=== PATIENT | male | born 1940 | race Caucasian/White ===

== ENCOUNTER 2020-02-02 20:30 | Inpatient (IN) ==
--- NOTE | 2020-02-02 20:58 | Internal Med History&Physical ---
HPI History of Present Illness Patient information: Note initiated : 02/02/20 at 8:47 pm Service Date, if different from initiated Date: [] Patient: Austin Canseco 79 y/o M admitted on for Fall. Chief Complaint: [] History of present illness: Mr. Canseco is a 79 year old M Who suffered from a ground-level fall while ambulating in his RV falling onto his right hip sustaining fracture. Patient was in his normal state of health when he got up to adjust his air conditioning when his right knee gave out. He is a cane and does not get around too well anyway. he was evaluated [place] and found to have a distal femur fracture on the right. Case was discussed with Dr. Ghosh. Patient was also found to have painless jaundice and additionally because of the fall he did have a CT of chest abdomen pelvis which revealed no ductal dilation or cholecystitis, he had gallstones but otherwise unremarkable and no etiology evident for the jaundice. A little bit of nausea prior to arrival but no vomiting. He does have elevation of alk phos as well as AST and ALT. His lactate was little elevated 2.9 and it was felt that he was volume depleted upon evaluation. He is on Eliquis for chronic A. fib. He was also mildly hyponatremic at 130. Only recent medication change was warfarin to Eliquis by PCP 3-6 months ago Review of Systems: Pertinent positives as above. Denies headache/fever/chills/vomiting/chest or abdominal pain/cough/dyspnea/diarrhea. Remaining 10 point review of system reviewed negative PFSH PFSH Social History (Updated 02/02/20 @ 22:53 by Anthony Price DO) additional history: Past medical history: Diabetes Atrial fibrillation CAD with stent Hyperlipidemia/hypertension Chronic low back pain GERD Anxiety insomnia Hyponatremia on a past admission Past surgical history: 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 Bowel resection for diverticulosis Hernia repair Family history: Father with liver disease and liver cancer and alcoholism Mother with a blood disease/bleeding disorder/peptic ulcer disease Social history: Patient quit smoking 50 years ago Denies alcohol use Ambulates with a cane Lives in RV with his , states they move around quite a bit MEDS/ALLERGIES Home Medications and Allergies Allergies Allergy/AdvReac Type Severity Reaction Status Date / Time No Known Drug Allergies Allergy Unverified 02/02/20 21:33 EXAM Constitutional Exam: General: Alert, Awake, No acute Distress Eyes/N/T: EOMI, PERRL, dry MM, scleral icterus Head/Neck: neck supple, normocephalic atraumatic CV: irreg irreg, No murmurs, normal s1/s2 Pulm: Clear b/l, no wheezing/rhonchi/rales Abd: soft, nontender, nondistended +BS x4 Ext: no clubbing/cyanosis/edema, RLE shortened with dressings inplace Neuro: Alert, no focal deficits, moves all extremities, CN 2-12 grossly intact, sensations intact b/l upper/lower Skin: warm/dry A/P Narrative A/P Narrative: A: *Right femur fracture: 2/2 GLF *Volume depletion with mild lactic acidosis: *Painless jaundice with mild transaminitis and ALP: -CT a/p gallstones but no cholecystitis or ductal dilation or any other findings to explain jaundice *Hypovolemic hyponatremia. ?chronic component: *Atrial fibrillation: On Eliquis and amiodarone *CAD w/stent: On statin/?beta-alejandra/ACEI *HTN/HLD: *GERD: *Anxiety: *Chronic LBP: on baclofen P: -Dr. Roman for Ortho -IVF's -MRCP -Hepatitis panel, Direct and indirect bili and GGT -cont cardiac meds -clarify home meds and update -SSI -cont -PT/OT -ppx: Postop per Ortho/home ppi full code Time Spent With Patient Time: Total time spent is greater than 50% in coordination of care (as documented) at patient's floor/unit and/or counseling patient:
[2020-02-02] MEDS ORDERED: POTASSIUM CHLORIDE 20 MEQ TABLET PO PRN ×2 (21:01)
[2020-02-02] MEDS ORDERED: MAGNESIUM SULFATE 2 GM/50 ML BAG IV PRN (21:01)
[2020-02-02] MEDS ORDERED: POLYETHYLENE GLYCOL 3350 17 GM PACKET PO PRN (21:01)
[2020-02-02] MEDS ORDERED: SENNOSIDES 1 TABLET PO PRN (21:01)
[2020-02-02] MEDS ORDERED: ONDANSETRON 4 MG/2 ML VIAL IV PRN (21:01)
[2020-02-02] MEDS ORDERED: POTASSIUM CHLORIDE 40 MEQ in DEXTROSE 5% IN WATER 500 ML IV PRN (21:01)
[2020-02-02] MEDS ORDERED: ACETAMINOPHEN 325 MG TABLET PO PRN (21:01)
[2020-02-02] MEDS ORDERED: METOCLOPRAMIDE 10 MG/2 ML VIAL IV PRN (21:01)
[2020-02-02] MEDS ORDERED: IPRATROPIUM/ALBUTEROL 3 ML AMPUL.NEB NEB PRN (21:01)
[2020-02-02] MEDS ORDERED: METOPROLOL TARTRATE 5 MG/5 ML VIAL IV PRN (21:06)
[2020-02-02] MEDS: 0.9 % SODIUM CHLORIDE 10 ML SYRINGE IV SCH (22:50)
[2020-02-02] MEDS: 0.9 % SODIUM CHLORIDE 1,000 ML IV SCH (22:55)
[2020-02-03 01:56] LABS: Appearance,Urine HAZY; Bacteria,Urine 0 /hpf (0); Bilirubin,Urine NEG (NEG); Color,Urine AMBER; Culture Indicated,Urine NO; Glucose,Urine (UA) >=500 mg/dL (NEG); Ketones,Urine 80 mg/dL (NEG); Leukocyte Esterase,Urine NEG /uL (NEG); Mucus,Urine FEW /hpf (0); Nitrate,Urine NEG (NEG); Protein,Urine 100 mg/dL (NEG); Specific Gravity,Urine 1.047 (1.000-1.035); Urine Blood 0.03 mg/dL (<0.03); Urine RBC 2 /hpf (0-1); Urine Squamous Epithelial Cell 0 /hpf (0-4); Urine WBC 2 /hpf (0-4)
[2020-02-03 02:20] LABS: Amphetamine Screen,Urine NONE DETECTED (NONDETECTED); Barbiturate Screen,Urine NONE DETECTED (NONDETECTED); Benzodiazepines Screen,Urine NONE DETECTED (NONDETECTED); Cannabinoid Screen,Urine NONE DETECTED (NONDETECTED); Cocaine Screen,Urine NONE DETECTED (NONDETECTED); Opiate Screen,Urine NONE DETECTED (NONDETECTED); Oxycodone, Urine Screen NONE DETECTED (NONDETECTED); Phencyclidine Screen,Urine NONE DETECTED (NONDETECTED)
[2020-02-03] MEDS: 0.9 % SODIUM CHLORIDE 10 ML SYRINGE IV SCH ×3 (04:03→20:31)
--- NOTE | 2020-02-03 07:11 | Internal Med Progress Note ---
SUBJECTIVE Subjective Patient information: Note initiated : 02/03/20 at 7:07 am Service Date, if different from initiated Date: [] Patient: Austin Canseco 79 y/o M admitted on 02/02/20 for Fall. Chief Complaint: [] Interval history: History of present illness: Mr. Canseco is a 79 year old M Who suffered from a ground-level fall while ambulating in his RV falling onto his right hip sustaining fracture. Patient was in his normal state of health wh en he got up to adjust his air conditioning when his right knee gave out. He is a cane and does not get around too well anyway. he was evaluated [place] and found to have a distal femur fracture on the right. Case was discussed with Dr. Ghosh. Patient was also found to have painless jaundice and additionally because of the fall he did have a CT of chest abdomen pelvis which revealed no ductal dilation or cholecystitis, he had gallstones but otherwise unremarkable and no etiology evident for the jaundice. A little bit of nausea prior to arrival but no vomiting. He does have elevation of alk phos as well as AST and ALT. His lactate was little elevated 2.9 and it was felt that he was volume depleted upon evaluation. He is on Eliquis for chronic A. fib. He was also mildly hyponatremic at 130. Only recent medication change was warfarin to Eliquis by PCP 3-6 months ago 02/02 Poor sleep but otherwise no new complaints. N.p.o. for possible surgery. Review of Systems: denies headache/fever/chills/nausea/vomiting/chest or abdominal pain/cough/dyspnea/diarrhea. Otherwise see above. Constitutional Vitals: Vital Signs Temp Pulse Resp BP Pulse Ox 98.4 F 84 22 134/72 95 02/03/20 03:53 02/03/20 03:53 02/03/20 03:53 02/03/20 03:53 02/03/20 03:53 Period Temp Pulse Resp BP Sys/Ignacio Pulse Ox Last 24 Hr 97.9 F-98.4 F 84-96 22-26 134-150/72-93 95-98 Intake and Output 02/02/20 02/03/20 02/03/20 21:59 05:59 13:59 Intake Total 400 Output Total 550 Balance -150 Weight 131.406 kg Intake & Output: Intake & Output 02/02/20 02/03/20 02/03/20 21:59 05:59 13:59 Intake Total 400 Output Total 550 Balance -150 Weight 131.406 kg Intake: Oral 400 Output: Urine Catheter Amount 550 Other: Urine Appearance Clear Uretheral (Reese) Clear Urine Color Dark Yellow Uretheral (Reese) Light Veronica Urine Odor Strong Uretheral (Reese) Strong Exam: Exam: General: Alert, Awake, No acute Distress Eyes/N/T: EOMI, scleral icterus Head/Neck: neck supple, CV: Reg, No murmurs, Pulm: Clear b/l, no wheezing/rhonchi/rales Abd: soft, nontender, nondistended +BS x4 Ext: no clubbing/cyanosis/edema, RLE shortened with dressings inplace Neuro: Alert, no focal deficits, moves all extremities, Skin: warm/dry OBJ DATA Labs CBC & Chem 7: 02/03/20 05:20 02/03/20 05:25 Labs: Abnormal Lab Results 02/03/20 00:50 Ur Specific [place] 1.047 H Urine Protein 100 A Urine Glucose (UA) >=500 A Urine Ketones 80 A Urine Occult Blood 0.03 A Urine Urobilinogen 2.0 A Urine RBC 2 H Meds: Medications Acetaminophen (Tylenol) 650 mg PO Q6HP PRN PRN Reason: PAIN/FEVER > 101 Hydrocodone Bitart/Acetaminophen ([place] 5/325mg) 1 tab PO Q4HP PRN PRN Reason: PAIN LEVEL 3-6 Albuterol/Ipratropium (Duoneb) 3 ml NEB Q4HP PRN PRN Reason: Shortness Of Breath Docusate Sodium (Colace) 100 mg PO BID [facility] Potassium Chloride 40 meq/ (Dextrose) 520 mls @ 130 mls/hr IV UD PRN PRN Reason: Potassium < 3 Magnesium Sulfate (Magnesium Sulfate) 2 gm in 50 mls @ 50 mls/hr IV UD PRN PRN Reason: Magnesium </= 1.6 Sodium Chloride (Sodium Chloride 0.9%) 1,000 mls @ 75 mls/hr IV .[id number] [facility] Stop: 02/03/20 23:54 Last Admin: 02/02/20 22:55 Dose: 75 mls/hr Documented by: Insulin Human Lispro (Humalog) 0 unit SQ ACHS [facility]; Protocol Metoclopramide HCl (Reglan) 10 mg IV Q6HP PRN PRN Reason: Nausea And Vomiting Metoprolol Tartrate (Lopressor) 5 mg IV Q2HP PRN PRN Reason: Tachyarrhythmias HR>110 Morphine Sulfate (Morphine) 0 mg IV Q3HP PRN PRN Reason: Pain Last Admin: 02/02/20 22:59 Dose: 3 mg Documented by: Ondansetron HCl (Zofran) 4 mg IV Q4HP PRN PRN Reason: Nausea And Vomiting Pantoprazole Sodium (Protonix) 40 mg IV QAMAC [facility] Polyethylene Glycol (Miralax) 17 gm PO DAILYP PRN PRN Reason: Constipation Potassium Chloride (Kdur) 40 meq PO UD PRN PRN Reason: Potssium is 3-3.5 Potassium Chloride (Kdur) 40 meq PO UD PRN PRN Reason: Potassium < 3 Senna (Senokot) 2 tab PO DAILYP PRN PRN Reason: Constipation Sodium Chloride (Saline Flush) 10 ml IV Q8 [facility] Last Admin: 02/03/20 04:03 Dose: Not Given Documented by: A/P Narrative A/P Narrative: A: *Right femur fracture: 2/2 GLF *Volume depletion with mild lactic acidosis: *Painless jaundice with mild transaminitis and ALP: -CT a/p gallstones but no cholecystitis or ductal dilation or any other findings to explain jaundice -bili from 5.7>4.0 mostly direct; transaminitis mildly improved *Hypovolemic hyponatremia. ?chronic component: *Parox. Atrial fibrillation: On Eliquis and amiodarone *CAD w/stent: On statin/beta-alejandra/ACEI *HTN/HLD: on norvasc/lisinopril/lopressor *GERD: *Anxiety: *Chronic LBP: on baclofen *DM: A1c 8.7 P: -Dr. oRman for Ortho -IVF's -MRCP -cont cardiac meds -cont norvasc/BB -statin held for transaminitis -SSI -cont -PT/OT -ppx: Postop per Ortho(eliquis held for surgery)/home ppi full code Time Spent With Patient Time: Total time spent is greater than 50% in coordination of care (as documented) at patient's floor/unit and/or counseling patient: QUALITY Stroke Symptom Onset Unknown: No VTE Deep Vein Thrombosis/Pulmonary Embolism Present on Admission: No
[2020-02-03] MEDS ORDERED: INSULIN ASP PRT INSULIN ASPART SCH (07:15)
[2020-02-03 07:21] LABS: Basophils # (Auto) 0.03 K/mcL (0.00-0.30); Basophils % (Auto) 0.3 % (0.0-2.0); Eosinophils # (Auto) 0.01 K/mcL (0.00-0.70); Eosinophils % (Auto) 0.1 % (0.0-7.0); Hematocrit 33.7 % (40.1-51.0); Hemoglobin 11.2 g/dL (13.7-17.5); Lymphocytes # (Auto) 1.56 K/mcL (1.50-4.80); Lymphocytes % (Auto) 14.8 % (15.5-49.0); Mean Cell Volume 91.1 fL (80.0-100.0); Mean Corpuscular HGB Conc 33.2 g/dL (31.0-36.0); Mean Platelet Volume 10.7 fL (7.4-10.4); Monocytes # (Auto) 1.03 K/mcL (0.10-0.90); Monocytes % (Auto) 9.8 % (1.0-12.0); Platelet Count 220 K/mcL (140-440); Red Cell Distribution Width 14.6 % (11.5-14.5); WBC 10.5 K/mcL (4.50-11.00)
[2020-02-03] MEDS: PANTOPRAZOLE 40 MG VIAL IV SCH (07:24)
[2020-02-03 07:41] LABS: ALT/SGPT 167 U/l (0-40); AST/SGOT 61 U/l (0-37); Albumin 3.3 gm/dL (3.2-5.2); Albumin/Globulin Ratio 1.2 (1.0-2.3); Alkaline Phosphatase 385 U/L (39-117); Bilirubin,Direct 3.2 mg/dL (0.0-0.3); Blood Urea Nitrogen 4 mg/dl (8-23); Calcium 8.4 mg/dl (8.6-10.4); Carbon Dioxide 22 mmol/L (22-30); Chloride 96 mmol/L (96-108); Globulin 2.7 gm/dL (2.2-3.7); Glomerular Filtration Rate 96; Glucose 214 mg/dL (70-105); Lactate Dehydrogenase 162 U/L (94-250); Phosphorous 2.7 mg/dL (2.7-4.5); Triglycerides 70 mg/dl (<150); Uric Acid 2.5 mg/dL (2.5-8.0)
[2020-02-03 07:47] LABS: Hemoglobin A1C 8.7 % HGB (4.0-6.0)
[2020-02-03 07:55] LABS: INR 1.3 (0.9-1.1); Prothrombin Time 16.3 sec (11.9-14.5)
[2020-02-03] MEDS: INSULIN LISPRO 1 UNIT/0.01 ML UNIT SQ SCH ×4 (08:17→20:44)
[2020-02-03] MEDS: amLODIPine 10 MG TABLET PO SCH (09:04)
[2020-02-03] MEDS: ATENOLOL 25 MG TABLET PO SCH (09:04)
[2020-02-03] MEDS: BACLOFEN 10 MG TABLET PO SCH ×2 (09:04→20:35)
[2020-02-03] MEDS: DOCUSATE SODIUM 100 MG CAPSULE PO SCH ×2 (09:07→20:36)
--- NOTE | 2020-02-03 10:05 | XRay Report ---
CLINICAL INFORMATION: FRACTURE, PREOP ASSESSMENT COMPARISON: None. FINDINGS: A severely comminuted, oblique fracture through the distal one third of the femoral diaphysis with extension just proximal to the femoral component of the total knee prosthesis appreciated. The proximal fragment is displaced 3 cm anteriorly but no angulation deformity. Right total hip prostheses and right total knee prostheses remain anatomically aligned without loosening or infection. There is moderate heterotopic ossification in the superior right hip capsule. Diffuse soft tissue swelling noted. IMPRESSION: Moderately comminuted fracture of the distal femoral diaphysis and metadiaphysis with mild displacement. Interpreted and Authenticated by: Arnold Pedraza 02/03/20
[2020-02-03] MEDS: 0.9 % SODIUM CHLORIDE 1,000 ML IV SCH (12:24)
[2020-02-03 14:25] LABS: Hepatitis B Surface Antigen NEGATIVE (NEGATIVE); Hepatitis C Virus Antibody NON REACTIVE (NEGATIVE)
[2020-02-03] MEDS ORDERED: SUCCINYLCHOLINE 20 MG/ML ML IV ONE (16:13)
[2020-02-03] MEDS ORDERED: LIDOCAINE HCL/PF 100 MG/5 ML SYRINGE IV ONE (16:13)
[2020-02-03] MEDS ORDERED: HYDROmorphone 1 MG/ML SYRINGE IV ONE (16:13)
[2020-02-03] MEDS ORDERED: PHENYLEPHRINE 10 MG/ML VIAL IV ONE (16:13)
[2020-02-03] MEDS ORDERED: KETAMINE 100 MG/ML ML IV ONE (16:13)
[2020-02-03] MEDS ORDERED: ONDANSETRON 4 MG/2 ML VIAL IV ONE (16:13)
[2020-02-03] MEDS ORDERED: GLYCOPYRROLATE 0.2 MG/ML VIAL IV ONE (16:13)
[2020-02-03] MEDS ORDERED: TRANEXAMIC ACID 1,000 MG/10 ML VIAL IV ONE ×2 (16:13→19:03)
[2020-02-03] MEDS ORDERED: ROCURONIUM 10 MG/ML ML IV ONE (16:13)
[2020-02-03] MEDS ORDERED: fentaNYL 250 MCG/5 ML VIAL IV ONE (16:13)
[2020-02-03] MEDS ORDERED: PROPOFOL 200 MG/20 ML VIAL IV ONE (16:13)
[2020-02-03] MEDS ORDERED: DEXAMETHASONE 10 MG/ML VIAL IV ONE (16:13)
[2020-02-03] MEDS ORDERED: TRIAMCINOLONE ACETONIDE 40 MG/ML VIAL INTRAARTIC SCH (16:14)
[2020-02-03] MEDS ORDERED: ACETAMINOPHEN 1,000 MG/100 ML BOTTLE IV ONE (17:49)
[2020-02-03] MEDS ORDERED: METOPROLOL TARTRATE 5 MG/5 ML VIAL IV PRN (17:49)
[2020-02-03] MEDS ORDERED: LABETALOL 5 MG/ML ML IV PRN (17:49)
[2020-02-03] MEDS ORDERED: BENZOCAINE/MENTHOL 1 LOZENGE PO PRN (17:49)
[2020-02-03] MEDS ORDERED: LACTATED RINGERS 250 ML IV PRN (17:49)
[2020-02-03] MEDS ORDERED: IPRATROPIUM/ALBUTEROL 3 ML AMPUL.NEB NEB PRN (17:49)
[2020-02-03] MEDS ORDERED: FLUMAZENIL 0.1 MG/ML ML IV PRN (17:49)
[2020-02-03] MEDS ORDERED: NALOXONE HCL 0.4 MG/ML VIAL IV PRN (17:49)
[2020-02-03] MEDS ORDERED: METHOCARBAMOL 1,000 MG/10 ML VIAL IV PRN (17:49)
[2020-02-03] MEDS ORDERED: LACTATED RINGERS 1,000 ML IV SCH (18:00)
[2020-02-03] MEDS ORDERED: LIDOCAINE 1% 20 ML VIAL SQ ONE (18:28)
[2020-02-03] MEDS ORDERED: TRIAMCINOLONE ACETONIDE 40 MG/ML VIAL INTRAARTIC ONE (18:28)
--- NOTE | 2020-02-03 18:54 | Brief Operative Note ---
Brief Operative Note Date of procedure: 02/03/20 Pre-op diagnosis: Right closed comminuted periprosthetic supracondylar femur f racture Post-op diagnosis: same Procedure: Open treatment with intramedullary rodding of Left closed supracondylar distal femur periprosthetic fracture Grafts/Implants: Yes (Margot supracondylar nail 14 x 300) Anesthesia: GETA Findings: severe comminution Complications: none Surgeon: Oswaldo Ghosh Commercial Stripper: Clyde Hilario Estimated blood loss (cc): 250 Condition: stable Disposition: PACU
[2020-02-03] MEDS ORDERED: ceFAZolin 2 GM in DEXTROSE 5% IN WATER 50 ML IV SCH (19:15)
--- NOTE | 2020-02-03 19:20 | XRay Report ---
CLINICAL INFORMATION: Right femoral [place] COMPARISON: None. FINDINGS: Digital images from the OR show comminuted oblique fracture of the distal femoral diaphysis was reduced anatomic alignment and transfixed by IM taylor. IMPRESSION: ORIF distal femoral diaphyseal fracture now anatomically aligned and transfixed by IM taylor with interlocking screws Interpreted and Authenticated by: Arnold Pedraza 02/03/20
[2020-02-03] MEDS: traZODone HCL 100 MG TABLET PO SCH (20:44)
[2020-02-03] MEDS: HYDROcodone/APAP 5/325MG TABLET PO PRN (20:54)
[2020-02-03] MEDS: ceFAZolin 1 GM VIAL IV SCH (20:58)
[2020-02-04] MEDS: HYDROcodone/APAP 5/325MG TABLET PO PRN ×4 (02:10→20:18)
[2020-02-04] MEDS: ceFAZolin 1 GM VIAL IV SCH (04:51)
[2020-02-04] MEDS: 0.9 % SODIUM CHLORIDE 10 ML SYRINGE IV SCH ×4 (04:51→22:15)
--- NOTE | 2020-02-04 07:25 | Internal Med Progress Note ---
SUBJECTIVE Subjective Patient information: Note initiated : 02/04/20 at 7:20 am Service Date, if different from initiated Date: [] Patient: Austin Canseco 79 y/o M admitted on 02/02/20 for Fall. Chief Complaint: [] Interval history: Mr. Canseco is a 79 year old M Who suffered from a ground-level fall while ambulating in his RV falling onto his right hip sustaining fracture. Patient was in his normal state of health when he got up to adjust his air conditioning when his right knee gave out. He is a cane and does not get around too well anyway. he was evaluated [place] and found to have a distal femur fracture on the right. Case was discussed with Dr. Ghosh. Patient was also found to have painless jaundice and additionally because of the fall he did have a CT of chest abdomen pelvis which revealed no ductal dilation or cholecystitis, he had gallstones but otherwise unremarkable and no etiology evident for the jaundice. A little bit of nausea prior to arrival but no vomiting. He does have elevation of alk phos as well as AST and ALT. His lactate was little elevated 2.9 and it was felt that he was volume depleted upon evaluation. He is on Eliquis for chronic A. fib. He was also mildly hyponatremic at 130. Only recent medication change was warfarin to Eliquis by PCP 3-6 months ago 02/02 Poor sleep but otherwise no new complaints. N.p.o. for possible surgery. 02/03 States interruptions at night. Sitting up in bed eating breakfast. No overnight events or new complaints. Blood sugar elevated. Clarify home diabet ic regimen. Review of Systems: denies headache/fever/chills/nausea/vomiting/chest or abdominal pa in/cough/dyspnea/diarrhea. Otherwise see above. Constitutional Vitals: Vital Signs Temp Pulse Resp BP Pulse Ox 97.8 F 81 16 139/76 93 02/04/20 02:46 02/04/20 02:46 02/04/20 02:46 02/04/20 02:46 02/04/20 02:46 Period Temp Pulse Resp BP Sys/Ignacio Pulse Ox Last 24 Hr 97.8 F-99.2 F 68-86 10-20 108-152/58-131 93-100 Intake and Output 02/03/20 02/04/20 02/04/20 21:59 05:59 13:59 Intake Total 2420 500 Output Total 600 975 Balance 1820 -475 Weight 135.216 kg Intake & Output: Intake & Output 02/03/20 02/04/20 02/04/20 21:59 05:59 13:59 Intake Total 2420 500 Output Total 600 975 Balance 1820 -475 Weight 135.216 kg Intake: IV 720 Sodium Chloride 0.9% 1,000 ml @ 620 75 mls/hr IV .[id number] [facility] Rx#: [id number] Oral 500 IV - Manual Only 1700 Output: Urine Catheter Amount 300 975 Estimated Blood Loss 300 Other: Meal Egg salad sandwich Percent of Meal Consumed 50% Feeding Ability Independent Urine Appearance Clear Clear Uretheral (Reese) Clear Urine Color Light Veronica Light Veronica Uretheral (Reese) Light Veronica Urine Odor Uretheral (Reese) Normal Exam: General: Alert, Awake, No acute Distress Eyes/N/T: EOMI, scleral icterus Head/Neck: neck supple, CV: Reg, No murmurs, Pulm: Clear b/l, no wheezing/rhonchi/rales Abd: soft, nontender, nondistended +BS x4 Ext: no clubbing/cyanosis/edema, dressings inplace Neuro: Alert, no focal deficits, moves all extremities, Skin: warm/dry OBJ DATA Labs CBC & Chem 7: 02/04/20 05:30 02/04/20 05:30 Labs: Abnormal Lab Results 02/03/20 02/03/20 02/03/20 05:25 05:20 05:20 RBC 3.70 L Hgb 11.2 L Hct 33.7 L RDW 14.6 H MPV 10.7 H Lymph % (Auto) 14.8 L [place] # (Auto) 1.03 H PT INR Sodium 131 L BUN 4 L Creatinine 0.6 L Glucose 214 H Hemoglobin A1c 8.7 H Calcium 8.4 L Total Bilirubin 4.0 H Direct Bilirubin 3.2 H GGT 540 H AST 61 H ALT 167 H Alkaline Phosphatase 385 H Ur Specific [place] Urine Protein Urine Glucose (UA) Urine Ketones Urine Occult Blood Urine Urobilinogen Urine RBC 02/03/20 02/03/20 05:20 00:50 RBC Hgb Hct RDW MPV Lymph % (Auto) [place] # (Auto) PT 16.3 H INR 1.3 H Sodium BUN Creatinine Glucose Hemoglobin A1c Calcium Total Bilirubin Direct Bilirubin GGT AST ALT Alkaline Phosphatase Ur Specific [place] 1.047 H Urine Protein 100 A Urine Glucose (UA) >=500 A Urine Ketones 80 A Urine Occult Blood 0.03 A Urine Urobilinogen 2.0 A Urine RBC 2 H Meds: Medications Acetaminophen (Tylenol) 650 mg PO Q6HP PRN PRN Reason: PAIN/FEVER > 101 Hydrocodone Bitart/Acetaminophen ([place] 5/325mg) 1 tab PO Q4HP PRN PRN Reason: PAIN LEVEL 3-6 Last Admin: 02/04/20 02:10 Dose: 1 tab Documented by: Albuterol/Ipratropium (Duoneb) 3 ml NEB Q4HP PRN PRN Reason: Shortness Of Breath Amlodipine Besylate (Norvasc) 10 mg PO DAILY [facility] Last Admin: 02/03/20 09:04 Dose: 10 mg Documented by: Atenolol (Tenormin) 25 mg PO DAILY [facility] Last Admin: 02/03/20 09:04 Dose: 25 mg Documented by: Baclofen (Lioresal) 5 mg PO BID [facility] Last Admin: 02/03/20 20:35 Dose: 5 mg Documented by: Diagnostic Test (Pha) (Accu-Chek) 1 each FS ACHS [facility] Last Admin: 02/03/20 20:30 Dose: 1 each Documented by: Docusate Sodium (Colace) 100 mg PO BID [facility] Last Admin: 02/03/20 20:36 Dose: 100 mg Documented by: Potassium Chloride 40 meq/ (Dextrose) 520 mls @ 130 mls/hr IV UD PRN PRN Reason: Potassium < 3 Magnesium Sulfate (Magnesium Sulfate) 2 gm in 50 mls @ 50 mls/hr IV UD PRN PRN Reason: Magnesium </= 1.6 Insulin Human Lispro (Humalog) 0 unit SQ ACHS [facility]; Protocol Last Admin: 02/03/20 20:44 Dose: 8 units Documented by: Metoclopramide HCl (Reglan) 10 mg IV Q6HP PRN PRN Reason: Nausea And Vomiting Metoprolol Tartrate (Lopressor) 5 mg IV Q2HP PRN PRN Reason: Tachyarrhythmias HR>110 Morphine Sulfate (Morphine) 0 mg IV Q3HP PRN PRN Reason: Pain Last Admin: 02/04/20 06:53 Dose: 3 mg Documented by: Ondansetron HCl (Zofran) 4 mg IV Q4HP PRN PRN Reason: Nausea And Vomiting Pantoprazole Sodium (Protonix) 40 mg IV QAMAC [facility] Last Admin: 02/03/20 07:24 Dose: 40 mg Documented by: Polyethylene Glycol (Miralax) 17 gm PO DAILYP PRN PRN Reason: Constipation Potassium Chloride (Kdur) 40 meq PO UD PRN PRN Reason: Potssium is 3-3.5 Potassium Chloride (Kdur) 40 meq PO UD PRN PRN Reason: Potassium < 3 Senna (Senokot) 2 tab PO DAILYP PRN PRN Reason: Constipation Sodium Chloride (Saline Flush) 10 ml IV Q8 [facility] Last Admin: 02/04/20 06:54 Dose: 10 ml Documented by: Trazodone HCl (Desyrel) 100 mg PO QHS [facility] Last Admin: 02/03/20 20:44 Dose: Not Given Documented by: A/P Narrative A/P Narrative: Narrative: A: *Right femur fracture 09/14 GLF: s/p ORIF (02/02) *Volume depletion with mild lactic acidosis: improved *Painless jaundice with mild transaminitis and ALP: -CT a/p gallstones but no cholecystitis or ductal dilation or any other findings to explain jaundice -bili/ALP/AST/AST improving *Hypovolemic hyponatremia. ?chronic component: *Parox. Atrial fibrillation: On Eliquis and amiodarone *CAD w/stent: On statin/beta-alejandra/ACEI *HTN/HLD: on norvasc/lisinopril/lopressor *GERD: *Anxiety: *Chronic LBP: on baclofen *DM: A1c 8.7 P: -Dr. Roman for Ortho -MRCP -cont cardiac meds -cont norvasc/BB -statin initially held for transaminitis -SSI -cont -PT/OT -ppx: Postop per Ortho(eliquis held for surgery)/home ppi Time Spent With Patient Time: Total time spent is greater than 50% in coordination of care (as doc umented) at patient's floor/unit and/or counseling patient: QUALITY Stroke Symptom Onset Unknown: No VTE Deep Vein Thrombosis/Pulmonary Embolism Present on Admission: No
[2020-02-04 07:33] LABS: Basophils # (Auto) 0.01 K/mcL (0.00-0.30); Basophils % (Auto) 0.1 % (0.0-2.0); Eosinophils # (Auto) 0 K/mcL (0.00-0.70); Eosinophils % (Auto) 0 % (0.0-7.0); Granulocytes % (Auto) 85.7 % (38.0-78.0); Hematocrit 32.4 % (40.1-51.0); Hemoglobin 10.7 g/dL (13.7-17.5); Lymphocytes # (Auto) 0.98 K/mcL (1.50-4.80); Lymphocytes % (Auto) 8.3 % (15.5-49.0); Mean Cell Volume 90.3 fL (80.0-100.0); Mean Platelet Volume 11.2 fL (7.4-10.4); Monocytes # (Auto) 0.69 K/mcL (0.10-0.90); Monocytes % (Auto) 5.9 % (1.0-12.0); Platelet Count 229 K/mcL (140-440); RBC 3.59 M/mcL (4.63-6.08); Red Cell Distribution Width 14.6 % (11.5-14.5); WBC 11.8 K/mcL (4.50-11.00)
[2020-02-04] MEDS: PANTOPRAZOLE 40 MG VIAL IV SCH (07:33)
[2020-02-04 07:58] LABS: ALT/SGPT 100 U/l (0-40); AST/SGOT 33 U/l (0-37); Albumin 3.2 gm/dL (3.2-5.2); Albumin/Globulin Ratio 1.1 (1.0-2.3); Alkaline Phosphatase 335 U/L (39-117); Bilirubin,Direct 1.9 mg/dL (0.0-0.3); Bilirubin,Total 2.6 mg/dL (0.0-1.0); Blood Urea Nitrogen 8 mg/dl (8-23); Calcium 9.1 mg/dl (8.6-10.4); Carbon Dioxide 21 mmol/L (22-30); Globulin 2.9 gm/dL (2.2-3.7); Glomerular Filtration Rate 90; Glucose 303 mg/dL (70-105); Lactate Dehydrogenase 203 U/L (94-250); Phosphorous 2.8 mg/dL (2.7-4.5); Triglycerides 86 mg/dl (<150); Uric Acid 3.1 mg/dL (2.5-8.0)
[2020-02-04 07:59] LABS: Chloride 94 mmol/L (96-108)
[2020-02-04] MEDS: INSULIN LISPRO 1 UNIT/0.01 ML UNIT SQ SCH ×4 (08:04→22:15)
--- NOTE | 2020-02-04 08:07 | XRay Report ---
CLINICAL INFORMATION: post op COMPARISON: Preoperative films one day prior 02/03/2020 FINDINGS: The moderately comminuted, oblique fracture through the distal one third of the femoral diaphysis has been reduced to near anatomic alignment and is now transfixed by IM taylor and distal interlocking screws. Right total hip and knee prostheses remain anatomically aligned without loosening or infection. Moderate soft tissue swelling over fracture site seen at the expected IMPRESSION: ORIF distal femoral diaphyseal fracture in near anatomic alignment Interpreted and Authenticated by: Arnold Pedraza 02/04/20
[2020-02-04 08:18] LABS: INR 1.2 (0.9-1.1); Prothrombin Time 15.8 sec (11.9-14.5)
--- NOTE | 2020-02-04 08:42 | Operative Note ---
DATE OF OPERATION: 02/02/2020 PREOPERATIVE DIAGNOSIS: Comminuted closed right periprosthetic supracondylar distal femur fracture. POSTOPERATIVE DIAGNOSIS: Comminuted closed right periprosthetic supracondylar distal femur fracture. PROCEDURE PERFORMED: Right open treatment and internal fixation with retrograde intramedullary rodding of the right periprosthetic distal femur fracture, placing a [employer] supracondylar femoral nail size 14 x 300 mm, as well as cerclage using Arthrex FiberTape. SURGEON: Oswaldo Ghosh M.D. ABRASIVE WATER JET CUTTER OPERATOR: Sudarshan Hilario PA-C. The PA's assistance was required for the safe and efficient completion of the entire case. This provider's expertise and technical skill were required throughout the case. The PA assisted with preoperative coordination, intraoperative retraction, wound closure, dressing and splint application, as well as postoperative documentation and care coordination. ANESTHESIA: General. DRAINS: None. SPECIMENS: None. COMPLICATIONS: None. BLOOD LOSS: 250 mL. POSTOPERATIVE CONDITION: Stable. 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 He had pain and inability to bear weight and was taken to the ER. X-rays showed severely comminuted, supracondylar femur fracture. FINDINGS AT SURGERY: As above. Post-fixation showed satisfactory fracture alignment and hardware placement. PROCEDURE IN DETAIL: The patient had been seen preoperatively and informed consent had been obtained after discussion of risks and benefits of surgery. Risks including, but not limited to, bleeding; infection; injury to nerves, blood vessels, and other surrounding structures; anesthetic risks; nonunion or malunion of fracture; failure of hardware fixation; possibility of infection of the total knee prosthesis requiring implant removal and prolonged IV antibiotics; possibility of needing further surgeries. He understood and wished to proceed. Correct operative site was marked and then patient was taken to the operating room and general anesthesia induced. He was carefully positioned on the OR table and then the right lower extremity was carefully prepped and draped in normal sterile fashion. Timeout was performed verifying patient name, operative site, and plan. We tried to cover skin surfaces as much as possible with Ioban and then incision was made through his prior total knee incision on the anterior knee. This was taken through skin and subcutaneous tissue. We irrigated IrriSept and then a medial arthrotomy was made, starting approximately midpole of the patella and then we extended down to the tibia. A large hemarthrosis was evacuated and then we identified the opening in the femoral component. A guide pin was placed as far anterior as could be placed and still allowing room for reamer and then we passed this into the distal femur. Fluoro was brought in and we verified our position on both AP and lateral view. We then used the opening reamer to enter the canal and then used a ball tip guidewire, and holding fracture reduction, passed this retrograde across the fracture and up to the hip prosthesis. We then checked with a ruler and we were about 315 mm in length to the hip stem, so we started reaming. His bone quality was very poor and the reamers just pushed right up the canal. It was not until we hit a 14 when we actually started getting any sort of resistance chatter. We then reamed up to a 15.5 and a 300 x 14 supracondylar nail was opened. We passed this over our ball tip guidewire and then removed the ball tip guidewire. We impacted the nail so it was just a seated below the implant under direct visualization. I then proceeded to place our four distal screws using the jig. A stab incision was made and then spread to bone and then the sleeve was used to drill. We read the length off and then chose the appropriate length screws. Once all four distal screws had been placed, I then tried to distract the fracture a little bit and get it to align better. We checked our fluoro images, and it did appear to be lined up reasonably well. There were some comminuted fragments that were displaced somewhat away from the taylor, so we went ahead and elected to proceed with a cerclage. Incision was made over the lateral thigh through the skin and subcutaneous tissue and then through the IT band and then split through the muscle down onto bone. A cable passer hook was passed around the femur from the Arthrex FiberTape set. We then used the Arthrex technique to pass a FiberTape cerclage around and then this was tensioned down to 60 foot pounds. We checked with fluoro and liked our reduction. We did a half hitch and then tensioned another 60 pounds and then did a double alternating half hitch, throws and then cut. We then went proximally and used fluoro to get perfect circles and then made a stab incision over the static hole. We then used a drill, using perfect circles technique to place a drill tip centered in the static hole and then we drilled through the nail. We verified this with the lateral view as well. We depth gauged and then placed a proximal interlock screw. Once this was placed, final fluoro images were taken, AP and lateral of the proximal, middle, and distal and saved. We irrigated copiously with IrriSept. Of note, his hip and knee range of motion was very limited, both before the procedure and after. After a minute we then pulse lavaged with saline and then #1 Vicryl stitch was used to close the parapatellar arthrotomy. We also used #1 Vicryl to close the IT band, and then 2-0 Monocryl was used for subcutaneous and yamel for skin. Xeroform and sterile dressing were applied. The patient was then awakened, extubated, and transferred to recovery in stable condition. PRIYA:shannon Job ID: [id number] Doc ID: [id number] Oswaldo Ghosh MD
[2020-02-04] MEDS: BACLOFEN 10 MG TABLET PO SCH ×2 (09:11→22:11)
[2020-02-04] MEDS: ATENOLOL 25 MG TABLET PO SCH (09:12)
[2020-02-04] MEDS: amLODIPine 10 MG TABLET PO SCH (09:12)
[2020-02-04] MEDS: DOCUSATE SODIUM 100 MG CAPSULE PO SCH ×2 (09:49→22:11)
[2020-02-04] MEDS: APIXABAN 5 MG TABLET PO SCH ×2 (11:53→22:11)
--- NOTE | 2020-02-04 14:39 | General Surgery Progress Note ---
Surgery - Auxiliary Note Subjective Patient Information: Note initiated : 02/04/20 at 2:30 pm Service Date, if different from initiated Date: [] Patient: Austin Canseco 79 y/o M admitted on 02/02/20 for Fall. Chief Complaint: No c/o regarding R LE bandages c/d/i NVI-Distal Vital Signs Temp Pulse Resp BP BP Pulse Ox 02/04/20 08:00 98.2 F 83 18 133/59 95 02/04/20 02:46 97.8 F 81 16 139/76 93 02/03/20 23:05 98.3 F 77 16 143/82 99 02/03/20 22:05 79 132/74 99 02/03/20 21:35 75 133/78 100 02/03/20 21:05 75 142/72 99 02/03/20 20:50 77 136/80 98 02/03/20 20:35 74 150/76 98 02/03/20 20:20 75 148/74 99 02/03/20 20:10 99 02/03/20 20:05 98.3 F 74 16 152/85 95 02/03/20 19:58 97.8 F 70 18 141/68 97 02/03/20 19:55 75 13 151/67 98 02/03/20 19:45 68 20 118/73 98 02/03/20 19:40 80 18 149/131 97 02/03/20 19:35 80 16 133/90 100 02/03/20 19:30 98.1 F 86 10 L 108/58 97 Intake and Output 02/04/20 02/04/20 02/04/20 05:59 13:59 21:59 Intake Total 500 800 Output Total 975 Balance -475 800 Intake: Oral 500 800 Output: Urine Catheter Amount 975 Other: Meal Egg salad sandwich Breakfast Percent of Meal Consumed 50% 50% Feeding Ability Independent Assist with Tray Set Up Urine Appearance Clear Uretheral (Reese) Clear Urine Color Light Veronica Uretheral (Reese) Light Veronica Weight 298 lb 1.6 oz Patient Weight 02/05/20 05:59 Weight 298 lb 1.6 oz Laboratory Last Values WBC 11.8 K/mcL (4.50-11.00) H 02/04/20 05:30 RBC 3.59 M/mcL (4.63-6.08) L 02/04/20 05:30 Hgb 10.7 g/dL (13.7-17.5) L 02/04/20 05:30 Hct 32.4 % (40.1-51.0) L 02/04/20 05:30 MCV 90.3 fL (80.0-100.0) 02/04/20 05:30 MCH 29.8 pg (26.0-34.0) 02/04/20 05:30 MCHC 33.0 g/dL (31.0-36.0) 02/04/20 05:30 RDW 14.6 % (11.5-14.5) H 02/04/20 05:30 Plt Count 229 K/mcL (140-440) 02/04/20 05:30 MPV 11.2 fL (7.4-10.4) H 02/04/20 05:30 Gran % 85.7 % (38.0-78.0) H 02/04/20 05:30 Lymph % (Auto) 8.3 % (15.5-49.0) L 02/04/20 05:30 [place] % (Auto) 5.9 % (1.0-12.0) 02/04/20 05:30 Eos % (Auto) 0 % (0.0-7.0) 02/04/20 05:30 Baso % (Auto) 0.1 % (0.0-2.0) 02/04/20 05:30 Gran # 10.07 K/mcL (1.80-8.00) H 02/04/20 05:30 Lymph # (Auto) 0.98 K/mcL (1.50-4.80) L 02/04/20 05:30 [place] # (Auto) 0.69 K/mcL (0.10-0.90) 02/04/20 05:30 Eos # (Auto) 0 K/mcL (0.00-0.70) 02/04/20 05:30 Baso # (Auto) 0.01 K/mcL (0.00-0.30) 02/04/20 05:30 PT 15.8 sec (11.9-14.5) H 02/04/20 05:30 INR 1.2 (0.9-1.1) H 02/04/20 05:30 Sodium 132 mmol/L (133-145) L 02/04/20 05:30 Potassium 4.0 mmol/L (3.3-5.1) 02/04/20 05:30 Chloride 94 mmol/L (96-108) L 02/04/20 05:30 Carbon Dioxide 21 mmol/L (22-30) L 02/04/20 05:30 Anion Gap 17.0 (8-16) H 02/04/20 05:30 BUN 8 mg/dl (8-23) 02/04/20 05:30 Creatinine 0.7 mg/dl (0.7-1.2) 02/04/20 05:30 GFR Calculation 90 02/04/20 05:30 Glucose 303 mg/dL (70-105) H 02/04/20 05:30 Hemoglobin A1c 8.7 % HGB (4.0-6.0) H 02/03/20 05:20 Estim Average Glucose 203 mg/dL 02/03/20 05:20 Uric Acid 3.1 mg/dL (2.5-8.0) 02/04/20 05:30 Calcium 9.1 mg/dl (8.6-10.4) 02/04/20 05:30 Phosphorus 2.8 mg/dL (2.7-4.5) 02/04/20 05:30 Magnesium 1.9 mg/dL (1.6-2.5) 02/04/20 05:30 Total Bilirubin 2.6 mg/dL (0.0-1.0) H 02/04/20 05:30 Direct Bilirubin 1.9 mg/dL (0.0-0.3) H 02/04/20 05:30 GGT 434 U/L (8-61) H 02/04/20 05:30 AST 33 U/l (0-37) 02/04/20 05:30 ALT 100 U/l (0-40) H 02/04/20 05:30 Alkaline Phosphatase 335 U/L (39-117) H 02/04/20 05:30 Lactate Dehydrogenase 203 U/L (94-250) 02/04/20 05:30 Total Protein 6.1 gm/dL (5.9-8.4) 02/04/20 05:30 Albumin 3.2 gm/dL (3.2-5.2) 02/04/20 05:30 Globulin 2.9 gm/dL (2.2-3.7) 02/04/20 05:30 Albumin/Globulin Ratio 1.1 (1.0-2.3) 02/04/20 05:30 Triglycerides 86 mg/dl (<150) 02/04/20 05:30 Urine Color Veronica 02/03/20 00:50 Urine Appearance Hazy 02/03/20 00:50 Urine pH 5.0 (5.0-9.0) 02/03/20 00:50 Ur Specific [place] 1.047 (1.000-1.035) H 02/03/20 00:50 Urine Protein 100 mg/dL (NEG) A 02/03/20 00:50 Urine Glucose (UA) >=500 mg/dL (NEG) A 02/03/20 00:50 Urine Ketones 80 mg/dL (NEG) A 02/03/20 00:50 Urine Occult Blood 0.03 mg/dL (<0.03) A 02/03/20 00:50 Urine Nitrate Neg (NEG) 02/03/20 00:50 Urine Bilirubin Neg mg/dL (NEG) 02/03/20 00:50 Urine Urobilinogen 2.0 mg/dL (NEG) A 02/03/20 00:50 Ur Leukocyte Esterase Neg /uL (NEG) 02/03/20 00:50 Urine RBC 2 /hpf (0-1) H 02/03/20 00:50 Urine WBC 2 /hpf (0-4) 02/03/20 00:50 Ur Squamous Epith Cells 0 /hpf (0-4) 02/03/20 00:50 Urine Bacteria 0 /hpf (0) 02/03/20 00:50 Urine Mucus Few /hpf (0) 02/03/20 00:50 Ur Culture Indicated? No 02/03/20 00:50 Urine Opiates Screen None detected (NONDETECTED) 02/03/20 00:45 Ur Opiates Confirm Not Reportable 02/03/20 00:45 Ur Oxycodone Screen None detected (NONDETECTED) 02/03/20 00:45 Urine Methadone Screen None detected (NONDETECTED) 02/03/20 00:45 Ur Methadone Confirm Not Reportable 02/03/20 00:45 Ur Barbiturates Screen None detected (NONDETECTED) 02/03/20 00:45 Ur Barbiturate Confirm Not Reportable 02/03/20 00:45 Ur Phencyclidine Scrn None detected (NONDETECTED) 02/03/20 00:45 Urine PCP Confirm Not Reportable 02/03/20 00:45 Ur Amphetamines Screen None detected (NONDETECTED) 02/03/20 00:45 U Amphetamines Confirm Not Reportable 02/03/20 00:45 U Benzodiazepines Scrn None detected (NONDETECTED) 02/03/20 00:45 U Benzodiazepine Confm Not Reportable 02/03/20 00:45 Urine Cocaine Screen None detected (NONDETECTED) 02/03/20 00:45 Urine Cocaine Confirm Not Reportable 02/03/20 00:45 U Cannabinoids Confirm Not Reportable 02/03/20 00:45 U Marijuana (THC) Screen None detected (NONDETECTED) 02/03/20 00:45 COVID-19 PCR Covid-19 negative (NEGATIVE) 02/03/20 01:50 Hepatitis A IgM Ab Non reactive (NEGATIVE) 02/03/20 08:15 Hep Bs Antigen Negative (NEGATIVE) 02/03/20 08:15 Hep B Core IgM Ab Non reactive (NEGATIVE) 02/03/20 08:15 Hepatitis C Antibody Non reactive (NEGATIVE) 02/03/20 08:15 HCV RNA Quant (PCR) TN 02/03/20 08:15 HCV RNA PCR log IUs/ml [place] 02/03/20 08:15 1 day s/p R distal femur kolby-prosthetic fx with IM nailing-stable Mobilize with PT discharge when ready per hospitalist.
--- NOTE | 2020-02-04 14:45 | Discharge Summary ---
Discharge Provider Provider Patient information: Note initiated : 02/04/20 at 2:41 pm Service Date, if different from initiated Date: [] Patient: Austin Canseco 79 y/o M admitted on 02/02/20 for Fall. Chief Complaint: [] Date of admission: 02/02/20 22:27 Consults: 02/02/20 21:05 Consult to Physician [CONS] Routine Comment: Consulting Provider: Oswaldo Ghosh Reason For Exam: Physician to Consult COURSE Time Spent with Patient Time attestation: Total time spent providing and/or coordinating discharge services: Discharge Instructions - TKA Patient Instructions Total Knee Protocol: For Total Knee: Start ROM BENITO with stationary bike or rocking chair. Work on gaining full extension of knee. Posterior dislocation precautions provided. Hip abductor strengthening and gait training instructions provided. Apply Cryocuff as instructed. Discharge Plan Patient/Caregiver Discharge Instructions Prescriptions: No Action atorvastatin 10 mg tablet 10 mg PO DAILY RF: 0 metformin 850 mg Tablet 850 mg PO TID RF: 0 atenolol 25 mg tablet 25 mg PO DAILY RF: 0 trazodone 100 mg tablet 100 mg PO QHS RF: 0 amlodipine 10 mg tablet 10 mg PO DAILY RF: 0 lisinopril 10 mg Tablet 10 mg PO QDAY RF: 0 hydroxyzine HCl 25 mg tablet 25 mg PO DAILY RF: 0 baclofen 5 mg Tablet 5 mg PO BID RF: 0 Eliquis tablet 5 mg PO BID RF: 0 insulin asp prt-insulin aspart [Novolog Mix 70-30FlexPen U-100] 100 unit/mL (70-30) Insulin Pen See Rx Instructions .ROUTE .COMPLEX RF: 0 Pending Pending Pending: Resuscitation Status Full Code Diet Consistent Carbohydrate Diet Start SunFeb 04 724 Hydrocodone Bitart/Acetaminophen ([place] 5/325mg) 1 - 2 tab PO Q4HP PRN PRN Reason: PAIN LEVEL 3-6 Last Admin: 02/04/20 14:21 Dose: 2 tab Documented by: Admin: 02/04/20 09:11 Dose: 2 tab Documented by: YOLANDA Amlodipine Besylate (Norvasc) 10 mg PO DAILY FABIEN Last Admin: 02/04/20 09:12 Dose: 10 mg Documented by: Admin: 02/03/20 09:04 Dose: 10 mg Documented by: LAMAR Apixaban (Eliquis) 5 mg PO BID [facility] Last Admin: 02/04/20 11:53 Dose: 5 mg Documented by: JHONY Atenolol (Tenormin) 25 mg PO DAILY [facility] Last Admin: 02/04/20 09:12 Dose: 25 mg Documented by: Admin: 02/03/20 09:04 Dose: 25 mg Documented by: LAMAR Baclofen (Lioresal) 5 mg PO BID [facility] Last Admin: 02/04/20 09:11 Dose: 5 mg Documented by: Admin: 02/03/20 20:35 Dose: 5 mg Documented by: Admin: 02/03/20 09:04 Dose: 5 mg Documented by: LAMAR Diagnostic Test (Pha) (Accu-Chek) 1 each FS [facility] Last Admin: 02/04/20 11:54 Dose: 1 each Documented by: Admin: 02/04/20 07:38 Dose: 1 each Documented by: Admin: 02/03/20 20:30 Dose: 1 each Documented by: Admin: 02/03/20 18:56 Dose: Not Given Documented by: Admin: 02/03/20 12:33 Dose: 1 each Documented by: LAMAR Docusate Sodium (Colace) 100 mg PO BID [facility] Last Admin: 02/04/20 09:49 Dose: 100 mg Documented by: Admin: 02/03/20 20:36 Dose: 100 mg Documented by: Admin: 02/03/20 09:07 Dose: Not Given Documented by: LAMAR Insulin Human Lispro (Humalog) 0 unit SQ [facility]; Protocol Last Admin: 02/04/20 11:58 Dose: 15 units Documented by: Admin: 02/04/20 08:04 Dose: 12 units Documented by: YOLANDA Morphine Sulfate (Morphine) 0 mg IV Q3HP PRN PRN Reason: Pain Last Admin: 02/04/20 06:53 Dose: 3 mg Documented by: Admin: 02/04/20 03:36 Dose: 3 mg Documented by: Admin: 02/03/20 21:52 Dose: 3 mg Documented by: Admin: 02/03/20 14:40 Dose: 3 mg Documented by: Admin: 02/03/20 07:25 Dose: 3 mg Documented by: Admin: 02/02/20 22:59 Dose: 3 mg Documented by: SIERRA Pantoprazole Sodium (Protonix) 40 mg IV QAMAC [facility] Last Admin: 02/04/20 07:33 Dose: 40 mg Documented by: Admin: 02/03/20 07:24 Dose: 40 mg Documented by: LAMAR Sodium Chloride (Saline Flush) 10 ml IV Q8 [facility] Last Admin: 02/04/20 14:20 Dose: 10 ml Documented by: Admin: 02/04/20 06:54 Dose: 10 ml Documented by: Admin: 02/04/20 04:51 Dose: 10 ml Documented by: Admin: 02/03/20 20:31 Dose: Not Given Documented by: Admin: 02/03/20 13:39 Dose: Not Given Documented by: Admin: 02/03/20 04:03 Dose: Not Given Documented by: Admin: 02/02/20 22:50 Dose: 10 ml Documented by: SIERRA Trazodone HCl (Desyrel) 100 mg PO QHS [facility] Last Admin: 02/03/20 20:44 Dose: Not Given Documented by: SIERRA Shift Summary 02/04/20 03:16 Shift Summary by Li Avery Patient is confused for brief periods of time and does admit to memory loss and deficits and is oriented to person and situation, he is hard of hearing and does not have his hearing aides here in the facility and uses glasses. VSS post operatively, RA, has a history of hypertension and PRN order for Lopressor if HR is >110 and none given this shift. The patient returned to the floor at 2009 post right femur intramedullary rodding and cerclage fiber tape post mechanical fall with injury in his motorhome 02/01 in [place]. He also had bilateral shoulder joint injections completed due to very poor ROM and pain to assist him with is rehab potential. He has an ATR system in place and as the shift progressed he began to assist with re-positioning himself with 50% of the effort with 1-2 person assist verus 3 person total ADL assist. He has a history of AFIB and his Eliquis in being held, he is a Type II diabetic and has sliding scale and received 8 units for a CBG of 255 at HS, A1C 8.7 and poorly controlled at home. His sclera remains jaundiced as well as his surface body surface area related to an unknown etiology, negative Hepatitis panels. He has neuropathy bilaterally in his feet, CMS intact, MARA wrap with Xeroform and gauze CDI to his right leg. [place] applied to maceration and shearing on bilateral buttocks/gluteal crease and inter-dry in abdominal panus/groin folds with redness improving slightly. Reese insitu draining light yoseph/orange urine, two 18 gauge SL sites (left AC previous hospital start), he is tolerating PO well and has denied nausea, medicated twice with morphine for c/o breakthrough ''8/10 back pain'' and three times with 1 [place] 5/325 mg with adequate symptom management for post op pain. Phone message left for his spouse after he returned to the floor and no return call at his time, patient is anxious over not being able to reach her and case management is following for discharge needs. Will update shift summary report at bedside. Initialized on 02/04/20 03:16 - END OF NOTE
[2020-02-04] MEDS ORDERED: METHOCARBAMOL 1,000 MG/10 ML VIAL IV PRN (20:28)
[2020-02-04] MEDS ORDERED: METHOCARBAMOL 1,000 MG/10 ML VIAL ONE (20:36)
[2020-02-04] MEDS: traZODone HCL 100 MG TABLET PO SCH (22:11)
[2020-02-05] MEDS: HYDROcodone/APAP 5/325MG TABLET PO PRN ×2 (00:38→05:37)
[2020-02-05] MEDS: METHOCARBAMOL 750 MG TABLET PO PRN ×2 (03:45→18:59)
[2020-02-05] MEDS: 0.9 % SODIUM CHLORIDE 10 ML SYRINGE IV SCH ×4 (03:48→20:16)
--- NOTE | 2020-02-05 05:18 | XRay Report ---
CLINICAL INFORMATION: Pain COMPARISON: None. FINDINGS: The lumbar spine is normal in curvature and alignment. Mild chronic wedging of the T12 vertebral body appreciated. No osseous abnormality seen in the lumbar spine. Moderate T11-T12, T12-L1 and L1-2, mild L2-3 and L3-4 moderate L4-5 and severe L5-S1 degenerative disc disease noted. Moderate L3-4 and severe L4-5 and L5-S1 degenerative facet disease also noted. SI joints show mild degeneration. Soft tissues normal IMPRESSION: Multilevel degeneration Interpreted and Authenticated by: Arnold Pedraza 02/05/20
--- NOTE | 2020-02-05 07:14 | General Surgery Progress Note ---
Surgery - Auxiliary Note Subjective Patient Information: Note initiated : 02/05/20 at 7:13 am Service Date, if different from initiated Date: [] Patient: Austin Canseco 79 y/o M admitted on 02/02/20 for Fall. Chief Complaint: no c/o. bandages mild drainage nvi-distal Vital Signs Temp Pulse Resp BP BP Pulse Ox 02/05/20 04:18 98.4 F 81 20 166/87 91 02/04/20 23:49 98.2 F 72 20 133/71 94 02/04/20 20:17 98.0 F 78 20 128/71 94 02/04/20 19:00 94 02/04/20 16:00 97.8 F 80 18 123/67 94 02/04/20 12:00 98.0 F 73 18 130/58 95 02/04/20 08:00 98.2 F 83 18 133/59 95 Intake and Output 02/04/20 02/05/20 02/05/20 21:59 05:59 13:59 Intake Total 1560 1300 Output Total 1300 1825 Balance 260 -525 Intake: Oral 1560 1300 Output: Urine Catheter Amount 1300 1825 Other: Meal Dinner Percent of Meal Consumed 50% Feeding Ability Assist with Tray Set Up Urine Appearance Clear Clear Uretheral (Reese) Clear Urine Color Light Veronica Bright Yellow Uretheral (Reese) Light Veronica Urine Odor Strong Normal Uretheral (Reese) Strong Weight 299 lb 9.6 oz Abnormal Labs 02/03/20 02/03/20 02/03/20 00:50 05:20 05:20 WBC RBC 3.70 L Hgb 11.2 L Hct 33.7 L RDW 14.6 H MPV 10.7 H Gran % Lymph % (Auto) 14.8 L Gran # Lymph # (Auto) [place] # (Auto) 1.03 H PT 16.3 H INR 1.3 H Sodium Chloride Carbon Dioxide Anion Gap BUN Creatinine Glucose Hemoglobin A1c Calcium Total Bilirubin Direct Bilirubin GGT AST ALT Alkaline Phosphatase Ur Specific [place] 1.047 H Urine Protein 100 A Urine Glucose (UA) >=500 A Urine Ketones 80 A Urine Occult Blood 0.03 A Urine Urobilinogen 2.0 A Urine RBC 2 H 02/03/20 02/03/20 02/04/20 05:20 05:25 05:30 WBC 11.8 H RBC 3.59 L Hgb 10.7 L Hct 32.4 L RDW 14.6 H MPV 11.2 H Gran % 85.7 H Lymph % (Auto) 8.3 L Gran # 10.07 H Lymph # (Auto) 0.98 L [place] # (Auto) PT INR Sodium 131 L Chloride Carbon Dioxide Anion Gap BUN 4 L Creatinine 0.6 L Glucose 214 H Hemoglobin A1c 8.7 H Calcium 8.4 L Total Bilirubin 4.0 H Direct Bilirubin 3.2 H GGT 540 H AST 61 H ALT 167 H Alkaline Phosphatase 385 H Ur Specific [place] Urine Protein Urine Glucose (UA) Urine Ketones Urine Occult Blood Urine Urobilinogen Urine RBC 02/04/20 02/04/20 05:30 05:30 WBC RBC Hgb Hct RDW MPV Gran % Lymph % (Auto) Gran # Lymph # (Auto) [place] # (Auto) PT 15.8 H INR 1.2 H Sodium 132 L Chloride 94 L Carbon Dioxide 21 L Anion Gap 17.0 H BUN Creatinine Glucose 303 H Hemoglobin A1c Calcium Total Bilirubin 2.6 H Direct Bilirubin 1.9 H GGT 434 H AST ALT 100 H Alkaline Phosphatase 335 H Ur Specific [place] Urine Protein Urine Glucose (UA) Urine Ketones Urine Occult Blood Urine Urobilinogen Urine RBC s/p R LE IM nailing for distal femur fx mobilize with PT dischrage per hospitalist. Cleared by Ortho
[2020-02-05 07:22] LABS: Basophils # (Auto) 0.01 K/mcL (0.00-0.30); Basophils % (Auto) 0.1 % (0.0-2.0); Eosinophils # (Auto) 0 K/mcL (0.00-0.70); Eosinophils % (Auto) 0 % (0.0-7.0); Granulocytes % (Auto) 81.6 % (38.0-78.0); Hematocrit 28.8 % (40.1-51.0); Hemoglobin 9.7 g/dL (13.7-17.5); Lymphocytes # (Auto) 1.53 K/mcL (1.50-4.80); Lymphocytes % (Auto) 10.8 % (15.5-49.0); Mean Cell Volume 89.7 fL (80.0-100.0); Mean Corpuscular HGB Conc 33.7 g/dL (31.0-36.0); Mean Platelet Volume 10.9 fL (7.4-10.4); Monocytes # (Auto) 1.06 K/mcL (0.10-0.90); Monocytes % (Auto) 7.5 % (1.0-12.0); Platelet Count 229 K/mcL (140-440); RBC 3.21 M/mcL (4.63-6.08); Red Cell Distribution Width 14.6 % (11.5-14.5); WBC 14.2 K/mcL (4.50-11.00)
[2020-02-05 07:42] LABS: ALT/SGPT 55 U/l (0-40); AST/SGOT 30 U/l (0-37); Alkaline Phosphatase 298 U/L (39-117); Bilirubin,Total 1.7 mg/dL (0.0-1.0); Blood Urea Nitrogen 7 mg/dl (8-23); Calcium 8.2 mg/dl (8.6-10.4); Carbon Dioxide 23 mmol/L (22-30); Chloride 97 mmol/L (96-108); Globulin 2.9 gm/dL (2.2-3.7); Glomerular Filtration Rate 96; Glucose 286 mg/dL (70-105); Lactate Dehydrogenase 216 U/L (94-250); Triglycerides 89 mg/dl (<150); Uric Acid 2.7 mg/dL (2.5-8.0)
[2020-02-05] MEDS: PANTOPRAZOLE 40 MG VIAL IV SCH (07:42)
[2020-02-05 07:46] LABS: Bilirubin,Direct 1.2 mg/dL (0.0-0.3); Phosphorous 2.3 mg/dL (2.7-4.5)
[2020-02-05] MEDS: amLODIPine 10 MG TABLET PO SCH (08:05)
[2020-02-05] MEDS: INSULIN LISPRO 1 UNIT/0.01 ML UNIT SQ SCH ×4 (08:05→20:16)
[2020-02-05] MEDS: APIXABAN 5 MG TABLET PO SCH ×2 (08:06→20:13)
[2020-02-05] MEDS: ATENOLOL 25 MG TABLET PO SCH (08:06)
[2020-02-05] MEDS: BACLOFEN 10 MG TABLET PO SCH ×2 (08:07→20:14)
[2020-02-05] MEDS: DOCUSATE SODIUM 100 MG CAPSULE PO SCH ×2 (08:07→20:13)
[2020-02-05] MEDS: traMADol 50 MG TABLET PO SCH ×3 (10:14→20:13)
--- NOTE | 2020-02-05 12:51 | Internal Med Progress Note ---
SUBJECTIVE Subjective Patient information: Note initiated : 02/05/20 at 12:48 pm Service Date, if different from initiated Date: [] Patient: Austin Canseco 79 y/o M admitted on 02/02/20 for Fall. Chief Complaint: Mr. Canseco is a 79 year old M Who suffered from a ground-level fall while ambulating in his RV falling onto his right hip sustaining fracture. Patient was in his normal state of health when he got up to adjust his air conditioning when his right knee gave out. He is a cane and does not get around too well anyway. he was evaluated [place] and found to have a distal femur fracture on the right. Case was discussed with Dr. Ghosh. Patient was also found to have painless jaundice and additionally because of the fall he did have a CT of chest abdomen pelvis which revealed no ductal dilation or cholecystitis, he had gallstones but otherwise unremarkable and no etiology evident for the jaundice. A little bit of nausea prior to arrival but no vomiting. He does have elevation of alk phos as well as AST and ALT. His lactate was little elevated 2.9 and it was felt that he was volume depleted upon evaluation. He is on Eliquis for chronic A. fib. He was also mildly hyponatremic at 130. Only recent medication change was warfarin to Eliquis by PCP 3-6 months ago 02/02 Poor sleep but otherwise no new complaints. N.p.o. for possible surgery. 02/03 States interruptions at night. Sitting up in bed eating breakfast. No overnight events or new complaints. Blood sugar elevated. Clarify home diabetic regimen. 02/04 Patient continued having difficulty with sleeping Able to have breakfast this morning His liver enzymes are improving Physical therapy working with the patient Case management exploring placement options Interval history: Narrative: Review of systems Constitutional-no fever no chills ENT-no symptoms no ear pain no discharge Respiratory-no cough no shortness of breath no oxygen recover Cardiac-no palpitation no chest pain no dizziness or syncope [id number] No diarrhea Urinary-no urinary symptoms no pain Psychiatric-no anxiety no depression Neuro-no focal neuro deficit reported, no seizure no headache Constitutional Vitals: Vital Signs Temp Pulse Resp BP Pulse Ox 97.8 F 64 20 133/71 93 02/05/20 12:02/05/20 12:02/05/20 12:02/05/20 12:00 02/05/20 12:00 Period Temp Pulse Resp BP Sys/Ignacio Pulse Ox Last 24 Hr 97.5 F-98.4 F 64-81 18-20 123-166/67-87 91-95 Intake and Output 02/04/20 02/05/20 02/05/20 21:59 05:59 13:59 Intake Total 1560 1300 Output Total 1300 1825 Balance 260 -525 Weight 299 lb 9.6 oz Intake & Output: Intake & Output 02/04/20 02/05/20 02/05/20 21:59 05:59 13:59 Intake Total 1560 1300 Output Total 1300 1825 Balance 260 -525 Weight 299 lb 9.6 oz Intake: Oral 1560 1300 Output: Urine Catheter Amount 1300 1825 Other: Meal Dinner Percent of Meal Consumed 50% Feeding Ability Assist with Tray Set Up Urine Appearance Clear Clear Uretheral (Reese) Clear Urine Color Light Veronica Bright Yellow Uretheral (Reese) Light Veronica Urine Odor Strong Normal Uretheral (Reese) Strong General appearance: no acute distress and obese Head Head exam: Present atraumatic, normal inspection and normocephalic Eye Eye exam: Absent periorbital swelling Pupils: Present normal accommodation and PERRL; Absent irregular ENT ENT exam: Present mucous membranes moist, normal external ear exam and normal oropharynx Neck Neck exam: Present full ROM and normal inspection; Absent lymphadenopathy and tenderness Respiratory Respiratory exam: Present decreased breath sounds; Absent accessory muscle use, respiratory distress and wheezes Cardiovascular Cardiovascular exam: Present irregular rhythm; Absent rubs and +S3 GI/Abdominal GI/Abdominal exam: Present diminished bowel sounds and distended; Absent hernia and mass Extremities Exam Extremities exam: Present pedal edema; Absent joint swelling, tenderness and Jimmy's sign Neurological Exam Neurological exam: Present alert, oriented X3 and reflexes normal; Absent motor sensory deficit Psychiatric Psychiatric exam: Absent agitated, anxious and depressed OBJ DATA Labs CBC & Chem 7: 02/05/20 05:40 02/05/20 05:40 Labs: Abnormal Lab Results 02/05/20 02/05/20 02/04/20 05:40 05:40 05:30 WBC 14.2 H RBC 3.21 L Hgb 9.7 L Hct 28.8 L RDW 14.6 H MPV 10.9 H Gran % 81.6 H Lymph % (Auto) 10.8 L Gran # 11.55 H Lymph # (Auto) [place] # (Auto) 1.06 H PT INR Sodium 132 L 132 L Chloride 94 L Carbon Dioxide 21 L Anion Gap 17.0 H BUN 7 L Creatinine 0.6 L Glucose 286 H 303 H Hemoglobin A1c Calcium 8.2 L Phosphorus 2.3 L Total Bilirubin 1.7 H 2.6 H Direct Bilirubin 1.2 H 1.9 H GGT 359 H 434 H AST ALT 55 H 100 H Alkaline Phosphatase 298 H 335 H Albumin 3.0 L Ur Specific [place] Urine Protein Urine Glucose (UA) Urine Ketones Urine Occult Blood Urine Urobilinogen Urine RBC 02/04/20 02/04/20 02/03/20 05:30 05:30 05:25 WBC 11.8 H RBC 3.59 L Hgb 10.7 L Hct 32.4 L RDW 14.6 H MPV 11.2 H Gran % 85.7 H Lymph % (Auto) 8.3 L Gran # 10.07 H Lymph # (Auto) 0.98 L [place] # (Auto) PT 15.8 H INR 1.2 H Sodium 131 L Chloride Carbon Dioxide Anion Gap BUN 4 L Creatinine 0.6 L Glucose 214 H Hemoglobin A1c Calcium 8.4 L Phosphorus Total Bilirubin 4.0 H Direct Bilirubin 3.2 H GGT 540 H AST 61 H ALT 167 H Alkaline Phosphatase 385 H Albumin Ur Specific [place] Urine Protein Urine Glucose (UA) Urine Ketones Urine Occult Blood Urine Urobilinogen Urine RBC 02/03/20 02/03/20 02/03/20 05:20 05:20 05:20 WBC RBC 3.70 L Hgb 11.2 L Hct 33.7 L RDW 14.6 H MPV 10.7 H Gran % Lymph % (Auto) 14.8 L Gran # Lymph # (Auto) [place] # (Auto) 1.03 H PT 16.3 H INR 1.3 H Sodium Chloride Carbon Dioxide Anion Gap BUN Creatinine Glucose Hemoglobin A1c 8.7 H Calcium Phosphorus Total Bilirubin Direct Bilirubin GGT AST ALT Alkaline Phosphatase Albumin Ur Specific [place] Urine Protein Urine Glucose (UA) Urine Ketones Urine Occult Blood Urine Urobilinogen Urine RBC 02/03/20 00:50 WBC RBC Hgb Hct RDW MPV Gran % Lymph % (Auto) Gran # Lymph # (Auto) [place] # (Auto) PT INR Sodium Chloride Carbon Dioxide Anion Gap BUN Creatinine Glucose Hemoglobin A1c Calcium Phosphorus Total Bilirubin Direct Bilirubin GGT AST ALT Alkaline Phosphatase Albumin Ur Specific [place] 1.047 H Urine Protein 100 A Urine Glucose (UA) >=500 A Urine Ketones 80 A Urine Occult Blood 0.03 A Urine Urobilinogen 2.0 A Urine RBC 2 H Meds: Medications Acetaminophen (Tylenol) 1,000 mg PO Q8H [facility] Albuterol/Ipratropium (Duoneb) 3 ml NEB Q4HP PRN PRN Reason: Shortness Of Breath Amlodipine Besylate (Norvasc) 10 mg PO DAILY [facility] Last Admin: 02/05/20 08:05 Dose: 10 mg Documented by: Apixaban (Eliquis) 5 mg PO BID [facility] Last Admin: 02/05/20 08:06 Dose: 5 mg Documented by: Atenolol (Tenormin) 25 mg PO DAILY [facility] Last Admin: 02/05/20 08:06 Dose: 25 mg Documented by: Baclofen (Lioresal) 5 mg PO BID [facility] Last Admin: 02/05/20 08:07 Dose: 5 mg Documented by: Diagnostic Test (Pha) (Accu-Chek) 1 each FS ACHS [facility] Last Admin: 02/05/20 12:12 Dose: 1 each Documented by: Docusate Sodium (Colace) 100 mg PO BID [facility] Last Admin: 02/05/20 08:07 Dose: 100 mg Documented by: Potassium Chloride 40 meq/ (Dextrose) 520 mls @ 130 mls/hr IV UD PRN PRN Reason: Potassium < 3 Magnesium Sulfate (Magnesium Sulfate) 2 gm in 50 mls @ 50 mls/hr IV UD PRN PRN Reason: Magnesium </= 1.6 Insulin Human Lispro (Humalog) 0 unit SQ ACHS [facility]; Protocol Last Admin: 02/05/20 08:05 Dose: 12 units Documented by: Methocarbamol (Robaxin) 750 mg IV Q6HP PRN PRN Reason: Muscle Spasm Last Admin: 02/04/20 20:36 Dose: 750 mg Documented by: Methocarbamol (Robaxin) 750 mg PO Q6HP PRN PRN Reason: Muscle Spasm Last Admin: 02/05/20 03:45 Dose: 750 mg Documented by: Metoclopramide HCl (Reglan) 10 mg IV Q6HP PRN PRN Reason: Nausea And Vomiting Metoprolol Tartrate (Lopressor) 5 mg IV Q2HP PRN PRN Reason: Tachyarrhythmias HR>110 Morphine Sulfate (Morphine) 0 mg IV Q3HP PRN PRN Reason: Pain Last Admin: 02/05/20 03:45 Dose: 3 mg Documented by: Ondansetron HCl (Zofran) 4 mg IV Q4HP PRN PRN Reason: Nausea And Vomiting Oxycodone HCl (Roxicodone) 5 mg PO Q4HP PRN PRN Reason: Pain Pantoprazole Sodium (Protonix) 40 mg IV QAMAC [facility] Last Admin: 02/05/20 07:42 Dose: 40 mg Documented by: Polyethylene Glycol (Miralax) 17 gm PO DAILYP PRN PRN Reason: Constipation Potassium Chloride (Kdur) 40 meq PO UD PRN PRN Reason: Potssium is 3-3.5 Potassium Chloride (Kdur) 40 meq PO UD PRN PRN Reason: Potassium < 3 Senna (Senokot) 2 tab PO DAILYP PRN PRN Reason: Constipation Sodium Chloride (Saline Flush) 10 ml IV Q8 [facility] Last Admin: 02/05/20 05:38 Dose: 10 ml Documented by: Tramadol HCl (Ultram) 50 mg PO TID [facility] Last Admin: 02/05/20 10:14 Dose: 50 mg Documented by: Trazodone HCl (Desyrel) 100 mg PO QHS [facility] Last Admin: 02/04/20 22:11 Dose: 100 mg Documented by: A/P Narrative A/P Narrative: Narrative: Right femur fracture status post ORIF-February 03, 2020 Orthopedic followed up the patient and recommended discharge when medically stable Obstructive jaundice CT scan shows gallstones but no cholecystitis or ductal dilation Probably he might have a stone transiently passed Try to obtain an MRCP but patient did not fit through the MRI Direct bilirubin improving Patient need outpatient gastroenterology follow-up Paroxysmal atrial fibrillation Continue beta-alejandra and amiodarone and Eliquis CAD status post stent Continue statin, beta-alejandra and MARA inhibitor Essential hypertension Continue home medications Type 2 diabetes Continue sliding scale insulin DVT prophylaxis-Per orthopedics, Eliquis was held for surgery Time Spent With Patient Time: Total time spent is greater than 50% in coordination of care (as documented) at patient's floor/unit and/or counseling patient: QUALITY Stroke Symptom Onset Unknown: No VTE Deep Vein Thrombosis/Pulmonary Embolism Present on Admission: No
[2020-02-05] MEDS: ACETAMINOPHEN 500 MG TABLET PO SCH ×2 (13:25→21:47)
[2020-02-05] MEDS: oxyCODONE HCL 5 MG TABLET PO PRN ×3 (13:26→23:44)
[2020-02-05] MEDS: traZODone HCL 100 MG TABLET PO SCH (20:13)
[2020-02-06] MEDS: METHOCARBAMOL 750 MG TABLET PO PRN ×2 (02:22→08:24)
[2020-02-06] MEDS: oxyCODONE HCL 5 MG TABLET PO PRN ×4 (03:52→18:33)
[2020-02-06] MEDS: ACETAMINOPHEN 500 MG TABLET PO SCH ×3 (05:49→21:53)
[2020-02-06] MEDS: PANTOPRAZOLE 40 MG VIAL IV SCH (07:28)
[2020-02-06] MEDS: 0.9 % SODIUM CHLORIDE 10 ML SYRINGE IV SCH ×3 (07:28→21:41)
[2020-02-06] MEDS: INSULIN LISPRO 1 UNIT/0.01 ML UNIT SQ SCH ×4 (07:34→21:40)
[2020-02-06 07:53] LABS: Basophils # (Auto) 0.01 K/mcL (0.00-0.30); Basophils % (Auto) 0.1 % (0.0-2.0); Eosinophils # (Auto) 0.03 K/mcL (0.00-0.70); Eosinophils % (Auto) 0.3 % (0.0-7.0); Granulocytes % (Auto) 77.2 % (38.0-78.0); Hemoglobin 9.6 g/dL (13.7-17.5); Lymphocytes # (Auto) 1.69 K/mcL (1.50-4.80); Lymphocytes % (Auto) 15.1 % (15.5-49.0); Mean Cell Volume 90.9 fL (80.0-100.0); Mean Corpuscular HGB Conc 33.1 g/dL (31.0-36.0); Mean Platelet Volume 10.9 fL (7.4-10.4); Monocytes # (Auto) 0.82 K/mcL (0.10-0.90); Monocytes % (Auto) 7.3 % (1.0-12.0); Platelet Count 267 K/mcL (140-440); RBC 3.19 M/mcL (4.63-6.08); Red Cell Distribution Width 15.1 % (11.5-14.5); WBC 11.2 K/mcL (4.50-11.00)
[2020-02-06 08:16] LABS: ALT/SGPT 50 U/l (0-40); AST/SGOT 28 U/l (0-37); Albumin 2.7 gm/dL (3.2-5.2); Albumin/Globulin Ratio 0.8 (1.0-2.3); Alkaline Phosphatase 400 U/L (39-117); Bilirubin,Total 1.6 mg/dL (0.0-1.0); Calcium 8.3 mg/dl (8.6-10.4); Carbon Dioxide 25 mmol/L (22-30); Chloride 99 mmol/L (96-108); Globulin 3.4 gm/dL (2.2-3.7); Glomerular Filtration Rate 96; Glucose 240 mg/dL (70-105)
[2020-02-06 08:17] LABS: Blood Urea Nitrogen 10 mg/dl (8-23)
[2020-02-06] MEDS: BACLOFEN 10 MG TABLET PO SCH ×2 (08:23→21:42)
[2020-02-06] MEDS: APIXABAN 5 MG TABLET PO SCH ×2 (08:23→21:42)
[2020-02-06] MEDS: DOCUSATE SODIUM 100 MG CAPSULE PO SCH ×2 (08:23→21:41)
[2020-02-06] MEDS: ATENOLOL 25 MG TABLET PO SCH (08:24)
[2020-02-06] MEDS: traMADol 50 MG TABLET PO SCH ×3 (08:25→21:42)
[2020-02-06] MEDS: amLODIPine 10 MG TABLET PO SCH (08:25)
[2020-02-06] MEDS: LIDOCAINE PATCH TOPICAL SCH (11:51)
--- NOTE | 2020-02-06 13:06 | Internal Med Progress Note ---
SUBJECTIVE Subjective Patient information: Note initiated : 02/06/20 at 1:04 pm Service Date, if different from initiated Date: [] Patient: Austin Canseco 79 y/o M admitted on 02/02/20 for Fall. Chief Complaint: Mr. Canseco is a 79 year old M Who suffered from a ground-level fall while ambulating in his RV falling onto his right hip sustaining fracture. Patient was in his normal state of health when he got up to adjust his air conditioning when his right knee gave out. He is a cane and does not get around too well anyway. he was evaluated [place] and found to have a distal femur fracture on the right. Case was discussed with Dr. Ghosh. Patient was also found to have painless jaundice and additionally because of the fall he did have a CT of chest abdomen pelvis which revealed no ductal dilation or cholecystitis, he had gallstones but otherwise unremarkable and no etiology evident for the jaundice. A little bit of nausea prior to arrival but no vomiting. He does have elevation of alk phos as well as AST and ALT. His lactate was little elevated 2.9 and it was felt that he was volume depleted upon evaluation. He is on Eliquis for chronic A. fib. He was also mildly hyponatremic at 130. Only recent medication change was warfarin to Eliquis by PCP 3-6 months ago 02/02 Poor sleep but otherwise no new complaints. N.p.o. for possible surgery. 02/03 States interruptions at night. Sitting up in bed eating breakfast. No overnight events or new complaints. Blood sugar elevated. Clarify home diabetic regimen. 02/04 Patient continued having difficulty with sleeping Able to have breakfast this morning His liver enzymes are improving Physical therapy working with the patient Case management exploring placement options 02/05 Patient continued having severe back pain Started him on lidocaine patch daily Patient is already on 2 muscle relaxants and multiple narcotics Encourage physical therapy and activities Liver enzymes are improving Review of systems Constitutional-no fever no chills ENT-no symptoms no ear pain no discharge Respiratory-no cough no shortness of breath no oxygen recover Cardiac-no palpitation no chest pain no dizziness or syncope [id number] No diarrhea Urinary-no urinary symptoms no pain Psychiatric-no anxiety no depression Neuro-no focal neuro deficit reported, no seizure no headache Interval history: Narrative: Constitutional Vitals: Vital Signs Temp Pulse Resp BP Pulse Ox 97.3 F 87 16 135/67 94 02/06/20 08:00 02/06/20 08:00 02/06/20 08:00 02/06/20 08:00 02/06/20 08:00 Period Temp Pulse Resp BP Sys/Ignacio Pulse Ox Last 24 Hr 97.3 F-98.0 F 67-87 16-20 129-147/67-72 91-96 Intake and Output 02/05/20 02/06/20 02/06/20 21:59 05:59 13:59 Intake Total 1280 550 480 Output Total 2325 1425 Balance -1045 -875 480 Weight 285 lb 8 oz Intake & Output: Intake & Output 02/05/20 02/06/20 02/06/20 21:59 05:59 13:59 Intake Total 1280 550 480 Output Total 2325 1425 Balance -1045 -875 480 Weight 285 lb 8 oz Intake: Oral 1280 550 480 Output: Urine Catheter Amount 2324 1425 Other: Meal Jello Breakfast Percent of Meal Consumed 100% 100% Feeding Ability Independent Independent Urine Appearance Clear Clear Clear Uretheral (Reese) Clear Clear Urine Color Dark Yellow Bright Yellow Straw Uretheral (Reese) Dark Yellow Straw Urine Odor Normal Uretheral (Reese) Normal Head Head exam: Present atraumatic, normal inspection and normocephalic Eye Eye exam: Present EOMI and PERRL; Absent conjunctival injection and nystagmus ENT ENT exam: Present normal exam, normal external ear exam and normal oropharynx Neck Neck exam: Present normal inspection; Absent lymphadenopathy and tenderness Respiratory Respiratory exam: Present decreased breath sounds; Absent accessory muscle use, respiratory distress, rhonchi and wheezes Cardiovascular Cardiovascular exam: Absent bradycardia, JVD, RRR, +S4 and systolic murmur GI/Abdominal GI/Abdominal exam: Present soft and distended; Absent tenderness Back Exam Back exam: Present muscle spasm; Absent CVA tenderness (L) and CVA tenderness (R) Neurological Exam Neurological exam: Present alert, oriented X3 and reflexes normal; Absent motor sensory deficit OBJ DATA Labs CBC & Chem 7: 02/06/20 05:45 02/06/20 05:45 Labs: Abnormal Lab Results 02/06/20 02/06/20 02/05/20 05:45 05:45 05:40 WBC 11.2 H RBC 3.19 L Hgb 9.6 L Hct 29.0 L RDW 15.1 H MPV 10.9 H Gran % Lymph % (Auto) 15.1 L Gran # 8.66 H Lymph # (Auto) [place] # (Auto) PT INR Sodium 132 L Chloride Carbon Dioxide Anion Gap BUN 7 L Creatinine 0.6 L 0.6 L Glucose 240 H 286 H Calcium 8.3 L 8.2 L Phosphorus 2.3 L Total Bilirubin 1.6 H 1.7 H Direct Bilirubin 1.2 H GGT 359 H ALT 50 H 55 H Alkaline Phosphatase 400 H 298 H Albumin 2.7 L 3.0 L Albumin/Globulin Ratio 0.8 L 02/05/20 02/04/20 02/04/20 05:40 05:30 05:30 WBC 14.2 H RBC 3.21 L Hgb 9.7 L Hct 28.8 L RDW 14.6 H MPV 10.9 H Gran % 81.6 H Lymph % (Auto) 10.8 L Gran # 11.55 H Lymph # (Auto) [place] # (Auto) 1.06 H PT 15.8 H INR 1.2 H Sodium 132 L Chloride 94 L Carbon Dioxide 21 L Anion Gap 17.0 H BUN Creatinine Glucose 303 H Calcium Phosphorus Total Bilirubin 2.6 H Direct Bilirubin 1.9 H GGT 434 H ALT 100 H Alkaline Phosphatase 335 H Albumin Albumin/Globulin Ratio 02/04/20 05:30 WBC 11.8 H RBC 3.59 L Hgb 10.7 L Hct 32.4 L RDW 14.6 H MPV 11.2 H Gran % 85.7 H Lymph % (Auto) 8.3 L Gran # 10.07 H Lymph # (Auto) 0.98 L [place] # (Auto) PT INR Sodium Chloride Carbon Dioxide Anion Gap BUN Creatinine Glucose Calcium Phosphorus Total Bilirubin Direct Bilirubin GGT ALT Alkaline Phosphatase Albumin Albumin/Globulin Ratio Meds: Medications Acetaminophen (Tylenol) 1,000 mg PO Q8H [facility] Last Admin: 02/06/20 05:49 Dose: 1,000 mg Documented by: Albuterol/Ipratropium (Duoneb) 3 ml NEB Q4HP PRN PRN Reason: Shortness Of Breath Amlodipine Besylate (Norvasc) 10 mg PO DAILY [facility] Last Admin: 02/06/20 08:25 Dose: 10 mg Documented by: Apixaban (Eliquis) 5 mg PO BID [facility] Last Admin: 02/06/20 08:23 Dose: 5 mg Documented by: Atenolol (Tenormin) 25 mg PO DAILY [facility] Last Admin: 02/06/20 08:24 Dose: 25 mg Documented by: Baclofen (Lioresal) 5 mg PO BID [facility] Last Admin: 02/06/20 08:23 Dose: 5 mg Documented by: Diagnostic Test (Pha) (Accu-Chek) 1 each FS ACHS [facility] Last Admin: 02/06/20 11:08 Dose: 1 each Documented by: Docusate Sodium (Colace) 100 mg PO BID [facility] Last Admin: 02/06/20 08:23 Dose: 100 mg Documented by: Potassium Chloride 40 meq/ (Dextrose) 520 mls @ 130 mls/hr IV UD PRN PRN Reason: Potassium < 3 Magnesium Sulfate (Magnesium Sulfate) 2 gm in 50 mls @ 50 mls/hr IV UD PRN PRN Reason: Magnesium </= 1.6 Insulin Human Lispro (Humalog) 0 unit SQ [facility]; Protocol Last Admin: 02/06/20 11:13 Dose: 15 units Documented by: Lidocaine (Lidoderm) 1 patch TOPICAL DAILY@1000 [facility] Last Admin: 02/06/20 11:51 Dose: 1 patch Documented by: Methocarbamol (Robaxin) 750 mg IV Q6HP PRN PRN Reason: Muscle Spasm Last Admin: 02/04/20 20:36 Dose: 750 mg Documented by: Methocarbamol (Robaxin) 750 mg PO Q6HP PRN PRN Reason: Muscle Spasm Last Admin: 02/06/20 08:24 Dose: 750 mg Documented by: Metoclopramide HCl (Reglan) 10 mg IV Q6HP PRN PRN Reason: Nausea And Vomiting Metoprolol Tartrate (Lopressor) 5 mg IV Q2HP PRN PRN Reason: Tachyarrhythmias HR>110 Morphine Sulfate (Morphine) 0 mg IV Q3HP PRN PRN Reason: Pain Last Admin: 02/06/20 10:37 Dose: 3 mg Documented by: Ondansetron HCl (Zofran) 4 mg IV Q4HP PRN PRN Reason: Nausea And Vomiting Oxycodone HCl (Roxicodone) 5 mg PO Q4HP PRN PRN Reason: Pain Last Admin: 02/06/20 08:24 Dose: 5 mg Documented by: Pantoprazole Sodium (Protonix) 40 mg IV QAMAC [facility] Last Admin: 02/06/20 07:28 Dose: 40 mg Documented by: Polyethylene Glycol (Miralax) 17 gm PO DAILYP PRN PRN Reason: Constipation Potassium Chloride (Kdur) 40 meq PO UD PRN PRN Reason: Potssium is 3-3.5 Potassium Chloride (Kdur) 40 meq PO UD PRN PRN Reason: Potassium < 3 Senna (Senokot) 2 tab PO DAILYP PRN PRN Reason: Constipation Sodium Chloride (Saline Flush) 10 ml IV Q8 [facility] Last Admin: 02/06/20 07:28 Dose: 10 ml Documented by: Tramadol HCl (Ultram) 50 mg PO TID [facility] Last Admin: 02/06/20 08:25 Dose: 50 mg Documented by: Trazodone HCl (Desyrel) 100 mg PO QHS [facility] Last Admin: 02/05/20 20:13 Dose: 100 mg Documented by: A/P Narrative A/P Narrative: Narrative: Right femur fracture status post ORIF-February 03, 2020 Orthopedic followed up the patient and recommended discharge when medically stable Pain control with a narcotics, muscle relaxants and lidocaine patch added Patient need placement and case management working on basement Obstructive jaundice CT scan shows gallstones but no cholecystitis or ductal dilation Probably he might have a stone transiently passed Try to obtain an MRCP but patient did not fit through the MRI Direct bilirubin improving Patient need outpatient gastroenterology follow-up Paroxysmal atrial fibrillation Continue beta-alejandra and amiodarone and Eliquis CAD status post stent Continue statin, beta-alejandra and MARA inhibitor Essential hypertension Continue home medications Type 2 diabetes Continue sliding scale insulin DVT prophylaxis-Per orthopedics, Eliquis was held for surgery Time Spent With Patient Time: Total time spent is greater than 50% in coordination of care (as docume nted) at patient's floor/unit and/or counseling patient: QUALITY Stroke Symptom Onset Unknown: No VTE Deep Vein Thrombosis/Pulmonary Embolism Present on Admission: No
[2020-02-06] MEDS ORDERED: DICYCLOMINE 20 MG TABLET PO PRN (13:13)
[2020-02-06] MEDS ORDERED: CALCIUM CARBONATE 500 MG TAB.CHEW CHEWED PRN (13:14)
[2020-02-06] MEDS: traZODone HCL 100 MG TABLET PO SCH (21:42)
[2020-02-06] MEDS: DOXEPIN 10 MG CAPSULE PO SCH (21:42)
[2020-02-06] MEDS ORDERED: LACTULOSE 20 GM/30 ML ORAL.SOL PO PRN (23:18)
[2020-02-07] MEDS: ACETAMINOPHEN 500 MG TABLET PO SCH ×3 (05:47→21:50)
[2020-02-07] MEDS: PANTOPRAZOLE 40 MG VIAL IV SCH (06:33)
[2020-02-07] MEDS: 0.9 % SODIUM CHLORIDE 10 ML SYRINGE IV SCH ×3 (06:36→20:32)
[2020-02-07] MEDS: INSULIN LISPRO 1 UNIT/0.01 ML UNIT SQ SCH ×4 (06:39→20:29)
[2020-02-07 06:54] LABS: Basophils # (Auto) 0.01 K/mcL (0.00-0.30); Basophils % (Auto) 0.1 % (0.0-2.0); Eosinophils # (Auto) 0.08 K/mcL (0.00-0.70); Eosinophils % (Auto) 0.8 % (0.0-7.0); Granulocytes % (Auto) 73.4 % (38.0-78.0); Hematocrit 28.9 % (40.1-51.0); Hemoglobin 9.8 g/dL (13.7-17.5); Lymphocytes # (Auto) 1.74 K/mcL (1.50-4.80); Lymphocytes % (Auto) 17.7 % (15.5-49.0); Mean Corpuscular HGB Conc 33.9 g/dL (31.0-36.0); Mean Platelet Volume 10.5 fL (7.4-10.4); Monocytes # (Auto) 0.79 K/mcL (0.10-0.90); Platelet Count 304 K/mcL (140-440); RBC 3.21 M/mcL (4.63-6.08); Red Cell Distribution Width 15.1 % (11.5-14.5); WBC 9.8 K/mcL (4.50-11.00)
[2020-02-07 07:13] LABS: ALT/SGPT 45 U/l (0-40); AST/SGOT 27 U/l (0-37); Albumin 3.1 gm/dL (3.2-5.2); Albumin/Globulin Ratio 1.1 (1.0-2.3); Alkaline Phosphatase 304 U/L (39-117); Bilirubin,Total 1.7 mg/dL (0.0-1.0); Calcium 8.6 mg/dl (8.6-10.4); Carbon Dioxide 27 mmol/L (22-30); Chloride 98 mmol/L (96-108); Globulin 2.7 gm/dL (2.2-3.7); Glomerular Filtration Rate 96; Glucose 224 mg/dL (70-105)
[2020-02-07 07:16] LABS: Blood Urea Nitrogen 7 mg/dl (8-23)
[2020-02-07] MEDS: LIDOCAINE PATCH TOPICAL SCH (09:01)
[2020-02-07] MEDS: DOCUSATE SODIUM 100 MG CAPSULE PO SCH ×2 (09:02→20:31)
[2020-02-07] MEDS: amLODIPine 10 MG TABLET PO SCH (09:02)
[2020-02-07] MEDS: APIXABAN 5 MG TABLET PO SCH ×2 (09:03→20:30)
[2020-02-07] MEDS: traMADol 50 MG TABLET PO SCH ×3 (09:03→20:30)
[2020-02-07] MEDS: ATENOLOL 25 MG TABLET PO SCH (09:03)
[2020-02-07] MEDS: BACLOFEN 10 MG TABLET PO SCH ×2 (09:03→20:30)
[2020-02-07] MEDS ORDERED: LIDOCAINE PATCH TOPICAL SCH (10:00)
--- NOTE | 2020-02-07 12:04 | Internal Med Progress Note ---
SUBJECTIVE Subjective Patient information: Note initiated : 02/07/20 at 12:02 pm Service Date, if different from initiated Date: [] Patient: Austin Canseco 79 y/o M admitted on 02/02/20 for Fall. Chief Complaint: Mr. Canseco is a 79 year old M Who suffered from a ground-level fall while ambulating in his RV falling onto his right hip sustaining fracture. Patient was in his normal state of health when he got up to adjust his air conditioning when his right knee gave out. He is a cane and does not get around too well anyway. he was evaluated [place] and found to have a distal femur fracture on the right. Case was discussed with Dr. Ghosh. Patient was also found to have painless jaundice and additionally because of the fall he did have a CT of chest abdomen pelvis which revealed no ductal dilation or cholecystitis, he had gallstones but otherwise unremarkable and no etiology evident for the jaundice. A little bit of nausea prior to arrival but no vomiting. He does have elevation of alk phos as well as AST and ALT. His lactate was little elevated 2.9 and it was felt that he was volume depleted upon evaluation. He is on Eliquis for chronic A. fib. He was also mildly hyponatremic at 130. Only recent medication change was warfarin to Eliquis by PCP 3-6 months ago 02/02 Poor sleep but otherwise no new complaints. N.p.o. for possible surgery. 02/03 States interruptions at night. Sitting up in bed eating breakfast. No overnight events or new complaints. Blood sugar elevated. Clarify home diabetic regimen. 02/04 Patient continued having difficulty with sleeping Able to have breakfast this morning His liver enzymes are improving Physical therapy working with the patient Case management exploring placement options 02/05 Patient continued having severe back pain Started him on lidocaine patch daily Patient is already on 2 muscle relaxants and multiple narcotics Encourage physical therapy and activities Liver enzymes are improving 02/06 Patient continues to having constipation no bowel movements for since admission Ordered lactulose in addition to stool softener Will consider enema His pain is better controlled Review of systems Constitutional-no fever no chills ENT-no symptoms no ear pain no discharge Respiratory-no cough no shortness of breath no oxygen recover Cardiac-no palpitation no chest pain no dizziness or syncope Tqcnmks-ndvrwmqfx-sonxisiwzwf No diarrhea Urinary-no urinary symptoms no pain Psychiatric-no anxiety no depression Neuro-no focal neuro deficit reported, no seizure no headache Interval history: Narrative: Constitutional Vitals: Vital Signs Temp Pulse Resp BP Pulse Ox 98.3 F 77 18 148/65 97 02/07/20 08:00 02/07/20 08:00 02/07/20 08:00 02/07/20 08:00 02/07/20 08:00 Period Temp Pulse Resp BP Sys/Ignacio Pulse Ox Last 24 Hr 97.4 F-98.9 F 67-80 16-20 133-155/65-84 93-97 Intake and Output 02/06/20 02/07/20 02/07/20 21:59 05:59 13:59 Intake Total 446 095 4209 Output Total 3300 2000 Balance -2560 -1100 1280 Weight 279 lb 12.8 oz Intake & Output: Intake & Output 02/06/20 02/07/20 02/07/20 21:59 05:59 13:59 Intake Total 907 067 3964 Output Total 3300 2000 Balance -2560 -1100 1280 Weight 279 lb 12.8 oz Intake: Oral 948 546 4253 Output: Urine Catheter Amount 3300 2000 Other: Meal Dinner Breakfast Percent of Meal Consumed 60% 100% Feeding Ability Independent Independent Urine Appearance Clear Clear Uretheral (Reese) Clear Clear Urine Color Dark Yellow Bright Yellow Uretheral (Reese) Dark Yellow Dark Yellow Urine Odor Normal General appearance: cooperative, no acute distress and obese Head Head exam: Present atraumatic and normal inspection Eye Eye exam: Present EOMI; Absent periorbital swelling and scleral icterus ENT ENT exam: Present normal exam and normal oropharynx Respiratory Respiratory exam: Absent accessory muscle use, respiratory distress and wheezes GI/Abdominal GI/Abdominal exam: Present distended and hypoactive bowel sounds; Absent mass, pulsatile mass and tenderness Neurological Exam Neurological exam: Present alert, oriented X3 and reflexes normal; Absent motor sensory deficit Psychiatric Psychiatric exam: Absent agitated, anxious and depressed OBJ DATA Labs CBC & Chem 7: 02/07/20 05:35 02/07/20 05:35 Labs: Abnormal Lab Results 02/07/20 02/07/20 02/06/20 05:35 05:35 05:45 WBC RBC 3.21 L Hgb 9.8 L Hct 28.9 L RDW 15.1 H MPV 10.5 H Gran % Lymph % (Auto) Gran # Bled[place] # (Auto) Sodium BUN 7 L Creatinine 0.6 L 0.6 L Glucose 224 H 240 H Calcium 8.3 L Phosphorus Total Bilirubin 1.7 H 1.6 H Direct Bilirubin GGT ALT 45 H 50 H Alkaline Phosphatase 304 H 400 H Total Protein 5.8 L Albumin 3.1 L 2.7 L Albumin/Globulin Ratio 0.8 L 02/06/20 02/05/20 02/05/20 05:45 05:40 05:40 WBC 11.2 H 14.2 H RBC 3.19 L 3.21 L Hgb 9.6 L 9.7 L Hct 29.0 L 28.8 L RDW 15.1 H 14.6 H MPV 10.9 H 10.9 H Gran % 81.6 H Lymph % (Auto) 15.1 L 10.8 L Gran # 8.66 H 11.55 H Bledsoe # (Auto) 1.06 H Sodium 132 L BUN 7 L Creatinine 0.6 L Glucose 286 H Calcium 8.2 L Phosphorus 2.3 L Total Bilirubin 1.7 H Direct Bilirubin 1.2 H GGT 359 H ALT 55 H Alkaline Phosphatase 298 H Total Protein Albumin 3.0 L Albumin/Globulin Ratio Meds: Medications Acetaminophen (Tylenol) 1,000 mg PO Q8H [facility] Last Admin: 02/07/20 05:47 Dose: 1,000 mg Documented by: Albuterol/Ipratropium (Duoneb) 3 ml NEB Q4HP PRN PRN Reason: Shortness Of Breath Amlodipine Besylate (Norvasc) 10 mg PO DAILY [facility] Last Admin: 02/07/20 09:02 Dose: 10 mg Documented by: Apixaban (Eliquis) 5 mg PO BID [facility] Last Admin: 02/07/20 09:03 Dose: 5 mg Documented by: Atenolol (Tenormin) 25 mg PO DAILY [facility] Last Admin: 02/07/20 09:03 Dose: 25 mg Documented by: Baclofen (Lioresal) 5 mg PO BID [facility] Last Admin: 02/07/20 09:03 Dose: 5 mg Documented by: Calcium Carbonate/Glycine (Tums) 500 mg CHEWED Q4HP PRN PRN Reason: Dyspepsia Last Admin: 02/06/20 13:25 Dose: 500 mg Documented by: Diagnostic Test (Pha) (Accu-Chek) 1 each FS ACHS [facility] Last Admin: 02/07/20 11:40 Dose: 1 each Documented by: Dicyclomine HCl (Dicyclomine) 20 mg PO QIDP PRN PRN Reason: spasms Last Admin: 02/06/20 13:25 Dose: 20 mg Documented by: Docusate Sodium (Colace) 100 mg PO BID [facility] Last Admin: 02/07/20 09:02 Dose: 100 mg Documented by: Doxepin HCl (Sinequan) 10 mg PO HS [facility] Last Admin: 02/06/20 21:42 Dose: 10 mg Documented by: Potassium Chloride 40 meq/ (Dextrose) 520 mls @ 130 mls/hr IV UD PRN PRN Reason: Potassium < 3 Magnesium Sulfate (Magnesium Sulfate) 2 gm in 50 mls @ 50 mls/hr IV UD PRN PRN Reason: Magnesium </= 1.6 Insulin Human Lispro (Humalog) 0 unit SQ [facility]; Protocol Last Admin: 02/07/20 11:44 Dose: 15 units Documented by: Lactulose (Cephulac) 30 gm PO TID PRN PRN Reason: Constipation Last Admin: 02/07/20 10:18 Dose: 30 gm Documented by: Lidocaine (Lidoderm) 1 patch TOPICAL DAILY@1000 FABIEN Last Admin: 02/07/20 09:01 Dose: 1 patch Documented by: Methocarbamol (Robaxin) 750 mg IV Q6HP PRN PRN Reason: Muscle Spasm Last Admin: 02/04/20 20:36 Dose: 750 mg Documented by: Methocarbamol (Robaxin) 750 mg PO Q6HP PRN PRN Reason: Muscle Spasm Last Admin: 02/06/20 08:24 Dose: 750 mg Documented by: Metoclopramide HCl (Reglan) 10 mg IV Q6HP PRN PRN Reason: Nausea And Vomiting Metoprolol Tartrate (Lopressor) 5 mg IV Q2HP PRN PRN Reason: Tachyarrhythmias HR>110 Morphine Sulfate (Morphine) 0 mg IV Q3HP PRN PRN Reason: Pain Last Admin: 02/06/20 18:45 Dose: 3 mg Documented by: Ondansetron HCl (Zofran) 4 mg IV Q4HP PRN PRN Reason: Nausea And Vomiting Oxycodone HCl (Roxicodone) 5 mg PO Q4HP PRN PRN Reason: Pain Last Admin: 02/06/20 18:33 Dose: 5 mg Documented by: Pantoprazole Sodium (Protonix) 40 mg IV QAMAC [facility] Last Admin: 02/07/20 06:33 Dose: 40 mg Documented by: Polyethylene Glycol (Miralax) 17 gm PO DAILYP PRN PRN Reason: Constipation Potassium Chloride (Kdur) 40 meq PO UD PRN PRN Reason: Potssium is 3-3.5 Potassium Chloride (Kdur) 40 meq PO UD PRN PRN Reason: Potassium < 3 Senna (Senokot) 2 tab PO DAILYP PRN PRN Reason: Constipation Last Admin: 02/06/20 23:35 Dose: 2 tab Documented by: Sodium Chloride (Saline Flush) 10 ml IV Q8 [facility] Last Admin: 02/07/20 06:36 Dose: 10 ml Documented by: Tramadol HCl (Ultram) 50 mg PO TID [facility] Last Admin: 02/07/20 09:03 Dose: 50 mg Documented by: Trazodone HCl (Desyrel) 100 mg PO QHS [facility] Last Admin: 02/06/20 21:42 Dose: 100 mg Documented by: A/P Narrative A/P Narrative: Narrative: Right femur fracture status post ORIF-February 03, 2020 Orthopedic followed up the patient and recommended discharge when medically stable Pain control with a narcotics, muscle relaxants and lidocaine patch added Patient need placement and case management working on basement Obstructive jaundice CT scan shows gallstones but no cholecystitis or ductal dilation Probably he might have a stone transiently passed Try to obtain an MRCP but patient did not fit through the MRI Direct bilirubin improving Patient need outpatient gastroenterology follow-up Paroxysmal atrial fibrillation Continue beta-alejandra and amiodarone and Eliquis Constipation probably due to narcotics Patient receiving MiraLAX, Senokot Ordered lactulose to improve the motility Will consider enema if he continues to be constipated CAD status post stent Continue statin, beta-alejandra and MARA inhibitor Essential hypertension Continue home medications Type 2 diabetes Continue sliding scale insulin DVT prophylaxis-Per orthopedics, Eliquis was held for surgery Time Spent With Patient Time: Total time spent is greater than 50% in coordination of care (as documented) at patient's floor/unit and/or counseling patient: QUALITY Stroke Symptom Onset Unknown: No VTE Deep Vein Thrombosis/Pulmonary Embolism Present on Admission: No
[2020-02-07] MEDS: traZODone HCL 100 MG TABLET PO SCH (20:30)
[2020-02-07] MEDS: DOXEPIN 10 MG CAPSULE PO SCH (20:30)
[2020-02-07] MEDS: oxyCODONE HCL 5 MG TABLET PO PRN (20:31)
[2020-02-07] MEDS: METHOCARBAMOL 750 MG TABLET PO PRN (23:55)
[2020-02-08] MEDS: oxyCODONE HCL 5 MG TABLET PO PRN ×3 (00:58→23:46)
[2020-02-08] MEDS: ACETAMINOPHEN 500 MG TABLET PO SCH ×3 (05:59→21:36)
[2020-02-08] MEDS: PANTOPRAZOLE 40 MG VIAL IV SCH (06:53)
[2020-02-08] MEDS: 0.9 % SODIUM CHLORIDE 10 ML SYRINGE IV SCH ×3 (06:53→20:36)
[2020-02-08 06:56] LABS: Basophils # (Auto) 0.02 K/mcL (0.00-0.30); Basophils % (Auto) 0.2 % (0.0-2.0); Granulocytes % (Auto) 69.2 % (38.0-78.0); Hematocrit 29.4 % (40.1-51.0); Hemoglobin 9.6 g/dL (13.7-17.5); Lymphocytes # (Auto) 2.04 K/mcL (1.50-4.80); Lymphocytes % (Auto) 20.4 % (15.5-49.0); Mean Cell Volume 92.2 fL (80.0-100.0); Mean Corpuscular HGB Conc 32.7 g/dL (31.0-36.0); Mean Platelet Volume 10.3 fL (7.4-10.4); Monocytes # (Auto) 0.82 K/mcL (0.10-0.90); Monocytes % (Auto) 8.2 % (1.0-12.0); Platelet Count 349 K/mcL (140-440); RBC 3.19 M/mcL (4.63-6.08); Red Cell Distribution Width 15.7 % (11.5-14.5)
[2020-02-08] MEDS: INSULIN LISPRO 1 UNIT/0.01 ML UNIT SQ SCH ×4 (06:59→20:48)
[2020-02-08 07:15] LABS: ALT/SGPT 54 U/l (0-40); AST/SGOT 40 U/l (0-37); Albumin 3.1 gm/dL (3.2-5.2); Albumin/Globulin Ratio 1.1 (1.0-2.3); Alkaline Phosphatase 338 U/L (39-117); Bilirubin,Total 1.6 mg/dL (0.0-1.0); Calcium 8.7 mg/dl (8.6-10.4); Carbon Dioxide 28 mmol/L (22-30); Chloride 97 mmol/L (96-108); Globulin 2.9 gm/dL (2.2-3.7); Glomerular Filtration Rate 96; Glucose 259 mg/dL (70-105)
[2020-02-08 07:18] LABS: Blood Urea Nitrogen 5 mg/dl (8-23)
[2020-02-08] MEDS: DOCUSATE SODIUM 100 MG CAPSULE PO SCH ×2 (08:49→20:36)
[2020-02-08] MEDS: traMADol 50 MG TABLET PO SCH ×3 (08:49→20:34)
[2020-02-08] MEDS: ATENOLOL 25 MG TABLET PO SCH (08:49)
[2020-02-08] MEDS: BACLOFEN 10 MG TABLET PO SCH ×2 (08:50→20:35)
[2020-02-08] MEDS: APIXABAN 5 MG TABLET PO SCH ×2 (08:50→20:36)
[2020-02-08] MEDS: amLODIPine 10 MG TABLET PO SCH (08:50)
[2020-02-08] MEDS: LIDOCAINE PATCH TOPICAL SCH (08:54)
[2020-02-08] MEDS: METHOCARBAMOL 750 MG TABLET PO PRN (13:26)
[2020-02-08] MEDS: DOXEPIN 10 MG CAPSULE PO SCH (20:35)
[2020-02-08] MEDS: traZODone HCL 100 MG TABLET PO SCH (20:36)
--- NOTE | 2020-02-08 22:04 | Internal Med Progress Note ---
SUBJECTIVE Subjective Patient information: Note initiated : 02/08/20 at 10:03 pm Service Date, if different from initiated Date: [] Patient: Austin Canseco 79 y/o M admitted on 02/02/20 for Fall. Chief Complaint: [] Interval history: Narrative: 79 year old M Who suffered from a ground-level fall while ambulating in his RV falling onto his right hip sustaining fracture. Patient was in his normal state of health when he got up to adjust his air conditioning when his right knee gave out. He is a cane and does not get around too well anyway. he was evaluated [place] and found to have a distal femur fracture on the right. Case was discussed with Dr. Ghosh. Patient was also found to have painless jaundice and additionally because of the fall he did have a CT of chest abdomen pelvis which revealed no ductal dilation or cholecystitis, he had gallstones but otherwise unremarkable and no etiology evident for the jaundice. A little bit of nausea prior to arrival but no vomiting. He does have elevation of alk phos as well as AST and ALT. His lactate was little elevated 2.9 and it was felt that he was volume depleted upon evaluation. He is on Eliquis for chronic A. fib. He was also mildly hyponatremic at 130. Only recent medication change was warfarin to Eliquis by PCP 3-6 months ago 02/02 Poor sleep but otherwise no new complaints. N.p.o. for possible surgery. 02/03 States interruptions at night. Sitting up in bed eating breakfast. No overnight events or new complaints. Blood sugar elevated. Clarify home diabetic regimen. 02/04 Patient continued having difficulty with sleeping Able to have breakfast this morning His liver enzymes are improving Physical therapy working with the patient Case management exploring placement options 02/05 Patient continued having severe back pain Started him on lidocaine patch daily Patient is already on 2 muscle relaxants and multiple narcotics Encourage physical therapy and activities Liver enzymes are improving 02/06 Patient continues to having constipation no bowel movements for since admission Ordered lactulose in addition to stool softener Will consider enema His pain is better controlled 02/07 Patient had 2 large bowel movements yesterday No further abdominal distention Pain better controlled Review of systems Constitutional-no fever no chills ENT-no symptoms no ear pain no discharge Respiratory-no cough no shortness of breath no oxygen recover Cardiac-no palpitation no chest pain no dizziness or syncope Wmclqpe-valyozkjg-dazme stools this morning, no tenderness No diarrhea Urinary-no urinary symptoms no pain Psychiatric-no anxiety no depression Neuro-no focal neuro deficit reported, no seizure no headache Constitutional Vitals: Vital Signs Temp Pulse Resp BP Pulse Ox 97 F 72 20 149/64 98 02/08/20 16:00 02/08/20 11:54 02/08/20 16:00 02/08/20 16:00 02/08/20 16:00 Period Temp Pulse Resp BP Sys/Ignacio Pulse Ox Last 24 Hr 97 F-97.8 F 70-77 14-20 137-151/64-75 94-98 Intake and Output 02/08/20 02/08/20 02/09/20 13:59 21:59 05:59 Intake Total 1180 300 Output Total 1850 100 Balance -670 200 Intake & Output: Intake & Output 02/08/20 02/08/20 02/09/20 13:59 21:59 05:59 Intake Total 1180 300 Output Total 1850 100 Balance -670 200 Intake: Oral 1180 300 Output: Urine Catheter Amount 1500 Void Amount 350 100 Other: Meal Lunch Percent of Meal Consumed 50% Feeding Ability Assist with Tray Set Up Urine Appearance Clear Clear Uretheral (Reese) Clear Urine Color Dark Yellow Dark Yellow Uretheral (Reese) Dark Yellow Urine Odor Strong Normal Uretheral (Reese) Strong Head Head exam: Present atraumatic and normal inspection Eye Eye exam: Present EOMI; Absent conjunctival injection, nystagmus, periorbital swelling and scleral icterus ENT ENT exam: Present normal external ear exam and normal oropharynx Neck Neck exam: Present normal inspection; Absent tenderness Respiratory Respiratory exam: Absent accessory muscle use, rales and respiratory distress Cardiovascular Cardiovascular exam: Absent RRR, +S3 and +S4 GI/Abdominal GI/Abdominal exam: Present normal bowel sounds, soft and distended; Absent hyperactive bowel sounds Neurological Exam Neurological exam: Present alert, oriented X3 and reflexes normal; Absent motor sensory deficit Psychiatric Psychiatric exam: Absent agitated, anxious and depressed OBJ DATA Labs CBC & Chem 7: 02/08/20 05:35 02/08/20 05:35 Labs: Abnormal Lab Results 02/08/20 02/08/20 02/07/20 05:35 05:35 05:35 WBC RBC 3.19 L Hgb 9.6 L Hct 29.4 L RDW 15.7 H MPV Lymph % (Auto) Gran # BUN 5 L 7 L Creatinine 0.6 L 0.6 L Glucose 259 H 224 H Calcium Total Bilirubin 1.6 H 1.7 H AST 40 H ALT 54 H 45 H Alkaline Phosphatase 338 H 304 H Total Protein 5.8 L Albumin 3.1 L 3.1 L Albumin/Globulin Ratio 02/07/20 02/06/20 02/06/20 05:35 05:45 05:45 WBC 11.2 H RBC 3.21 L 3.19 L Hgb 9.8 L 9.6 L Hct 28.9 L 29.0 L RDW 15.1 H 15.1 H MPV 10.5 H 10.9 H Lymph % (Auto) 15.1 L Gran # 8.66 H BUN Creatinine 0.6 L Glucose 240 H Calcium 8.3 L Total Bilirubin 1.6 H AST ALT 50 H Alkaline Phosphatase 400 H Total Protein Albumin 2.7 L Albumin/Globulin Ratio 0.8 L Meds: Medications Acetaminophen (Tylenol) 1,000 mg PO Q8H [facility] Last Admin: 02/08/20 21:36 Dose: 1,000 mg Documented by: Albuterol/Ipratropium (Duoneb) 3 ml NEB Q4HP PRN PRN Reason: Shortness Of Breath Amlodipine Besylate (Norvasc) 10 mg PO DAILY [facility] Last Admin: 02/08/20 08:50 Dose: 10 mg Documented by: Apixaban (Eliquis) 5 mg PO BID [facility] Last Admin: 02/08/20 20:36 Dose: 5 mg Documented by: Atenolol (Tenormin) 25 mg PO DAILY [facility] Last Admin: 02/08/20 08:49 Dose: 25 mg Documented by: Baclofen (Lioresal) 5 mg PO BID [facility] Last Admin: 02/08/20 20:35 Dose: 5 mg Documented by: Calcium Carbonate/Glycine (Tums) 500 mg CHEWED Q4HP PRN PRN Reason: Dyspepsia Last Admin: 02/06/20 13:25 Dose: 500 mg Documented by: Diagnostic Test (Pha) (Accu-Chek) 1 each FS ACHS [facility] Last Admin: 02/08/20 20:44 Dose: 1 each Documented by: Dicyclomine HCl (Dicyclomine) 20 mg PO QIDP PRN PRN Reason: spasms Last Admin: 02/06/20 13:25 Dose: 20 mg Documented by: Docusate Sodium (Colace) 100 mg PO BID [facility] Last Admin: 02/08/20 20:36 Dose: 100 mg Documented by: Doxepin HCl (Sinequan) 10 mg PO HS [facility] Last Admin: 02/08/20 20:35 Dose: 10 mg Documented by: Potassium Chloride 40 meq/ (Dextrose) 520 mls @ 130 mls/hr IV UD PRN PRN Reason: Potassium < 3 Magnesium Sulfate (Magnesium Sulfate) 2 gm in 50 mls @ 50 mls/hr IV UD PRN PRN Reason: Magnesium </= 1.6 Insulin Human Lispro (Humalog) 0 unit SQ [facility]; Protocol Last Admin: 02/08/20 20:48 Dose: 18 units Documented by: Lactulose (Cephulac) 30 gm PO TID PRN PRN Reason: Constipation Last Admin: 02/07/20 10:18 Dose: 30 gm Documented by: Lidocaine (Lidoderm) 1 patch TOPICAL DAILY@1000 FABIEN Last Admin: 02/08/20 08:54 Dose: 1 patch Documented by: Methocarbamol (Robaxin) 750 mg IV Q6HP PRN PRN Reason: Muscle Spasm Last Admin: 02/04/20 20:36 Dose: 750 mg Documented by: Methocarbamol (Robaxin) 750 mg PO Q6HP PRN PRN Reason: Muscle Spasm Last Admin: 02/08/20 13:26 Dose: 750 mg Documented by: Metoclopramide HCl (Reglan) 10 mg IV Q6HP PRN PRN Reason: Nausea And Vomiting Metoprolol Tartrate (Lopressor) 5 mg IV Q2HP PRN PRN Reason: Tachyarrhythmias HR>110 Morphine Sulfate (Morphine) 0 mg IV Q3HP PRN PRN Reason: Pain Last Admin: 02/08/20 20:35 Dose: 3 mg Documented by: Ondansetron HCl (Zofran) 4 mg IV Q4HP PRN PRN Reason: Nausea And Vomiting Oxycodone HCl (Roxicodone) 5 mg PO Q4HP PRN PRN Reason: Pain Last Admin: 02/08/20 14:57 Dose: 5 mg Documented by: Pantoprazole Sodium ([facility]tonix) [facility] Last Admin: 02/08/20 06:53 Dose: 40 mg Documented by: Polyethylene Glycol (Miralax) 17 gm PO DAILYP PRN PRN Reason: Constipation Potassium Chloride (Kdur) 40 meq PO UD PRN PRN Reason: Potssium is 3-3.5 Potassium Chloride (Kdur) 40 meq PO UD PRN PRN Reason: Potassium < 3 Senna (Senokot) 2 tab PO DAILYP PRN PRN Reason: Constipation Last Admin: 02/06/20 23:35 Dose: 2 tab Documented by: Sodium Chloride (Saline Flush) 10 ml IV Q8 [facility] Last Admin: 02/08/20 20:36 Dose: 10 ml Documented by: Tramadol HCl (Ultram) 50 mg PO TID [facility] Last Admin: 02/08/20 20:34 Dose: 50 mg Documented by: Trazodone HCl (Desyrel) 100 mg PO QHS [facility] Last Admin: 02/08/20 20:36 Dose: 100 mg Documented by: A/P Narrative A/P Narrative: Narrative: Right femur fracture status post ORIF-February 03, 2020 Orthopedic followed up the patient and recommended discharge when medically stable Pain control with a narcotics, muscle relaxants and lidocaine patch added Patient need placement and case management working on basement Obstructive jaundice-improved CT scan shows gallstones but no cholecystitis or ductal dilation Probably he might have a stone transiently passed Try to obtain an MRCP but patient did not fit through the MRI Direct bilirubin improving Patient need outpatient gastroenterology follow-up Paroxysmal atrial fibrillation Continue beta-alejandra and amiodarone and Eliquis Ileus and constipation probably due to narcotics-improved Patient receiving MiraLAX, Senokot Ordered lactulose and patient had 2 large bowel movements on 02/07/2020 CAD status post stent Continue statin, beta-alejandra and MARA inhibitor Essential hypertension Continue home medications Type 2 diabetes Continue sliding scale insulin DVT prophylaxis-Per orthopedics, Eliquis Time Spent With Patient Time: Total time spent is greater than 50% in coordination of care (as documented) at patient's floor/unit and/or counseling patient: QUALITY Stroke Symptom Onset Unknown: No VTE Deep Vein Thrombosis/Pulmonary Embolism Present on Admission: No
[2020-02-09] MEDS: METHOCARBAMOL 750 MG TABLET PO PRN (04:07)
[2020-02-09] MEDS: oxyCODONE HCL 5 MG TABLET PO PRN ×2 (04:07→09:45)
[2020-02-09] MEDS: ACETAMINOPHEN 500 MG TABLET PO SCH ×3 (06:03→21:45)
[2020-02-09 06:49] LABS: Basophils # (Auto) 0.02 K/mcL (0.00-0.30); Basophils % (Auto) 0.2 % (0.0-2.0); Eosinophils # (Auto) 0.28 K/mcL (0.00-0.70); Eosinophils % (Auto) 2.9 % (0.0-7.0); Granulocytes % (Auto) 68.9 % (38.0-78.0); Hematocrit 29.3 % (40.1-51.0); Hemoglobin 9.5 g/dL (13.7-17.5); Lymphocytes # (Auto) 1.93 K/mcL (1.50-4.80); Lymphocytes % (Auto) 19.7 % (15.5-49.0); Mean Cell Volume 90.4 fL (80.0-100.0); Mean Corpuscular HGB Conc 32.4 g/dL (31.0-36.0); Mean Platelet Volume 10.2 fL (7.4-10.4); Monocytes # (Auto) 0.81 K/mcL (0.10-0.90); Monocytes % (Auto) 8.3 % (1.0-12.0); Platelet Count 373 K/mcL (140-440); RBC 3.24 M/mcL (4.63-6.08); Red Cell Distribution Width 15.6 % (11.5-14.5); WBC 9.8 K/mcL (4.50-11.00)
[2020-02-09 07:00] LABS: ALT/SGPT 59 U/l (0-40); AST/SGOT 41 U/l (0-37); Alkaline Phosphatase 374 U/L (39-117); Bilirubin,Total 1.5 mg/dL (0.0-1.0); Blood Urea Nitrogen 6 mg/dl (8-23); Calcium 8.5 mg/dl (8.6-10.4); Carbon Dioxide 26 mmol/L (22-30); Chloride 98 mmol/L (96-108); Globulin 2.9 gm/dL (2.2-3.7); Glomerular Filtration Rate 96; Glucose 257 mg/dL (70-105)
[2020-02-09] MEDS: INSULIN LISPRO 1 UNIT/0.01 ML UNIT SQ SCH ×4 (07:48→20:48)
[2020-02-09] MEDS: 0.9 % SODIUM CHLORIDE 10 ML SYRINGE IV SCH ×3 (07:48→20:48)
[2020-02-09] MEDS: PANTOPRAZOLE 40 MG VIAL IV SCH (07:49)
[2020-02-09] MEDS ORDERED: APIXABAN 5 MG TABLET PO SCH (09:00)
[2020-02-09] MEDS: BACLOFEN 10 MG TABLET PO SCH ×2 (09:44→20:47)
[2020-02-09] MEDS: LIDOCAINE PATCH TOPICAL SCH (09:44)
[2020-02-09] MEDS: traMADol 50 MG TABLET PO SCH ×3 (09:45→20:47)
[2020-02-09] MEDS: DOCUSATE SODIUM 100 MG CAPSULE PO SCH ×2 (09:45→20:48)
[2020-02-09] MEDS: ATENOLOL 25 MG TABLET PO SCH (09:46)
[2020-02-09] MEDS: APIXABAN 5 MG TABLET PO SCH ×2 (09:46→20:47)
[2020-02-09] MEDS: amLODIPine 10 MG TABLET PO SCH (09:46)
[2020-02-09] MEDS: DOXEPIN 10 MG CAPSULE PO SCH (20:47)
[2020-02-09] MEDS: traZODone HCL 100 MG TABLET PO SCH (20:47)
--- NOTE | 2020-02-09 21:31 | Internal Med Progress Note ---
SUBJECTIVE Subjective Patient information: Note initiated : 02/09/20 at 9:29 pm Service Date, if different from initiated Date: [] Patient: Austin Canseco 79 y/o M admitted on 02/02/20 for Fall. Chief Complaint: 79 year old M suffered from a ground-level fall while ambulating in his RV falling onto his right hip sustaining fracture. Patient was in his normal state of health when he got up to adjust his air conditioning when his right knee gave out. He is a cane and does not get around too well anyway. he was evaluated [facility] and found to have a distal femur fracture on the right. Case was discussed with Dr. Ghosh. Patient was also found to have painless jaundice and additionally because of the fall he did have a CT of chest abdomen pelvis which revealed no ductal dilation or cholecystitis, he had gallstones but otherwise unremarkable and no etiology evident for the jaundice. A little bit of nausea prior to arrival but no vomiting. He does have elevation of alk phos as well as AST and ALT. His lactate was little elevated 2.9 and it was felt that he was volume depleted upon evaluation. He is on Eliquis for chronic A. fib. He was also mildly hyponatremic at 130. Only recent medication change was warfarin to Eliquis by PCP 3-6 months ago 02/02 Poor sleep but otherwise no new complaints. N.p.o. for possible surgery. 02/03 States interruptions at night. Sitting up in bed eating breakfast. No overnight events or new complaints. Blood sugar elevated. Clarify home diabetic regimen. 02/04 Patient continued having difficulty with sleeping Able to have breakfast this morning His liver enzymes are improving Physical therapy working with the patient Case management exploring placement options 02/05 Patient continued having severe back pain Started him on lidocaine patch daily Patient is already on 2 muscle relaxants and multiple narcotics Encourage physical therapy and activities Liver enzymes are improving 02/06 Patient continues to having constipation no bowel movements for since admission Ordered lactulose in addition to stool softener Will consider enema His pain is better controlled 02/07 Patient had 2 large bowel movements yesterday No further abdominal distention Pain better controlled 02/09 2020 No further constipation His back pain controlled with p.o. medications Case management involved and waiting for placement Patient can be discharged once he has a placement available Review of systems Constitutional-no fever no chills ENT-no symptoms no ear pain no discharge Respiratory-no cough no shortness of breath no oxygen recover Cardiac-no palpitation no chest pain no dizziness or syncope Njvtrts-gderkjdam-zxlll stools this morning, no tenderness No diarrhea Urinary-no urinary symptoms no pain Psychiatric-no anxiety no depression Neuro-no focal neuro deficit reported, no seizure no headache Interval history: Narrative: Constitutional Vitals: Vital Signs Temp Pulse Resp BP Pulse Ox 98.2 F 74 14 129/63 96 02/09/20 19:21 02/09/20 19:21 02/09/20 19:21 02/09/20 19:21 02/09/20 19:21 Period Temp Pulse Resp BP Sys/Ignacio Pulse Ox Last 24 Hr 97.2 F-98.3 F 66-74 14-18 118-151/63-81 95-98 Intake and Output 02/09/20 02/09/20 02/09/20 05:59 13:59 21:59 Intake Total 800 1460 240 Output Total 1775 2145 1325 Balance -975 -685 -1085 Weight 278 lb 6.4 oz Patient Weight 02/10/20 05:59 Weight 278 lb 6.4 oz Intake & Output: Intake & Output 02/09/20 02/09/20 02/09/20 05:59 13:59 21:59 Intake Total 800 1460 240 Output Total 1775 2145 1325 Balance -975 -685 -1085 Weight 278 lb 6.4 oz Intake: Oral 800 1460 240 Output: Void Amount 1775 2145 1325 Other: Meal jello & pear cup Snack Jello and Egg salad Percent of Meal Consumed 100% 100% Feeding Ability Independent Independent Urine Appearance Clear Clear Clear Urine Color Bright Yellow Dark Yellow Bright Yellow Urine Odor Normal Normal Head Head exam: Present atraumatic, normal inspection and normocephalic Eye Eye exam: Absent nystagmus, periorbital swelling and scleral icterus ENT ENT exam: Present normal exam, normal external ear exam and normal oropharynx Respiratory Respiratory exam: Absent accessory muscle use, respiratory distress and wheezes Cardiovascular Cardiovascular exam: Absent irregular rhythm, JVD, +S3 and tachycardia GI/Abdominal GI/Abdominal exam: Present normal bowel sounds, soft and distended Neurological Exam Neurological exam: Present alert, oriented X3 and reflexes normal; Absent motor sensory deficit OBJ DATA Labs CBC & Chem 7: 02/09/20 05:20 02/09/20 05:20 Labs: Abnormal Lab Results 02/09/20 02/09/20 02/08/20 05:20 05:20 05:35 RBC 3.24 L Hgb 9.5 L Hct 29.3 L RDW 15.6 H MPV BUN 6 L 5 L Creatinine 0.6 L 0.6 L Glucose 257 H 259 H Calcium 8.5 L Total Bilirubin 1.5 H 1.6 H AST 41 H 40 H ALT 59 H 54 H Alkaline Phosphatase 374 H 338 H Total Protein Albumin 3.0 L 3.1 L 02/08/20 02/07/20 02/07/20 05:35 05:35 05:35 RBC 3.19 L 3.21 L Hgb 9.6 L 9.8 L Hct 29.4 L 28.9 L RDW 15.7 H 15.1 H MPV 10.5 H BUN 7 L Creatinine 0.6 L Glucose 224 H Calcium Total Bilirubin 1.7 H AST ALT 45 H Alkaline Phosphatase 304 H Total Protein 5.8 L Albumin 3.1 L Meds: Medications Acetaminophen (Tylenol) 1,000 mg PO Q8H [facility] Last Admin: 02/09/20 14:36 Dose: 1,000 mg Documented by: Albuterol/Ipratropium (Duoneb) 3 ml NEB Q4HP PRN PRN Reason: Shortness Of Breath Amlodipine Besylate (Norvasc) 10 mg PO DAILY [facility] Last Admin: 02/09/20 09:46 Dose: 10 mg Documented by: Apixaban (Eliquis) 5 mg PO BID [facility] Last Admin: 02/09/20 20:47 Dose: 5 mg Documented by: Atenolol (Tenormin) 25 mg PO DAILY [facility] Last Admin: 02/09/20 09:46 Dose: 25 mg Documented by: Baclofen (Lioresal) 5 mg PO BID [facility] Last Admin: 02/09/20 20:47 Dose: 5 mg Documented by: Calcium Carbonate/Glycine (Tums) 500 mg CHEWED Q4HP PRN PRN Reason: Dyspepsia Last Admin: 02/06/20 13:25 Dose: 500 mg Documented by: Diagnostic Test (Pha) (Accu-Chek) 1 each FS ACHS [facility] Last Admin: 02/09/20 20:48 Dose: 1 each Documented by: Dicyclomine HCl (Dicyclomine) 20 mg PO QIDP PRN PRN Reason: spasms Last Admin: 02/06/20 13:25 Dose: 20 mg Documented by: Docusate Sodium (Colace) 100 mg PO BID [facility] Last Admin: 02/09/20 20:48 Dose: 100 mg Documented by: Doxepin HCl (Sinequan) 10 mg PO HS [facility] Last Admin: 02/09/20 20:47 Dose: 10 mg Documented by: Potassium Chloride 40 meq/ (Dextrose) 520 mls @ 130 mls/hr IV UD PRN PRN Reason: Potassium < 3 Magnesium Sulfate (Magnesium Sulfate) 2 gm in 50 mls @ 50 mls/hr IV UD PRN PRN Reason: Magnesium </= 1.6 Insulin Human Lispro (Humalog) 0 unit SQ ACHS [facility]; Protocol Last Admin: 02/09/20 20:48 Dose: 15 units Documented by: Lactulose (Cephulac) 30 gm PO TID PRN PRN Reason: Constipation Last Admin: 02/07/20 10:18 Dose: 30 gm Documented by: Lidocaine (Lidoderm) 1 patch TOPICAL DAILY@1000 FABIEN Last Admin: 02/09/20 09:44 Dose: 1 patch Documented by: Methocarbamol (Robaxin) 750 mg IV Q6HP PRN PRN Reason: Muscle Spasm Last Admin: 02/04/20 20:36 Dose: 750 mg Documented by: Methocarbamol (Robaxin) 750 mg PO Q6HP PRN PRN Reason: Muscle Spasm Last Admin: 02/09/20 04:07 Dose: 750 mg Documented by: Metoclopramide HCl (Reglan) 10 mg IV Q6HP PRN PRN Reason: Nausea And Vomiting Metoprolol Tartrate (Lopressor) 5 mg IV Q2HP PRN PRN Reason: Tachyarrhythmias HR>110 Morphine Sulfate (Morphine) 0 mg IV Q3HP PRN PRN Reason: Pain Last Admin: 02/09/20 18:35 Dose: 3 mg Documented by: Ondansetron HCl (Zofran) 4 mg IV Q4HP PRN PRN Reason: Nausea And Vomiting Last Admin: 02/09/20 07:49 Dose: 4 mg Documented by: Oxycodone HCl (Roxicodone) 5 mg PO Q4HP PRN PRN Reason: Pain Last Admin: 02/09/20 09:45 Dose: 5 mg Documented by: Pantoprazole Sodium (Protonix) 40 mg IV QAMAC [facility] Last Admin: 02/09/20 07:49 Dose: 40 mg Documented by: Polyethylene Glycol (Miralax) 17 gm PO DAILYP PRN PRN Reason: Constipation Potassium Chloride (Kdur) 40 meq PO UD PRN PRN Reason: Potssium is 3-3.5 Potassium Chloride (Kdur) 40 meq PO UD PRN PRN Reason: Potassium < 3 Senna (Senokot) 2 tab PO DAILYP PRN PRN Reason: Constipation Last Admin: 02/06/20 23:35 Dose: 2 tab Documented by: Sodium Chloride (Saline Flush) 10 ml IV Q8 [facility] Last Admin: 02/09/20 20:48 Dose: 10 ml Documented by: Tramadol HCl (Ultram) 50 mg PO TID [facility] Last Admin: 02/09/20 20:47 Dose: 50 mg Documented by: Trazodone HCl (Desyrel) 100 mg PO QHS [facility] Last Admin: 02/09/20 20:47 Dose: 100 mg Documented by: A/P Narrative A/P Narrative: Narrative: Right femur fracture status post ORIF-February 03, 2020 Orthopedic followed up the patient and recommended discharge when medically stable Pain control with a narcotics, muscle relaxants and lidocaine patch added Patient need placement and case management working on basement Obstructive jaundice-improved CT scan shows gallstones but no cholecystitis or ductal dilation Probably he might have a stone transiently passed Try to obtain an MRCP but patient did not fit through the MRI Bilirubin improved to 1.5 Patient need outpatient gastroenterology follow-up Paroxysmal atrial fibrillation Continue beta-alejandra and amiodarone and Eliquis Ileus and constipation probably due to narcotics-improved Patient receiving MiraLAX, Senokot Ordered lactulose and patient had 2 large bowel movements on 02/07/2020 CAD status post stent Continue statin, beta-alejandra and MARA inhibitor Essential hypertension Continue home medications Type 2 diabetes Continue sliding scale insulin DVT prophylaxis-Per orthopedics, Eliquis Time Spent With Patient Time: Total time spent is greater than 50% in coordination of care (as documented) at patient's floor/unit and/or counseling patient: QUALITY Stroke Symptom Onset Unknown: No VTE Deep Vein Thrombosis/Pulmonary Embolism Present on Admission: No
[2020-02-10] MEDS: ACETAMINOPHEN 500 MG TABLET PO SCH (05:51)
[2020-02-10] MEDS: 0.9 % SODIUM CHLORIDE 10 ML SYRINGE IV SCH (05:53)
[2020-02-10 06:38] LABS: Basophils # (Auto) 0.03 K/mcL (0.00-0.30); Basophils % (Auto) 0.3 % (0.0-2.0); Eosinophils # (Auto) 0.26 K/mcL (0.00-0.70); Eosinophils % (Auto) 2.7 % (0.0-7.0); Granulocytes % (Auto) 69.1 % (38.0-78.0); Hematocrit 30.1 % (40.1-51.0); Hemoglobin 9.6 g/dL (13.7-17.5); Lymphocytes # (Auto) 1.86 K/mcL (1.50-4.80); Lymphocytes % (Auto) 19.6 % (15.5-49.0); Mean Cell Volume 93.5 fL (80.0-100.0); Mean Corpuscular HGB Conc 31.9 g/dL (31.0-36.0); Mean Platelet Volume 10.2 fL (7.4-10.4); Monocytes # (Auto) 0.79 K/mcL (0.10-0.90); Monocytes % (Auto) 8.3 % (1.0-12.0); Platelet Count 405 K/mcL (140-440); RBC 3.22 M/mcL (4.63-6.08); Red Cell Distribution Width 15.6 % (11.5-14.5); WBC 9.5 K/mcL (4.50-11.00)
[2020-02-10 06:55] LABS: ALT/SGPT 55 U/l (0-40); AST/SGOT 36 U/l (0-37); Albumin 3.2 gm/dL (3.2-5.2); Albumin/Globulin Ratio 1.1 (1.0-2.3); Alkaline Phosphatase 337 U/L (39-117); Bilirubin,Total 1.3 mg/dL (0.0-1.0); Blood Urea Nitrogen 10 mg/dl (8-23); Carbon Dioxide 27 mmol/L (22-30); Chloride 100 mmol/L (96-108); Glomerular Filtration Rate 103; Glucose 240 mg/dL (70-105)
--- NOTE | 2020-02-10 07:17 | Discharge Summary ---
Discharge Provider Provider Patient information: Note initiated : 02/10/20 at 7:16 am Service Date, if different from initiated Date: [] Patient: Austin Canseco 79 y/o M admitted on 02/02/20 for Fall. Chief Complaint: [] Date of admission: 02/02/20 22:27 Discharge date: 02/10/20 Consults: 02/02/20 21:05 Consult to Physician [CONS] Routine Comment: Consulting Provider: Oswaldo Ghosh Reason For Exam: Physician to Consult 02/06/20 09:57 Consult to Physician [CONS] Routine Comment: Consulting Provider: Rosalba Gold Reason For Exam: Physician to Consult Discharge Meds Discharge Medications Active and Home Medications: Home Medications Eliquis 5 mg PO BID 02/03/20 [History Confirmed 02/03/20 Last Taken 02/02/20 08:00] amlodipine 10 mg PO DAILY 02/03/20 [History Confirmed 02/03/20 Last Taken 02/02/20 10 mg] atenolol 25 mg PO DAILY 02/03/20 [History Confirmed 02/03/20 Last Taken 02/02/20 25 mg] atorvastatin 10 mg PO DAILY 02/03/20 [History Confirmed 02/03/20 Last Taken 02/02/20 10 mg] baclofen 5 mg PO BID 02/03/20 [History Confirmed 02/03/20 Last Taken 02/02/20 5 mg] hydroxyzine HCl 25 mg PO DAILY 02/03/20 [History Confirmed 02/03/20 Last Taken 02/02/20 25 mg] insulin asp prt-insulin aspart [Novolog Mix 70-30FlexPen U-100] See Rx Instructions .ROUTE .COMPLEX 02/03/20 [History Confirmed 02/03/20 Last Taken 02/02/20] lisinopril 10 mg PO QDAY 02/03/20 [History Confirmed 02/03/20 Last Taken 02/02/20 10 mg] metformin 850 mg PO TID 02/03/20 [History Confirmed 02/03/20 Last Taken 02/02/20 850 mg] trazodone 100 mg PO QHS 02/03/20 [History Confirmed 02/03/20 Last Taken 02/01/20 100 mg] oxycodone 5 mg PO Q4HP PRN 10 Days #30 tab NS 02/10/20 [Rx Last Taken Unknown] COURSE Hospital Course Hospital Course: 79 year old M suffered from a ground-level fall while ambulating in his RV falling onto his right hip sustaining fracture. Patient was in his normal state of health when he got up to adjust his air conditioning when his right knee gave out. He is a cane and does not get around too well anyway. he was evaluated [place] and found to have a distal femur fracture on the right. Case was discussed with Dr. Ghosh. Patient was also found to have painless jaundice and additionally because of the fall he did have a CT of chest abdomen pelvis which revealed no ductal dilation or cholecystitis, he had gallstones but otherwise unremarkable and no etiology evident for the jaundice. A little bit of nausea prior to arrival but no vomiting. He does have elevation of alk phos as well as AST and ALT. His lactate was little elevated 2.9 and it was felt that he was volume depleted upon evaluation. He is on Eliquis for chronic A. fib. He was also mildly hyponatremic at 130. Only recent medication change was warfarin to Eliquis by PCP 3-6 months ago 02/02 Poor sleep but otherwise no new complaints. N.p.o. for possible surgery. 02/03 States interruptions at night. Sitting up in bed eating breakfast. No overnight events or new complaints. Blood sugar elevated. Clarify home diabetic regimen. 02/04 Patient continued having difficulty with sleeping Able to have breakfast this morning His liver enzymes are improving Physical therapy working with the patient Case management exploring placement options 02/05 Patient continued having severe back pain Started him on lidocaine patch daily Patient is already on 2 muscle relaxants and multiple narcotics Encourage physical therapy and activities Liver enzymes are improving 02/06 Patient continues to having constipation no bowel movements for since admission Ordered lactulose in addition to stool softener Will consider enema His pain is better controlled 02/07 Patient had 2 large bowel movements yesterday No further abdominal distention Pain better controlled 02/09 2020 No further constipation His back pain controlled with p.o. medications Case management involved and waiting for placement Patient can be discharged once he has a placement available Review of systems Constitutional-no fever no chills ENT-no symptoms no ear pain no discharge Respiratory-no cough no shortness of breath no oxygen recover Cardiac-no palpitation no chest pain no dizziness or syncope Bqbwupk-ugrqcsjpd-tfmuo stools this morning, no tenderness No diarrhea Urinary-no urinary symptoms no pain Psychiatric-no anxiety no depression Neuro-no focal neuro deficit reported, no seizure no headache Right femur fracture status post ORIF-February 03, 2020 Orthopedic followed up the patient and recommended discharge when medically stable Pain control with a narcotics, muscle relaxants and lidocaine patch added Patient need placement and case management working on basement Obstructive jaundice-improved CT scan shows gallstones but no cholecystitis or ductal dilation Probably he might have a stone transiently passed Try to obtain an MRCP but patient did not fit through the MRI Bilirubin improved to 1.5 Patient need outpatient gastroenterology follow-up Paroxysmal atrial fibrillation Continue beta-alejandra and amiodarone and Eliquis Ileus and constipation probably due to narcotics-improved Patient receiving MiraLAX, Senokot Ordered lactulose and patient had 2 large bowel movements on 02/07/2020 CAD status post stent Continue statin, beta-alejandra and MARA inhibitor Essential hypertension Continue home medications Type 2 diabetes Continue sliding scale insulin Discharge diagnosis: right femur fracture s/p orif Time Spent with Patient Time attestation: Total time spent providing and/or coordinating discharge services: EXAM Constitutional Vitals: Temp Pulse Resp BP Pulse Ox 98.8 F 63 14 136/68 97 02/10/20 03:45 02/10/20 03:45 02/10/20 03:45 02/10/20 03:45 02/10/20 03:45 General appearance: mild distress and obese Head Head exam: Present atraumatic, normal inspection and normocephalic Eye Eye exam: Present EOMI; Absent periorbital swelling and scleral icterus ENT ENT exam: Present normal exam, normal external ear exam and normal oropharynx Neck Neck exam: Present normal inspection; Absent lymphadenopathy and tenderness Respiratory Respiratory exam: Present CTAB; Absent accessory muscle use, respiratory distress and wheezes Cardiovascular Cardiovascular exam: Absent bradycardia, JVD, +S3, +S4 and tachycardia GI/Abdominal GI/Abdominal exam: Present normal bowel sounds; Absent guarding and tenderness Neurological Exam Neurological exam: Present alert, oriented X3 and reflexes normal; Absent motor sensory deficit Discharge Data Data Completed and Pending Labs on day of discharge: Labs from last 24 hours 02/10/20 02/10/20 02/09/20 04:51 04:51 12:46 WBC 9.5 RBC 3.22 L Hgb 9.6 L Hct 30.1 L MCV 93.5 MCH 29.8 MCHC 31.9 RDW 15.6 H Plt Count 405 MPV 10.2 Gran % 69.1 Lymph % (Auto) 19.6 [place] % (Auto) 8.3 Eos % (Auto) 2.7 Baso % (Auto) 0.3 Gran # 6.56 Lymph # (Auto) 1.86 [place] # (Auto) 0.79 Eos # (Auto) 0.26 Baso # (Auto) 0.03 Sodium 136 Potassium 4.6 Chloride 100 Carbon Dioxide 27 Anion Gap 9.0 BUN 10 Creatinine 0.5 L GFR Calculation 103 Glucose 240 H Calcium 9.0 Magnesium 2.3 Total Bilirubin 1.3 H AST 36 ALT 55 H Alkaline Phosphatase 337 H Total Protein 6.2 Albumin 3.2 Globulin 3.0 Albumin/Globulin Ratio 1.1 Nasal/Oral COVID-19 PCR Pending Discharge Plan Patient/Caregiver Discharge Instructions Activity: ambulate only with your walker and as per physical therapy Diet: Cardiac Instructions: A-fib (Atrial Fibrillation) (DC), ORIF of a Leg Fracture (DC) Activity Restrictions/Additional Instructions: Discharge Instructions: Do the exercises at home that physical therapy gave you. No weight bearing with right leg. Wear comfortable clothing for your physical therapy. You have the silver dressing, leave in place for 7-14 days then remove. You may shower with dressing on, pat dry after shower. You may start showering on post op day #2. To avoid constipation while taking any narcotic pain medication, take an over the counter stool softener/laxative. Use ice packs as directed, on for 20 minutes at a time, throughout the day. Ice and elevation will help with pain and swelling. If you have any questions or concerns call your orthopedic surgeon before going to the emergency room. [facility] has a a r collections rep physician 24 hours per day/7 days per week and can be reached at [phone]. Call for fevers above 100.5 or pain not controlled by medication. . Prescriptions: New oxycodone 5 mg Tablet 5 mg PO Q4HP PRN (Reason: Pain) 10 Days Qty: 30 RF: 0 Continued atorvastatin 10 mg tablet 10 mg PO DAILY RF: 0 metformin 850 mg Tablet 850 mg PO TID RF: 0 atenolol 25 mg tablet 25 mg PO DAILY RF: 0 trazodone 100 mg tablet 100 mg PO QHS RF: 0 amlodipine 10 mg tablet 10 mg PO DAILY RF: 0 lisinopril 10 mg Tablet 10 mg PO QDAY RF: 0 hydroxyzine HCl 25 mg tablet 25 mg PO DAILY RF: 0 baclofen 5 mg Tablet 5 mg PO BID RF: 0 Eliquis tablet 5 mg PO BID RF: 0 insulin asp prt-insulin aspart [Novolog Mix 70-30FlexPen U-100] 100 unit/mL (70-30) Insulin Pen See Rx Instructions .ROUTE .COMPLEX RF: 0 Follow Up Plan Follow up with: Rosalba Gold MD [Physician] - (1-2 weeks) Clyde Hilario PA-C [Physician Branch Controller] - (Please call and schedule surgical follow up. 7-10 days) Patient Disposition: Xfer SNF Rehab Potential: Fair I certify that the patient requires SNF services: Yes Overall status at discharge: patient is progressing back to baseline Discharge Orders: Discharge Order (Routine); Ordered 02/10/20 Ordered By: Nicol Hooper Discharge Comment: pending placment QUALITY VTE Deep Vein Thrombosis/Pulmonary Embolism Present on Admission: No
[2020-02-10] MEDS: PANTOPRAZOLE 40 MG VIAL IV SCH (08:17)
[2020-02-10] MEDS: INSULIN LISPRO 1 UNIT/0.01 ML UNIT SQ SCH (08:17)
[2020-02-10] MEDS: APIXABAN 5 MG TABLET PO SCH (09:41)
[2020-02-10] MEDS: amLODIPine 10 MG TABLET PO SCH (09:41)
[2020-02-10] MEDS: BACLOFEN 10 MG TABLET PO SCH (09:42)
[2020-02-10] MEDS: ATENOLOL 25 MG TABLET PO SCH (09:42)
[2020-02-10] MEDS: traMADol 50 MG TABLET PO SCH (09:42)
[2020-02-10] MEDS: DOCUSATE SODIUM 100 MG CAPSULE PO SCH (09:42)
[2020-02-10] MEDS: LIDOCAINE PATCH TOPICAL SCH (09:43)
== END 2020-02-10 11:35 | DRG 481 ==
LOC: MEDSUR 22:27
PROVIDERS: ADMIT Internal Medicine; ATTEND Internal Medicine

== ENCOUNTER 2021-01-25 13:07 | Inpatient (IN) ==
[2021-01-25] MEDS ORDERED: IOPAMIDOL 100 ML BOTTLE IV ONE (13:08)
[2021-01-25] MEDS ORDERED: NITROGLYCERIN 0.4 MG TAB.SUBL SL ONE (14:02)
[2021-01-25] MEDS ORDERED: ASPIRIN 81 MG TAB.CHEW CHEWED ONE (14:03)
[2021-01-25] MEDS ORDERED: PHENobarb/HYOSCY/ATROPINE/SCOP 1 DOSE BOTTLE PO ONE (14:36)
--- NOTE | 2021-01-25 14:36 | Emergency Department Note ---
HPI General Chief complaint: Cold/Flu Symptoms Stated complaint: cold/flu Time Seen by Provider: 01/25/21 13:54 Source: patient Mode of arrival: ambulatory Limitations: no limitations History of Present Illness HPI Narrative: This is an 80-year-old male who presents with epigastric pain that started yesterday morning. It radiates to his mid sternum and back. He's had no associated nausea or vomiting. He denies reflux symptoms. He does endorse some shortness of breath. He has taken [id number] antacids without relief. He has a history of atrial fibrillation and is on Eliquis, hypertension on amlodipine and atenolol, and diabetes on daily insulin. He denies a history of coronary artery disease. Has not had previous cardiac studies. Heart score is 4. Related Data Home Medications Medication Instructions Recorded Confirmed amlodipine 10 mg PO DAILY 02/03/20 01/25/21 atorvastatin 10 mg PO DAILY 02/03/20 01/25/21 hydroxyzine HCl 25 mg PO DAILY 02/03/20 01/25/21 insulin asp prt-insulin aspart See Rx Instructions .ROUTE .COMPLEX 02/03/20 01/25/21 [Novolog Mix 70-30FlexPen U-100] apixaban 5 mg tablet 5 mg PO BID 01/07/21 01/25/21 atenolol 25 mg tablet 50 mg PO DAILY tab 01/07/21 01/25/21 baclofen 5 mg tablet 5 mg PO BID 01/07/21 01/25/21 furosemide 40 mg tablet 40 mg PO QAM 01/07/21 01/25/21 omeprazole 20 mg capsule,delayed 20 mg PO QDAY 01/07/21 01/25/21 release oxybutynin chloride 10 mg 10 mg PO QDAY 01/07/21 01/25/21 tablet,extended release 24 hr oxycodone 5 mg capsule 10 mg PO BID PRN cap 01/07/21 01/25/21 potassium chloride 10 mEq 10 meq PO QDAY 01/07/21 01/25/21 capsule,extended release Lantus U-100 Insulin 57 unit SUBCUT QDAY 01/25/21 01/25/21 lisinopril 40 mg PO QDAY 01/25/21 01/25/21 melatonin 5 mg PO HSP PRN 01/25/21 01/25/21 metformin 850 mg PO TID 01/25/21 01/25/21 trazodone 200 mg PO BID 01/25/21 01/25/21 Allergies Allergy/AdvReac Type Severity Reaction Status Date / Time No Known Drug Allergies Allergy Verified 01/07/21 15:40 Review of Systems ROS ROS Narrative: Narrative: All systems ED: reviewed and negative except as stated. PFSH Narrative Patient History Narrative: Narrative: Medical/Surgical/Family History All Active Problems (Updated 01/25/21 @ 20:28 by Otilia Landin PA-C) Sepsis (Acute) Acute cholecystitis (Acute) Chest pain, rule out acute myocardial infarction (Acute) Chest pressure (Acute) SOB (shortness of breath) (Acute) History of diabetes mellitus (Acute) History of atrial fibrillation (Acute) History of essential hypertension (Acute) History of anxiety (Acute) History of coronary artery disease (Acute) History of hyperlipidemia (Acute) History of gastroesophageal reflux (GERD) (Acute) History of hip surgery (Acute) History of right knee surgery (Acute) Pressure ulcer of buttock (Acute) Poor mobility (Acute) Medical History Poor mobility Pressure ulcer of buttock Social History Smoking Status: Former smoker Exam Narrative Narrative: General: AOx3, NAD, nontoxic appearing. Pleasant and conversant. HEENT: PERRLA, EOMI, normocephalic. Moist mucous membranes. Normal facies and normal dentition. Chest: Symmetric, no pain to palpation Respiratory: Decreased breath sounds throughout. No crackles or wheezes. No respiratory distress. Unlabored breathing. Heart: Irregular rate and rhythm, no murmurs/clicks/rubs. Abdomen: Epigastric tenderness, Non distended, normal bowel tones. No organomegaly. Extremities: Warm and well perfused. Right lower extremity with swelling and 2+ pitting edema. Painful to palpation the posterior calf. No venous stasis. Neuro: No focal deficits. Cranial nerves II-XII normal. Skin: Warm dry, no rashes or lesions, no cyanosis. Psych: Normal mood and affect Heme/Lymph: No bruising General Limitations: no limitations Course Reevaluation(s) Reevaluation #1: Labs for cardiac work-up including troponin Chest x-ray Reevaluation #2: CBC with significant elevation of white blood cell count of 16,100. Patient is afebrile with hypertensive blood pressures. He is not endorsing constitutional symptoms. Chest x-ray without discrete infiltrates. Will obtain a UA. Troponin is less than 0.01. EKG shows atrial fibrillation with a rate of 67 bpm and a right bundle branch block and no acute ST changes. This is essentially unchanged from EKG dated 12/06/2020. No STEMI. On reevaluation, the patient's tells me that her 's leg has been more swollen on the right side. He is status post knee replacement. I query again whether he has had any symptoms of infection to include dysuria, hematuria, fever chills or sweats, or changes in bowel habits and he states that this is all negative except for about 3 days of constipation. Obtain venous Doppler ultrasound of the right lower extremity to query for DVT. Give Protonix IV 40 mg x 1 dose and sucralfate to see if this helps with his symptoms. Reevaluation #3: Patient became acutely altered with slow response and confusion. He became acutely hypoxic. Fever to 100.6. Initiating sepsis protocol with 30 ml/kg IV fluid resuscitation, initiation of IV antibiotics, blood cultures, lactic acid. Venous Doppler ultrasound was negative for DVT Additional Reevaluation(s): CT of the abdomen pelvis shows acute cholecystitis with gallbladder wall thickening and gallbladder wall measuring 1.4 cm. Lactic acid is elevated at 2.9. The patient has been receiving fluid resuscitation and received both vancomycin and Zosyn x1 dose. Vital Signs Vital signs: Vital Signs Temperature 100.6 F H 01/25/21 13:08 Pulse Oximetry (%) 97 01/25/21 13:08 Temperature 100.6 F H 01/25/21 20:12 Pulse Rate 79 01/25/21 20:12 Blood Pressure 138/61 01/25/21 20:12 Pulse Oximetry (%) 94 01/25/21 20:12 MDM MDM Narrative Medical decision making narrative: Acute cholecystitis Sepsis Chest pain rule out Patient was initially being worked up for chest pain. He had negative troponins x2, negative EKG for acute ischemia. He was given Protonix, sucralfate, and GI cocktail without relief. He became acutely obtunded and confused, and hypoxic with sats to the mid 80s. He had a temperature of 100.6. Sepsis was quickly identified and sepsis protocol was initiated with IV fluids and antibiotics. Patient was sent for CT of the abdomen pelvis that showed acute cholecystitis with gallbladder wall thickening. I have contacted Dr. Bowie, general surgery, and he will plan for surgery tomorrow in the setting of anticoagulation on Eliquis. I have spoken with the hospitalist to admit to medicine for his remaining comorbidities. Lab Data Result diagrams: 01/25/21 14:04 01/25/21 14:04 Labs: Lab Results 01/25/21 01/25/21 01/25/21 Range/Units 14:04 14:04 14:04 WBC 16.1 H (4.5-11.0) K/mcL RBC 4.56 (4.50-5.90) M/mcL Hgb 13.4 L (13.5-16.5) g/dL Hct 40.9 L (41.0-55.0) % MCV 89.7 (80.0-100.0) fL MCH 29.4 (26.0-34.0) pg MCHC 32.8 (31.0-36.0) g/dL RDW 14.1 (11.5-14.5) % Plt Count 207 (140-440) K/mcL MPV 12.0 H (7.4-10.4) fL Seg Neutrophils % 80 H (38-78) % Band Neutrophils % 2 (0-10) % Lymphocytes % 13 L (15-49) % Monocytes % (Manual) 5 (1-12) % Platelet Estimate Normal (Normal) RBC Morphology Normal (Normal) VBG Lactic Acid (0.5-2.0) mmol/L Sodium 131 L (133-145) mmol/L Potassium 3.6 (3.3-5.1) mmol/L Chloride 91 L (96-108) mmol/L Carbon Dioxide 27 (22-30) mmol/L Anion Gap 13.0 (8.0-16.0) BUN 6 L (8-23) mg/dL Creatinine 0.6 L (0.7-1.2) mg/dL GFR Calculation 95 Glucose 264 H (70-105) mg/dL Calcium 9.6 (8.6-10.4) mg/dL Total Bilirubin 1.3 H (0.1-1.0) mg/dL AST 15 (<40) U/L ALT 14 (<40) U/L Alkaline Phosphatase 161 H (39-117) U/L Troponin T < 0.01 (<0.03) ng/mL Total Protein 7.5 (5.9-8.4) gm/dL Albumin 4.1 (3.2-5.2) gm/dL Globulin 3.4 (2.2-3.7) gm/dL Albumin/Globulin Ratio 1.2 (1.0-2.3) Urine Color Urine Appearance (Clear) Urine pH (5.0-9.0) Ur Specific [place] (1.000-1.035) Urine Protein (Negative) mg/dL Urine Glucose (UA) (Negative) mg/dL Urine Ketones (Negative) mg/dL Urine Occult Blood (Negative) mg/dL Urine Nitrate (Negative) Urine Bilirubin (Negative) mg/dL Urine Urobilinogen mg/dL Ur Leukocyte Esterase (Negative) /ug Urine RBC (0-3) /hpf Urine WBC (0-4) /hpf Ur Squamous Epith Cells (0-4) /hpf Urine Bacteria (0) /hpf Urine Mucus (None) /hpf Ur Culture Indicated? 01/25/21 01/25/21 01/25/21 Range/Units 16:07 17:07 18:00 WBC (4.5-11.0) K/mcL RBC (4.50-5.90) M/mcL Hgb (13.5-16.5) g/dL Hct (41.0-55.0) % MCV (80.0-100.0) fL MCH (26.0-34.0) pg MCHC (31.0-36.0) g/dL RDW (11.5-14.5) % Plt Count (140-440) K/mcL MPV (7.4-10.4) fL Seg Neutrophils % (38-78) % Band Neutrophils % (0-10) % Lymphocytes % (15-49) % Monocytes % (Manual) (1-12) % Platelet Estimate (Normal) RBC Morphology (Normal) VBG Lactic Acid 2.9 H (0.5-2.0) mmol/L Sodium (133-145) mmol/L Potassium (3.3-5.1) mmol/L Chloride (96-108) mmol/L Carbon Dioxide (22-30) mmol/L Anion Gap (8.0-16.0) BUN (8-23) mg/dL Creatinine (0.7-1.2) mg/dL GFR Calculation Glucose (70-105) mg/dL Calcium (8.6-10.4) mg/dL Total Bilirubin (0.1-1.0) mg/dL AST (<40) U/L ALT (<40) U/L Alkaline Phosphatase (39-117) U/L Troponin T < 0.01 (<0.03) ng/mL Total Protein (5.9-8.4) gm/dL Albumin (3.2-5.2) gm/dL Globulin (2.2-3.7) gm/dL Albumin/Globulin Ratio (1.0-2.3) Urine Color Yellow Urine Appearance Clear (Clear) Urine pH 7.0 (5.0-9.0) Ur Specific [place] 1.018 (1.000-1.035) Urine Protein 30 A (Negative) mg/dL Urine Glucose (UA) >=500 A (Negative) mg/dL Urine Ketones 20 A (Negative) mg/dL Urine Occult Blood Negative (Negative) mg/dL Urine Nitrate Negative (Negative) Urine Bilirubin Negative (Negative) mg/dL Urine Urobilinogen Negative mg/dL Ur Leukocyte Esterase Negative (Negative) /ug Urine RBC 4 H (0-3) /hpf Urine WBC 1 (0-4) /hpf Ur Squamous Epith Cells 0 (0-4) /hpf Urine Bacteria None (0) /hpf Urine Mucus Few A (None) /hpf Ur Culture Indicated? No ED POC Tests ED POC Tests: JULISA - SARS Antigen Negative CC TIME Critical Care Time Critical Care Time: Yes Total Critical Care Time: 48 Attestation: 48 minutes was spent in critical care time at the patient's bedside managing acute sepsis with rapid fluid resuscitation, initiation of antibiotics, interpretation of imaging studies, and coordination of care to prevent imminent decline in condition and . Discharge Plan Patient/Caregiver Discharge Instructions Pt seen by [facility]/PA only: Yes Clinical Impression: Sepsis, Acute cholecystitis, Chest pain, rule out acute myocardial infarction Patient Disposition: Xfer As Inpt ([facility]) Condition: Critical Follow up with: No,PCP [Primary Care Provider] - Prescriptions: No Action Eliquis 5 mg tablet 5 mg PO BID RF: 0 oxycodone 5 mg capsule 10 mg PO BID PRN (Reason: Pain) RF: 0 potassium chloride 10 mEq capsule, extended release 10 meq PO BID RF: 0 furosemide [Lasix] 40 mg tablet 40 mg PO QAM RF: 0 oxybutynin chloride 10 mg tablet extended release 24hr 10 mg PO QDAY RF: 0 omeprazole 20 mg capsule,delayed release(DR/EC) 20 mg PO QDAY RF: 0 atorvastatin 10 mg tablet 10 mg PO DAILY RF: 0 amlodipine 10 mg tablet 10 mg PO DAILY RF: 0 hydroxyzine HCl 25 mg tablet 25 mg PO DAILY RF: 0 insulin asp prt-insulin aspart [Novolog Mix 70-30FlexPen U-100] 100 unit/mL (70-30) Insulin Pen 7 unit subcut BID RF: 0 baclofen 5 mg tablet 5 mg PO BID RF: 0 atenolol 25 mg tablet 50 mg PO DAILY RF: 0 metformin 850 mg Tablet 850 mg PO TID RF: 0 trazodone 100 mg Tablet 200 mg PO BID RF: 0 lisinopril 40 mg Tablet 40 mg PO QDAY RF: 0 Lantus U-100 Insulin 57 unit subcut QDAY RF: 0 melatonin 5 mg PO HSP PRN (Reason: Sleep) RF: 0
[2021-01-25 14:46] LABS: Hematocrit 40.9 % (41.0-55.0); Hemoglobin 13.4 g/dL (13.5-16.5); Mean Cell Volume 89.7 fL (80.0-100.0); Mean Corpuscular HGB Conc 32.8 g/dL (31.0-36.0); Platelet Count 207 K/mcL (140-440); RBC 4.56 M/mcL (4.50-5.90); Red Cell Distribution Width 14.1 % (11.5-14.5); WBC 16.1 K/mcL (4.5-11.0)
--- NOTE | 2021-01-25 14:47 | XRay Report ---
HISTORY: Chest pain with cold/flu symptoms FINDINGS: The heart appears moderately enlarged. However, is magnified by portable technique. A prior chest CT performed on 02/02/20 revealed the presence of a moderate amount of epicardial fat which could also magnified the size of the heart. Large right-sided epicardial fat pad mimics an infiltrate in the right middle lobe. This is unchanged from the prior CT. There is no pulmonary vascular congestion. The lungs are clear. No pleural effusion is present. Moderate arthritis is present in the right shoulder. IMPRESSION: No evidence of pneumonia. Mild cardiomegaly Interpreted and Authenticated by: José Miguel Khan 01/25/21
[2021-01-25 15:13] LABS: ALT/SGPT 14 U/L (<40); AST/SGOT 15 U/L (<40); Albumin 4.1 gm/dL (3.2-5.2); Albumin/Globulin Ratio 1.2 (1.0-2.3); Alkaline Phosphatase 161 U/L (39-117); Bilirubin,Total 1.3 mg/dL (0.1-1.0); Blood Urea Nitrogen 6 mg/dL (8-23); Calcium 9.6 mg/dL (8.6-10.4); Carbon Dioxide 27 mmol/L (22-30); Chloride 91 mmol/L (96-108); Globulin 3.4 gm/dL (2.2-3.7); Glomerular Filtration Rate 95; Glucose 264 mg/dL (70-105)
--- NOTE | 2021-01-25 15:27 | EKG ---
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 Measurements Intervals [place] Rate: 67 P: IN: QRS: 57 QRSD: 145 T: -19 QT: 439 QTc: 464 Interpretive Statements Atrial fibrillation Right bundle branch block Probable anteroseptal infarct, old NO PRIOR TRACING FOR COMPARISON Electronically Signed On 01-25-2021 15:27:24 PDT by Austin Artis M.D. /store/[email or web address]/[id number]
[2021-01-25] MEDS ORDERED: SUCRALFATE 1 GM/10 ML ORAL.SUSP PO ONE (15:42)
[2021-01-25] MEDS ORDERED: PANTOPRAZOLE 40 MG VIAL IV ONE (15:42)
[2021-01-25 15:53] LABS: Band Neutrophils % 2 % (0-10); Lymphocytes % 13 % (15-49); Monocytes % (Manual) 5 % (1-12); Platelet Estimate NORMAL (Normal); RBC Morphology NORMAL (Normal); Segmented Neutrophils % 80 % (38-78)
[2021-01-25 16:37] LABS: Appearance,Urine CLEAR (Clear); Bilirubin,Urine Negative (Negative); Color,Urine YELLOW; Culture Indicated,Urine No; Glucose,Urine (UA) >=500 mg/dL (Negative); Ketones,Urine 20 mg/dL (Negative); Leukocyte Esterase,Urine Negative /ug (Negative); Mucus,Urine FEW /hpf; Nitrate,Urine Negative (Negative); Protein,Urine 30 mg/dL (Negative); Specific Gravity,Urine 1.018 (1.000-1.035); Urine Blood Negative (Negative); Urine RBC 4 /hpf (0-3); Urine Squamous Epithelial Cell 0 /hpf (0-4); Urine WBC 1 /hpf (0-4); Urobilinogen,Urine Negative
[2021-01-25] MEDS ORDERED: ACETAMINOPHEN 1,000 MG/100 ML BAG IV ONE (16:51)
--- NOTE | 2021-01-25 16:59 | Ultrasound Report ---
History: Right leg pain and swelling FINDINGS: There is normal augmentation and compressibility of the deep veins and saphenous vein from the groin to the upper calf. Doppler shows normal waveform patterns. The patient was unable to tolerate compression of her calf and she also had uncontrolled shivering during the exam. Therefore the calf vessels cannot be evaluated. IMPRESSION: No evidence of deep venous thrombosis from the groin to the upper calf Interpreted and Authenticated by: José Miguel Khan 01/25/21
[2021-01-25] MEDS ORDERED: ONDANSETRON 4 MG/2 ML VIAL IV ONE (17:07)
[2021-01-25] MEDS ORDERED: 0.9 % SODIUM CHLORIDE 1,000 ML IV ONE (17:11)
[2021-01-25] MEDS ORDERED: VANCOMYCIN 2,000 MG in 0.9 % SODIUM CHLORIDE 500 ML IV ONE (17:26)
[2021-01-25] MEDS ORDERED: PIPERACILLIN SODIUM/TAZOBACTAM 3.375 GM in DEXTROSE 5% IN WATER 50 ML IV ONE (17:26)
[2021-01-25] MEDS ORDERED: morphine 4 MG/ML VIAL IV PRN (18:30)
[2021-01-25] MEDS ORDERED: 0.9 % SODIUM CHLORIDE 0 ML ONE (18:37)
--- NOTE | 2021-01-25 19:06 | Cat Scan Report ---
History: Epigastric pain with sepsis TECHNIQUE: The patient was imaged following intravenous nonionic contrast scanning during the portal venous phase from the diaphragm through the symphysis pubis. Delayed excretory phase images of the upper abdomen were acquired. Sagittal and coronal reformats were created. The radiation exposure was limited using dose reduction technology. FINDINGS: The liver measure up to 12 mm in size. Gallbladder wall has become severely edematous thickened and inflamed. The wall measures up to 1.4 cm. There is no surrounding abscess or ascites. The intrahepatic ducts are nondilated. Common hepatic duct measures up to 9 mm. This tapers in the proximal common bile duct. Distal common bile duct approximately 4 mm size. No stone is seen within the duct. Adjacent to the ampulla there is a small gas-filled duodenal diverticulum. There is atrophy of the pancreas. There is no evidence of acute pancreatitis. No pancreatic mass is present. There is thinning of the cortex in the upper pole of left kidney. There is no renal mass, calculus or hydronephrosis. Large amount calcified plaque is present in the arteries throughout the abdomen. The aorta is normal in caliber. No adenopathy is present. The bowel pattern is normal. There is no evidence of diverticulitis but obstruction or inflammatory bowel disease. Urinary bladder is unopacified but appears normal. Prostate is moderately enlarged. Patient has a right hip prosthesis. 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 Comparison the prior CT done on 02/02/20 shows the gallstones are chronic. The thickening and edema of the gallbladder wall are new. IMPRESSION: Cholelithiasis with acute cholecystitis Otilia Landin was called with report Interpreted and Authenticated by: José Miguel Khan 01/25/21
--- NOTE | 2021-01-25 20:00 | Internal Medicine Consult Note ---
HPI Data of Consult Primary Care Provider: PCP No Consult Narrative Patient Information: Note initiated : 01/25/21 at 7:50 pm Service Date, if different from initiated Date: [] Patient: Austin Canseco 80 y/o M admitted on for cold/flu. Chief Complaint: [] Presents to ED with epigastric pain described as pressure. He states he woke up yesterday morning with since been more or less constant since then no alleviating factors. Has had nausea vomiting headache fever chills. In the ED he was evaluated and chest pain work-up. He had a temperature of 100.6. Lactic acid was 2.9 and white blood cell count was 16 Does have history of coronary artery disease with stents and atrial fibrillation on anticoagulation and diabetes. In the ED he had an episode where he is altered and came confused and acutely hypoxic. Sepsis protocol was initiated with IV fluid bolus. Mentation came around quickly. Further work-up revealed acute cholecystitis. Dr. Bowie was contacted for surgery and then I was contacted. Review of Systems: Pertinent positives as above. Denies /cough/dyspnea/diarrhea. Remaining 10 point review of system reviewed negative cc:: CC: PFSH PFSH All Active Problems Chest pressure (Acute) SOB (shortness of breath) (Acute) History of diabetes mellitus (Acute) History of atrial fibrillation (Acute) History of essential hypertension (Acute) History of anxiety (Acute) History of coronary artery disease (Acute) History of hyperlipidemia (Acute) History of gastroesophageal reflux (GERD) (Acute) History of hip surgery (Acute) History of right knee surgery (Acute) Pressure ulcer of buttock (Acute) Poor mobility (Acute) Medical History Poor mobility Pressure ulcer of buttock Social History additional history: Past medical history: Diabetes Atrial fibrillation CAD with stent Hyperlipidemia/hypertension Chronic low back pain GERD Anxiety insomnia Hyponatremia on a past admission Past surgical history: 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 Bowel resection for diverticulosis Hernia repair Family history: Father with liver disease and liver cancer and alcoholism Mother with a blood disease/bleeding disorder/peptic ulcer disease Social history: Patient quit smoking 50 years ago Denies alcohol use Ambulates with a cane Lives in RV with his , states they move around quite a bit MEDS/ALLERGIES Home Medications and Allergies Home Medications Medication Instructions Recorded Confirmed Type amlodipine 10 mg PO DAILY 02/03/20 01/25/21 History atorvastatin 10 mg PO DAILY 02/03/20 01/25/21 History hydroxyzine HCl 25 mg PO DAILY 02/03/20 01/25/21 History insulin asp prt-insulin aspart 7 unit SUBCUT BID 02/03/20 01/25/21 History [Novolog Mix 70-30FlexPen U-100] apixaban 5 mg tablet 5 mg PO BID 01/07/21 01/25/21 History atenolol 25 mg tablet 50 mg PO DAILY tab 01/07/21 01/25/21 History baclofen 5 mg tablet 5 mg PO BID 01/07/21 01/25/21 History furosemide 40 mg tablet 40 mg PO QAM 01/07/21 01/25/21 History omeprazole 20 mg capsule,delayed 20 mg PO QDAY 01/07/21 01/25/21 History release oxybutynin chloride 10 mg 10 mg PO QDAY 01/07/21 01/25/21 History tablet,extended release 24 hr oxycodone 5 mg capsule 10 mg PO BID PRN cap 01/07/21 01/25/21 History potassium chloride 10 mEq 10 meq PO BID 01/07/21 01/25/21 History capsule,extended release Lantus U-100 Insulin 57 unit SUBCUT QDAY 01/25/21 01/25/21 History lisinopril 40 mg PO QDAY 01/25/21 01/25/21 History melatonin 5 mg PO HSP PRN 01/25/21 01/25/21 History metformin 850 mg PO TID 01/25/21 01/25/21 History trazodone 200 mg PO BID 01/25/21 01/25/21 History Allergies Allergy/AdvReac Type Severity Reaction Status Date / Time No Known Drug Allergies Allergy Verified 01/07/21 15:40 EXAM Constitutional Vitals: Temp Pulse BP Pulse Ox 100.6 F H 79 138/61 94 01/25/21 17:23 01/25/21 18:16 01/25/21 18:16 01/25/21 18:16 Exam: General: Alert, Awake, No acute Distress, obese Eyes/N/T: EOMI, PERRL, dmm Head/Neck: neck supple, normocephalic atraumatic CV: Irregular irr No murmurs, normal s1/s2 Pulm: Clear b/l, no wheezing/rhonchi/rales Abd: soft, nontender, +BS x4 Ext: no clubbing/cyanosis. RLE 2-3+ chronic edema (since knee surgery) Neuro: Alert, no focal deficits, moves all extremities, CN 2-12 grossly intact, symmetrical strength b/l upper/lower, sensations intact b/l upper/lower Skin: warm/dry DATA Data Completed and Pending Labs: Labs from last 24 hours 01/25/21 01/25/21 01/25/21 18:00 17:07 16:07 WBC RBC Hgb Hct MCV MCH MCHC RDW Plt Count MPV Seg Neutrophils % Band Neutrophils % Lymphocytes % Monocytes % (Manual) Platelet Estimate RBC Morphology VBG Lactic Acid 2.9 H Sodium Potassium Chloride Carbon Dioxide Anion Gap BUN Creatinine GFR Calculation Glucose Calcium Total Bilirubin AST ALT Alkaline Phosphatase Troponin T < 0.01 Total Protein Albumin Globulin Albumin/Globulin Ratio Urine Color Yellow Urine Appearance Clear Urine pH 7.0 Ur Specific [place] 1.018 Urine Protein 30 A Urine Glucose (UA) >=500 A Urine Ketones 20 A Urine Occult Blood Negative Urine Nitrate Negative Urine Bilirubin Negative Urine Urobilinogen Negative Ur Leukocyte Esterase Negative Urine RBC 4 H Urine WBC 1 Ur Squamous Epith Cells 0 Urine Bacteria None Urine Mucus Few A Ur Culture Indicated? No 01/25/21 01/25/21 01/25/21 14:04 14:04 14:04 WBC 16.1 H RBC 4.56 Hgb 13.4 L Hct 40.9 L MCV 89.7 MCH 29.4 MCHC 32.8 RDW 14.1 Plt Count 207 MPV 12.0 H Seg Neutrophils % 80 H Band Neutrophils % 2 Lymphocytes % 13 L Monocytes % (Manual) 5 Platelet Estimate Normal RBC Morphology Normal VBG Lactic Acid Sodium 131 L Potassium 3.6 Chloride 91 L Carbon Dioxide 27 Anion Gap 13.0 BUN 6 L Creatinine 0.6 L GFR Calculation 95 Glucose 264 H Calcium 9.6 Total Bilirubin 1.3 H AST 15 ALT 14 Alkaline Phosphatase 161 H Troponin T < 0.01 Total Protein 7.5 Albumin 4.1 Globulin 3.4 Albumin/Globulin Ratio 1.2 Urine Color Urine Appearance Urine pH Ur Specific [place] Urine Protein Urine Glucose (UA) Urine Ketones Urine Occult Blood Urine Nitrate Urine Bilirubin Urine Urobilinogen Ur Leukocyte Esterase Urine RBC Urine WBC Ur Squamous Epith Cells Urine Bacteria Urine Mucus Ur Culture Indicated? A/P Narrative A/P Narrative: A: *Acute cholecystitis: *Sepsis: *Encephalopathy: *Hyponatremia: *DM w/hyperglycemia: *CAD w/stent: on BB *AFib: on eliquis/BB *HTN: on BB/ACEI/Norvasc *GERD: *Obesity: * P: -IVF -Zosyn -Dr. Bowie for surgery -hold eliquis preop -cont BB/BP meds -SSI and basal -wound care for sacral pressure wound - -pt/ot -ppx: heparin (hold in AM) Full code Time Spent With Patient Time: Total time spent is greater than 50% in coordination of care (as documented) at patient's floor/unit and/or counseling patient:
[2021-01-25] MEDS ORDERED: DEXTROSE 50% 50 ML VIAL IV PRN (20:09)
[2021-01-25] MEDS ORDERED: DEXTROSE 31 GM ORAL.SUSP PO PRN (20:09)
[2021-01-25] MEDS: 0.9 % SODIUM CHLORIDE 10 ML SYRINGE IV SCH (21:20)
--- NOTE | 2021-01-25 21:40 | General Surg History&Physical ---
HPI History of Present Illness Patient information: Note initiated : 01/25/21 at 9:28 pm Service Date, if different from initiated Date: [] Patient: Austin Canseco 80 y/o M admitted on 01/25/21 for cold/flu. Chief Complaint: [] Chief complaint: Acute cholecystitis with cholelithiasis History of present illness: Mr. Canseco is a 80 year old M admitted from the emergency room with acute cholecystitis with cholelithiasis. The patient states that he had onset of epigastric and right lower chest pain on midday yesterday. He used multiple [id number] medications without any improvement. He had nausea but could not vomit. The pain became increasingly severe and he was finally seen in the emergency room earlier today. He was noted to be tachycardic with elevated blood pressure initially but during evaluation his blood pressure dropped and he became diaphoretic. He was resuscitated with fluid. CT of the abdomen was done and it showed an acutely inflamed gallbladder with stones. There was no pericholecystic fluid. White blood count was 16,100 and lactate was 2.9. BUN and creatinine are normal. LFTs are normal. Patient has been started on antibiotics and is admitted. Patient has a history of chronic atrial fibrillation and is on apixaban 5 mg twice daily for at least 4years. He also has diabetes mellitus which is controlled with Lantus and NovoLog insulin. His hypertension has been fairly well controlled. He is evaluated and counseled for cholecystectomy. He last took his apixaban on yesterday. Constitutional Constitutional: Present fatigue and malaise EENT Eyes: Present as per HPI Ears: Present as per HPI Nose, mouth and throat: Present abnormal hearing and disequilibrium Cardiovascular Cardiovascular: Present chest pain, dyspnea on exertion, irregular heart rhythm, leg edema (Bilateral leg edema with chronic stasis changes), lightheadedness, paroxysmal nocturnal dyspnea and rapid heart rate Respiratory Respiratory: Present cough, dyspnea on exertion and pain on inspirtation Gastrointestinal Gastrointestinal: Present abdominal pain, belching, bloating, heartburn, nausea and vomiting Genitourinary Genitourinary: urinary frequency, urinary hesitancy, urinary incontinence and urinary urgency Musculoskeletal Musculoskeletal: Present abnormal gait, arthralgias, deformity, myalgias, numbness and radiating pain into limb Integumentary Integumentary: Present skin ulcer (Buttock ulcers) Neurological Neurological: Present abnormal gait, lack of coordination, numbness, paresthesias, restless legs, sensory deficit and tingling Psychiatric Psychiatric: Present abnormal sleep pattern, depression and irritability Endocrine Endocrine: Present flushing and palpitations Hematologic/Lymphatic Hematologic/Lymphatic: Present other (Chronic anticoagulant therapy); Absent easy bleeding, easy bruising and lymphadenopathy PFSH PFSH All Active Problems (Updated 01/25/21 @ 21:47 by Claudia Bowie MD) correction current use of anticoagulant therapy (Acute) Cholecystitis, acute with cholelithiasis (Acute) Sepsis (Acute) Acute cholecystitis (Acute) Chest pain, rule out acute myocardial infarction (Acute) Chest pressure (Acute) SOB (shortness of breath) (Acute) History of diabetes mellitus (Acute) History of atrial fibrillation (Acute) History of essential hypertension (Acute) History of anxiety (Acute) History of coronary artery disease (Acute) History of hyperlipidemia (Acute) History of gastroesophageal reflux (GERD) (Acute) History of hip surgery (Acute) History of right knee surgery (Acute) Pressure ulcer of buttock (Acute) Poor mobility (Acute) Medical History Poor mobility Pressure ulcer of buttock Social History additional history: Past medical history: Diabetes Atrial fibrillation CAD with stent Hyperlipidemia/hypertension Chronic low back pain GERD Anxiety insomnia Hyponatremia on a past admission Past surgical history: 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 Bowel resection for diverticulosis Hernia repair Family history: Father with liver disease and liver cancer and alcoholism Mother with a blood disease/bleeding disorder/peptic ulcer disease Social history: Patient quit smoking 50 years ago Denies alcohol use Ambulates with a cane Lives in RV with his , states they move around quite a bit MEDS/ALLERGIES Home Medications and Allergies Home Medications Medication Instructions Recorded Confirmed Type amlodipine 10 mg PO DAILY 02/03/20 01/25/21 History atorvastatin 10 mg PO DAILY 02/03/20 01/25/21 History hydroxyzine HCl 25 mg PO DAILY 02/03/20 01/25/21 History insulin asp prt-insulin aspart 7 unit SUBCUT BID 02/03/20 01/25/21 History [Novolog Mix 70-30FlexPen U-100] apixaban 5 mg tablet 5 mg PO BID 01/07/21 01/25/21 History atenolol 25 mg tablet 50 mg PO DAILY tab 01/07/21 01/25/21 History baclofen 5 mg tablet 5 mg PO BID 01/07/21 01/25/21 History furosemide 40 mg tablet 40 mg PO QAM 01/07/21 01/25/21 History omeprazole 20 mg capsule,delayed 20 mg PO QDAY 01/07/21 01/25/21 History release oxybutynin chloride 10 mg 10 mg PO QDAY 01/07/21 01/25/21 History tablet,extended release 24 hr oxycodone 5 mg capsule 10 mg PO BID PRN cap 01/07/21 01/25/21 History potassium chloride 10 mEq 10 meq PO BID 01/07/21 01/25/21 History capsule,extended release Lantus U-100 Insulin 57 unit SUBCUT QDAY 01/25/21 01/25/21 History lisinopril 40 mg PO QDAY 01/25/21 01/25/21 History melatonin 5 mg PO HSP PRN 01/25/21 01/25/21 History metformin 850 mg PO TID 01/25/21 01/25/21 History trazodone 200 mg PO BID 01/25/21 01/25/21 History Allergies Allergy/AdvReac Type Severity Reaction Status Date / Time No Known Drug Allergies Allergy Verified 01/07/21 15:40 Physical Examination Vital Signs Vital signs: Temp Pulse BP Pulse Ox 100.6 F H 79 138/61 94 01/25/21 20:12 01/25/21 20:12 01/25/21 20:12 01/25/21 20:12 General physical appearance General physical exam: moderate distress, moderate pain, chronically ill and obese Eyes Eye exam: PERRL and normal ocular movement ENT ENT exam: no hearing loss Head Head exam IM: Present atraumatic, normal inspection and normocephalic Neck Neck exam: no masses, no bruits, trachea midline, no lymphadenopathy and no venous distension Cardiovascular Cardiovascular exam IM: Present normal rate and rhythm, irregular rhythm, +S1 and +S2; Absent JVD Respiratory Respiratory exam: normal expansion, normal respiratory effort and clear to auscultation Abdomen Abdomen: Present tender (Epigastrium and right upper quadrant tenderness), bowel sounds (Normal active bowel sounds) and distended (Moderate distention) Integumentary Integumentary: Present no rash, no growths, no abnormal pigmentation and other (Healing linear ulceration of right medial buttock) Neurologic Neurologic: Present normal coordination and normal sensation Musculoskeletal Musculoskeletal: Present other (3+ chronic stasis edema on the right and 2+ edema on the left; decreased range of motion right knee; intact peripheral pulses) Psychiatric Psychiatric: Present oriented to time, oriented to person, oriented to place, speech is normal and memory intact Results Labs Result diagrams: 01/25/21 14:04 01/25/21 14:04 Labs: Abnormal lab results 01/25/21 01/25/21 01/25/21 Range/Units 14:04 14:04 16:07 WBC 16.1 H (4.5-11.0) K/mcL Hgb 13.4 L (13.5-16.5) g/dL Hct 40.9 L (41.0-55.0) % MPV 12.0 H (7.4-10.4) fL Seg Neutrophils % 80 H (38-78) % Lymphocytes % 13 L (15-49) % VBG Lactic Acid (0.5-2.0) mmol/L Sodium 131 L (133-145) mmol/L Chloride 91 L (96-108) mmol/L BUN 6 L (8-23) mg/dL Creatinine 0.6 L (0.7-1.2) mg/dL Glucose 264 H (70-105) mg/dL Total Bilirubin 1.3 H (0.1-1.0) mg/dL Alkaline Phosphatase 161 H (39-117) U/L Urine Protein 30 A (Negative) mg/dL Urine Glucose (UA) >=500 A (Negative) mg/dL Urine Ketones 20 A (Negative) mg/dL Urine RBC 4 H (0-3) /hpf Urine Mucus Few A (None) /hpf 01/25/21 Range/Units 18:00 WBC (4.5-11.0) K/mcL Hgb (13.5-16.5) g/dL Hct (41.0-55.0) % MPV (7.4-10.4) fL Seg Neutrophils % (38-78) % Lymphocytes % (15-49) % VBG Lactic Acid 2.9 H (0.5-2.0) mmol/L Sodium (133-145) mmol/L Chloride (96-108) mmol/L BUN (8-23) mg/dL Creatinine (0.7-1.2) mg/dL Glucose (70-105) mg/dL Total Bilirubin (0.1-1.0) mg/dL Alkaline Phosphatase (39-117) U/L Urine Protein (Negative) mg/dL Urine Glucose (UA) (Negative) mg/dL Urine Ketones (Negative) mg/dL Urine RBC (0-3) /hpf Urine Mucus (None) /hpf Diabetes panel 01/25/21 Range/Units 14:04 Sodium 131 L (133-145) mmol/L Potassium 3.6 (3.3-5.1) mmol/L Chloride 91 L (96-108) mmol/L Carbon Dioxide 27 (22-30) mmol/L BUN 6 L (8-23) mg/dL Creatinine 0.6 L (0.7-1.2) mg/dL Glucose 264 H (70-105) mg/dL Calcium 9.6 (8.6-10.4) mg/dL AST 15 (<40) U/L ALT 14 (<40) U/L Alkaline Phosphatase 161 H (39-117) U/L Total Protein 7.5 (5.9-8.4) gm/dL Albumin 4.1 (3.2-5.2) gm/dL Calcium panel 01/25/21 Range/Units 14:04 Calcium 9.6 (8.6-10.4) mg/dL Albumin 4.1 (3.2-5.2) gm/dL Pituitary panel 01/25/21 Range/Units 14:04 Sodium 131 L (133-145) mmol/L Potassium 3.6 (3.3-5.1) mmol/L Chloride 91 L (96-108) mmol/L Carbon Dioxide 27 (22-30) mmol/L BUN 6 L (8-23) mg/dL Creatinine 0.6 L (0.7-1.2) mg/dL Glucose 264 H (70-105) mg/dL Calcium 9.6 (8.6-10.4) mg/dL Adrenal panel 01/25/21 Range/Units 14:04 Sodium 131 L (133-145) mmol/L Potassium 3.6 (3.3-5.1) mmol/L Chloride 91 L (96-108) mmol/L Carbon Dioxide 27 (22-30) mmol/L BUN 6 L (8-23) mg/dL Creatinine 0.6 L (0.7-1.2) mg/dL Glucose 264 H (70-105) mg/dL Calcium 9.6 (8.6-10.4) mg/dL Total Bilirubin 1.3 H (0.1-1.0) mg/dL AST 15 (<40) U/L ALT 14 (<40) U/L Alkaline Phosphatase 161 H (39-117) U/L Total Protein 7.5 (5.9-8.4) gm/dL Albumin 4.1 (3.2-5.2) gm/dL All other labs normal. A/P Assessment and plan (1) Cholecystitis, acute with cholelithiasis: Status: Acute Qualifiers: Biliary obstruction: without biliary obstruction Qualified Code(s): K80.00 - Calculus of gallbladder with acute cholecystitis without obstruction (2) Sepsis: Status: Acute Qualifiers: Sepsis acute organ dysfunction status: without acute organ dysfunction Sepsis type: sepsis due to unspecified organism Qualified Code(s): A41.9 - Sepsis, unspecified organism (3) History of diabetes mellitus: Status: Acute Comment: A1C 7.7% 11/2020 (4) History of atrial fibrillation: Status: Acute (5) History of essential hypertension: Status: Acute (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
[2021-01-25] MEDS ORDERED: SENNOSIDES 1 TABLET PO PRN (22:39)
[2021-01-25] MEDS ORDERED: 0.9 % SODIUM CHLORIDE 1,000 ML IV SCH (22:39)
[2021-01-25] MEDS ORDERED: POTASSIUM CHLORIDE 20 MEQ TABLET PO PRN ×2 (22:39)
[2021-01-25] MEDS ORDERED: IPRATROPIUM/ALBUTEROL 3 ML AMPUL.NEB NEB PRN (22:39)
[2021-01-25] MEDS ORDERED: HEPARIN 5,000 UNIT/ML VIAL SQ ONE (22:39)
[2021-01-25] MEDS ORDERED: METOCLOPRAMIDE 10 MG/2 ML VIAL IV PRN (22:39)
[2021-01-25] MEDS ORDERED: BACLOFEN 5 MG PO SCH (22:39)
[2021-01-25] MEDS ORDERED: hydrOXYzine 25 MG TABLET PO PRN (22:39)
[2021-01-25] MEDS ORDERED: ONDANSETRON 4 MG/2 ML VIAL IV PRN (22:39)
[2021-01-25] MEDS ORDERED: MAGNESIUM SULFATE 2 GM/50 ML BAG IV PRN (22:39)
[2021-01-25] MEDS ORDERED: POLYETHYLENE GLYCOL 3350 17 GM PACKET PO PRN (22:39)
[2021-01-25] MEDS ORDERED: LABETALOL 5 MG/ML ML IV PRN (22:39)
[2021-01-25] MEDS ORDERED: POTASSIUM CHLORIDE 40 MEQ in DEXTROSE 5% IN WATER 500 ML IV PRN (22:39)
[2021-01-25] MEDS ORDERED: ACETAMINOPHEN 325 MG TABLET PO PRN (22:39)
[2021-01-25] MEDS ORDERED: ONDANSETRON 4 MG/2 ML VIAL ONE (23:39)
[2021-01-25] MEDS: INSULIN LISPRO 1 UNIT/0.01 ML UNIT SQ SCH (23:44)
[2021-01-26] MEDS ORDERED: BACLOFEN 10 MG TABLET PO ONE ×2 (00:01→14:48)
[2021-01-26] MEDS ORDERED: traZODone HCL 50 MG TABLET ONE (00:14)
[2021-01-26] MEDS: DOCUSATE SODIUM 100 MG CAPSULE PO SCH ×3 (00:22→20:42)
[2021-01-26] MEDS: PIPERACILLIN SODIUM/TAZOBACTAM 3.375 GM in DEXTROSE 5% IN WATER 50 ML IV SCH ×5 (00:27→23:46)
[2021-01-26] MEDS: traZODone HCL 100 MG TABLET PO SCH ×2 (00:29→08:54)
[2021-01-26] MEDS ORDERED: METOCLOPRAMIDE 10 MG/2 ML VIAL ONE (01:08)
[2021-01-26] MEDS: 0.9 % SODIUM CHLORIDE 10 ML SYRINGE IV SCH ×2 (05:27→15:03)
[2021-01-26] MEDS ORDERED: oxyCODONE HCL 5 MG TABLET PO ONE (05:35)
--- NOTE | 2021-01-26 06:33 | Internal Med Progress Note ---
SUBJECTIVE Subjective Patient information: Note initiated : 01/26/21 at 6:30 am Service Date, if different from initiated Date: [] Patient: Austin Canseco 80 y/o M admitted on 01/25/21 for cold/flu. Chief Complaint: [] Interval history: Presents to ED with epigastric pain described as pressure. He states he woke up yesterday morning with since been more or less constant since then no alleviating factors. Has had nausea vomiting headache fever chills. In the ED he was evaluated and chest pain work-up. He had a temperature of 100.6. Lactic acid was 2.9 and white blood cell count was 16 Does have history of coronary artery disease with stents and atrial fibrillation on anticoagulation and diabetes. In the ED he had an episode where he is altered and came confused and acutely hypoxic. Sepsis protocol was initiated with IV fluid bolus. Mentation came around quickly. Further work-up revealed acute cholecystitis. Dr. Bowie was contacted for surgery and then I was contacted. 01/26 No overnight or new complaints. Will undergo laparoscopic cholecystectomy this morning. Review of Systems: denies headache/fever/chills/nausea/vomiting/chest or abdominal pain/cough/dyspnea/diarrhea. Otherwise see above. Constitutional Vitals: Vital Signs Temp Pulse Resp BP Pulse Ox 98.0 F 55 L 24 H 173/77 95 01/26/21 04:01 01/26/21 05:28 01/26/21 05:28 01/26/21 05:06 01/26/21 05:28 Period Temp Pulse Resp BP Sys/Ignacio Pulse Ox Last 24 Hr 97.8 F-100.6 F 54-94 17-25 138-189/61-155 94-99 Intake and Output 01/25/21 01/26/21 01/26/21 21:59 05:59 13:59 Intake Total 1650 50 Output Total 200 475 Balance 1450 -425 Weight 136.531 kg Intake & Output: Intake & Output 01/25/21 01/26/21 01/26/21 21:59 05:59 13:59 Intake Total 1650 50 Output Total 200 475 Balance 1450 -425 Weight 136.531 kg Intake: IV 1650 50 Sodium Chloride 0.9% 1,000 ml @ 1000 Wide Open IV BOLUS ONE Rx#: [id number] Zosyn 3.375 gm In Dextrose 5% 50 50 in Water 50 ml @ 100 mls/hr IV Q6H FABIEN Rx#:[id number] Vancomycin 2,000 mg In Sodium 500 Chloride 0.9% 500 ml @ 250 mls/ hr IV ONCE ONE Rx#:[id number] Output: Void Amount 200 475 Other: Urine Appearance Clear Clear Urine Color Light Veronica Dark Yellow Exam: General: Alert, Awake, No acute Distress, obese Eyes/N/T: EOMI, Head/Neck: neck supple, CV: Irregular irr No murmurs, Pulm: Clear b/l, no wheezing/rhonchi/rales Abd: soft, nontender, +BS x4 Ext: no clubbing/cyanosis. RLE 2-3+ chronic edema (since knee surgery) Neuro: Alert, no focal deficits, moves all extremities, Skin: warm/dry OBJ DATA Labs CBC & Chem 7: 01/26/21 05:22 01/26/21 05:21 Labs: Abnormal Lab Results 01/25/21 01/25/21 01/25/21 18:00 16:07 14:04 WBC Hgb Hct MPV Seg Neutrophils % Lymphocytes % VBG Lactic Acid 2.9 H Sodium 131 L Chloride 91 L BUN 6 L Creatinine 0.6 L Glucose 264 H Total Bilirubin 1.3 H Alkaline Phosphatase 161 H Urine Protein 30 A Urine Glucose (UA) >=500 A Urine Ketones 20 A Urine RBC 4 H Urine Mucus Few A 01/25/21 14:04 WBC 16.1 H Hgb 13.4 L Hct 40.9 L MPV 12.0 H Seg Neutrophils % 80 H Lymphocytes % 13 L VBG Lactic Acid Sodium Chloride BUN Creatinine Glucose Total Bilirubin Alkaline Phosphatase Urine Protein Urine Glucose (UA) Urine Ketones Urine RBC Urine Mucus Meds: Medications Acetaminophen (Acetaminophen 325 Mg Tablet) 650 mg PO Q6HP PRN PRN Reason: PAIN/FEVER > 101 Albuterol/Ipratropium (Ipratropium/Albuterol 3 Ml Ampul.Neb) 3 ml NEB Q4HP PRN PRN Reason: Shortness Of Breath Amlodipine Besylate (Amlodipine 10 Mg Tablet) 10 mg PO DAILY [facility] Atenolol (Atenolol 25 Mg Tablet) 50 mg PO DAILY [facility] Atorvastatin Calcium (Atorvastatin 10 Mg Tablet) 10 mg PO DAILY [facility] Dextrose (Dextrose 50% 50 Ml Vial) 0 ml IV UD PRN PRN Reason: Hypoglycemia Diagnostic Test (Pha) (Accu-Chek 1 Each Strip) 1 each FS ACHS [facility] Last Admin: 01/25/21 23:43 Dose: 1 each Documented by: Docusate Sodium (Docusate Sodium 100 Mg Capsule) 100 mg PO BID FABIEN Last Admin: 01/26/21 00:22 Dose: Not Given Documented by: Furosemide (Furosemide 40 Mg Tablet) 40 mg PO QAM [facility] Glucose (Dextrose 31 Gm Oral.Susp) 15 gm PO PRN PRN PRN Reason: Hypoglycemia Heparin Sodium (Porcine) (Heparin 5,000 Unit/Ml Vial) 5,000 unit SQ Q12 ONE Stop: 01/25/21 22:40 Last Admin: 01/26/21 00:30 Dose: Not Given Documented by: Hydroxyzine HCl (Hydroxyzine 25 Mg Tablet) 25 mg PO DAILY PRN PRN Reason: anxiety, insomina Potassium Chloride 40 meq/ (Dextrose) 520 mls @ 130 mls/hr IV UD PRN PRN Reason: Potassium < 3 Magnesium Sulfate (Magnesium Sulfate) 2 gm in 50 mls @ 50 mls/hr IV UD PRN PRN Reason: Magnesium </= 1.6 Sodium Chloride (Sodium Chloride 0.9%) 1,000 mls @ 100 mls/hr IV .Q10H [facility] Stop: 01/26/21 08:38 Last Admin: 01/25/21 23:19 Dose: 100 mls/hr Documented by: Piperacillin Sod/Tazobactam (Sod 3.375 gm/ Dextrose) 50 mls @ 100 mls/hr IV Q6H [facility]; Protocol Last Admin: 01/26/21 05:21 Dose: 100 mls/hr Documented by: Insulin Human Lispro (Insulin Lispro 1 Unit/0.01 Ml Unit) 0 unit SQ ACHS [facility]; Protocol Last Admin: 01/25/21 23:44 Dose: 8 units Documented by: Labetalol HCl (Labetalol 5 Mg/Ml Ml) 0 mg IV Q2HP PRN PRN Reason: Hypertension Last Admin: 01/26/21 04:22 Dose: 5 mg Documented by: Metoclopramide HCl (Metoclopramide 10 Mg/2 Ml Vial) 10 mg IV Q6HP PRN PRN Reason: Nausea And Vomiting Last Admin: 01/26/21 01:08 Dose: 10 mg Documented by: Non-Formulary Medication (Baclofen) 5 mg PO BID [facility] Last Admin: 01/26/21 00:20 Dose: 5 mg Documented by: Non-Formulary Medication (Lantus U-100 Insulin) 57 unit SUB-Q QDAY [facility] Non-Formulary Medication (Lisinopril) 40 mg PO QDAY [facility] Non-Formulary Medication (Melatonin) 5 mg PO HSP PRN PRN Reason: Sleep Non-Formulary Medication (Oxybutynin Chloride) 10 mg PO QDAY [facility] Non-Formulary Medication (Oxycodone) 10 mg PO BID PRN PRN Reason: Pain Omeprazole (Omeprazole 20 Mg Capsule) 20 mg PO QDAY [facility] Ondansetron HCl (Ondansetron 4 Mg/2 Ml Vial) 4 mg IV Q4HP PRN PRN Reason: Nausea And Vomiting Last Admin: 01/25/21 23:38 Dose: 4 mg Documented by: Pantoprazole Sodium (Pantoprazole 40 Mg Vial) 40 mg IV QAMAC [facility] Polyethylene Glycol (Polyethylene Glycol 3350 17 Gm Packet) 17 gm PO DAILYP PRN PRN Reason: Constipation Potassium Chloride (Potassium Chloride 20 Meq Tablet) 40 meq PO UD PRN PRN Reason: Potssium is 3-3.5 Potassium Chloride (Potassium Chloride 20 Meq Tablet) 40 meq PO UD PRN PRN Reason: Potassium < 3 Senna (Sennosides 1 Tablet) 2 tab PO DAILYP PRN PRN Reason: Constipation Sodium Chloride (0.9 % Sodium Chloride 10 Ml Syringe) 10 ml IV Q8 [facility] Last Admin: 01/26/21 05:27 Dose: Not Given Documented by: Trazodone HCl (Trazodone Hcl 100 Mg Tablet) 200 mg PO BID [facility] Last Admin: 01/26/21 00:29 Dose: Not Given Documented by: A/P Narrative A/P Narrative: A: *Acute cholecystitis: *Sepsis: improved *Encephalopathy: resolved in ED *Hyponatremia, mild: *DM w/hyperglycemia: *CAD w/stent: on BB *AFib: on eliquis/BB *HTN: on BB/ACEI/Norvasc *GERD: *Obesity: *Sacral wound: follows with wound clinic P: -IVF d/c -Zosyn -Dr. Bowie for surgery -hold eliquis preop -cont BP meds -SSI and basal -wound care for sacral pressure wound - -pt/ot -ppx: heparin (hold in AM)/home ppi Full code Time Spent With Patient Time: Total time spent is greater than 50% in coordination of care (as documented) at patient's floor/unit and/or counseling patient: QUALITY VTE Deep Vein Thrombosis/Pulmonary Embolism Present on Admission: No
[2021-01-26 06:48] LABS: Basophils # (Auto) 0.04 K/mcL (0.00-0.20); Basophils % (Auto) 0.2 % (0.0-2.0); Eosinophils # (Auto) 0.01 K/mcL (0.00-0.70); Eosinophils % (Auto) 0 % (0.0-7.0); Hematocrit 40.3 % (41.0-55.0); Hemoglobin 13.1 g/dL (13.5-16.5); Lymphocytes # (Auto) 1.45 K/mcL (1.50-4.80); Lymphocytes % (Auto) 6.4 % (15.0-49.0); Mean Cell Volume 92.9 fL (80.0-100.0); Mean Corpuscular HGB Conc 32.5 g/dL (31.0-36.0); Mean Platelet Volume 11.8 fL (7.4-10.4); Monocytes # (Auto) 1.38 K/mcL (0.10-0.90); Monocytes % (Auto) 6.1 % (1.0-12.0); Neutrophils % (Auto) 87.3 % (38.0-78.0); Platelet Count 189 K/mcL (140-440); RBC 4.34 M/mcL (4.50-5.90); Red Cell Distribution Width 14.5 % (11.5-14.5); WBC 22.7 K/mcL (4.5-11.0)
[2021-01-26] MEDS ORDERED: oxyCODONE HCL 5 MG TABLET PO PRN (06:50)
[2021-01-26 07:20] LABS: ALT/SGPT 22 U/L (<40); AST/SGOT 31 U/L (<40); Albumin 3.4 gm/dL (3.2-5.2); Alkaline Phosphatase 149 U/L (39-117); Bilirubin,Direct 0.8 mg/dL (<0.3); Bilirubin,Total 1.5 mg/dL (0.1-1.0); Blood Urea Nitrogen 5 mg/dL (8-23); Calcium 8.9 mg/dL (8.6-10.4); Carbon Dioxide 27 mmol/L (22-30); Chloride 94 mmol/L (96-108); Globulin 3.3 gm/dL (2.2-3.7); Glomerular Filtration Rate 95; Glucose 257 mg/dL (70-105); Lactate Dehydrogenase 234 U/L (135-225); Phosphorous 2.7 mg/dL (2.5-4.5); Triglycerides 61 mg/dL (<150); Uric Acid 2.3 mg/dL (2.5-8.0)
[2021-01-26] MEDS ORDERED: PANTOPRAZOLE 40 MG VIAL IV SCH (07:30)
[2021-01-26] MEDS ORDERED: 0.9 % SODIUM CHLORIDE 250 ML IV SCH (07:45)
[2021-01-26] MEDS: INSULIN LISPRO 1 UNIT/0.01 ML UNIT SQ SCH ×4 (08:00→20:41)
[2021-01-26 08:58] LABS: INR 1.3 (0.9-1.1); Prothrombin Time 16.8 sec (11.9-14.5)
[2021-01-26] MEDS ORDERED: OXYBUTYNIN CHLORIDE 5 MG TAB.XL.24H PO SCH (09:00)
[2021-01-26] MEDS ORDERED: amLODIPine 10 MG TABLET PO SCH (09:00)
[2021-01-26] MEDS ORDERED: LISINOPRIL 20 MG TABLET PO SCH (09:00)
[2021-01-26] MEDS ORDERED: ATORVASTATIN 10 MG TABLET PO SCH (09:00)
[2021-01-26] MEDS ORDERED: ATENOLOL 25 MG TABLET PO SCH (09:00)
[2021-01-26] MEDS ORDERED: OMEPRAZOLE 20 MG CAPSULE PO SCH (09:00)
[2021-01-26] MEDS ORDERED: BACLOFEN 10 MG TABLET PO SCH (09:00)
[2021-01-26] MEDS ORDERED: INSULIN GLARGINE, HUMAN 1 UNIT/0.01 ML SQ SCH (09:00)
[2021-01-26] MEDS ORDERED: FUROSEMIDE 40 MG TABLET PO SCH (09:00)
[2021-01-26] MEDS ORDERED: hydrALAZINE 20 MG/ML VIAL IV PRN ×2 (09:22→14:48)
[2021-01-26] MEDS ORDERED: ONDANSETRON 4 MG/2 ML VIAL ONE (11:24)
[2021-01-26] MEDS ORDERED: PROPOFOL 200 MG/20 ML VIAL IV ONE (11:24)
[2021-01-26] MEDS ORDERED: SUGAMMADEX SODIUM 200 MG/2 ML VIAL IV ONE (11:24)
[2021-01-26] MEDS ORDERED: KETAMINE 50 MG/ML ML ONE (11:24)
[2021-01-26] MEDS ORDERED: fentaNYL 250 MCG/5 ML VIAL IV ONE (11:24)
[2021-01-26] MEDS ORDERED: SUCCINYLCHOLINE 20 MG/ML ML IV ONE (11:24)
[2021-01-26] MEDS ORDERED: LIDOCAINE HCL/PF 100 MG/5 ML SYRINGE IV ONE (11:24)
[2021-01-26] MEDS ORDERED: PHENYLEPHRINE 10 MG/ML VIAL ONE (11:24)
[2021-01-26] MEDS ORDERED: MAGNESIUM SULFATE 2 GM/50 ML BAG IV ONE (11:24)
[2021-01-26] MEDS ORDERED: DEXAMETHASONE 10 MG/ML VIAL ONE (11:24)
[2021-01-26] MEDS ORDERED: ROCURONIUM 10 MG/ML ML IV ONE (11:24)
[2021-01-26] MEDS ORDERED: FAMOTIDINE/PF 20 MG/2 ML VIAL IV ONE (11:24)
[2021-01-26] MEDS ORDERED: MEPERIDINE 25 MG/ML VIAL IV PRN (12:36)
[2021-01-26] MEDS ORDERED: PROMETHAZINE 25 MG/ML VIAL IV PRN (12:36)
[2021-01-26] MEDS ORDERED: IPRATROPIUM/ALBUTEROL 3 ML AMPUL.NEB NEB PRN ×2 (12:36→14:48)
[2021-01-26] MEDS ORDERED: ONDANSETRON 4 MG/2 ML VIAL IV PRN ×2 (12:36→14:48)
[2021-01-26] MEDS ORDERED: fentaNYL 100 MCG/2 ML VIAL IV PRN (12:36)
[2021-01-26] MEDS ORDERED: LACTATED RINGERS 250 ML IV PRN (12:36)
[2021-01-26] MEDS ORDERED: METHOCARBAMOL 1,000 MG/10 ML VIAL IV PRN (12:36)
[2021-01-26] MEDS ORDERED: NALOXONE HCL 0.4 MG/ML VIAL IV PRN (12:36)
[2021-01-26] MEDS ORDERED: BENZOCAINE/MENTHOL 1 LOZENGE PO PRN (12:36)
[2021-01-26] MEDS ORDERED: LACTATED RINGERS 1,000 ML IV SCH (12:45)
--- NOTE | 2021-01-26 13:15 | Brief Operative Note ---
Brief Operative Note Date of procedure: 01/26/21 Pre-op diagnosis: acute cholecystitis with cholelithiasis Post-op diagnosis: other (acute necrotizing cholecystitis with cholelithiasis ) Procedure: diagnoscoic laparoscopy;open cholecystectomy Grafts/Implants: No (#10 NORA DRAIN ) Anesthesia: GETA Findings: EXTENSIVE INTRAABDOMINAL ADHESIONS;SEVERELY INFLAMED NECROTIZING CHOLECYSTITISWITH MULTIPLE LARGE STONES AND SLUDGE Complications: none Surgeon: Claudia Bowie Estimated blood loss (cc): 50 Specimens Removed/Pathology: other (GALLBLADDER AND STONES) Condition: stable Disposition: PACU
[2021-01-26] MEDS ORDERED: DEXTROSE 50% 50 ML VIAL IV PRN (14:48)
[2021-01-26] MEDS ORDERED: ACETAMINOPHEN 1,000 MG/100 ML BAG IV SCH (14:48)
[2021-01-26] MEDS ORDERED: SENNOSIDES 1 TABLET PO PRN (14:48)
[2021-01-26] MEDS ORDERED: POTASSIUM CHLORIDE 40 MEQ in DEXTROSE 5% IN WATER 500 ML IV PRN (14:48)
[2021-01-26] MEDS ORDERED: METOCLOPRAMIDE 10 MG/2 ML VIAL IV PRN (14:48)
[2021-01-26] MEDS ORDERED: POTASSIUM CHLORIDE 20 MEQ TABLET PO PRN (14:48)
[2021-01-26] MEDS ORDERED: DEXTROSE 31 GM ORAL.SUSP PO PRN (14:48)
[2021-01-26] MEDS ORDERED: hydrOXYzine 25 MG TABLET PO PRN (14:48)
[2021-01-26] MEDS ORDERED: POLYETHYLENE GLYCOL 3350 17 GM PACKET PO PRN (14:48)
[2021-01-26] MEDS ORDERED: ACETAMINOPHEN 325 MG TABLET PO PRN (14:48)
[2021-01-26] MEDS: ACETAMINOPHEN 1,000 MG/100 ML BAG IV SCH ×2 (15:00→20:43)
[2021-01-26] MEDS: oxyCODONE HCL 5 MG TABLET PO PRN (17:29)
[2021-01-26] MEDS: BACLOFEN 10 MG TABLET PO SCH (20:42)
[2021-01-26] MEDS ORDERED: MELATONIN 3 MG TABLET PO PRN ×2 (21:00)
[2021-01-26] MEDS ORDERED: traZODone HCL 150 MG TABLET PO PRN ×2 (21:00)
[2021-01-27] MEDS: ACETAMINOPHEN 1,000 MG/100 ML BAG IV SCH ×4 (02:30→21:08)
[2021-01-27] MEDS: PIPERACILLIN SODIUM/TAZOBACTAM 3.375 GM in DEXTROSE 5% IN WATER 50 ML IV SCH ×3 (05:30→18:00)
[2021-01-27 07:08] LABS: Hematocrit 35.3 % (41.0-55.0); Hemoglobin 11.1 g/dL (13.5-16.5); Mean Cell Volume 94.4 fL (80.0-100.0); Mean Corpuscular HGB Conc 31.4 g/dL (31.0-36.0); Mean Platelet Volume 12.2 fL (7.4-10.4); Platelet Count 153 K/mcL (140-440); RBC 3.74 M/mcL (4.50-5.90); Red Cell Distribution Width 14.6 % (11.5-14.5); WBC 19.2 K/mcL (4.5-11.0)
[2021-01-27] MEDS ORDERED: PANTOPRAZOLE 40 MG VIAL IV SCH (07:30)
--- NOTE | 2021-01-27 07:44 | Internal Med Progress Note ---
SUBJECTIVE Subjective Patient information: Note initiated : 01/27/21 at 7:41 am Service Date, if different from initiated Date: [] Patient: Austin Canseco 80 y/o M admitted on 01/25/21 for cold/flu. Chief Complaint: [] Interval history: Presents to ED with epigastric pain described as pressure. He states he woke up yesterday morning with since been more or less constant since then no alleviating factors. Has had nausea vomiting headache fever chills. In the ED he was evaluated and chest pain work-up. He had a temperature of 100.6. Lactic acid was 2.9 and white blood cell count was 16 Does have history of coronary artery disease with stents and atrial fibrillation on anticoagulation and diabetes. In the ED he had an episode where he is altered and came confused and acutely hypoxic. Sepsis protocol was initiated with IV fluid bolus. Mentation came around quickly. Further work-up revealed acute cholecystitis. Dr. Bowie was contacted for surgery and then I was contacted. 01/26 No overnight or new complaints. Will undergo laparoscopic cholecystectomy this morning. 01/27 Chronic back pain, no overnight event or new complaints. White blood cell count now starting to slowly improve. Mild hyponatremia Review of Systems: denies headache/fever/chills/nausea/vomiting/chest or abdominal pain/cough/dyspnea/diarrhea. Otherwise see above. Constitutional Vitals: Vital Signs Temp Pulse Resp BP Pulse Ox 97.3 F 42 L 0 L 116/59 98 01/27/21 04:00 01/27/21 04:01 01/27/21 04:01 01/27/21 04:01 01/27/21 04:01 Period Temp Pulse Resp BP Sys/Ignacio Pulse Ox Last 24 Hr 96.3 F-98.0 F 42-124 0-24 116-165/59-81 88-98 Intake and Output 01/26/21 01/27/21 01/27/21 21:59 05:59 13:59 Intake Total 190 250 50 Output Total 510 415 Balance -320 -165 50 Weight 136.305 kg Intake & Output: Intake & Output 01/26/21 01/27/21 01/27/21 21:59 05:59 13:59 Intake Total 190 250 50 Output Total 510 415 Balance -320 -165 50 Weight 136.305 kg Intake: IV 190 250 50 Lactated Ringers 1,000 ml @ 20 40 mls/hr IV .Q24H [facility] Rx#: [id number] Zosyn 3.375 gm In Dextrose 5% 50 50 50 in Water 50 ml @ 100 mls/hr IV Q6H [facility] Rx#:[id number] Output: Drainage 100 Right Upper Abdomen 100 Drainage 160 165 Right Upper Abdomen 160 165 Void Amount 250 250 Other: Meal Saji Percent of Meal Consumed 50% Feeding Ability Independent Urine Appearance Clear Clear Urine Color Dark Veronica Dark Veronica # Voids 1 Exam: General: Alert, Awake, No acute Distress, obese Eyes/N/T: EOMI, Head/Neck: neck supple, CV: Irregular irr No murmurs, Pulm: Clear b/l, no wheezing/rhonchi/rales Abd: soft, nontender, +BS x4 Ext: no clubbing/cyanosis. RLE 1+ chronic edema (since knee surgery) but improved Neuro: Alert, no focal deficits, moves all extremities, Skin: warm/dry OBJ DATA Labs CBC & Chem 7: 01/27/21 05:07 01/27/21 05:01 Labs: Abnormal Lab Results 01/27/21 01/26/21 01/26/21 05:07 07:55 05:22 WBC 19.2 H 22.7 H RBC 3.74 L 4.34 L Hgb 11.1 L 13.1 L Hct 35.3 L 40.3 L RDW 14.6 H MPV 12.2 H 11.8 H Neut % (Auto) 87.3 H Lymph % (Auto) 6.4 L Lymph # (Auto) 1.45 L [place] # (Auto) 1.38 H Seg Neutrophils % Lymphocytes % Absolute Neutrophils 19.77 H PT 16.8 H INR 1.3 H VBG Lactic Acid Sodium Chloride BUN Creatinine Glucose Uric Acid Total Bilirubin Direct Bilirubin GGT Alkaline Phosphatase Lactate Dehydrogenase Urine Protein Urine Glucose (UA) Urine Ketones Urine RBC Urine Mucus 01/26/21 01/25/21 01/25/21 05:21 18:00 16:07 WBC RBC Hgb Hct RDW MPV Neut % (Auto) Lymph % (Auto) Lymph # (Auto) [place] # (Auto) Seg Neutrophils % Lymphocytes % Absolute Neutrophils PT INR VBG Lactic Acid 2.9 H Sodium 132 L Chloride 94 L BUN 5 L Creatinine 0.6 L Glucose 257 H Uric Acid 2.3 L Total Bilirubin 1.5 H Direct Bilirubin 0.8 H GGT 117 H Alkaline Phosphatase 149 H Lactate Dehydrogenase 234 H Urine Protein 30 A Urine Glucose (UA) >=500 A Urine Ketones 20 A Urine RBC 4 H Urine Mucus Few A 01/25/21 01/25/21 14:04 14:04 WBC 16.1 H RBC Hgb 13.4 L Hct 40.9 L RDW MPV 12.0 H Neut % (Auto) Lymph % (Auto) Lymph # (Auto) [place] # (Auto) Seg Neutrophils % 80 H Lymphocytes % 13 L Absolute Neutrophils PT INR VBG Lactic Acid Sodium 131 L Chloride 91 L BUN 6 L Creatinine 0.6 L Glucose 264 H Uric Acid Total Bilirubin 1.3 H Direct Bilirubin GGT Alkaline Phosphatase 161 H Lactate Dehydrogenase Urine Protein Urine Glucose (UA) Urine Ketones Urine RBC Urine Mucus Meds: Medications Acetaminophen (Acetaminophen 325 Mg Tablet) 650 mg PO Q6HP PRN PRN Reason: PAIN/FEVER > 101 Albuterol/Ipratropium (Ipratropium/Albuterol 3 Ml Ampul.Neb) 3 ml NEB Q4HP PRN PRN Reason: Shortness Of Breath Amlodipine Besylate (Amlodipine 10 Mg Tablet) 10 mg PO DAILY [facility] Atenolol (Atenolol 25 Mg Tablet) 50 mg PO DAILY [facility] Baclofen (Baclofen 10 Mg Tablet) 5 mg PO BID [facility] Last Admin: 01/26/21 20:42 Dose: 5 mg Documented by: Dextrose (Dextrose 50% 50 Ml Vial) 0 ml IV UD PRN PRN Reason: Hypoglycemia Diagnostic Test (Pha) (Accu-Chek 1 Each Strip) 1 each FS ACHS [facility] Last Admin: 01/26/21 20:40 Dose: 1 each Documented by: Docusate Sodium (Docusate Sodium 100 Mg Capsule) 100 mg PO BID [facility] Last Admin: 01/26/21 20:42 Dose: 100 mg Documented by: Glucose (Dextrose 31 Gm Oral.Susp) 15 gm PO PRN PRN PRN Reason: Hypoglycemia Hydralazine HCl (Hydralazine 20 Mg/Ml Vial) 0 mg IV Q2HP PRN PRN Reason: Hypertension Hydroxyzine HCl (Hydroxyzine 25 Mg Tablet) 25 mg PO DAILYP PRN PRN Reason: ANXIETY AND/OR INSOMNIA Potassium Chloride 40 meq/ (Dextrose) 520 mls @ 130 mls/hr IV UD PRN PRN Reason: Potassium < 3 Piperacillin Sod/Tazobactam (Sod 3.375 gm/ Dextrose) 50 mls @ 100 mls/hr IV Q6H [facility]; Protocol Last Infusion: 01/27/21 06:00 Dose: Infused Documented by: [facility] 1,000 mg in 100 mls @ 200 mls/hr IV Q6H [facility] Stop: 01/27/21 14:59 Last Infusion: 01/27/21 03:25 Dose: Infused Documented by: Insulin Glargine (Insulin Glargine, Human 1 Unit/0.01 Ml) 57 unit SQ DAILY [facility] Insulin Human Lispro (Insulin Lispro 1 Unit/0.01 Ml Unit) 0 unit SQ ACHS [facility]; Protocol Last Admin: 01/26/21 20:41 Dose: 10 units Documented by: Lisinopril (Lisinopril 20 Mg Tablet) 40 mg PO DAILY [facility] Melatonin (Melatonin 3 Mg Tablet) 6 mg PO HSP PRN PRN Reason: Insomnia Metoclopramide HCl (Metoclopramide 10 Mg/2 Ml Vial) 10 mg IV Q6HP PRN PRN Reason: Nausea And Vomiting Ondansetron HCl (Ondansetron 4 Mg/2 Ml Vial) 4 mg IV Q4HP PRN PRN Reason: Nausea And Vomiting Oxybutynin Chloride (Oxybutynin Chloride 5 Mg Tab.Xl.24h) 10 mg PO DAILY [facility] Oxycodone HCl (Oxycodone Hcl 5 Mg Tablet) 10 mg PO BIDP PRN; Protocol PRN Reason: Per Pain Protocol Last Admin: 01/26/21 17:29 Dose: 10 mg Documented by: Pantoprazole Sodium (Pantoprazole 40 Mg Vial) 40 mg IV QAMAC [facility] Polyethylene Glycol (Polyethylene Glycol 3350 17 Gm Packet) 17 gm PO DAILYP PRN PRN Reason: Constipation Potassium Chloride (Potassium Chloride 20 Meq Tablet) 40 meq PO UD PRN PRN Reason: Potssium is 3-3.5 Senna (Sennosides 1 Tablet) 2 tab PO DAILYP PRN PRN Reason: Constipation Trazodone HCl (Trazodone Hcl 150 Mg Tablet) 300 mg PO HSP PRN PRN Reason: Sleep Last Admin: 01/26/21 20:46 Dose: 300 mg Documented by: A/P Narrative A/P Narrative: A: *Acute cholecystitis: s/p lap tello (01/26) *Sepsis: improved -leukocytosis improving *Encephalopathy: resolved in ED *Hyponatremia/hypophos: *DM w/hyperglycemia: *Anemia, chronic: *CAD w/stent: on BB *AFib: on eliquis/BB *HTN: on BB/ACEI/Norvasc *GERD: *Obesity: *Sacral wound: follows with wound clinic P: -Dr. Bowie for surgery, abx per surgeon -cont BP meds -SSI and basal -wound care for sacral pressure wound -electrolyte replacement -home lasix -pt/ot -restart eliquis post op when ok with surgery/home ppi Full code Time Spent With Patient Time: Total time spent is greater than 50% in coordination of care (as documented) at patient's floor/unit and/or counseling patient: QUALITY VTE Deep Vein Thrombosis/Pulmonary Embolism Present on Admission: No
[2021-01-27 07:50] LABS: ALT/SGPT 19 U/L (<40); AST/SGOT 20 U/L (<40); Albumin 2.8 gm/dL (3.2-5.2); Albumin/Globulin Ratio 0.9 (1.0-2.3); Alkaline Phosphatase 120 U/L (39-117); Bilirubin,Direct 0.5 mg/dL (<0.3); Bilirubin,Total 0.9 mg/dL (0.1-1.0); Blood Urea Nitrogen 8 mg/dL (8-23); Calcium 8.3 mg/dL (8.6-10.4); Carbon Dioxide 26 mmol/L (22-30); Chloride 94 mmol/L (96-108); Glomerular Filtration Rate 95; Glucose 291 mg/dL (70-105); Lactate Dehydrogenase 202 U/L (135-225); Phosphorous 1.9 mg/dL (2.5-4.5); Triglycerides 58 mg/dL (<150); Uric Acid 1.9 mg/dL (2.5-8.0)
[2021-01-27] MEDS: INSULIN LISPRO 1 UNIT/0.01 ML UNIT SQ SCH ×4 (07:51→21:19)
[2021-01-27] MEDS: BACLOFEN 10 MG TABLET PO SCH ×2 (08:16→21:10)
[2021-01-27] MEDS: DOCUSATE SODIUM 100 MG CAPSULE PO SCH ×2 (08:17→21:11)
[2021-01-27] MEDS: oxyCODONE HCL 5 MG TABLET PO PRN ×3 (08:20→21:19)
[2021-01-27 08:49] LABS: Anisocytosis 1+ (None Seen); Band Neutrophils % 9 % (0-10); Burr Cells 1+ (None Seen); Lymphocytes % 3 % (15-49); Monocytes % (Manual) 5 % (1-12); Platelet Estimate NORMAL (Normal); RBC Morphology ABNORMAL (Normal); Segmented Neutrophils % 83 % (38-78)
[2021-01-27] MEDS ORDERED: INSULIN GLARGINE, HUMAN 1 UNIT/0.01 ML SQ SCH (09:00)
[2021-01-27] MEDS ORDERED: amLODIPine 10 MG TABLET PO SCH (09:00)
[2021-01-27] MEDS ORDERED: OXYBUTYNIN CHLORIDE 5 MG TAB.XL.24H PO SCH (09:00)
[2021-01-27] MEDS ORDERED: ATENOLOL 25 MG TABLET PO SCH ×2 (09:00)
[2021-01-27] MEDS ORDERED: LISINOPRIL 20 MG TABLET PO SCH (09:00)
[2021-01-27] MEDS ORDERED: NEUTRA PHOS 1 PACKET PO SCH ×2 (09:30→15:00)
[2021-01-27] MEDS ORDERED: FUROSEMIDE 40 MG/4 ML VIAL IV ONE (09:32)
[2021-01-27] MEDS ORDERED: ALBUMIN HUMAN 12.5 GM/50 ML BAG IV ONE (09:32)
[2021-01-27] MEDS ORDERED: oxyCODONE HCL 5 MG TABLET PO PRN (09:55)
[2021-01-27] MEDS ORDERED: morphine 2 MG/ML VIAL IV PRN ×2 (09:55→10:27)
[2021-01-27] MEDS ORDERED: LIDOCAINE PATCH TOPICAL SCH (10:00)
[2021-01-27] MEDS ORDERED: BACLOFEN 10 MG TABLET PO ONE (10:27)
[2021-01-27] MEDS ORDERED: SENNOSIDES 1 TABLET PO PRN (10:27)
[2021-01-27] MEDS ORDERED: DEXTROSE 31 GM ORAL.SUSP PO PRN (10:27)
[2021-01-27] MEDS ORDERED: ACETAMINOPHEN 325 MG TABLET PO PRN (10:27)
[2021-01-27] MEDS ORDERED: POTASSIUM CHLORIDE 40 MEQ in DEXTROSE 5% IN WATER 500 ML IV PRN (10:27)
[2021-01-27] MEDS ORDERED: IPRATROPIUM/ALBUTEROL 3 ML AMPUL.NEB NEB PRN (10:27)
[2021-01-27] MEDS ORDERED: DEXTROSE 50% 50 ML VIAL IV PRN (10:27)
[2021-01-27] MEDS ORDERED: POTASSIUM CHLORIDE 20 MEQ TABLET PO PRN (10:27)
[2021-01-27] MEDS ORDERED: hydrALAZINE 20 MG/ML VIAL IV PRN (10:27)
[2021-01-27] MEDS: ONDANSETRON 4 MG/2 ML VIAL IV PRN ×3 (11:52→21:12)
[2021-01-27] MEDS: LIDOCAINE PATCH TOPICAL SCH (12:23)
[2021-01-27] MEDS ORDERED: HYDROmorphone 1 MG/ML SYRINGE IV ONE (12:40)
[2021-01-27] MEDS: HYDROmorphone 1 MG/ML SYRINGE IV PRN ×2 (13:05→15:14)
--- NOTE | 2021-01-27 14:55 | Internal Med Progress Note ---
SUBJECTIVE Subjective Patient information: Note initiated : 01/28/21 at 2:52 pm Service Date, if different from initiated Date: [] Patient: Austin Canseco 80 y/o M admitted on 01/25/21 for cold/flu. Chief Complaint: [] Interval history: Presents to ED with epigastric pain described as pressure. He states he woke up yesterday morning with since been more or less constant since then no alleviating factors. Has had nausea vomiting headache fever chills. In the ED he was evaluated and chest pain work-up. He had a temperature of 100.6. Lactic acid was 2.9 and white blood cell count was 16 Does have history of coronary artery disease with stents and atrial fibrillation on anticoagulation and diabetes. In the ED he had an episode where he is altered and came confused and acutely hypoxic. Sepsis protocol was initiated with IV fluid bolus. Mentation came around quickly. Further work-up revealed acute cholecystitis. Dr. Bowie was contacted for surgery and then I was contacted. 01/26 No overnight or new complaints. Will undergo laparoscopic cholecystectomy this morning. 01/27 Chronic back pain, no overnight event or new complaints. White blood cell count now starting to slowly improve. Mild hyponatremia 01/28 Stable respiratory status and hemodynamics. Surgery feels the patient has a biliary leak and considering MRCP. Constitutional Vitals: Vital Signs Temp Pulse Resp BP Pulse Ox 89.7 F L 61 18 146/83 97 01/27/21 08:01 01/27/21 10:01 01/27/21 10:01 01/27/21 10:01 01/27/21 10:01 Period Temp Pulse Resp BP Sys/Ignacio Pulse Ox Last 24 Hr 89.7 F-98.0 F 42-124 0-23 116-164/59-83 88-98 Intake and Output 01/27/21 01/27/21 01/27/21 05:59 13:59 21:59 Intake Total 250 1690 Output Total 415 350 Balance -165 1340 Intake & Output: Intake & Output 01/27/21 01/27/21 01/27/21 05:59 13:59 21:59 Intake Total 250 1690 Output Total 415 350 Balance -165 1340 Intake: IV 250 250 Zosyn 3.375 gm In Dextrose 5% 50 100 in Water 50 ml @ 100 mls/hr IV Q6H [facility] Rx#:[id number] Oral 1440 Output: Drainage 165 100 Right Upper Abdomen 165 100 Urine Catheter Amount 250 Void Amount 250 Other: Meal Breakfast Percent of Meal Consumed 100% Feeding Ability Assist with Tray Set Up Urine Appearance Clear Clear Urine Color Dark Veronica Dark Veronica Urine Odor Normal Exam: General: Alert, Awake, No acute Distress, obese Eyes/N/T: EOMI, Head/Neck: neck supple, CV: Irregular irr No murmurs, Pulm: Clear b/l, no wheezing/rhonchi/rales Abd: soft, nontender, +BS x4, abdominel drain Ext: no clubbing/cyanosis. RLE 1+ chronic edema (since knee surgery) but improved Neuro: Alert, no focal deficits, moves all extremities, Skin: warm/dry OBJ DATA Labs CBC & Chem 7: 01/28/21 04:55 01/28/21 04:55 Labs: Abnormal Lab Results 01/27/21 01/27/21 01/26/21 05:07 05:01 07:55 WBC 19.2 H RBC 3.74 L Hgb 11.1 L Hct 35.3 L RDW 14.6 H MPV 12.2 H Neut % (Auto) Lymph % (Auto) Lymph # (Auto) [place] # (Auto) Seg Neutrophils % 83 H Lymphocytes % 3 L Absolute Neutrophils RBC Morphology Abnormal A Anisocytosis 1+ A Beth Cells 1+ A PT 16.8 H INR 1.3 H VBG Lactic Acid Sodium 128 L Chloride 94 L BUN Creatinine 0.6 L Glucose 291 H Uric Acid 1.9 L Calcium 8.3 L Phosphorus 1.9 L Total Bilirubin Direct Bilirubin 0.5 H GGT 87 H Alkaline Phosphatase 120 H Lactate Dehydrogenase Total Protein 5.8 L Albumin 2.8 L Albumin/Globulin Ratio 0.9 L Urine Protein Urine Glucose (UA) Urine Ketones Urine RBC Urine Mucus 01/26/21 01/26/21 01/25/21 05:22 05:21 18:00 WBC 22.7 H RBC 4.34 L Hgb 13.1 L Hct 40.3 L RDW MPV 11.8 H Neut % (Auto) 87.3 H Lymph % (Auto) 6.4 L Lymph # (Auto) 1.45 L [place] # (Auto) 1.38 H Seg Neutrophils % Lymphocytes % Absolute Neutrophils 19.77 H RBC Morphology Anisocytosis Beth Cells PT INR VBG Lactic Acid 2.9 H Sodium 132 L Chloride 94 L BUN 5 L Creatinine 0.6 L Glucose 257 H Uric Acid 2.3 L Calcium Phosphorus Total Bilirubin 1.5 H Direct Bilirubin 0.8 H GGT 117 H Alkaline Phosphatase 149 H Lactate Dehydrogenase 234 H Total Protein Albumin Albumin/Globulin Ratio Urine Protein Urine Glucose (UA) Urine Ketones Urine RBC Urine Mucus 01/25/21 01/25/21 01/25/21 16:07 14:04 14:04 WBC 16.1 H RBC Hgb 13.4 L Hct 40.9 L RDW MPV 12.0 H Neut % (Auto) Lymph % (Auto) Lymph # (Auto) [place] # (Auto) Seg Neutrophils % 80 H Lymphocytes % 13 L Absolute Neutrophils RBC Morphology Anisocytosis Beth Cells PT INR VBG Lactic Acid Sodium 131 L Chloride 91 L BUN 6 L Creatinine 0.6 L Glucose 264 H Uric Acid Calcium Phosphorus Total Bilirubin 1.3 H Direct Bilirubin GGT Alkaline Phosphatase 161 H Lactate Dehydrogenase Total Protein Albumin Albumin/Globulin Ratio Urine Protein 30 A Urine Glucose (UA) >=500 A Urine Ketones 20 A Urine RBC 4 H Urine Mucus Few A Meds: Medications Acetaminophen (Acetaminophen 325 Mg Tablet) 650 mg PO Q6HP PRN PRN Reason: PAIN/FEVER > 101 Albuterol/Ipratropium (Ipratropium/Albuterol 3 Ml Ampul.Neb) 3 ml NEB Q4HP PRN PRN Reason: Shortness Of Breath Amlodipine Besylate (Amlodipine 10 Mg Tablet) 10 mg PO DAILY [facility] Atenolol (Atenolol 25 Mg Tablet) 25 mg PO DAILY [facility] Baclofen (Baclofen 10 Mg Tablet) 5 mg PO BID [facility] Dextrose (Dextrose 50% 50 Ml Vial) 0 ml IV UD PRN PRN Reason: Hypoglycemia Diagnostic Test (Pha) (Accu-Chek 1 Each Strip) 1 each FS ACHS [facility] Last Admin: 01/27/21 12:00 Dose: 1 each Documented by: Docusate Sodium (Docusate Sodium 100 Mg Capsule) 100 mg PO BID [facility] Furosemide (Furosemide 40 Mg Tablet) 40 mg PO DAILY [facility] Glucose (Dextrose 31 Gm Oral.Susp) 15 gm PO PRN PRN PRN Reason: Hypoglycemia Hydralazine HCl (Hydralazine 20 Mg/Ml Vial) 0 mg IV Q2HP PRN PRN Reason: Hypertension Hydromorphone HCl (Hydromorphone 1 Mg/Ml Syringe) 0 mg IV Q2HP PRN; Protocol PRN Reason: severe pain Last Admin: 01/27/21 13:05 Dose: 1 mg Documented by: Hydroxyzine HCl (Hydroxyzine 25 Mg Tablet) 25 mg PO DAILYP PRN PRN Reason: ANXIETY AND/OR INSOMNIA Acetaminophen (Ofirmev) 1,000 mg in 100 mls @ 200 mls/hr IV Q6H [facility] Piperacillin Sod/Tazobactam (Sod 3.375 gm/ Dextrose) 50 mls @ 100 mls/hr IV Q6H [facility]; Protocol Last Infusion: 01/27/21 12:22 Dose: Infused Documented by: Potassium Chloride 40 meq/ (Dextrose) 520 mls @ 130 mls/hr IV UD PRN PRN Reason: Potassium < 3 Insulin Glargine (Insulin Glargine, Human 1 Unit/0.01 Ml) 57 unit SQ DAILY [facility] Insulin Human Lispro (Insulin Lispro 1 Unit/0.01 Ml Unit) 0 unit SQ ACHS [facility]; Protocol Last Admin: 01/27/21 12:00 Dose: 10 unit Documented by: Lidocaine (Lidocaine Patch) 1 patch TOPICAL DAILY@1000 [facility] Last Admin: 01/27/21 12:23 Dose: 1 patch Documented by: Lisinopril (Lisinopril 20 Mg Tablet) 40 mg PO DAILY [facility] Melatonin (Melatonin 3 Mg Tablet) 6 mg PO HSP PRN PRN Reason: Insomnia Metoclopramide HCl (Metoclopramide 10 Mg/2 Ml Vial) 10 mg IV Q6HP PRN PRN Reason: Nausea And Vomiting Ondansetron HCl (Ondansetron 4 Mg/2 Ml Vial) 4 mg IV Q4HP PRN PRN Reason: Nausea And Vomiting Last Admin: 01/27/21 11:52 Dose: 4 mg Documented by: Oxybutynin Chloride (Oxybutynin Chloride 5 Mg Tab.Xl.24h) 10 mg PO DAILY [facility] Oxycodone HCl (Oxycodone Hcl 5 Mg Tablet) 10 mg PO Q4HP PRN; Protocol PRN Reason: Per Pain Protocol Pantoprazole Sodium (Pantoprazole 40 Mg Vial) 40 mg IV QAMAC [facility] Polyethylene Glycol (Polyethylene Glycol 3350 17 Gm Packet) 17 gm PO DAILYP PRN PRN Reason: Constipation Potassium Chloride (Potassium Chloride 20 Meq Tablet) 40 meq PO UD PRN PRN Reason: Potssium is 3-3.5 Potassium/Phosphorus/Sodium (Neutra Phos 1 Packet) 2 packet PO TID [facility] Stop: 01/27/21 15:01 Senna (Sennosides 1 Tablet) 2 tab PO DAILYP PRN PRN Reason: Constipation Trazodone HCl (Trazodone Hcl 150 Mg Tablet) 300 mg PO HSP PRN PRN Reason: Sleep A/P Narrative A/P Narrative: Assessment: 80-year-old male with a history of hypertension, diabetes mellitus, chronic anemia, atrial fibrillation, coronary artery disease, GERD, obesity, sacral wound admitted for sepsis secondary to acute cholecystitis status post laparoscopic cholecystectomy on 01/26/2021 possibly complicated by a biliary leak. #Acute cholecystitis: s/p lap tello (01/26) #Concern for biliary leak #Sepsis: resolved #Encephalopathy: resolved #Hyponatremia/hypophos: #DM w/hyperglycemia: #Anemia, chronic: #CAD w/stent: on BB #AFib: on eliquis/BB #HTN: on BB/ACEI/Norvasc #GERD: #Obesity: #Sacral wound: follows with wound clinic P: -Dr. Bowie for surgery, abx per surgeon -cont BP meds -SSI and basal -wound care for sacral pressure wound -electrolyte replacement -home lasix -pt/ot -restart eliquis post op when ok with surgery/home ppi Full code Time Spent With Patient Time: Total time spent is greater than 50% in coordination of care (as documented) at patient's floor/unit and/or counseling patient: QUALITY VTE Deep Vein Thrombosis/Pulmonary Embolism Present on Admission: No
[2021-01-27] MEDS: 0.9 % SODIUM CHLORIDE 10 ML SYRINGE IV SCH (15:13)
[2021-01-27] MEDS: METOCLOPRAMIDE 10 MG/2 ML VIAL IV PRN (17:26)
--- NOTE | 2021-01-27 17:26 | General Surgery Progress Note ---
SUBJECTIVE Subjective Patient information: Note initiated : 01/27/21 at 5:19 pm Service Date, if different from initiated Date: [] Patient: Austin Canseco 80 y/o M admitted on 01/25/21 for cold/flu. Chief Complaint: [] Principal diagnosis: Acute cholecystitis; postoperative open cholecystectomy Interval history: Patient states that he feels better. He has been afebrile. His drain is showing increased bilious drainage suggestive of accessory duct or cystic duct leak. This will be monitored over the next day. Will probably get MRCP or Eovist scan to verify the source of the bile. Appetite has improved. White blood count 19.2, hemoglobin 11.1, hematocrit 35.3, sodium 128, potassium 4.1, BUN 8, creatinine 0.6. LFTs are normal Constitutional Vitals: Vital Signs Temp Pulse Resp BP Pulse Ox 96.2 F L 64 20 126/67 97 01/27/21 17:17 01/27/21 17:17 01/27/21 17:17 01/27/21 17:17 01/27/21 17:17 Period Temp Pulse Resp BP Sys/Ignacio Pulse Ox Last 24 Hr 89.7 F-98.0 F 42-124 0-21 116-164/59-83 88-98 Intake and Output 01/27/21 01/27/21 01/27/21 05:59 13:59 21:59 Intake Total 250 1690 460 Output Total 415 350 150 Balance -165 1340 310 Intake & Output: Intake & Output 01/27/21 01/27/21 01/27/21 05:59 13:59 21:59 Intake Total 250 1690 460 Output Total 415 350 150 Balance -165 1340 310 Intake: IV 250 250 100 Zosyn 3.375 gm In Dextrose 5% 50 100 in Water 50 ml @ 100 mls/hr IV Q6H [facility] Rx#:[id number] Oral 1440 360 Output: Drainage 165 100 Right Upper Abdomen 165 100 Urine Catheter Amount 250 Void Amount 250 150 Other: Meal Breakfast Percent of Meal Consumed 100% Feeding Ability Assist with Tray Set Up Urine Appearance Clear Clear Urine Color Dark Veronica Dark Veronica Urine Odor Normal Head Head exam: Present atraumatic, normal inspection and normocephalic Eye Eye exam: Present EOMI and PERRL; Absent scleral icterus Pupils: Present normal accommodation ENT ENT exam: Present mucous membranes moist, normal exam and normal oropharynx Neck Neck exam: Present full ROM; Absent tenderness Respiratory Respiratory exam: Present normal respiratory exam and CTAB; Absent rales, rhonchi and wheezes Cardiovascular Cardiovascular exam: Present normal rate and rhythm, RRR, +S1 and +S2; Absent gallop and tachycardia GI/Abdominal GI/Abdominal exam: Present distended (Moderate distention) and tenderness (Tenderness along postoperative scar); Absent hernia Extremities Exam Extremities exam: Present pedal edema; Absent joint swelling, tenderness and Jimmy's sign Neurological Exam Neurological exam: Present abnormal gait and oriented X3 Psychiatric Psychiatric exam: Present anxious and normal mood Skin Skin exam: Present erythema (Chronic stasis changes of bilateral lower extremities) and rash A/P Assessment and plan (1) Cholecystitis, acute with cholelithiasis: Status: Acute Qualifiers: Biliary obstruction: without biliary obstruction Qualified Code(s): K80.00 - Calculus of gallbladder with acute cholecystitis without obstruction (2) Sepsis: Status: Acute Qualifiers: Sepsis acute organ dysfunction status: without acute organ dysfunction Sepsis type: sepsis due to unspecified organism Qualified Code(s): A41.9 - Sepsis, unspecified organism (3) History of diabetes mellitus: Status: Acute Comment: A1C 7.7% 11/2020 (4) History of atrial fibrillation: Status: Acute (5) History of essential hypertension: Status: Acute (6) long term current use of anticoagulant therapy: Status: Acute (7) Pressure ulcer of buttock: Status: Acute Narrative A/P Narrative: Sepsis is improving; white blood count is decreasing Patient has developed postprocedural bowel leak which will need to be investigated We will continue present antibiotic therapy at this time Time Spent With Patient Time: Total time spent is greater than 50% in coordination of care (as documented) at patient's floor/unit and/or counseling patient:
[2021-01-27] MEDS: hydrOXYzine 25 MG TABLET PO PRN (19:37)
[2021-01-27] MEDS: traZODone HCL 150 MG TABLET PO PRN (21:10)
[2021-01-28] MEDS: PIPERACILLIN SODIUM/TAZOBACTAM 3.375 GM in DEXTROSE 5% IN WATER 50 ML IV SCH ×5 (00:38→23:56)
[2021-01-28] MEDS: ACETAMINOPHEN 1,000 MG/100 ML BAG IV SCH ×4 (03:05→21:22)
[2021-01-28] MEDS: ONDANSETRON 4 MG/2 ML VIAL IV PRN ×2 (03:05→18:05)
[2021-01-28] MEDS: PANTOPRAZOLE 40 MG VIAL IV SCH (06:42)
[2021-01-28] MEDS: INSULIN LISPRO 1 UNIT/0.01 ML UNIT SQ SCH ×4 (06:46→21:24)
[2021-01-28 06:54] LABS: Basophils # (Auto) 0.01 K/mcL (0.00-0.20); Basophils % (Auto) 0.1 % (0.0-2.0); Eosinophils # (Auto) 0.03 K/mcL (0.00-0.70); Eosinophils % (Auto) 0.2 % (0.0-7.0); Hematocrit 34.8 % (41.0-55.0); Hemoglobin 11.4 g/dL (13.5-16.5); Lymphocytes # (Auto) 1.09 K/mcL (1.50-4.80); Lymphocytes % (Auto) 7.4 % (15.0-49.0); Mean Cell Volume 91.6 fL (80.0-100.0); Mean Corpuscular HGB Conc 32.8 g/dL (31.0-36.0); Mean Platelet Volume 12.9 fL (7.4-10.4); Monocytes % (Auto) 5.4 % (1.0-12.0); Neutrophils % (Auto) 86.9 % (38.0-78.0); Platelet Count 152 K/mcL (140-440); Red Cell Distribution Width 14.6 % (11.5-14.5); WBC 14.7 K/mcL (4.5-11.0)
[2021-01-28 07:28] LABS: ALT/SGPT 16 U/L (<40); AST/SGOT 12 U/L (<40); Albumin 3.1 gm/dL (3.2-5.2); Albumin/Globulin Ratio 1.1 (1.0-2.3); Alkaline Phosphatase 116 U/L (39-117); Bilirubin,Direct 0.4 mg/dL (<0.3); Bilirubin,Total 0.8 mg/dL (0.1-1.0); Blood Urea Nitrogen 7 mg/dL (8-23); Calcium 8.7 mg/dL (8.6-10.4); Carbon Dioxide 32 mmol/L (22-30); Chloride 97 mmol/L (96-108); Globulin 2.9 gm/dL (2.2-3.7); Glomerular Filtration Rate 102; Glucose 164 mg/dL (70-105); Lactate Dehydrogenase 180 U/L (135-225); Phosphorous 1.9 mg/dL (2.5-4.5); Triglycerides 88 mg/dL (<150); Uric Acid 1.7 mg/dL (2.5-8.0)
[2021-01-28] MEDS: BACLOFEN 10 MG TABLET PO SCH ×2 (08:24→21:24)
[2021-01-28] MEDS: OXYBUTYNIN CHLORIDE 5 MG TAB.XL.24H PO SCH (08:25)
[2021-01-28] MEDS: FUROSEMIDE 40 MG TABLET PO SCH (08:25)
[2021-01-28] MEDS: ATENOLOL 25 MG TABLET PO SCH (08:25)
[2021-01-28] MEDS: amLODIPine 10 MG TABLET PO SCH (08:25)
[2021-01-28] MEDS: DOCUSATE SODIUM 100 MG CAPSULE PO SCH ×2 (08:25→21:24)
[2021-01-28] MEDS: INSULIN GLARGINE, HUMAN 1 UNIT/0.01 ML SQ SCH (08:26)
[2021-01-28] MEDS: LISINOPRIL 20 MG TABLET PO SCH (08:26)
[2021-01-28] MEDS ORDERED: FUROSEMIDE 40 MG TABLET PO SCH (09:00)
[2021-01-28] MEDS: LIDOCAINE PATCH TOPICAL SCH (09:04)
[2021-01-28] MEDS: METOCLOPRAMIDE 10 MG/2 ML VIAL IV PRN (09:04)
[2021-01-28] MEDS ORDERED: LIDOCAINE PATCH TOPICAL SCH (10:00)
[2021-01-28] MEDS: CALCIUM CARBONATE 500 MG TAB.CHEW CHEWED PRN (10:03)
[2021-01-28] MEDS: HYDROmorphone 1 MG/ML SYRINGE IV PRN ×3 (10:04→23:55)
--- NOTE | 2021-01-28 16:39 | General Surgery Progress Note ---
SUBJECTIVE Subjective Patient information: Note initiated : 01/28/21 at 4:34 pm Service Date, if different from initiated Date: [] Patient: Austin Canseco 80 y/o M admitted on 01/25/21 for cold/flu. Chief Complaint: [] Principal diagnosis: Acute cholecystitis; postoperative open cholecystectomy Interval history: Patient states that he feels better. He has less discomfort. He denies nausea and is tolerating diet. White blood count 14.7, hemoglobin 11.4, hematocrit 34.8. The bilious drainage has decreased in volume and is much thinner suggesting that the volume has improved. We will continue to monitor as long as the volume decreases. If there is any concern will do an Eovist MRCP. Constitutional Vitals: Vital Signs Temp Pulse Resp BP Pulse Ox 97.5 F 67 20 113/78 94 01/28/21 12:00 01/28/21 05:00 01/28/21 12:00 01/28/21 12:00 01/28/21 12:00 Period Temp Pulse Resp BP Sys/Ignacio Pulse Ox Last 24 Hr 96.2 F-98.3 F 55-67 12-20 113-154/64-79 94-97 Intake and Output 01/28/21 01/28/21 01/28/21 05:59 13:59 21:59 Intake Total 250 450 390 Output Total 700 1095 480 Balance -450 -645 -90 Intake & Output: Intake & Output 01/28/21 01/28/21 01/28/21 05:59 13:59 21:59 Intake Total 250 450 390 Output Total 700 1095 480 Balance -450 -645 -90 Intake: IV 250 150 150 Zosyn 3.375 gm In Dextrose 5% 50 50 50 in Water 50 ml @ 100 mls/hr IV Q6H [facility] Rx#:[id number] Oral 300 240 Output: Drainage 225 70 80 ARELY Drain 70 80 Right Upper Abdomen 225 Void Amount 475 1025 400 Other: Meal Breakfast Breakfast Percent of Meal Consumed 50% 75% Feeding Ability Independent Independent Urine Appearance Clear Clear Clear Urine Color Dark Yellow Bright Yellow Pale Urine Odor Normal Normal Head Head exam: Present atraumatic, normal inspection and normocephalic Eye Eye exam: Present EOMI and PERRL; Absent scleral icterus Pupils: Present normal accommodation ENT ENT exam: Present mucous membranes moist, normal exam and normal oropharynx Neck Neck exam: Present full ROM; Absent tenderness Respiratory Respiratory exam: Present normal respiratory exam and CTAB; Absent rales, rhonchi and wheezes Cardiovascular Cardiovascular exam: Present normal rate and rhythm, RRR, +S1 and +S2; Absent gallop and tachycardia GI/Abdominal GI/Abdominal exam: Present distended (Moderate distention) and tenderness (Tenderness along postoperative scar); Absent hernia Extremities Exam Extremities exam: Present pedal edema; Absent joint swelling, tenderness and Jimmy's sign Psychiatric Psychiatric exam: Present anxious and normal mood Skin Skin exam: Present erythema (Chronic stasis changes of bilateral lower extremities) and rash A/P Assessment and plan (1) Cholecystitis, acute with cholelithiasis: Status: Acute Qualifiers: Biliary obstruction: without biliary obstruction Qualified Code(s): K80.00 - Calculus of gallbladder with acute cholecystitis without obstruction (2) Postprocedural leakage from bile duct: Status: Acute (3) 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 Antibiotics will be continued until her white blood count is normal. Time Spent With Patient Time: Total time spent is greater than 50% in coordination of care (as documented) at patient's floor/unit and/or counseling patient:
[2021-01-28] MEDS: oxyCODONE HCL 5 MG TABLET PO PRN (17:54)
--- NOTE | 2021-01-28 17:55 | Surgical Pathology Report ---
Histology Microscopic Diagnosis Specimen A- GALLBLADDER, CHOLECYSTECTOMY: --- GANGRENOUS ACUTE AND CHRONIC CHOLECYSTITIS WITH CHOLELITHIASIS. (ACP:sln) Procedural Impression Acute cholecystitis, cholelithiasis. Gross Description Received in formalin labeled gallbladder, is a 7.3 x 4.4 x up to 2.2 cm red-monte gallbladder specimen. The majority of the serosa is red-monte to pink-monte and smooth with approximately 40% that is roughened. The area where the cystic duct should be is dilated and up to 3.5 cm. The specimen has a 2.4 cm opening with a roughened area. The mucosa varies from velvety pink-monte to green-brown and possibly necrotic. The wall ranges in thickness from 0.1 up to 0.6 cm. Within the gallbladder specimen and specimen container are multiple black stones ranging in size from 1.0 up to 2.1 cm in greatest dimension. A business center representative portion is submitted in one cassette. (KGW:bmw) Electronically Signed Darin Khan MD, FCAP Electronically Signed 01/28/2021 17:54
[2021-01-28] MEDS: APIXABAN 5 MG TABLET PO SCH (21:24)
[2021-01-28] MEDS: traZODone HCL 150 MG TABLET PO PRN (23:57)
[2021-01-29] MEDS: ACETAMINOPHEN 1,000 MG/100 ML BAG IV SCH ×4 (03:00→20:55)
[2021-01-29] MEDS: PIPERACILLIN SODIUM/TAZOBACTAM 3.375 GM in DEXTROSE 5% IN WATER 50 ML IV SCH (05:29)
[2021-01-29] MEDS: INSULIN LISPRO 1 UNIT/0.01 ML UNIT SQ SCH ×4 (07:31→20:56)
[2021-01-29] MEDS: oxyCODONE HCL 5 MG TABLET PO PRN ×2 (08:18→15:04)
[2021-01-29] MEDS: BACLOFEN 10 MG TABLET PO SCH ×2 (08:19→20:54)
[2021-01-29] MEDS: amLODIPine 10 MG TABLET PO SCH (08:19)
[2021-01-29] MEDS: APIXABAN 5 MG TABLET PO SCH ×2 (08:19→20:54)
[2021-01-29] MEDS: OXYBUTYNIN CHLORIDE 5 MG TAB.XL.24H PO SCH (08:19)
[2021-01-29] MEDS: ATENOLOL 25 MG TABLET PO SCH (08:19)
[2021-01-29] MEDS: DOCUSATE SODIUM 100 MG CAPSULE PO SCH ×2 (08:19→20:56)
[2021-01-29] MEDS: LISINOPRIL 20 MG TABLET PO SCH (08:19)
[2021-01-29] MEDS: FUROSEMIDE 40 MG TABLET PO SCH (08:19)
[2021-01-29] MEDS: PANTOPRAZOLE 40 MG VIAL IV SCH (08:20)
[2021-01-29] MEDS: INSULIN GLARGINE, HUMAN 1 UNIT/0.01 ML SQ SCH (08:20)
[2021-01-29] MEDS: HYDROmorphone 1 MG/ML SYRINGE IV PRN (08:39)
[2021-01-29] MEDS: CALCIUM CARBONATE 500 MG TAB.CHEW CHEWED PRN (08:40)
--- NOTE | 2021-01-29 09:34 | XRay Report ---
HISTORY: Stopped cholecystectomy with dyspepsia, image bowel sounds and possible ileus FINDINGS: There is a surgical drain in the gallbladder fossa. There is a small amount of free intra-abdominal air beneath the right diaphragm. There are bands of atelectasis in both lung bases. Moderate amount of air is present in the stomach. Moderate amount of stool is present in the colon. Small bowel contain some air but is not dilated and no air-fluid levels are seen. IMPRESSION: No evidence of bowel obstruction or ileus Mild bibasilar atelectasis Interpreted and Authenticated by: José Miguel Khan 01/29/21
[2021-01-29 09:45] LABS: Hematocrit 38.5 % (41.0-55.0); Hemoglobin 12.6 g/dL (13.5-16.5); Mean Cell Volume 91.4 fL (80.0-100.0); Mean Corpuscular HGB Conc 32.7 g/dL (31.0-36.0); Mean Platelet Volume 11.3 fL (7.4-10.4); Platelet Count 233 K/mcL (140-440); RBC 4.21 M/mcL (4.50-5.90); Red Cell Distribution Width 14.6 % (11.5-14.5)
[2021-01-29] MEDS: cefTRIAXone 2 GM in DEXTROSE 5% IN WATER 50 ML IV SCH (09:59)
[2021-01-29 10:33] LABS: ALT/SGPT 13 U/L (<40); AST/SGOT 10 U/L (<40); Albumin 3.4 gm/dL (3.2-5.2); Albumin/Globulin Ratio 1.1 (1.0-2.3); Alkaline Phosphatase 164 U/L (39-117); Bilirubin,Total 1.2 mg/dL (0.1-1.0); Blood Urea Nitrogen 5 mg/dL (8-23); Calcium 8.9 mg/dL (8.6-10.4); Carbon Dioxide 29 mmol/L (22-30); Chloride 94 mmol/L (96-108); Globulin 3.1 gm/dL (2.2-3.7); Glomerular Filtration Rate 95; Glucose 135 mg/dL (70-105)
[2021-01-29 10:54] LABS: Anisocytosis 1+ (None Seen); Band Neutrophils % 4 % (0-10); Lymphocytes % 8 % (15-49); Monocytes % (Manual) 9 % (1-12); Platelet Estimate NORMAL (Normal); RBC Morphology ABNORMAL (Normal); Reactive Lymphocytes 2 % (0-2); Segmented Neutrophils % 77 % (38-78)
--- NOTE | 2021-01-29 11:12 | Internal Med Progress Note ---
SUBJECTIVE Subjective Patient information: Note initiated : 01/29/21 at 11:11 am Service Date, if different from initiated Date: [] Patient: Austin Canseco 80 y/o M admitted on 01/25/21 for cold/flu. Chief Complaint: [] Principal diagnosis: Acute cholecystitis; postoperative open cholecystectomy Interval history: Presents to ED with epigastric pain described as pressure. He states he woke up yesterday morning with since been more or less constant since then no alleviating factors. Has had nausea vomiting headache fever chills. In the ED he was evaluated and chest pain work-up. He had a temperature of 100.6. Lactic acid was 2.9 and white blood cell count was 16 Does have history of coronary artery disease with stents and atrial fibrillation on anticoagulation and diabetes. In the ED he had an episode where he is altered and came confused and acutely hypoxic. Sepsis protocol was initiated with IV fluid bolus. Mentation came around quickly. Further work-up revealed acute cholecystitis. Dr. Bowie was contacted for surgery and then I was contacted. 01/26 No overnight or new complaints. Will undergo laparoscopic cholecystectomy this morning. 01/27 Chronic back pain, no overnight event or new complaints. White blood cell count now starting to slowly improve. Mild hyponatremia 01/28 Stable respiratory status and hemodynamics. Surgery feels the patient has a biliary leak and considering MRCP. 01/29 Abdominal drain continues to pull bilious fluid. Cultures have not grown anything, antibiotics deescalated from Zosyn to Ceftriaxone and Flagyl. Gram stain and culture of bilious drainage. Abdominal xray shows a moderately distended stomach. Constitutional Vitals: Vital Signs Temp Pulse Resp BP Pulse Ox 98.1 F 74 18 185/83 90 01/29/21 08:00 01/29/21 08:00 01/29/21 08:00 01/29/21 08:00 01/29/21 08:00 Period Temp Pulse Resp BP Sys/Ignacio Pulse Ox Last 24 Hr 97.1 F-98.8 F 67-87 16-20 113-185/59-88 90-94 Intake and Output 01/28/21 01/29/21 01/29/21 21:59 05:59 13:59 Intake Total 640 750 150 Output Total 730 720 330 Balance -90 30 -180 Weight 137.983 kg Intake & Output: Intake & Output 01/28/21 01/29/21 01/29/21 21:59 05:59 13:59 Intake Total 640 750 150 Output Total 730 720 330 Balance -90 30 -180 Weight 137.983 kg Intake: IV 200 250 150 Zosyn 3.375 gm In Dextrose 5% 100 50 50 in Water 50 ml @ 100 mls/hr IV Q6H [facility] Rx#:[id number] Oral 440 500 Output: Drainage 80 120 80 ARELY Drain 80 120 80 Void Amount 650 600 250 Other: Meal Breakfast Percent of Meal Consumed 75% Feeding Ability Independent Urine Appearance Clear Cloudy Clear Urine Color Bright Yellow Dark Yellow Bright Yellow Urine Odor Normal Strong Exam: General: Alert, Awake, No acute Distress, obese Eyes/N/T: EOMI, Head/Neck: neck supple, CV: Irregular irr No murmurs, Pulm: Clear b/l, no wheezing/rhonchi/rales Abd: soft, nontender, +BS x4, abdominel drain with bilious fluid Ext: no clubbing/cyanosis. RLE 1+ chronic edema (since knee surgery) but improved Neuro: Alert, no focal deficits, moves all extremities, Skin: warm/dry OBJ DATA Labs CBC & Chem 7: 01/29/21 09:08 01/29/21 09:08 Labs: Abnormal Lab Results 01/29/21 01/29/21 01/28/21 09:08 09:08 04:55 WBC 13.0 H RBC 4.21 L Hgb 12.6 L Hct 38.5 L RDW 14.6 H MPV 11.3 H Neut % (Auto) Lymph % (Auto) Lymph # (Auto) Seg Neutrophils % Lymphocytes % 8 L Absolute Neutrophils RBC Morphology Abnormal A Anisocytosis 1+ A Beth Cells Sodium 132 L Chloride 94 L Carbon Dioxide 32 H Anion Gap 4.0 L BUN 5 L 7 L Creatinine 0.6 L 0.5 L Glucose 135 H 164 H Uric Acid 1.7 L Calcium Phosphorus 1.9 L Total Bilirubin 1.2 H Direct Bilirubin 0.4 H GGT 84 H Alkaline Phosphatase 164 H Total Protein Albumin 3.1 L Albumin/Globulin Ratio 01/28/21 01/27/21 01/27/21 04:55 05:07 05:01 WBC 14.7 H 19.2 H RBC 3.80 L 3.74 L Hgb 11.4 L 11.1 L Hct 34.8 L 35.3 L RDW 14.6 H 14.6 H MPV 12.9 H 12.2 H Neut % (Auto) 86.9 H Lymph % (Auto) 7.4 L Lymph # (Auto) 1.09 L Seg Neutrophils % 83 H Lymphocytes % 3 L Absolute Neutrophils 12.80 H RBC Morphology Abnormal A Anisocytosis 1+ A Beth Cells 1+ A Sodium 128 L Chloride 94 L Carbon Dioxide Anion Gap BUN Creatinine 0.6 L Glucose 291 H Uric Acid 1.9 L Calcium 8.3 L Phosphorus 1.9 L Total Bilirubin Direct Bilirubin 0.5 H GGT 87 H Alkaline Phosphatase 120 H Total Protein 5.8 L Albumin 2.8 L Albumin/Globulin Ratio 0.9 L Meds: Medications Acetaminophen (Acetaminophen 325 Mg Tablet) 650 mg PO Q6HP PRN PRN Reason: PAIN/FEVER > 101 Albuterol/Ipratropium (Ipratropium/Albuterol 3 Ml Ampul.Neb) 3 ml NEB Q4HP PRN PRN Reason: Shortness Of Breath Amlodipine Besylate (Amlodipine 10 Mg Tablet) 10 mg PO DAILY [facility] Last Admin: 01/29/21 08:19 Dose: 10 mg Documented by: Apixaban (Apixaban 5 Mg Tablet) 5 mg PO BID [facility] Last Admin: 01/29/21 08:19 Dose: 5 mg Documented by: Atenolol (Atenolol 25 Mg Tablet) 25 mg PO DAILY [facility] Last Admin: 01/29/21 08:19 Dose: 25 mg Documented by: Baclofen (Baclofen 10 Mg Tablet) 5 mg PO BID [facility] Last Admin: 01/29/21 08:19 Dose: 5 mg Documented by: Calcium Carbonate/Glycine (Calcium Carbonate 500 Mg Tab.Chew) 500 mg CHEWED Q6HP PRN PRN Reason: Dyspepsia Last Admin: 01/29/21 08:40 Dose: 500 mg Documented by: Dextrose (Dextrose 50% 50 Ml Vial) 0 ml IV UD PRN PRN Reason: Hypoglycemia Diagnostic Test (Pha) (Accu-Chek 1 Each Strip) 1 each FS ACHS [facility] Last Admin: 01/29/21 07:31 Dose: 1 each Documented by: Docusate Sodium (Docusate Sodium 100 Mg Capsule) 100 mg PO BID [facility] Last Admin: 01/29/21 08:19 Dose: 100 mg Documented by: Furosemide (Furosemide 40 Mg Tablet) 40 mg PO DAILY [facility] Last Admin: 01/29/21 08:19 Dose: 40 mg Documented by: Glucose (Dextrose 31 Gm Oral.Susp) 15 gm PO PRN PRN PRN Reason: Hypoglycemia Hydromorphone HCl (Hydromorphone 1 Mg/Ml Syringe) 0 mg IV Q2HP PRN; Protocol PRN Reason: severe pain Last Admin: 01/29/21 08:39 Dose: 1 mg Documented by: Hydroxyzine HCl (Hydroxyzine 25 Mg Tablet) 25 mg PO DAILYP PRN PRN Reason: ANXIETY AND/OR INSOMNIA Last Admin: 01/27/21 19:37 Dose: 25 mg Documented by: Acetaminophen (Ofirmev) 1,000 mg in 100 mls @ 200 mls/hr IV Q6H [facility] Last Infusion: 01/29/21 11:04 Dose: Infused Documented by: Potassium Chloride 40 meq/ (Dextrose) 520 mls @ 130 mls/hr IV UD PRN PRN Reason: Potassium < 3 Ceftriaxone Sodium 2 gm/ (Dextrose) 50 mls @ 100 mls/hr IV Q24H [facility]; Protocol Last Admin: 01/29/21 09:59 Dose: 100 mls/hr Documented by: Metronidazole (Flagyl) 500 mg in 100 mls @ 100 mls/hr IV Q8H [facility]; Protocol Insulin Glargine (Insulin Glargine, Human 1 Unit/0.01 Ml) 57 unit SQ DAILY [facility] Last Admin: 01/29/21 08:20 Dose: 57 units Documented by: Insulin Human Lispro (Insulin Lispro 1 Unit/0.01 Ml Unit) 0 unit SQ ACHS [facility]; Protocol Last Admin: 01/29/21 07:31 Dose: Not Given Documented by: Lidocaine (Lidocaine Patch) 1 patch TOPICAL DAILY@1000 [facility] Last Admin: 01/28/21 09:04 Dose: 1 patch Documented by: Lisinopril (Lisinopril 20 Mg Tablet) 40 mg PO DAILY [facility] Last Admin: 01/29/21 08:19 Dose: 40 mg Documented by: Melatonin (Melatonin 3 Mg Tablet) 6 mg PO HSP PRN PRN Reason: Insomnia Metoclopramide HCl (Metoclopramide 10 Mg/2 Ml Vial) 10 mg IV Q6HP PRN PRN Reason: Nausea And Vomiting Last Admin: 01/28/21 09:04 Dose: 10 mg Documented by: Ondansetron HCl (Ondansetron 4 Mg/2 Ml Vial) 4 mg IV Q4HP PRN PRN Reason: Nausea And Vomiting Last Admin: 01/28/21 18:05 Dose: 4 mg Documented by: Oxybutynin Chloride (Oxybutynin Chloride 5 Mg Tab.Xl.24h) 10 mg PO DAILY [facility] Last Admin: 01/29/21 08:19 Dose: 10 mg Documented by: Oxycodone HCl (Oxycodone Hcl 5 Mg Tablet) 10 mg PO Q4HP PRN; Protocol PRN Reason: Per Pain Protocol Last Admin: 01/29/21 08:18 Dose: 10 mg Documented by: Pantoprazole Sodium (Pantoprazole 40 Mg Vial) 40 mg IV QAMAC [facility] Last Admin: 01/29/21 08:20 Dose: 40 mg Documented by: Polyethylene Glycol (Polyethylene Glycol 3350 17 Gm Packet) 17 gm PO DAILYP PRN PRN Reason: Constipation Potassium Chloride (Potassium Chloride 20 Meq Tablet) 40 meq PO UD PRN PRN Reason: Potssium is 3-3.5 Senna (Sennosides 1 Tablet) 2 tab PO DAILYP PRN PRN Reason: Constipation Trazodone HCl (Trazodone Hcl 150 Mg Tablet) 300 mg PO HSP PRN PRN Reason: Sleep Last Admin: 01/28/21 23:57 Dose: 300 mg Documented by: A/P Narrative A/P Narrative: Assessment: 80-year-old male with a history of hypertension, diabetes mellitus, chronic anemia, atrial fibrillation, coronary artery disease, GERD, obesity, sacral wound admitted for sepsis secondary to acute cholecystitis status post laparoscopic cholecystectomy on 01/26/2021 possibly complicated by a biliary leak. #Acute cholecystitis: s/p lap tello (01/26) -pathology: gangrenous acute and chronic cholecystitis with cholelithiasis #Biliary leak #Sepsis: resolved #Encephalopathy: resolved #DM w/hyperglycemia: #Anemia, chronic: #CAD w/stent: on BB #AFib: on eliquis/BB #HTN: on BB/ACEI/Norvasc #GERD: #Obesity: #Sacral wound: follows with wound clinic P: -Dr. Bowie for surgery, abx per surgeon -follow abdominal drain output, consider abdominal imaging -deescalate abx to Ceftriaxone and Flagyl, d/c Zosyn -abdominal drain fluid culture -cont BP meds -SSI and basal -wound care for sacral pressure wound -electrolyte replacement -home lasix -home eliquis -pt/ot -code status: full Full code Time Spent With Patient Time: Total time spent is greater than 50% in coordination of care (as documented) at patient's floor/unit and/or counseling patient: QUALITY VTE Deep Vein Thrombosis/Pulmonary Embolism Present on Admission: No
[2021-01-29] MEDS: metroNIDAZOLE 500 MG/100 ML BAG IV SCH ×3 (11:22→22:18)
[2021-01-29] MEDS: LIDOCAINE PATCH TOPICAL SCH (11:22)
--- NOTE | 2021-01-29 14:39 | General Surgery Progress Note ---
SUBJECTIVE Subjective Patient information: Note initiated : 01/29/21 at 2:36 pm Service Date, if different from initiated Date: [] Patient: Austin Canseco 80 y/o M admitted on 01/25/21 for cold/flu. Chief Complaint: [] Principal diagnosis: Acute cholecystitis; postoperative open cholecystectomy Interval history: Patient is stable. He has less discomfort. He is tolerating diet and has flatus. He has been afebrile. He still has a significant bile leak. White blood count 13.8, hemoglobin 12.6, hematocrit 30.9, LFTs normal. Constitutional Vitals: Vital Signs Temp Pulse Resp BP Pulse Ox 97.9 F 74 16 144/79 93 01/29/21 11:42 01/29/21 08:00 01/29/21 11:42 01/29/21 11:42 01/29/21 11:42 Period Temp Pulse Resp BP Sys/Ignacio Pulse Ox Last 24 Hr 97.1 F-98.8 F 67-87 16-20 130-185/59-88 90-94 Intake and Output 01/29/21 01/29/21 01/29/21 05:59 13:59 21:59 Intake Total 750 200 Output Total 720 480 Balance 30 -280 Weight 304 lb 3.2 oz Patient Weight 01/30/21 05:59 Weight 304 lb 3.2 oz Intake & Output: Intake & Output 01/29/21 01/29/21 01/29/21 05:59 13:59 21:59 Intake Total 750 200 Output Total 720 480 Balance 30 -280 Weight 304 lb 3.2 oz Intake: IV 250 200 Zosyn 3.375 gm In Dextrose 5% 50 50 in Water 50 ml @ 100 mls/hr IV Q6H [facility] Rx#:[id number] Rocephin 2 gm In Dextrose 5% in 50 Water 50 ml @ 100 mls/hr IV Q24H [facility] Rx#:[id number] Oral 500 Output: Drainage 120 80 ARELY Drain 120 80 Void Amount 600 400 Other: Urine Appearance Cloudy Clear Urine Color Dark Yellow Dark Yellow Urine Odor Strong Eye Eye exam: Present EOMI and PERRL; Absent scleral icterus Pupils: Present normal accommodation ENT ENT exam: Present mucous membranes moist, normal exam and normal oropharynx Neck Neck exam: Present full ROM; Absent tenderness Respiratory Respiratory exam: Present normal respiratory exam and CTAB; Absent rales, rhonchi and wheezes Cardiovascular Cardiovascular exam: Present normal rate and rhythm, RRR, +S1 and +S2; Absent gallop and tachycardia GI/Abdominal GI/Abdominal exam: Present distended (Moderate distention) and tenderness (Tenderness along postoperative scar); Absent hernia Additional comments: Still with significant bile leak Extremities Exam Extremities exam: Present pedal edema; Absent joint swelling, tenderness and Jimmy's sign Psychiatric Psychiatric exam: Present anxious and normal mood Skin Skin exam: Present erythema (Chronic stasis changes of bilateral lower extremities) and rash A/P Assessment and plan (1) Cholecystitis, acute with cholelithiasis: Status: Acute Qualifiers: Biliary obstruction: without biliary obstruction Qualified Code(s): K80.00 - Calculus of gallbladder with acute cholecystitis without obstruction (2) Postprocedural leakage from bile duct: Status: Acute (3) 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
[2021-01-29] MEDS: POLYETHYLENE GLYCOL 3350 17 GM PACKET PO PRN (17:24)
[2021-01-29] MEDS: traZODone HCL 150 MG TABLET PO PRN (20:55)
[2021-01-30] MEDS: ACETAMINOPHEN 1,000 MG/100 ML BAG IV SCH ×4 (03:19→20:24)
[2021-01-30] MEDS: metroNIDAZOLE 500 MG/100 ML BAG IV SCH ×3 (05:13→21:05)
[2021-01-30 05:58] LABS: Hematocrit 36.4 % (41.0-55.0); Hemoglobin 11.8 g/dL (13.5-16.5); Mean Cell Volume 91.9 fL (80.0-100.0); Mean Corpuscular HGB Conc 32.4 g/dL (31.0-36.0); Mean Platelet Volume 11.6 fL (7.4-10.4); Platelet Count 222 K/mcL (140-440); RBC 3.96 M/mcL (4.50-5.90); Red Cell Distribution Width 14.6 % (11.5-14.5); WBC 10.5 K/mcL (4.5-11.0)
[2021-01-30 06:30] LABS: ALT/SGPT 10 U/L (<40); AST/SGOT 12 U/L (<40); Albumin 2.7 gm/dL (3.2-5.2); Albumin/Globulin Ratio 0.8 (1.0-2.3); Alkaline Phosphatase 149 U/L (39-117); Bilirubin,Total 0.9 mg/dL (0.1-1.0); Blood Urea Nitrogen 6 mg/dL (8-23); Calcium 8.8 mg/dL (8.6-10.4); Carbon Dioxide 29 mmol/L (22-30); Chloride 96 mmol/L (96-108); Globulin 3.2 gm/dL (2.2-3.7); Glomerular Filtration Rate 102; Glucose 95 mg/dL (70-105)
[2021-01-30 06:43] LABS: Band Neutrophils % 6 % (0-10); Eosinophils % (Manual) 2 % (0-7); Lymphocytes % 10 % (15-49); Monocytes % (Manual) 8 % (1-12); Platelet Estimate NORMAL (Normal); RBC Morphology NORMAL (Normal); Segmented Neutrophils % 74 % (38-78)
[2021-01-30] MEDS: INSULIN LISPRO 1 UNIT/0.01 ML UNIT SQ SCH ×4 (07:50→20:32)
[2021-01-30] MEDS: POLYETHYLENE GLYCOL 3350 17 GM PACKET PO PRN (08:23)
[2021-01-30] MEDS: INSULIN GLARGINE, HUMAN 1 UNIT/0.01 ML SQ SCH (08:23)
[2021-01-30] MEDS: PANTOPRAZOLE 40 MG VIAL IV SCH (08:23)
[2021-01-30] MEDS: DOCUSATE SODIUM 100 MG CAPSULE PO SCH ×2 (08:24→20:27)
[2021-01-30] MEDS: ATENOLOL 25 MG TABLET PO SCH (08:24)
[2021-01-30] MEDS: LISINOPRIL 20 MG TABLET PO SCH (08:24)
[2021-01-30] MEDS: BACLOFEN 10 MG TABLET PO SCH ×2 (08:24→20:25)
[2021-01-30] MEDS: amLODIPine 10 MG TABLET PO SCH (08:24)
[2021-01-30] MEDS: OXYBUTYNIN CHLORIDE 5 MG TAB.XL.24H PO SCH (08:24)
[2021-01-30] MEDS: FUROSEMIDE 40 MG TABLET PO SCH (08:24)
[2021-01-30] MEDS: cefTRIAXone 2 GM in DEXTROSE 5% IN WATER 50 ML IV SCH (09:44)
[2021-01-30] MEDS: APIXABAN 5 MG TABLET PO SCH ×2 (09:44→20:27)
[2021-01-30] MEDS: LIDOCAINE PATCH TOPICAL SCH (10:22)
[2021-01-30] MEDS: oxyCODONE HCL 5 MG TABLET PO PRN ×3 (12:55→21:38)
[2021-01-30] MEDS: POLYETHYLENE GLYCOL 3350 17 GM PACKET PO SCH ×3 (12:55→20:28)
--- NOTE | 2021-01-30 12:55 | General Surgery Progress Note ---
SUBJECTIVE Subjective Patient information: Note initiated : 01/30/21 at 12:51 pm Service Date, if different from initiated Date: [] Patient: Austin Canseco 80 y/o M admitted on 01/25/21 for cold/flu. Chief Complaint: [] Principal diagnosis: Acute cholecystitis; postoperative open cholecystectomy Interval history: Patient continues to improve. He still has significant bilious drainage and will need to either get an Eovist study or have a HIDA scan done as an outpatient. Is tolerating diet without difficulty. White blood count is 10.5 and liver panel is normal. Constitutional Vitals: Vital Signs Temp Pulse Resp BP Pulse Ox 98.3 F 64 20 146/76 93 01/30/21 11:31 01/30/21 04:00 01/30/21 11:31 01/30/21 11:31 01/30/21 11:31 Period Temp Pulse Resp BP Sys/Ignacio Pulse Ox Last 24 Hr 98 F-99.5 F 58-64 16-20 141-155/68-82 91-93 Intake and Output 01/29/21 01/30/21 01/30/21 21:59 05:59 13:59 Intake Total 820 400 490 Output Total 480 591 475 Balance 340 -191 15 Weight 305 lb 3.2 oz Intake & Output: Intake & Output 01/29/21 01/30/21 01/30/21 21:59 05:59 13:59 Intake Total 820 400 490 Output Total 480 591 475 Balance 340 -191 15 Weight 305 lb 3.2 oz Intake: IV 400 200 250 Rocephin 2 gm In Dextrose 5% in 50 Water 50 ml @ 100 mls/hr IV Q24H [facility] Rx#:[id number] Oral 420 200 240 Output: Drainage 80 90 100 ARELY Drain 80 90 100 Void Amount 400 500 375 # of times incontinent of urine 1 Other: Meal Breakfast Percent of Meal Consumed 100% Feeding Ability Independent Urine Appearance Clear Clear Clear Urine Color Dark Yellow Bright Yellow Dark Yellow Urine Odor Normal Normal Normal Eye Eye exam: Present EOMI and PERRL; Absent scleral icterus Pupils: Present normal accommodation ENT ENT exam: Present mucous membranes moist, normal exam and normal oropharynx Neck Neck exam: Present full ROM; Absent tenderness Respiratory Respiratory exam: Present normal respiratory exam and CTAB; Absent rales, rhonchi and wheezes GI/Abdominal GI/Abdominal exam: Present distended (Moderate distention) and tenderness (Tenderness along postoperative scar); Absent hernia Additional comments: Still with significant bile leak Extremities Exam Extremities exam: Present pedal edema; Absent joint swelling, tenderness and Jimmy's sign Neurological Exam Neurological exam: Present abnormal gait and oriented X3 Psychiatric Psychiatric exam: Present anxious and normal mood Skin Skin exam: Present erythema (Chronic stasis changes of bilateral lower extremities) and rash A/P Assessment and plan (1) Cholecystitis, acute with cholelithiasis: Status: Acute Qualifiers: Biliary obstruction: without biliary obstruction Qualified Code(s): K80.00 - Calculus of gallbladder with acute cholecystitis without obstruction (2) Postprocedural leakage from bile duct: Status: Acute (3) 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
--- NOTE | 2021-01-30 13:09 | Internal Med Progress Note ---
SUBJECTIVE Subjective Patient information: Note initiated : 01/30/21 at 1:09 pm Service Date, if different from initiated Date: [] Patient: Austin Canseco 80 y/o M admitted on 01/25/21 for cold/flu. Chief Complaint: [] Principal diagnosis: Acute cholecystitis; postoperative open cholecystectomy Interval history: Presents to ED with epigastric pain described as pressure. He states he woke up yesterday morning with since been more or less constant since then no alleviating factors. Has had nausea vomiting headache fever chills. In the ED he was evaluated and chest pain work-up. He had a temperature of 100.6. Lactic acid was 2.9 and white blood cell count was 16 Does have history of coronary artery disease with stents and atrial fibrillation on anticoagulation and diabetes. In the ED he had an episode where he is altered and came confused and acutely hypoxic. Sepsis protocol was initiated with IV fluid bolus. Mentation came around quickly. Further work-up revealed acute cholecystitis. Dr. Bowie was contacted for surgery and then I was contacted. 01/26 No overnight or new complaints. Will undergo laparoscopic cholecystectomy this morning. 01/27 Chronic back pain, no overnight event or new complaints. White blood cell count now starting to slowly improve. Mild hyponatremia 01/28 Stable respiratory status and hemodynamics. Surgery feels the patient has a biliary leak and considering MRCP. 01/29 Abdominal drain continues to pull bilious fluid. Cultures have not grown anything, antibiotics deescalated from Zosyn to Ceftriaxone and Flagyl. Gram stain and culture of bilious drainage. Abdominal xray shows a moderately distended stomach. 01/30 Monitoring abdominal drain output. Patient stable and has a good appetite. Constitutional Vitals: Vital Signs Temp Pulse Resp BP Pulse Ox 98.3 F 64 20 146/76 93 01/30/21 11:31 01/30/21 04:00 01/30/21 11:31 01/30/21 11:31 01/30/21 11:31 Period Temp Pulse Resp BP Sys/Ignacio Pulse Ox Last 24 Hr 98 F-99.5 F 58-64 16-20 141-155/68-82 91-93 Intake and Output 01/29/21 01/30/21 01/30/21 21:59 05:59 13:59 Intake Total 820 400 490 Output Total 480 591 475 Balance 340 -191 15 Weight 138.436 kg Intake & Output: Intake & Output 01/29/21 01/30/21 01/30/21 21:59 05:59 13:59 Intake Total 820 400 490 Output Total 480 591 475 Balance 340 -191 15 Weight 138.436 kg Intake: IV 400 200 250 Rocephin 2 gm In Dextrose 5% in 50 Water 50 ml @ 100 mls/hr IV Q24H [facility] Rx#:[id number] Oral 420 200 240 Output: Drainage 80 90 100 ARELY Drain 80 90 100 Void Amount 400 500 375 # of times incontinent of urine 1 Other: Meal Breakfast Percent of Meal Consumed 100% Feeding Ability Independent Urine Appearance Clear Clear Clear Urine Color Dark Yellow Bright Yellow Dark Yellow Urine Odor Normal Normal Normal Exam: General: Alert, Awake, No acute Distress, obese Eyes/N/T: EOMI, Head/Neck: neck supple, CV: Irregular irr No murmurs, Pulm: Clear b/l, no wheezing/rhonchi/rales Abd: soft, nontender, +BS x4, abdominel drain with bilious fluid Ext: no clubbing/cyanosis. RLE 1+ chronic edema (since knee surgery) but improved Neuro: Alert, no focal deficits, moves all extremities, Skin: warm/dry OBJ DATA Labs CBC & Chem 7: 01/30/21 04:58 01/30/21 04:58 Labs: Abnormal Lab Results 01/30/21 01/30/21 01/29/21 04:58 04:58 09:08 WBC RBC 3.96 L Hgb 11.8 L Hct 36.4 L RDW 14.6 H MPV 11.6 H Neut % (Auto) Lymph % (Auto) Lymph # (Auto) Lymphocytes % 10 L Absolute Neutrophils RBC Morphology Anisocytosis Sodium 132 L Chloride 94 L Carbon Dioxide Anion Gap BUN 6 L 5 L Creatinine 0.5 L 0.6 L Glucose 135 H Uric Acid Phosphorus Total Bilirubin 1.2 H Direct Bilirubin GGT Alkaline Phosphatase 149 H 164 H Albumin 2.7 L Albumin/Globulin Ratio 0.8 L 01/29/21 01/28/21 01/28/21 09:08 04:55 04:55 WBC 13.0 H 14.7 H RBC 4.21 L 3.80 L Hgb 12.6 L 11.4 L Hct 38.5 L 34.8 L RDW 14.6 H 14.6 H MPV 11.3 H 12.9 H Neut % (Auto) 86.9 H Lymph % (Auto) 7.4 L Lymph # (Auto) 1.09 L Lymphocytes % 8 L Absolute Neutrophils 12.80 H RBC Morphology Abnormal A Anisocytosis 1+ A Sodium Chloride Carbon Dioxide 32 H Anion Gap 4.0 L BUN 7 L Creatinine 0.5 L Glucose 164 H Uric Acid 1.7 L Phosphorus 1.9 L Total Bilirubin Direct Bilirubin 0.4 H GGT 84 H Alkaline Phosphatase Albumin 3.1 L Albumin/Globulin Ratio Meds: Medications Acetaminophen (Acetaminophen 325 Mg Tablet) 650 mg PO Q6HP PRN PRN Reason: PAIN/FEVER > 101 Albuterol/Ipratropium (Ipratropium/Albuterol 3 Ml Ampul.Neb) 3 ml NEB Q4HP PRN PRN Reason: Shortness Of Breath Amlodipine Besylate (Amlodipine 10 Mg Tablet) 10 mg PO DAILY [facility] Last Admin: 01/30/21 08:24 Dose: 10 mg Documented by: Apixaban (Apixaban 5 Mg Tablet) 5 mg PO BID [facility] Last Admin: 01/30/21 09:44 Dose: 5 mg Documented by: Atenolol (Atenolol 25 Mg Tablet) 25 mg PO DAILY [facility] Last Admin: 01/30/21 08:24 Dose: 25 mg Documented by: Baclofen (Baclofen 10 Mg Tablet) 5 mg PO BID [facility] Last Admin: 01/30/21 08:24 Dose: 5 mg Documented by: Calcium Carbonate/Glycine (Calcium Carbonate 500 Mg Tab.Chew) 500 mg CHEWED Q6HP PRN PRN Reason: Dyspepsia Last Admin: 01/29/21 08:40 Dose: 500 mg Documented by: Dextrose (Dextrose 50% 50 Ml Vial) 0 ml IV UD PRN PRN Reason: Hypoglycemia Diagnostic Test (Pha) (Accu-Chek 1 Each Strip) 1 each FS ACHS [facility] Last Admin: 01/30/21 12:06 Dose: 1 each Documented by: Docusate Sodium (Docusate Sodium 100 Mg Capsule) 100 mg PO BID [facility] Last Admin: 01/30/21 08:24 Dose: 100 mg Documented by: Furosemide (Furosemide 40 Mg Tablet) 40 mg PO DAILY [facility] Last Admin: 01/30/21 08:24 Dose: 40 mg Documented by: Glucose (Dextrose 31 Gm Oral.Susp) 15 gm PO PRN PRN PRN Reason: Hypoglycemia Hydromorphone HCl (Hydromorphone 1 Mg/Ml Syringe) 0 mg IV Q2HP PRN; Protocol PRN Reason: severe pain Last Admin: 01/29/21 08:39 Dose: 1 mg Documented by: Hydroxyzine HCl (Hydroxyzine 25 Mg Tablet) 25 mg PO DAILYP PRN PRN Reason: ANXIETY AND/OR INSOMNIA Last Admin: 01/27/21 19:37 Dose: 25 mg Documented by: Acetaminophen (Ofirmev) 1,000 mg in 100 mls @ 200 mls/hr IV Q6H [facility] Last Infusion: 01/30/21 09:49 Dose: Infused Documented by: Potassium Chloride 40 meq/ (Dextrose) 520 mls @ 130 mls/hr IV UD PRN PRN Reason: Potassium < 3 Ceftriaxone Sodium 2 gm/ (Dextrose) 50 mls @ 100 mls/hr IV Q24H [facility]; Protocol Last Infusion: 01/30/21 10:23 Dose: Infused Documented by: Metronidazole (Flagyl) 500 mg in 100 mls @ 100 mls/hr IV Q8H [facility]; Protocol Last Infusion: 01/30/21 07:51 Dose: Infused Documented by: Insulin Glargine (Insulin Glargine, Human 1 Unit/0.01 Ml) 57 unit SQ DAILY [facility] Last Admin: 01/30/21 08:23 Dose: 57 units Documented by: Insulin Human Lispro (Insulin Lispro 1 Unit/0.01 Ml Unit) 0 unit SQ ACHS [facility]; Protocol Last Admin: 01/30/21 12:06 Dose: 2 unit Documented by: Lidocaine (Lidocaine Patch) 1 patch TOPICAL DAILY@1000 [facility] Last Admin: 01/30/21 10:22 Dose: 1 patch Documented by: Lisinopril (Lisinopril 20 Mg Tablet) 40 mg PO DAILY [facility] Last Admin: 01/30/21 08:24 Dose: 40 mg Documented by: Melatonin (Melatonin 3 Mg Tablet) 6 mg PO HSP PRN PRN Reason: Insomnia Metoclopramide HCl (Metoclopramide 10 Mg/2 Ml Vial) 10 mg IV Q6HP PRN PRN Reason: Nausea And Vomiting Last Admin: 01/28/21 09:04 Dose: 10 mg Documented by: Ondansetron HCl (Ondansetron 4 Mg/2 Ml Vial) 4 mg IV Q4HP PRN PRN Reason: Nausea And Vomiting Last Admin: 01/28/21 18:05 Dose: 4 mg Documented by: Oxybutynin Chloride (Oxybutynin Chloride 5 Mg Tab.Xl.24h) 10 mg PO DAILY [facility] Last Admin: 01/30/21 08:24 Dose: 10 mg Documented by: Oxycodone HCl (Oxycodone Hcl 5 Mg Tablet) 10 mg PO Q4HP PRN; Protocol PRN Reason: Per Pain Protocol Last Admin: 01/30/21 12:55 Dose: 10 mg Documented by: Pantoprazole Sodium (Pantoprazole 40 Mg Vial) 40 mg IV QAMAC [facility] Last Admin: 01/30/21 08:23 Dose: 40 mg Documented by: Polyethylene Glycol (Polyethylene Glycol 3350 17 Gm Packet) 17 gm PO QID [facility] Last Admin: 01/30/21 12:55 Dose: 17 gm Documented by: Potassium Chloride (Potassium Chloride 20 Meq Tablet) 40 meq PO UD PRN PRN Reason: Potssium is 3-3.5 Senna (Sennosides 1 Tablet) 2 tab PO DAILYP PRN PRN Reason: Constipation Trazodone HCl (Trazodone Hcl 150 Mg Tablet) 300 mg PO HSP PRN PRN Reason: Sleep Last Admin: 01/29/21 20:55 Dose: 300 mg Documented by: A/P Narrative A/P Narrative: Assessment: 80-year-old male with a history of hypertension, diabetes mellitus, chronic anemia, atrial fibrillation, coronary artery disease, GERD, obesity, sacral wound admitted for sepsis secondary to acute cholecystitis status post laparoscopic cholecystectomy on 01/26/2021 possibly complicated by a biliary leak. #Acute cholecystitis: s/p lap tello (01/26) -pathology: gangrenous acute and chronic cholecystitis with cholelithiasis #Biliary leak #Sepsis: resolved #Encephalopathy: resolved #DM w/hyperglycemia: #Anemia, chronic: #CAD w/stent: on BB #AFib: on eliquis/BB #HTN: on BB/ACEI/Norvasc #GERD: #Obesity: #Sacral wound: follows with wound clinic P: -Dr. Bowie for surgery, abx per surgeon -follow abdominal drain output, consider abdominal imaging -Ceftriaxone and Flagyl -cont BP meds -SSI and basal -wound care for sacral pressure wound -electrolyte replacement -home lasix -home eliquis -pt/ot -code status: full Full code Time Spent With Patient Time: Total time spent is greater than 50% in coordination of care (as documented) at patient's floor/unit and/or counseling patient: QUALITY VTE Deep Vein Thrombosis/Pulmonary Embolism Present on Admission: No
[2021-01-30] MEDS: CALCIUM CARBONATE 500 MG TAB.CHEW CHEWED PRN (19:17)
[2021-01-30] MEDS: traZODone HCL 150 MG TABLET PO PRN (20:25)
[2021-01-30] MEDS: hydrOXYzine 25 MG TABLET PO PRN (20:26)
[2021-01-30] MEDS: HYDROmorphone 1 MG/ML SYRINGE IV PRN ×2 (21:05→23:45)
[2021-01-31] MEDS: oxyCODONE HCL 5 MG TABLET PO PRN ×4 (02:37→21:33)
[2021-01-31] MEDS: HYDROmorphone 1 MG/ML SYRINGE IV PRN ×2 (02:37→04:52)
[2021-01-31] MEDS: ACETAMINOPHEN 1,000 MG/100 ML BAG IV SCH ×4 (02:38→21:34)
[2021-01-31 05:53] LABS: Hematocrit 35.3 % (41.0-55.0); Hemoglobin 11.4 g/dL (13.5-16.5); Mean Cell Volume 90.3 fL (80.0-100.0); Mean Corpuscular HGB Conc 32.3 g/dL (31.0-36.0); Mean Platelet Volume 10.5 fL (7.4-10.4); Platelet Count 286 K/mcL (140-440); RBC 3.91 M/mcL (4.50-5.90); Red Cell Distribution Width 14.7 % (11.5-14.5); WBC 9.4 K/mcL (4.5-11.0)
[2021-01-31] MEDS: metroNIDAZOLE 500 MG/100 ML BAG IV SCH (06:15)
[2021-01-31 06:34] LABS: ALT/SGPT 7 U/L (<40); AST/SGOT 10 U/L (<40); Albumin 2.8 gm/dL (3.2-5.2); Albumin/Globulin Ratio 0.9 (1.0-2.3); Alkaline Phosphatase 163 U/L (39-117); Bilirubin,Total 0.7 mg/dL (0.1-1.0); Blood Urea Nitrogen 6 mg/dL (8-23); Calcium 8.6 mg/dL (8.6-10.4); Carbon Dioxide 30 mmol/L (22-30); Chloride 100 mmol/L (96-108); Glomerular Filtration Rate 102; Glucose 115 mg/dL (70-105)
[2021-01-31] MEDS: PANTOPRAZOLE 40 MG VIAL IV SCH (06:54)
[2021-01-31] MEDS: INSULIN LISPRO 1 UNIT/0.01 ML UNIT SQ SCH ×4 (06:59→21:33)
[2021-01-31] MEDS: POLYETHYLENE GLYCOL 3350 17 GM PACKET PO SCH ×4 (08:24→21:31)
[2021-01-31] MEDS: cefTRIAXone 2 GM in DEXTROSE 5% IN WATER 50 ML IV SCH (08:24)
[2021-01-31] MEDS: BACLOFEN 10 MG TABLET PO SCH ×2 (08:25→21:32)
[2021-01-31] MEDS: INSULIN GLARGINE, HUMAN 1 UNIT/0.01 ML SQ SCH (08:25)
[2021-01-31] MEDS: APIXABAN 5 MG TABLET PO SCH ×2 (08:25→21:32)
[2021-01-31] MEDS: amLODIPine 10 MG TABLET PO SCH (08:25)
[2021-01-31] MEDS: DOCUSATE SODIUM 100 MG CAPSULE PO SCH ×2 (08:26→21:32)
[2021-01-31] MEDS: FUROSEMIDE 40 MG TABLET PO SCH (08:26)
[2021-01-31] MEDS: LISINOPRIL 20 MG TABLET PO SCH (08:26)
[2021-01-31] MEDS: ATENOLOL 25 MG TABLET PO SCH (08:26)
[2021-01-31 08:28] LABS: Anisocytosis 1+ (None Seen); Band Neutrophils % 12 % (0-10); Basophils % (Manual) 1 % (0-2); Eosinophils % (Manual) 2 % (0-7); Lymphocytes % 26 % (15-49); Monocytes % (Manual) 10 % (1-12); Ovalocytes 1+ (None Seen); Platelet Estimate NORMAL (Normal); RBC Fragments OCC (None Seen); RBC Morphology ABNORMAL (Normal); Reactive Lymphocytes 1 % (0-2); Segmented Neutrophils % 48 % (38-78)
[2021-01-31] MEDS: OXYBUTYNIN CHLORIDE 5 MG TAB.XL.24H PO SCH (08:29)
[2021-01-31] MEDS: CALCIUM CARBONATE 500 MG TAB.CHEW CHEWED PRN (09:14)
[2021-01-31] MEDS: LIDOCAINE PATCH TOPICAL SCH ×3 (09:14→09:31)
--- NOTE | 2021-01-31 16:37 | General Surgery Progress Note ---
SUBJECTIVE Subjective Patient information: Note initiated : 01/31/21 at 4:33 pm Service Date, if different from initiated Date: [] Patient: Austin Canseco 80 y/o M admitted on 01/25/21 for cold/flu. Chief Complaint: [] Principal diagnosis: Acute cholecystitis; postoperative open cholecystectomy Interval history: Patient is clinically stable. He is tolerating diet without difficulty. He is afebrile and his white blood count is 9.4. LFTs are normal. Discussed with him the need for ERCP. Dr. Watters plans to do this procedure tomorrow. He probably can be discharged home the following day. Constitutional Vitals: Vital Signs Temp Pulse Resp BP Pulse Ox 97.2 F 73 19 144/73 93 01/31/21 11:39 01/31/21 11:39 01/31/21 11:39 01/31/21 11:39 01/31/21 11:39 Period Temp Pulse Resp BP Sys/Ignacio Pulse Ox Last 24 Hr 97.2 F-98.8 F 68-80 16-20 142-159/68-82 90-95 Intake and Output 01/31/21 01/31/21 01/31/21 05:59 13:59 21:59 Intake Total 600 730 100 Output Total 250 790 350 Balance 350 -60 -250 Intake & Output: Intake & Output 01/31/21 01/31/21 01/31/21 05:59 13:59 21:59 Intake Total 600 730 100 Output Total 250 790 350 Balance 350 -60 -250 Intake: IV 200 250 100 Rocephin 2 gm In Dextrose 5% in 50 Water 50 ml @ 100 mls/hr IV Q24H [facility] Rx#:[id number] Oral 400 480 Output: Drainage 100 ARELY Drain 100 Drainage 190 ARELY Drain 190 Void Amount 150 600 350 Other: Urine Appearance Clear Urine Color Dark Veronica Dark Veronica Urine Odor Normal ENT ENT exam: Present mucous membranes moist, normal exam and normal oropharynx Neck Neck exam: Present full ROM; Absent tenderness Respiratory Respiratory exam: Present normal respiratory exam and CTAB; Absent rales, rhonchi and wheezes Cardiovascular Cardiovascular exam: Present normal rate and rhythm, RRR, +S1 and +S2; Absent gallop and tachycardia GI/Abdominal GI/Abdominal exam: Present distended (Moderate distention) and tenderness (Tenderness along postoperative scar); Absent hernia Additional comments: Still with significant bile leak Extremities Exam Extremities exam: Present pedal edema; Absent joint swelling, tenderness and Jimmy's sign Neurological Exam Neurological exam: Present abnormal gait and oriented X3 Psychiatric Psychiatric exam: Present anxious and normal mood Skin Skin exam: Present erythema (Chronic stasis changes of bilateral lower extremities) and rash A/P Assessment and plan (1) Cholecystitis, acute with cholelithiasis: Status: Acute Qualifiers: Biliary obstruction: without biliary obstruction Qualified Code(s): K80.00 - Calculus of gallbladder with acute cholecystitis without obstruction (2) Postprocedural leakage from bile duct: Status: Acute (3) [facility] current use of anticoagulant therapy: Status: Acute Narrative A/P Narrative: Patient is clinically stable and will have ERCP tomorrow. Time Spent With Patient Time: Total time spent is greater than 50% in coordination of care (as documented) at patient's floor/unit and/or counseling patient:
--- NOTE | 2021-01-31 16:58 | Internal Medicine Consult Note ---
HPI Data of Consult Patient: new to practice Consult date: 01/31/21 Requesting physician: Claudia Bowie Primary Care Provider: PCP No Consult Narrative Patient Information: Note initiated : 01/31/21 at 4:50 pm Service Date, if different from initiated Date: [] Patient: Austin Canseco 80 y/o M admitted on 01/25/21 for cold/flu. Chief Complaint: [bile leak] 80 year old white male who underwent open cholecystectomy 01/26/21 for acute gangrenous cholecystitis with cholelithiasis whom we are consulted to evaluate bile leak. He is having 150-200cc bilious output of ARELY. , Anitra, is at bedside. PMH: CAD with stent, diabetes, atrial fibrillation. PSH: open cholecystectomy, right hemicolectomy, bilateral inguinal hernia repair, knee replacement, hip replacement, femoral fracture repair. 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 Non smoker. No alcohol or recreational drugs. Has bankruptcy hearing later this week that he emphasizes cannot miss. 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 (Acute) Cholecystitis, acute with cholelithiasis (Acute) Sepsis (Acute) Acute cholecystitis (Acute) Chest pain, rule out acute myocardial infarction (Acute) Chest pressure (Acute) SOB (shortness of breath) (Acute) History of diabetes mellitus (Acute) History of atrial fibrillation (Acute) History of essential hypertension (Acute) History of anxiety (Acute) History of coronary artery disease (Acute) History of hyperlipidemia (Acute) History of gastroesophageal reflux (GERD) (Acute) History of hip surgery (Acute) History of right knee surgery (Acute) Pressure ulcer of buttock (Acute) Poor mobility (Acute) Medical History Poor mobility Pressure ulcer of buttock Social History additional history: Past medical history: Diabetes Atrial fibrillation CAD with stent Hyperlipidemia/hypertension Chronic low back pain GERD Anxiety insomnia Hyponatremia on a past admission Past surgical history: 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 Bowel resection for diverticulosis Hernia repair Family history: Father with liver disease and liver cancer and alcoholism Mother with a blood disease/bleeding disorder/peptic ulcer disease Social history: Patient quit smoking 50 years ago Denies alcohol use Ambulates with a cane Lives in RV with his , states they move around quite a bit MEDS/ALLERGIES Home Medications and Allergies Home Medications Medication Instructions Recorded Confirmed Type atorvastatin 10 mg PO DAILY 02/03/20 01/26/21 History hydroxyzine HCl 25 mg PO DAILY 02/03/20 01/26/21 History apixaban 5 mg tablet 5 mg PO BID 01/07/21 01/26/21 History atenolol 25 mg tablet 50 mg PO DAILY tab 01/07/21 01/26/21 History baclofen 5 mg tablet 5 mg PO DAILY 01/07/21 01/26/21 History furosemide 40 mg tablet 40 mg PO QAM 01/07/21 01/26/21 History omeprazole 20 mg capsule,delayed 20 mg PO QDAY 01/07/21 01/26/21 History release oxybutynin chloride 10 mg 10 mg PO QDAY 01/07/21 01/26/21 History tablet,extended release 24 hr oxycodone 5 mg capsule 10 mg PO BID PRN cap 01/07/21 01/26/21 History potassium chloride 10 mEq 10 meq PO BID 01/07/21 01/26/21 History capsule,extended release Lantus U-100 Insulin 59 unit SUBCUT QDAY 01/25/21 01/26/21 History lisinopril 40 mg PO QDAY 01/25/21 01/26/21 History trazodone 300 mg PO QHS PRN 01/26/21 01/26/21 History Allergies Allergy/AdvReac Type Severity Reaction Status Date / Time No Known Drug Allergies Allergy Verified 01/07/21 15:40 EXAM Constitutional Vitals: Temp Pulse Resp BP Pulse Ox 97.2 F 73 19 144/73 93 01/31/21 11:39 01/31/21 11:39 01/31/21 11:39 01/31/21 11:39 01/31/21 11:39 Head Head exam: Present atraumatic, normal inspection and normocephalic Eye Eye exam: Present normal appearance Neck Neck exam: Present normal inspection Respiratory Respiratory exam: Absent accessory muscle use GI/Abdominal Additional comments: mildly tender abdomen with ARELY in the RUQ with bilious drainage. Well healing incisions. No erythema. DATA Data Completed and Pending Labs: Labs from last 24 hours 01/31/21 01/31/21 05:18 05:18 WBC 9.4 RBC 3.91 L Hgb 11.4 L Hct 35.3 L MCV 90.3 MCH 29.2 MCHC 32.3 RDW 14.7 H Plt Count 286 MPV 10.5 H Seg Neutrophils % 48 Band Neutrophils % 12 H Lymphocytes % 26 Monocytes % (Manual) 10 Eosinophils % (Manual) 2 Basophils % (Manual) 1 Reactive Lymphocytes 1 Platelet Estimate Normal RBC Morphology Abnormal A Anisocytosis 1+ A Ovalocytes 1+ A RBC Fragments Occ A Sodium 139 Potassium 4.2 Chloride 100 Carbon Dioxide 30 Anion Gap 9.0 BUN 6 L Creatinine 0.5 L GFR Calculation 102 Glucose 115 H Calcium 8.6 Total Bilirubin 0.7 AST 10 ALT 7 Alkaline Phosphatase 163 H Total Protein 5.8 L Albumin 2.8 L Globulin 3.0 Albumin/Globulin Ratio 0.9 L A/P Assessment and plan (1) Postprocedural leakage from bile duct: Status: Acute Comment: I discussed his case with Dr. Watters. We will arrange for ERCP, which I discussed with the patient and his , using an illustration. We discussed the risks of bleeding, perforation, pancreatitis, infection or failure to cannulate duct. Time Spent With Patient Time: Total time spent is greater than 50% in coordination of care (as documented) at patient's floor/unit and/or counseling patient:
--- NOTE | 2021-01-31 19:50 | Internal Med Progress Note ---
SUBJECTIVE Subjective Patient information: Note initiated : 01/31/21 at 7:48 pm Service Date, if different from initiated Date: [] Patient: Austin Canseco 80 y/o M admitted on 01/25/21 for cold/flu. Chief Complaint: [] Principal diagnosis: Acute cholecystitis; postoperative open cholecystectomy Interval history: Presents to ED with epigastric pain described as pressure. He states he woke up yesterday morning with since been more or less constant since then no alleviating factors. Has had nausea vomiting headache fever chills. In the ED he was evaluated and chest pain work-up. He had a temperature of 100.6. Lactic acid was 2.9 and white blood cell count was 16 Does have history of coronary artery disease with stents and atrial fibrillation on anticoagulation and diabetes. In the ED he had an episode where he is altered and came confused and acutely hypoxic. Sepsis protocol was initiated with IV fluid bolus. Mentation came around quickly. Further work-up revealed acute cholecystitis. Dr. Bowie was contacted for surgery and then I was contacted. 01/26 No overnight or new complaints. Will undergo laparoscopic cholecystectomy this morning. 01/27 Chronic back pain, no overnight event or new complaints. White blood cell count now starting to slowly improve. Mild hyponatremia 01/28 Stable respiratory status and hemodynamics. Surgery feels the patient has a biliary leak and considering MRCP. 01/29 Abdominal drain continues to pull bilious fluid. Cultures have not grown anything, antibiotics deescalated from Zosyn to Ceftriaxone and Flagyl. Gram stain and culture of bilious drainage. Abdominal xray shows a moderately distended stomach. 01/30 Monitoring abdominal drain output. Patient stable and has a good appetite. 01/31 Persistent drain output of bilious fluid, surgery consulted GI. Discontinued Ceftriaxone and Flagyl. Constitutional Vitals: Vital Signs Temp Pulse Resp BP Pulse Ox 98.1 F 77 14 123/57 91 01/31/21 16:00 01/31/21 16:00 01/31/21 16:00 01/31/21 16:00 01/31/21 16:00 Period Temp Pulse Resp BP Sys/Ignacio Pulse Ox Last 24 Hr 97.2 F-98.6 F 68-80 14-20 123-159/57-82 91-95 Intake and Output 01/31/21 01/31/21 01/31/21 05:59 13:59 21:59 Intake Total 600 730 100 Output Total 250 790 900 Balance 350 -60 -800 Weight 138.89 kg Patient Weight 02/01/21 05:59 Weight 138.89 kg Intake & Output: Intake & Output 01/31/21 01/31/21 01/31/21 05:59 13:59 21:59 Intake Total 600 730 100 Output Total 250 790 900 Balance 350 -60 -800 Weight 138.89 kg Intake: IV 200 250 100 Rocephin 2 gm In Dextrose 5% in 50 Water 50 ml @ 100 mls/hr IV Q24H FABIEN Rx#:[id number] Oral 400 480 Output: Drainage 100 ARELY Drain 100 Drainage 190 ARELY Drain 190 Void Amount 150 600 900 Other: Urine Appearance Clear Urine Color Dark Veronica Dark Veronica Urine Odor Normal Exam: General: Alert, Awake, No acute Distress, obese Eyes/N/T: EOMI, Head/Neck: neck supple, CV: Irregular irr No murmurs, Pulm: Clear b/l, no wheezing/rhonchi/rales Abd: soft, nontender, +BS x4, abdominel drain with bilious fluid Ext: no clubbing/cyanosis. RLE 1+ chronic edema (since knee surgery) but improved Neuro: Alert, no focal deficits, moves all extremities, Skin: warm/dry OBJ DATA Labs CBC & Chem 7: 01/31/21 05:18 01/31/21 05:18 Labs: Abnormal Lab Results 01/31/21 01/31/21 01/30/21 05:18 05:18 04:58 WBC RBC 3.91 L Hgb 11.4 L Hct 35.3 L RDW 14.7 H MPV 10.5 H Band Neutrophils % 12 H Lymphocytes % RBC Morphology Abnormal A Anisocytosis 1+ A Ovalocytes 1+ A RBC Fragments Occ A Sodium Chloride BUN 6 L 6 L Creatinine 0.5 L 0.5 L Glucose 115 H Total Bilirubin Alkaline Phosphatase 163 H 149 H Total Protein 5.8 L Albumin 2.8 L 2.7 L Albumin/Globulin Ratio 0.9 L 0.8 L 01/30/21 01/29/21 01/29/21 04:58 09:08 09:08 WBC 13.0 H RBC 3.96 L 4.21 L Hgb 11.8 L 12.6 L Hct 36.4 L 38.5 L RDW 14.6 H 14.6 H MPV 11.6 H 11.3 H Band Neutrophils % Lymphocytes % 10 L 8 L RBC Morphology Abnormal A Anisocytosis 1+ A Ovalocytes RBC Fragments Sodium 132 L Chloride 94 L BUN 5 L Creatinine 0.6 L Glucose 135 H Total Bilirubin 1.2 H Alkaline Phosphatase 164 H Total Protein Albumin Albumin/Globulin Ratio Meds: Medications Acetaminophen (Acetaminophen 325 Mg Tablet) 650 mg PO Q6HP PRN PRN Reason: PAIN/FEVER > 101 Albuterol/Ipratropium (Ipratropium/Albuterol 3 Ml Ampul.Neb) 3 ml NEB Q4HP PRN PRN Reason: Shortness Of Breath Amlodipine Besylate (Amlodipine 10 Mg Tablet) 10 mg PO DAILY [facility] Last Admin: 01/31/21 08:25 Dose: 10 mg Documented by: Apixaban (Apixaban 5 Mg Tablet) 5 mg PO BID [facility] Last Admin: 01/31/21 08:25 Dose: 5 mg Documented by: Atenolol (Atenolol 25 Mg Tablet) 25 mg PO DAILY [facility] Last Admin: 01/31/21 08:26 Dose: 25 mg Documented by: Baclofen (Baclofen 10 Mg Tablet) 5 mg PO BID [facility] Last Admin: 01/31/21 08:25 Dose: 5 mg Documented by: Calcium Carbonate/Glycine (Calcium Carbonate 500 Mg Tab.Chew) 500 mg CHEWED Q6HP PRN PRN Reason: Dyspepsia Last Admin: 01/31/21 09:14 Dose: 500 mg Documented by: Dextrose (Dextrose 50% 50 Ml Vial) 0 ml IV UD PRN PRN Reason: Hypoglycemia Diagnostic Test (Pha) (Accu-Chek 1 Each Strip) 1 each FS ACHS [facility] Last Admin: 01/31/21 16:21 Dose: 1 each Documented by: Diagnostic Test (Pha) (Accu-Chek 1 Each Strip) 1 each FS ONCE ONE Stop: 02/01/21 15:01 Docusate Sodium (Docusate Sodium 100 Mg Capsule) 100 mg PO BID [facility] Last Admin: 01/31/21 08:26 Dose: 100 mg Documented by: Furosemide (Furosemide 40 Mg Tablet) 40 mg PO DAILY [facility] Last Admin: 01/31/21 08:26 Dose: 40 mg Documented by: Glucose (Dextrose 31 Gm Oral.Susp) 15 gm PO PRN PRN PRN Reason: Hypoglycemia Hydromorphone HCl (Hydromorphone 1 Mg/Ml Syringe) 0 mg IV Q2HP PRN; Protocol PRN Reason: severe pain Last Admin: 01/31/21 04:52 Dose: 1 mg Documented by: Hydroxyzine HCl (Hydroxyzine 25 Mg Tablet) 25 mg PO DAILYP PRN PRN Reason: ANXIETY AND/OR INSOMNIA Last Admin: 01/30/21 20:26 Dose: 25 mg Documented by: Acetaminophen (Ofirmev) 1,000 mg in 100 mls @ 200 mls/hr IV Q6H [facility] Last Infusion: 01/31/21 15:16 Dose: Infused Documented by: Potassium Chloride 40 meq/ (Dextrose) 520 mls @ 130 mls/hr IV UD PRN PRN Reason: Potassium < 3 Lactated Ringer's (Lactated Ringers) 1,000 mls @ 125 mls/hr IV .Q8H [facility] Lactated Ringer's (Lactated Ringers) 1,000 mls @ 125 mls/hr IV .Q8H [facility] Insulin Glargine (Insulin Glargine, Human 1 Unit/0.01 Ml) 57 unit SQ DAILY [facility] Last Admin: 01/31/21 08:25 Dose: 57 units Documented by: Insulin Human Lispro (Insulin Lispro 1 Unit/0.01 Ml Unit) 0 unit SQ ACHS [facility]; Protocol Last Admin: 01/31/21 16:21 Dose: 4 unit Documented by: Lidocaine (Lidocaine Patch) 1 patch TOPICAL DAILY@1000 [facility] Last Admin: 01/31/21 09:31 Dose: 1 patch Documented by: Lisinopril (Lisinopril 20 Mg Tablet) 40 mg PO DAILY [facility] Last Admin: 01/31/21 08:26 Dose: 40 mg Documented by: Melatonin (Melatonin 3 Mg Tablet) 6 mg PO HSP PRN PRN Reason: Insomnia Metoclopramide HCl (Metoclopramide 10 Mg/2 Ml Vial) 10 mg IV Q6HP PRN PRN Reason: Nausea And Vomiting Last Admin: 01/28/21 09:04 Dose: 10 mg Documented by: Midazolam HCl (Midazolam 2 Mg/2 Ml Vial) 0 mg IV ONCE ONE Stop: 02/01/21 15:01 Nitroglycerin (Nitroglycerin 0.6 Mg/Hr Patch) 0.6 mg TD ONCE ONE Stop: 02/01/21 14:01 Ondansetron HCl (Ondansetron 4 Mg/2 Ml Vial) 4 mg IV Q4HP PRN PRN Reason: Nausea And Vomiting Last Admin: 01/28/21 18:05 Dose: 4 mg Documented by: Oxybutynin Chloride (Oxybutynin Chloride 5 Mg Tab.Xl.24h) 10 mg PO DAILY [facility] Last Admin: 01/31/21 08:29 Dose: 10 mg Documented by: Oxycodone HCl (Oxycodone Hcl 5 Mg Tablet) 10 mg PO Q4HP PRN; Protocol PRN Reason: Per Pain Protocol Last Admin: 01/31/21 12:38 Dose: 10 mg Documented by: Pantoprazole Sodium (Pantoprazole 40 Mg Vial) 40 mg IV QAMAC [facility] Last Admin: 01/31/21 06:54 Dose: 40 mg Documented by: Polyethylene Glycol (Polyethylene Glycol 3350 17 Gm Packet) 17 gm PO QID [facility] Last Admin: 01/31/21 16:22 Dose: 17 gm Documented by: Potassium Chloride (Potassium Chloride 20 Meq Tablet) 40 meq PO UD PRN PRN Reason: Potssium is 3-3.5 Propofol (Propofol 200 Mg/20 Ml Vial) 0 mg IV ONCE ONE Stop: 02/01/21 15:01 Senna (Sennosides 1 Tablet) 2 tab PO DAILYP PRN PRN Reason: Constipation Last Admin: 01/31/21 16:31 Dose: 2 tab Documented by: Trazodone HCl (Trazodone Hcl 150 Mg Tablet) 300 mg PO HSP PRN PRN Reason: Sleep Last Admin: 01/30/21 20:25 Dose: 300 mg Documented by: A/P Narrative A/P Narrative: Assessment: 80-year-old male with a history of hypertension, diabetes mellitus, chronic anemia, atrial fibrillation, coronary artery disease, GERD, obesity, sacral wound admitted for sepsis secondary to acute cholecyst itis status post laparoscopic cholecystectomy on 01/26/2021 possibly complicated by a biliary leak. #Acute cholecystitis: s/p lap tello (01/26) -pathology: gangrenous acute and chronic cholecystitis with cholelithiasis #Biliary leak #Sepsis: resolved #Encephalopathy: resolved #DM w/hyperglycemia: #Anemia, chronic: #CAD w/stent: on BB #AFib: on eliquis/BB #HTN: on BB/ACEI/Norvasc #GERD: #Obesity: #Sacral wound: follows with wound clinic P: -Dr. Bowie for surgery. -GI consulted. -follow abdominal drain output, consider abdominal imaging -discontinued Ceftriaxone and Flagyl -cont BP meds -SSI and basal -wound care for sacral pressure wound -electrolyte replacement -home lasix -home eliquis -pt/ot -code status: full Full code Time Spent With Patient Time: Total time spent is greater than 50% in coordination of care (as documented) at patient's floor/unit and/or counseling patient: QUALITY VTE Deep Vein Thrombosis/Pulmonary Embolism Present on Admission: No
[2021-01-31] MEDS: traZODone HCL 150 MG TABLET PO PRN (21:33)
[2021-01-31] MEDS: MELATONIN 3 MG TABLET PO PRN (21:34)
[2021-02-01] MEDS: ACETAMINOPHEN 1,000 MG/100 ML BAG IV SCH ×4 (03:13→21:18)
[2021-02-01] MEDS: oxyCODONE HCL 5 MG TABLET PO PRN ×3 (03:17→18:49)
[2021-02-01 06:16] LABS: Hematocrit 34.9 % (41.0-55.0); Hemoglobin 11.2 g/dL (13.5-16.5); Mean Cell Volume 90.9 fL (80.0-100.0); Mean Corpuscular HGB Conc 32.1 g/dL (31.0-36.0); Mean Platelet Volume 10.7 fL (7.4-10.4); Platelet Count 310 K/mcL (140-440); RBC 3.84 M/mcL (4.50-5.90); Red Cell Distribution Width 14.9 % (11.5-14.5); WBC 9.4 K/mcL (4.5-11.0)
[2021-02-01 06:33] LABS: ALT/SGPT 7 U/L (<40); AST/SGOT 8 U/L (<40); Albumin 2.8 gm/dL (3.2-5.2); Alkaline Phosphatase 170 U/L (39-117); Bilirubin,Total 0.6 mg/dL (0.1-1.0); Blood Urea Nitrogen 6 mg/dL (8-23); Calcium 8.6 mg/dL (8.6-10.4); Carbon Dioxide 30 mmol/L (22-30); Chloride 96 mmol/L (96-108); Globulin 2.9 gm/dL (2.2-3.7); Glomerular Filtration Rate 94; Glucose 175 mg/dL (70-105)
[2021-02-01 07:29] LABS: Anisocytosis 1+ (None Seen); Eosinophils % (Manual) 3 % (0-7); Lymphocytes % 19 % (15-49); Monocytes % (Manual) 5 % (1-12); Platelet Estimate NORMAL (Normal); RBC Morphology ABNORMAL (Normal); Reactive Lymphocytes 2 % (0-2); Segmented Neutrophils % 71 % (38-78)
[2021-02-01] MEDS: PANTOPRAZOLE 40 MG VIAL IV SCH (07:38)
[2021-02-01] MEDS: OXYBUTYNIN CHLORIDE 5 MG TAB.XL.24H PO SCH (08:28)
[2021-02-01] MEDS: LISINOPRIL 20 MG TABLET PO SCH (08:28)
[2021-02-01] MEDS: BACLOFEN 10 MG TABLET PO SCH ×2 (08:28→21:15)
[2021-02-01] MEDS: ATENOLOL 25 MG TABLET PO SCH (08:29)
[2021-02-01] MEDS: INSULIN GLARGINE, HUMAN 1 UNIT/0.01 ML SQ SCH (08:29)
[2021-02-01] MEDS: FUROSEMIDE 40 MG TABLET PO SCH (08:29)
[2021-02-01] MEDS: POLYETHYLENE GLYCOL 3350 17 GM PACKET PO SCH ×4 (08:29→21:15)
[2021-02-01] MEDS: amLODIPine 10 MG TABLET PO SCH (08:29)
[2021-02-01] MEDS: DOCUSATE SODIUM 100 MG CAPSULE PO SCH ×2 (08:29→21:14)
[2021-02-01] MEDS: APIXABAN 5 MG TABLET PO SCH ×2 (08:29→21:14)
[2021-02-01] MEDS: INSULIN LISPRO 1 UNIT/0.01 ML UNIT SQ SCH ×4 (08:30→21:15)
[2021-02-01] MEDS: LIDOCAINE PATCH TOPICAL SCH (09:27)
--- NOTE | 2021-02-01 11:24 | Internal Med Progress Note ---
SUBJECTIVE Subjective Patient information: Note initiated : 02/01/21 at 11:22 am Service Date, if different from initiated Date: [] Patient: Austin Canseco 80 y/o M admitted on 01/25/21 for cold/flu. Chief Complaint: [] Principal diagnosis: Acute cholecystitis; postoperative open cholecystectomy Interval history: Presents to ED with epigastric pain described as pressure. He states he woke up yesterday morning with since been more or less constant since then no alleviating factors. Has had nausea vomiting headache fever chills. In the ED he was evaluated and chest pain work-up. He had a temperature of 100.6. Lactic acid was 2.9 and white blood cell count was 16 Does have history of coronary artery disease with stents and atrial fibrillation on anticoagulation and diabetes. In the ED he had an episode where he is altered and came confused and acutely hypoxic. Sepsis protocol was initiated with IV fluid bolus. Mentation came around quickly. Further work-up revealed acute cholecystitis. Dr. Bowie was contacted for surgery and then I was contacted. 01/26 No overnight or new complaints. Will undergo laparoscopic cholecystectomy this morning. 01/27 Chronic back pain, no overnight event or new complaints. White blood cell count now starting to slowly improve. Mild hyponatremia 01/28 Stable respiratory status and hemodynamics. Surgery feels the patient has a biliary leak and considering MRCP. 01/29 Abdominal drain continues to pull bilious fluid. Cultures have not grown anything, antibiotics deescalated from Zosyn to Ceftriaxone and Flagyl. Gram stain and culture of bilious drainage. Abdominal xray shows a moderately distended stomach. 01/30 Monitoring abdominal drain output. Patient stable and has a good appetite. 01/31 Persistent drain output of bilious fluid, surgery consulted GI. Discontinued Ceftriaxone and Flagyl. 02/01 GI planning for ERCP to hopefully divert bile from leak. Medical problems are stable. Constitutional Vitals: Vital Signs Temp Pulse Resp BP Pulse Ox 98.4 F 72 18 155/73 94 02/01/21 08:00 02/01/21 08:00 02/01/21 08:00 02/01/21 08:00 02/01/21 08:00 Period Temp Pulse Resp BP Sys/Ignacio Pulse Ox Last 24 Hr 97.2 F-98.6 F 65-77 14-20 123-155/57-75 91-98 Intake and Output 01/31/21 02/01/21 02/01/21 21:59 05:59 13:59 Intake Total 340 320 800 Output Total 1250 430 150 Balance -910 -110 650 Weight 138.89 kg Intake & Output: Intake & Output 01/31/21 02/01/21 02/01/21 21:59 05:59 13:59 Intake Total 340 320 800 Output Total 1250 430 150 Balance -910 -110 650 Weight 138.89 kg Intake: IV 100 200 100 Oral 240 120 700 Output: Drainage 130 ARELY Drain 130 Void Amount 1250 300 150 Other: Meal Breakfast Percent of Meal Consumed 75% Urine Appearance Clear Urine Color Light Veronica Exam: General: Alert, Awake, No acute Distress, obese Eyes/N/T: EOMI, Head/Neck: neck supple, CV: Irregular irr No murmurs, Pulm: Clear b/l, no wheezing/rhonchi/rales Abd: soft, nontender, +BS x4, abdominel drain with bilious fluid Ext: no clubbing/cyanosis. RLE 1+ chronic edema (since knee surgery) but improved Neuro: Alert, no focal deficits, moves all extremities, Skin: warm/dry OBJ DATA Labs CBC & Chem 7: 02/01/21 05:22 02/01/21 05:22 Labs: Abnormal Lab Results 02/01/21 02/01/21 01/31/21 05:22 05:22 05:18 RBC 3.84 L Hgb 11.2 L Hct 34.9 L RDW 14.9 H MPV 10.7 H Band Neutrophils % Lymphocytes % RBC Morphology Abnormal A Anisocytosis 1+ A Ovalocytes RBC Fragments Sodium 132 L Anion Gap 6.0 L BUN 6 L 6 L Creatinine 0.6 L 0.5 L Glucose 175 H 115 H Alkaline Phosphatase 170 H 163 H Total Protein 5.7 L 5.8 L Albumin 2.8 L 2.8 L Albumin/Globulin Ratio 0.9 L 01/31/21 01/30/21 01/30/21 05:18 04:58 04:58 RBC 3.91 L 3.96 L Hgb 11.4 L 11.8 L Hct 35.3 L 36.4 L RDW 14.7 H 14.6 H MPV 10.5 H 11.6 H Band Neutrophils % 12 H Lymphocytes % 10 L RBC Morphology Abnormal A Anisocytosis 1+ A Ovalocytes 1+ A RBC Fragments Occ A Sodium Anion Gap BUN 6 L Creatinine 0.5 L Glucose Alkaline Phosphatase 149 H Total Protein Albumin 2.7 L Albumin/Globulin Ratio 0.8 L Meds: Medications Acetaminophen (Acetaminophen 325 Mg Tablet) 650 mg PO Q6HP PRN PRN Reason: PAIN/FEVER > 101 Albuterol/Ipratropium (Ipratropium/Albuterol 3 Ml Ampul.Neb) 3 ml NEB Q4HP PRN PRN Reason: Shortness Of Breath Amlodipine Besylate (Amlodipine 10 Mg Tablet) 10 mg PO DAILY [facility] Last Admin: 02/01/21 08:29 Dose: 10 mg Documented by: Apixaban (Apixaban 5 Mg Tablet) 5 mg PO BID [facility] Last Admin: 02/01/21 08:29 Dose: 5 mg Documented by: Atenolol (Atenolol 25 Mg Tablet) 25 mg PO DAILY [facility] Last Admin: 02/01/21 08:29 Dose: 25 mg Documented by: Baclofen (Baclofen 10 Mg Tablet) 5 mg PO BID [facility] Last Admin: 02/01/21 08:28 Dose: 5 mg Documented by: Calcium Carbonate/Glycine (Calcium Carbonate 500 Mg Tab.Chew) 500 mg CHEWED Q6HP PRN PRN Reason: Dyspepsia Last Admin: 01/31/21 09:14 Dose: 500 mg Documented by: Dextrose (Dextrose 50% 50 Ml Vial) 0 ml IV UD PRN PRN Reason: Hypoglycemia Diagnostic Test (Pha) (Accu-Chek 1 Each Strip) 1 each FS ACHS [facility] Last Admin: 02/01/21 07:38 Dose: 1 each Documented by: Diagnostic Test (Pha) (Accu-Chek 1 Each Strip) 1 each FS ONCE ONE Stop: 02/01/21 15:01 Docusate Sodium (Docusate Sodium 100 Mg Capsule) 100 mg PO BID [facility] Last Admin: 02/01/21 08:29 Dose: 100 mg Documented by: Furosemide (Furosemide 40 Mg Tablet) 40 mg PO DAILY [facility] Last Admin: 02/01/21 08:29 Dose: 40 mg Documented by: Glucose (Dextrose 31 Gm Oral.Susp) 15 gm PO PRN PRN PRN Reason: Hypoglycemia Hydromorphone HCl (Hydromorphone 1 Mg/Ml Syringe) 0 mg IV Q2HP PRN; Protocol PRN Reason: severe pain Last Admin: 01/31/21 04:52 Dose: 1 mg Documented by: Hydroxyzine HCl (Hydroxyzine 25 Mg Tablet) 25 mg PO DAILYP PRN PRN Reason: ANXIETY AND/OR INSOMNIA Last Admin: 01/30/21 20:26 Dose: 25 mg Documented by: Acetaminophen (Ofirmev) 1,000 mg in 100 mls @ 200 mls/hr IV Q6H [facility] Last Infusion: 02/01/21 11:12 Dose: Infused Documented by: Potassium Chloride 40 meq/ (Dextrose) 520 mls @ 130 mls/hr IV UD PRN PRN Reason: Potassium < 3 Lactated Ringer's (Lactated Ringers) 1,000 mls @ 125 mls/hr IV .Q8H [facility] Insulin Glargine (Insulin Glargine, Human 1 Unit/0.01 Ml) 57 unit SQ DAILY [facility] Last Admin: 02/01/21 08:29 Dose: 57 units Documented by: Insulin Human Lispro (Insulin Lispro 1 Unit/0.01 Ml Unit) 0 unit SQ ACHS [facility]; Protocol Last Admin: 02/01/21 08:30 Dose: 2 unit Documented by: Lidocaine (Lidocaine Patch) 1 patch TOPICAL DAILY@1000 [facility] Last Admin: 02/01/21 09:27 Dose: 1 patch Documented by: Lisinopril (Lisinopril 20 Mg Tablet) 40 mg PO DAILY [facility] Last Admin: 02/01/21 08:28 Dose: 40 mg Documented by: Melatonin (Melatonin 3 Mg Tablet) 6 mg PO HSP PRN PRN Reason: Insomnia Last Admin: 01/31/21 21:34 Dose: 6 mg Documented by: Metoclopramide HCl (Metoclopramide 10 Mg/2 Ml Vial) 10 mg IV Q6HP PRN PRN Reason: Nausea And Vomiting Last Admin: 01/28/21 09:04 Dose: 10 mg Documented by: Midazolam HCl (Midazolam 2 Mg/2 Ml Vial) 0 mg IV ONCE ONE Stop: 02/01/21 15:01 Nitroglycerin (Nitroglycerin 0.6 Mg/Hr Patch) 0.6 mg TD ONCE ONE Stop: 02/01/21 14:01 Ondansetron HCl (Ondansetron 4 Mg/2 Ml Vial) 4 mg IV Q4HP PRN PRN Reason: Nausea And Vomiting Last Admin: 01/28/21 18:05 Dose: 4 mg Documented by: Oxybutynin Chloride (Oxybutynin Chloride 5 Mg Tab.Xl.24h) 10 mg PO DAILY [facility] Last Admin: 02/01/21 08:28 Dose: 10 mg Documented by: Oxycodone HCl (Oxycodone Hcl 5 Mg Tablet) 10 mg PO Q4HP PRN; Protocol PRN Reason: Per Pain Protocol Last Admin: 02/01/21 03:17 Dose: 10 mg Documented by: Pantoprazole Sodium (Pantoprazole 40 Mg Vial) 40 mg IV QAMAC [facility] Last Admin: 02/01/21 07:38 Dose: 40 mg Documented by: Polyethylene Glycol (Polyethylene Glycol 3350 17 Gm Packet) 17 gm PO QID [facility] Last Admin: 02/01/21 08:29 Dose: 17 gm Documented by: Potassium Chloride (Potassium Chloride 20 Meq Tablet) 40 meq PO UD PRN PRN Reason: Potssium is 3-3.5 Propofol (Propofol 200 Mg/20 Ml Vial) 0 mg IV ONCE ONE Stop: 02/01/21 15:01 Senna (Sennosides 1 Tablet) 2 tab PO DAILYP PRN PRN Reason: Constipation Last Admin: 01/31/21 16:31 Dose: 2 tab Documented by: Trazodone HCl (Trazodone Hcl 150 Mg Tablet) 300 mg PO HSP PRN PRN Reason: Sleep Last Admin: 01/31/21 21:33 Dose: 300 mg Documented by: A/P Narrative A/P Narrative: Assessment: 80-year-old male with a history of hypertension, diabetes mellitus, chronic anemia, atrial fibrillation, coronary artery disease, GERD, obesity, sacral wound admitted for sepsis secondary to acute cholec ystitis status post laparoscopic cholecystectomy on 01/26/2021 possibly complicated by a biliary leak. #Acute cholecystitis: s/p lap tello (01/26) -pathology: gangrenous acute and chronic cholecystitis with cholelithiasis #Biliary leak #Sepsis: resolved #Encephalopathy: resolved #DM w/hyperglycemia: #Anemia, chronic: #CAD w/stent: on BB #AFib: on eliquis/BB #HTN: on BB/ACEI/Norvasc #GERD: #Obesity: #Sacral wound: follows with wound clinic P: -Dr. Bowie for surgery. -GI following, planning for ERCP w/ possible biliary stent placement. -follow abdominal drain output. -no changes to medical management. -wound care for sacral pressure wound -electrolyte replacement prn -pt/ot -code status: full -disposition: SNF Time Spent With Patient Time: Total time spent is greater than 50% in coordination of care (as do cumented) at patient's floor/unit and/or counseling patient: QUALITY VTE Deep Vein Thrombosis/Pulmonary Embolism Present on Admission: No
--- NOTE | 2021-02-01 12:50 | General Surgery Progress Note ---
SUBJECTIVE Subjective Patient information: Note initiated : 02/01/21 at 12:44 pm Service Date, if different from initiated Date: [] Patient: Austin Canseco 80 y/o M admitted on 01/25/21 for cold/flu. Chief Complaint: [] Principal diagnosis: Acute cholecystitis; postoperative open cholecystectomy Interval history: Patient is stable and continues to improve. He is somewhat agitated that he has to wait for his ERCP but he is sure that it will be done later today. His pain is controlled. He complains of hunger. He has been afebrile. White blood count 9.4, BUN 6, creatinine 0.6, white blood count 9.4, hemoglobin 11.2, hematocrit 34.9., liver transaminases are normal. He still has significant bilious output through his ARELY Constitutional Vitals: Vital Signs Temp Pulse Resp BP Pulse Ox 99.0 F 66 18 153/61 93 02/01/21 12:00 02/01/21 12:00 02/01/21 12:00 02/01/21 12:00 02/01/21 12:00 Period Temp Pulse Resp BP Sys/Ignacio Pulse Ox Last 24 Hr 98.0 F-99.0 F 65-77 14-20 123-155/57-75 91-98 Intake and Output 01/31/21 02/01/21 02/01/21 21:59 05:59 13:59 Intake Total 340 320 800 Output Total 1250 430 150 Balance -910 -110 650 Weight 306 lb 3.2 oz Intake & Output: Intake & Output 01/31/21 02/01/21 02/01/21 21:59 05:59 13:59 Intake Total 340 320 800 Output Total 1250 430 150 Balance -910 -110 650 Weight 306 lb 3.2 oz Intake: IV 100 200 100 Oral 240 120 700 Output: Drainage 130 ARELY Drain 130 Void Amount 1250 300 150 Other: Meal Breakfast Percent of Meal Consumed 75% Urine Appearance Clear Urine Color Light Veronica Head Head exam: Present atraumatic, normal inspection and normocephalic Eye Eye exam: Present EOMI and PERRL; Absent scleral icterus Pupils: Present normal accommodation ENT ENT exam: Present mucous membranes moist, normal exam and normal oropharynx Neck Neck exam: Present full ROM; Absent tenderness Respiratory Respiratory exam: Present normal respiratory exam and CTAB; Absent rales, rhonchi and wheezes Cardiovascular Cardiovascular exam: Present normal rate and rhythm, RRR, +S1 and +S2; Absent gallop and tachycardia GI/Abdominal GI/Abdominal exam: Present distended (Moderate distention) and tenderness (Tenderness along postoperative scar); Absent hernia Additional comments: Still with significant bile leak Extremities Exam Extremities exam: Present pedal edema; Absent joint swelling, tenderness and Jimmy's sign Neurological Exam Neurological exam: Present abnormal gait and oriented X3 Psychiatric Psychiatric exam: Present anxious and normal mood Skin Skin exam: Present erythema (Chronic stasis changes of bilateral lower extremities) and rash A/P Assessment and plan (1) Cholecystitis, acute with cholelithiasis: Status: Acute Qualifiers: Biliary obstruction: without biliary obstruction Qualified Code(s): K80.00 - Calculus of gallbladder with acute cholecystitis without obstruction (2) Postprocedural leakage from bile duct: Status: Acute Comment: I discussed his case with Dr. Watters. We will arrange for ERCP, which I discussed with the patient and his , using an illustration. We discussed the risks of bleeding, perforation, pancreatitis, infection or failure to cannulate duct. (3) longterm current use of anticoagulant therapy: Status: Acute Narrative A/P Narrative: Patient is stable and improved. He will have ERCP with stenting later today. Anticipate that he probably will be able to be transferred to nursing care facility tomorrow. Time Spent With Patient Time: Total time spent is greater than 50% in coordination of care (as documented) at patient's floor/unit and/or counseling patient:
[2021-02-01] MEDS ORDERED: NITROGLYCERIN 0.6 MG/HR PATCH TD ONE (14:00)
[2021-02-01] MEDS ORDERED: LACTATED RINGERS 1,000 ML IV SCH ×2 (14:15→15:00)
[2021-02-01] MEDS ORDERED: LACTATED RINGERS 250 ML IV SCH (14:43)
[2021-02-01] MEDS ORDERED: LACTATED RINGERS 250 ML IV ONE (14:44)
[2021-02-01] MEDS ORDERED: MIDAZOLAM 2 MG/2 ML VIAL IV ONE (15:00)
[2021-02-01] MEDS ORDERED: PROPOFOL 200 MG/20 ML VIAL IV ONE (15:00)
[2021-02-01] MEDS ORDERED: MIDAZOLAM 2 MG/2 ML VIAL ONE (15:24)
[2021-02-01] MEDS ORDERED: IOPAMIDOL 50 ML BOTTLE IJ ONE (16:00)
[2021-02-01] MEDS ORDERED: GENTAMICIN SULFATE 800 MG/20 ML VIAL IR ONE (16:10)
--- NOTE | 2021-02-01 16:14 | Operative Note ---
DATE OF OPERATION: 01/26/2021 PREOPERATIVE DIAGNOSES: Acute cholecystitis with cholelithiasis. POSTOPERATIVE DIAGNOSIS: Acute necrotizing cholecystitis with cholelithiasis. PROCEDURE: Diagnostic laparoscopy with open cholecystectomy. SURGEON: Claudia Bowie M.D. FINDINGS: Extensive intraabdominal adhesions with a severely inflamed, necrotizing inflammation of the gallbladder with multiple large stones and sludge. DESCRIPTION OF PROCEDURE: Under general anesthesia, the patient's abdomen was prepped and draped in a sterile field. Supraumbilical midline incision was made. The patient had a previous procedure that extended above the umbilicus in the midline. The fascia was identified and was opened. Using blunt dissection, the adherent omentum was from the undersurface of the peritoneum. There were extensive adhesions. I was able to get enough space to place a Jessica port. The abdomen was insufflated. Once this was done, I was able to place a 5 mm port in the left upper quadrant. Through this port, I placed a 5 mm camera in an attempt to see the extent of the peritoneal adhesions. With the 5 mm port in the left upper quadrant, I was then able to use the supraumbilical midline port to try to take down the adhesions. Unfortunately, the adhesions extended all the way over the liver. It was decided that it would be extremely difficult to remove the gallbladder with this amount of adhesions, so the laparoscopic technique was abandoned and the ports were removed. A standard right subcostal incision was made. It was extended through the anterior and posterior rectus fascia to the peritoneum. There were extensive adhesions to the peritoneum that were taken down using electrocautery and blunt dissection. A very large, severely inflamed, necrotic-appearing gallbladder was encountered. Using blunt dissection and electrocautery, the gallbladder was dissected. Once I could get a good surface of the upper portion of the dome of the gallbladder, I tried to decompress it, but it was filled with stones and sludge. Dissection was carried out until I was able to place a Parth retractor. Once the [place] retractor was placed, an incision was made in the serosa of the gallbladder, and the gallbladder was then from the infrahepatic space using primarily blunt dissection. It was dissected down to the infundibulum. Cystic artery branch was identified. It was clipped with multiple clips and divided. Dissection was continued down to the cystic duct. The cystic duct was very enlarged and it was very friable. I placed two clips and two sutures of 2-0 silk on the duct, but there was some concern that the duct was friable and there may have been a small tear in the duct. The cystic duct was inspected and I could not find this area. Hemostasis was achieved in the bed and the area was packed with Surgicel. A #10 Robby drain was placed. Irrigation was carried out. Peritoneum was closed with a 2-0 Prolene. The anterior rectus fascia closed with 2-0 Prolene. Subcutaneous tissue was closed with 2-0 Monocryl. All incisions were closed with yamel. The patient tolerated the procedure well. The Robby drain was secured with 2-0 nylon. Tegaderm dressings were placed. The patient was awakened and transferred to the postanesthetic care unit in satisfactory condition. LCS:shannon Job ID: [id number] Doc ID: [id number] Claudia Bowie M.D.
[2021-02-01] MEDS: LACTATED RINGERS 1,000 ML IV SCH ×2 (17:19→19:26)
[2021-02-01] MEDS: HYDROmorphone 1 MG/ML SYRINGE IV PRN ×3 (17:23→21:19)
[2021-02-01] MEDS: traZODone HCL 150 MG TABLET PO PRN (21:14)
[2021-02-01] MEDS: MELATONIN 3 MG TABLET PO PRN (21:15)
[2021-02-02] MEDS: oxyCODONE HCL 5 MG TABLET PO PRN ×3 (00:13→23:14)
[2021-02-02] MEDS: LACTATED RINGERS 1,000 ML IV SCH ×5 (00:58→23:14)
[2021-02-02] MEDS: ACETAMINOPHEN 1,000 MG/100 ML BAG IV SCH ×4 (03:50→20:47)
[2021-02-02] MEDS: PANTOPRAZOLE 40 MG VIAL IV SCH (07:39)
[2021-02-02] MEDS: INSULIN LISPRO 1 UNIT/0.01 ML UNIT SQ SCH ×5 (07:43→21:08)
--- NOTE | 2021-02-02 08:31 | Internal Med Progress Note ---
SUBJECTIVE Subjective Patient information: Note initiated : 02/02/21 at 8:29 am Service Date, if different from initiated Date: [] Patient: Austin Canseco 80 y/o M admitted on 01/25/21 for cold/flu. Chief Complaint: [] Principal diagnosis: Acute cholecystitis; postoperative open cholecystectomy Interval history: Presents to ED with epigastric pain described as pressure. He states he woke up yesterday morning with since been more or less constant since then no alleviating factors. Has had nausea vomiting headache fever chills. In the ED he was evaluated and chest pain work-up. He had a temperature of 100.6. Lactic acid was 2.9 and white blood cell count was 16 Does have history of coronary artery disease with stents and atrial fibrillation on anticoagulation and diabetes. In the ED he had an episode where he is altered and came confused and acutely hypoxic. Sepsis protocol was initiated with IV fluid bolus. Mentation came around quickly. Further work-up revealed acute cholecystitis. Dr. Bowie was contacted for surgery and then I was contacted. 01/26 No overnight or new complaints. Will undergo laparoscopic cholecystectomy this morning. 01/27 Chronic back pain, no overnight event or new complaints. White blood cell count now starting to slowly improve. Mild hyponatremia 01/28 Stable respiratory status and hemodynamics. Surgery feels the patient has a biliary leak and considering MRCP. 01/29 Abdominal drain continues to pull bilious fluid. Cultures have not grown anything, antibiotics deescalated from Zosyn to Ceftriaxone and Flagyl. Gram stain and culture of bilious drainage. Abdominal xray shows a moderately distended stomach. 01/30 Monitoring abdominal drain output. Patient stable and has a good appetite. 01/31 Persistent drain output of bilious fluid, surgery consulted GI. Discontinued Ceftriaxone and Flagyl. 02/01 GI planning for ERCP to hopefully divert bile from leak. Medical problems are stable. 02/02 Medical issues are stable, ongoing surgery and GI plans to address the per sistent biliary leak. Constitutional Vitals: Vital Signs Temp Pulse Resp BP Pulse Ox 98.8 F 70 18 121/59 92 02/02/21 08:00 02/02/21 08:00 02/02/21 08:00 02/02/21 08:00 02/02/21 08:00 Period Temp Pulse Resp BP Sys/Ignacio Pulse Ox Last 24 Hr 98.2 F-99.0 F 66-94 16-35 121-187/59-99 92-99 Intake and Output 02/01/21 02/02/21 02/02/21 21:59 05:59 13:59 Intake Total 1954 1200 340 Output Total 500 525 250 Balance 1455 675 90 Weight 138.754 kg Intake & Output: Intake & Output 02/01/21 02/02/21 02/02/21 21:59 05:59 13:59 Intake Total 1954 1200 340 Output Total 500 525 250 Balance 1455 675 90 Weight 138.754 kg Intake: IV 515 1200 Lactated Ringers 1,000 ml @ 687 022 1371 mls/hr IV .Q8H [facility] Rx#: [id number] Oral 1440 340 Output: Drainage 100 ARELY Drain 100 Drainage 100 50 ARELY Drain 100 50 Void Amount 300 475 250 Other: Meal Breakfast Percent of Meal Consumed 75% Urine Appearance Clear Clear Urine Color Dark Veronica Dark Veronica Dark Yellow Urine Odor Normal OBJ DATA Labs CBC & Chem 7: 02/01/21 05:22 02/01/21 05:22 Labs: Abnormal Lab Results 02/01/21 02/01/21 01/31/21 05:22 05:22 05:18 RBC 3.84 L Hgb 11.2 L Hct 34.9 L RDW 14.9 H MPV 10.7 H Band Neutrophils % RBC Morphology Abnormal A Anisocytosis 1+ A Ovalocytes RBC Fragments Sodium 132 L Anion Gap 6.0 L BUN 6 L 6 L Creatinine 0.6 L 0.5 L Glucose 175 H 115 H Alkaline Phosphatase 170 H 163 H Total Protein 5.7 L 5.8 L Albumin 2.8 L 2.8 L Albumin/Globulin Ratio 0.9 L 01/31/21 05:18 RBC 3.91 L Hgb 11.4 L Hct 35.3 L RDW 14.7 H MPV 10.5 H Band Neutrophils % 12 H RBC Morphology Abnormal A Anisocytosis 1+ A Ovalocytes 1+ A RBC Fragments Occ A Sodium Anion Gap BUN Creatinine Glucose Alkaline Phosphatase Total Protein Albumin Albumin/Globulin Ratio Meds: Medications Acetaminophen (Acetaminophen 325 Mg Tablet) 650 mg PO Q6HP PRN PRN Reason: PAIN/FEVER > 101 Albuterol/Ipratropium (Ipratropium/Albuterol 3 Ml Ampul.Neb) 3 ml NEB Q4HP PRN PRN Reason: Shortness Of Breath Amlodipine Besylate (Amlodipine 10 Mg Tablet) 10 mg PO DAILY [facility] Last Admin: 02/01/21 08:29 Dose: 10 mg Documented by: Apixaban (Apixaban 5 Mg Tablet) 5 mg PO BID [facility] Last Admin: 02/01/21 21:14 Dose: 5 mg Documented by: Atenolol (Atenolol 25 Mg Tablet) 25 mg PO DAILY [facility] Last Admin: 02/01/21 08:29 Dose: 25 mg Documented by: Baclofen (Baclofen 10 Mg Tablet) 5 mg PO BID [facility] Last Admin: 02/01/21 21:15 Dose: 5 mg Documented by: Calcium Carbonate/Glycine (Calcium Carbonate 500 Mg Tab.Chew) 500 mg CHEWED Q6HP PRN PRN Reason: Dyspepsia Last Admin: 01/31/21 09:14 Dose: 500 mg Documented by: Dextrose (Dextrose 50% 50 Ml Vial) 0 ml IV UD PRN PRN Reason: Hypoglycemia Diagnostic Test (Pha) (Accu-Chek 1 Each Strip) 1 each FS ACHS [facility] Last Admin: 02/02/21 07:39 Dose: 1 each Documented by: Docusate Sodium (Docusate Sodium 100 Mg Capsule) 100 mg PO BID [facility] Last Admin: 02/01/21 21:14 Dose: 100 mg Documented by: Furosemide (Furosemide 40 Mg Tablet) 40 mg PO DAILY [facility] Last Admin: 02/01/21 08:29 Dose: 40 mg Documented by: Glucose (Dextrose 31 Gm Oral.Susp) 15 gm PO PRN PRN PRN Reason: Hypoglycemia Hydromorphone HCl (Hydromorphone 1 Mg/Ml Syringe) 0 mg IV Q2HP PRN; Protocol PRN Reason: severe pain Last Admin: 02/01/21 21:19 Dose: 1 mg Documented by: Hydroxyzine HCl (Hydroxyzine 25 Mg Tablet) 25 mg PO DAILYP PRN PRN Reason: ANXIETY AND/OR INSOMNIA Last Admin: 01/30/21 20:26 Dose: 25 mg Documented by: Acetaminophen (Ofirmev) 1,000 mg in 100 mls @ 200 mls/hr IV Q6H [facility] Last Infusion: 02/02/21 04:39 Dose: Infused Documented by: Potassium Chloride 40 meq/ (Dextrose) 520 mls @ 130 mls/hr IV UD PRN PRN Reason: Potassium < 3 Lactated Ringer's (Lactated Ringers) 1,000 mls @ 125 mls/hr IV .Q8H [facility] Last Admin: 02/02/21 07:33 Dose: Not Given Documented by: Levofloxacin (Levaquin) 750 mg in 150 mls @ 100 mls/hr IV DAILY [facility]; Protocol Insulin Glargine (Insulin Glargine, Human 1 Unit/0.01 Ml) 57 unit SQ DAILY [facility] Last Admin: 02/01/21 08:29 Dose: 57 units Documented by: Insulin Human Lispro (Insulin Lispro 1 Unit/0.01 Ml Unit) 0 unit SQ ACHS [facility]; Protocol Last Admin: 02/02/21 07:43 Dose: Not Given Documented by: Lidocaine (Lidocaine Patch) 1 patch TOPICAL DAILY@1000 [facility] Last Admin: 02/01/21 09:27 Dose: 1 patch Documented by: Lisinopril (Lisinopril 20 Mg Tablet) 40 mg PO DAILY [facility] Last Admin: 02/01/21 08:28 Dose: 40 mg Documented by: Melatonin (Melatonin 3 Mg Tablet) 6 mg PO HSP PRN PRN Reason: Insomnia Last Admin: 02/01/21 21:15 Dose: 6 mg Documented by: Metoclopramide HCl (Metoclopramide 10 Mg/2 Ml Vial) 10 mg IV Q6HP PRN PRN Reason: Nausea And Vomiting Last Admin: 01/28/21 09:04 Dose: 10 mg Documented by: Ondansetron HCl (Ondansetron 4 Mg/2 Ml Vial) 4 mg IV Q4HP PRN PRN Reason: Nausea And Vomiting Last Admin: 01/28/21 18:05 Dose: 4 mg Documented by: Oxybutynin Chloride (Oxybutynin Chloride 5 Mg Tab.Xl.24h) 10 mg PO DAILY [facility] Last Admin: 02/01/21 08:28 Dose: 10 mg Documented by: Oxycodone HCl (Oxycodone Hcl 5 Mg Tablet) 10 mg PO Q4HP PRN; Protocol PRN Reason: Per Pain Protocol Last Admin: 02/02/21 00:13 Dose: 10 mg Documented by: Pantoprazole Sodium (Pantoprazole 40 Mg Vial) 40 mg IV QAMAC [facility] Last Admin: 02/02/21 07:39 Dose: 40 mg Documented by: Polyethylene Glycol (Polyethylene Glycol 3350 17 Gm Packet) 17 gm PO QID [facility] Last Admin: 02/01/21 21:15 Dose: 17 gm Documented by: Potassium Chloride (Potassium Chloride 20 Meq Tablet) 40 meq PO UD PRN PRN Reason: Potssium is 3-3.5 Senna (Sennosides 1 Tablet) 2 tab PO DAILYP PRN PRN Reason: Constipation Last Admin: 01/31/21 16:31 Dose: 2 tab Documented by: Trazodone HCl (Trazodone Hcl 150 Mg Tablet) 300 mg PO HSP PRN PRN Reason: Sleep Last Admin: 02/01/21 21:14 Dose: 300 mg Documented by: A/P Narrative A/P Narrative: Assessment: 80-year-old male with a history of hypertension, diabetes mellitus, chronic anemia, atrial fibrillation, coronary artery disease, GERD, obesity, sacral wound admitted for sepsis secondary to acute cholecystitis status post laparoscopic cholecystectomy on 01/26/2021 possibly complicated by a biliary leak. #Acute cholecystitis: s/p lap tello (01/26) -pathology: gangrenous acute and chronic cholecystitis with cholelithiasis #Biliary leak #Sepsis: resolved #Encephalopathy: resolved #DM w/hyperglycemia: #Anemia, chronic: #CAD w/stent: on BB #AFib: on eliquis/BB #HTN: on BB/ACEI/Norvasc #GERD: #Obesity: #Sacral wound: follows with wound clinic P: -Dr. Bowie for surgery. -GI following, planning for ERCP w/ possible biliary stent placement. -follow abdominal drain output. -no changes to medical management. -wound care for sacral pressure wound -electrolyte replacement prn -pt/ot -code status: full -disposition: SNF Time Spent With Patient Time: Total time spent is greater than 50% in coordination of care (as documented) at patient's floor/unit and/or counseling patient: QUALITY VTE Deep Vein Thrombosis/Pulmonary Embolism Present on Admission: No
[2021-02-02 08:40] LABS: Basophils # (Auto) 0.02 K/mcL (0.00-0.20); Basophils % (Auto) 0.2 % (0.0-2.0); Eosinophils # (Auto) 0.27 K/mcL (0.00-0.70); Eosinophils % (Auto) 2.9 % (0.0-7.0); Hematocrit 33.8 % (41.0-55.0); Hemoglobin 11.1 g/dL (13.5-16.5); Lymphocytes # (Auto) 2.18 K/mcL (1.50-4.80); Lymphocytes % (Auto) 23.1 % (15.0-49.0); Mean Cell Volume 90.9 fL (80.0-100.0); Mean Corpuscular HGB Conc 32.8 g/dL (31.0-36.0); Mean Platelet Volume 10.2 fL (7.4-10.4); Monocytes # (Auto) 0.56 K/mcL (0.10-0.90); Monocytes % (Auto) 5.9 % (1.0-12.0); Neutrophils % (Auto) 67.9 % (38.0-78.0); Platelet Count 341 K/mcL (140-440); RBC 3.72 M/mcL (4.50-5.90); Red Cell Distribution Width 15.1 % (11.5-14.5); WBC 9.4 K/mcL (4.5-11.0)
--- NOTE | 2021-02-02 08:49 | ERCP Procedure Note ---
ERCP Procedure Note Procedure Information Patient information: Note initiated : 02/02/21 at 8:46 am Service Date: 02/01/21 Patient: Austin Canseco 80 y/o M admitted on 01/25/21 for Bile leak. Pre-op diagnosis general: Bile leak. Post-op diagnosis general: Bile leak. Common bile duct stones. Procedure: ERCP with Papilotomy Procedure narrative: The procedures, alternatives and risks were discussed with the patient and the patient's questions were answered. With endoscopist-administered intravenous sedation, the Olympus side viewing operating duodenoscope was introduced into the esophagus and advanced to the second part of the duodenum without difficulty. The ampulla of Vater was visualized, seated in a periampullary diverticulum. The bile duct was selectively cannulated taking care to avoid the pancreatic duct and cholangiogram obtained. A bile leak was identified in the cystic duct. The bile duct was dilated and obstructed with multiple common duct stones. All visible stones were extracted with balloon techniques. At the end of the procedure, the bile duct appeared to be cleared of all stones. A 10 Fr 7 cm biliary stent was placed. The scope was withdrawn. Assessment: Bile leak. Common bile duct stones. The biliary stent will need to be removed in 4-6 weeks.
[2021-02-02] MEDS: LISINOPRIL 20 MG TABLET PO SCH (09:22)
[2021-02-02] MEDS: INSULIN GLARGINE, HUMAN 1 UNIT/0.01 ML SQ SCH (09:22)
[2021-02-02] MEDS: ATENOLOL 25 MG TABLET PO SCH (09:22)
[2021-02-02] MEDS: APIXABAN 5 MG TABLET PO SCH ×2 (09:23→20:47)
[2021-02-02] MEDS: DOCUSATE SODIUM 100 MG CAPSULE PO SCH ×2 (09:23→20:47)
[2021-02-02] MEDS: OXYBUTYNIN CHLORIDE 5 MG TAB.XL.24H PO SCH (09:23)
[2021-02-02] MEDS: FUROSEMIDE 40 MG TABLET PO SCH (09:23)
[2021-02-02] MEDS: LIDOCAINE PATCH TOPICAL SCH (09:24)
[2021-02-02] MEDS: amLODIPine 10 MG TABLET PO SCH (09:24)
[2021-02-02] MEDS: BACLOFEN 10 MG TABLET PO SCH ×2 (09:24→20:47)
[2021-02-02] MEDS: LEVOFLOXACIN 750 MG/150 ML BAG IV SCH ×2 (09:27→15:18)
[2021-02-02] MEDS: POLYETHYLENE GLYCOL 3350 17 GM PACKET PO SCH ×5 (09:27→21:09)
--- NOTE | 2021-02-02 13:10 | Internal Med Progress Note ---
SUBJECTIVE Subjective Patient information: Note initiated : 02/02/21 at 1:07 pm Service Date, if different from initiated Date: [] Patient: Austin Canseco 80 y/o M admitted on 01/25/21 for cold/flu. Chief Complaint: [] Principal diagnosis: Acute cholecystitis; postoperative open cholecystectomy Interval history: Principal diagnosis: Acute cholecystitis; postoperative open cholecystectomy Interval history: Presents to ED with epigastric pain described as pressure. He states he woke up yesterday morning with since been more or less constant since then no alleviating factors. Has had nausea vomiting headache fever ch ills. In the ED he was evaluated and chest pain work-up. He had a temperature of 100.6. Lactic acid was 2.9 and white blood cell count was 16 Does have history of coronary artery disease with stents and atrial fibrillation on anticoagulation and diabetes. In the ED he had an episode where he is altered and came confused and acutely hypoxic. Sepsis protocol was initiated with IV fluid bolus. Mentation came around quickly. Further work-up revealed acute cholecystitis. Dr. Bowie was contacted for surgery and then I was contacted. 01/26 No overnight or new complaints. Will undergo laparoscopic cholecystectomy this morning. 01/27 Chronic back pain, no overnight event or new complaints. White blood cell count now starting to slowly improve. Mild hyponatremia 01/28 Stable respiratory status and hemodynamics. Surgery feels the patient has a biliary leak and considering MRCP. 01/29 Abdominal drain continues to pull bilious fluid. Cultures have not grown anything, antibiotics deescalated from Zosyn to Ceftriaxone and Flagyl. Gram stain and culture of bilious drainage. Abdominal xray shows a moderately distended stomach. 01/30 Monitoring abdominal drain output. Patient stable and has a good appetite. 01/31 Persistent drain output of bilious fluid, surgery consulted GI. Discontinued C eftriaxone and Flagyl. 02/01 GI planning for ERCP to hopefully divert bile from leak. Medical problems are stable. 02/02 Medical issues are stable, ongoing surgery and GI plans to address the persiste nt biliary leak. 02/03 Constitutional Vitals: Vital Signs Temp Pulse Resp BP Pulse Ox 99.0 F 67 16 119/69 94 02/02/21 12:00 02/02/21 12:00 02/02/21 12:00 02/02/21 12:02/02/21 12:00 Period Temp Pulse Resp BP Sys/Ignacio Pulse Ox Last 24 Hr 98.2 F-99.0 F 66-94 16-35 119-187/59-99 92-99 Intake and Output 02/01/21 02/02/21 02/02/21 21:59 05:59 13:59 Intake Total 5 1200 440 Output Total 500 525 600 Balance 1455 675 -160 Weight 138.754 kg Intake & Output: Intake & Output 02/01/21 02/02/21 02/02/21 21:59 05:59 13:59 Intake Total 1954 1200 440 Output Total 500 525 600 Balance 1455 675 -160 Weight 138.754 kg Intake: IV 515 1200 100 Lactated Ringers 1,000 ml @ 455 966 1481 mls/hr IV .Q8H [facility] Rx#: [id number] Oral 1440 340 Output: Drainage 100 ARELY Drain 100 Drainage 100 50 ARELY Drain 100 50 Void Amount 300 475 600 Other: Meal Breakfast Percent of Meal Consumed 75% Urine Appearance Clear Clear Urine Color Dark Veronica Dark Veronica Dark Yellow Urine Odor Normal Exam: General: Alert, Awake, No acute Distress, obese Eyes/N/T: EOMI, Head/Neck: neck supple, CV: Irregular irr No murmurs, Pulm: Clear b/l, no wheezing/rhonchi/rales Abd: soft, nontender, +BS x4 Ext: no clubbing/cyanosis. RLE 1+ chronic edema (since knee surgery) but improved Neuro: Alert, no focal deficits, moves all extremities, Skin: warm/dry OBJ DATA Labs CBC & Chem 7: 02/02/21 07:54 02/03/21 05:21 Labs: Abnormal Lab Results 02/02/21 02/01/21 02/01/21 07:54 05:22 05:22 RBC 3.72 L 3.84 L Hgb 11.1 L 11.2 L Hct 33.8 L 34.9 L RDW 15.1 H 14.9 H MPV 10.7 H Band Neutrophils % RBC Morphology Abnormal A Anisocytosis 1+ A Ovalocytes RBC Fragments Sodium 132 L Anion Gap 6.0 L BUN 6 L Creatinine 0.6 L Glucose 175 H Alkaline Phosphatase 170 H Total Protein 5.7 L Albumin 2.8 L Albumin/Globulin Ratio 01/31/21 01/31/21 05:18 05:18 RBC 3.91 L Hgb 11.4 L Hct 35.3 L RDW 14.7 H MPV 10.5 H Band Neutrophils % 12 H RBC Morphology Abnormal A Anisocytosis 1+ A Ovalocytes 1+ A RBC Fragments Occ A Sodium Anion Gap BUN 6 L Creatinine 0.5 L Glucose 115 H Alkaline Phosphatase 163 H Total Protein 5.8 L Albumin 2.8 L Albumin/Globulin Ratio 0.9 L Meds: Medications Acetaminophen (Acetaminophen 325 Mg Tablet) 650 mg PO Q6HP PRN PRN Reason: PAIN/FEVER > 101 Albuterol/Ipratropium (Ipratropium/Albuterol 3 Ml Ampul.Neb) 3 ml NEB Q4HP PRN PRN Reason: Shortness Of Breath Amlodipine Besylate (Amlodipine 10 Mg Tablet) 10 mg PO DAILY [facility] Last Admin: 02/02/21 09:24 Dose: 10 mg Documented by: Apixaban (Apixaban 5 Mg Tablet) 5 mg PO BID [facility] Last Admin: 02/02/21 09:23 Dose: 5 mg Documented by: Atenolol (Atenolol 25 Mg Tablet) 25 mg PO DAILY [facility] Last Admin: 02/02/21 09:22 Dose: 25 mg Documented by: Baclofen (Baclofen 10 Mg Tablet) 5 mg PO BID [facility] Last Admin: 02/02/21 09:24 Dose: 5 mg Documented by: Calcium Carbonate/Glycine (Calcium Carbonate 500 Mg Tab.Chew) 500 mg CHEWED Q6HP PRN PRN Reason: Dyspepsia Last Admin: 01/31/21 09:14 Dose: 500 mg Documented by: Dextrose (Dextrose 50% 50 Ml Vial) 0 ml IV UD PRN PRN Reason: Hypoglycemia Diagnostic Test (Pha) (Accu-Chek 1 Each Strip) 1 each FS ACHS [facility] Last Admin: 02/02/21 11:56 Dose: 1 each Documented by: Docusate Sodium (Docusate Sodium 100 Mg Capsule) 100 mg PO BID [facility] Last Admin: 02/02/21 09:23 Dose: 100 mg Documented by: Furosemide (Furosemide 40 Mg Tablet) 40 mg PO DAILY [facility] Last Admin: 02/02/21 09:23 Dose: 40 mg Documented by: Glucose (Dextrose 31 Gm Oral.Susp) 15 gm PO PRN PRN PRN Reason: Hypoglycemia Hydromorphone HCl (Hydromorphone 1 Mg/Ml Syringe) 0 mg IV Q2HP PRN; Protocol PRN Reason: severe pain Last Admin: 02/01/21 21:19 Dose: 1 mg Documented by: Hydroxyzine HCl (Hydroxyzine 25 Mg Tablet) 25 mg PO DAILYP PRN PRN Reason: ANXIETY AND/OR INSOMNIA Last Admin: 01/30/21 20:26 Dose: 25 mg Documented by: Acetaminophen (Ofirmev) 1,000 mg in 100 mls @ 200 mls/hr IV Q6H [facility] Last Infusion: 02/02/21 10:41 Dose: Infused Documented by: Potassium Chloride 40 meq/ (Dextrose) 520 mls @ 130 mls/hr IV UD PRN PRN Reason: Potassium < 3 Lactated Ringer's (Lactated Ringers) 1,000 mls @ 125 mls/hr IV .Q8H [facility] Last Admin: 02/02/21 07:33 Dose: Not Given Documented by: Levofloxacin (Levaquin) 750 mg in 150 mls @ 100 mls/hr IV DAILY [facility]; Protocol Insulin Glargine (Insulin Glargine, Human 1 Unit/0.01 Ml) 57 unit SQ DAILY [facility] Last Admin: 02/02/21 09:22 Dose: 57 units Documented by: Insulin Human Lispro (Insulin Lispro 1 Unit/0.01 Ml Unit) 0 unit SQ ACHS [facility]; Protocol Last Admin: 02/02/21 11:57 Dose: 8 unit Documented by: Lidocaine (Lidocaine Patch) 1 patch TOPICAL DAILY@1000 [facility] Last Admin: 02/02/21 09:24 Dose: 1 patch Documented by: Lisinopril (Lisinopril 20 Mg Tablet) 40 mg PO DAILY [facility] Last Admin: 02/02/21 09:22 Dose: 40 mg Documented by: Melatonin (Melatonin 3 Mg Tablet) 6 mg PO HSP PRN PRN Reason: Insomnia Last Admin: 02/01/21 21:15 Dose: 6 mg Documented by: Metoclopramide HCl (Metoclopramide 10 Mg/2 Ml Vial) 10 mg IV Q6HP PRN PRN Reason: Nausea And Vomiting Last Admin: 01/28/21 09:04 Dose: 10 mg Documented by: Ondansetron HCl (Ondansetron 4 Mg/2 Ml Vial) 4 mg IV Q4HP PRN PRN Reason: Nausea And Vomiting Last Admin: 01/28/21 18:05 Dose: 4 mg Documented by: Oxybutynin Chloride (Oxybutynin Chloride 5 Mg Tab.Xl.24h) 10 mg PO DAILY [facility] Last Admin: 02/02/21 09:23 Dose: 10 mg Documented by: Oxycodone HCl (Oxycodone Hcl 5 Mg Tablet) 10 mg PO Q4HP PRN; Protocol PRN Reason: Per Pain Protocol Last Admin: 02/02/21 00:13 Dose: 10 mg Documented by: Pantoprazole Sodium (Pantoprazole 40 Mg Vial) 40 mg IV QAMAC [facility] Last Admin: 02/02/21 07:39 Dose: 40 mg Documented by: Polyethylene Glycol (Polyethylene Glycol 3350 17 Gm Packet) 17 gm PO QID [facility] Last Admin: 02/02/21 09:27 Dose: 17 gm Documented by: Potassium Chloride (Potassium Chloride 20 Meq Tablet) 40 meq PO UD PRN PRN Reason: Potssium is 3-3.5 Senna (Sennosides 1 Tablet) 2 tab PO DAILYP PRN PRN Reason: Constipation Last Admin: 01/31/21 16:31 Dose: 2 tab Documented by: Trazodone HCl (Trazodone Hcl 150 Mg Tablet) 300 mg PO HSP PRN PRN Reason: Sleep Last Admin: 02/01/21 21:14 Dose: 300 mg Documented by: A/P Narrative A/P Narrative: #Acute cholecystitis: s/p lap tello (01/26) -pathology: gangrenous acute and chronic cholecystitis with cholelithiasis #Biliary leak: #Sepsis: resolved #Encephalopathy: resolved #DM w/hyperglycemia: #Anemia, chronic: #CAD w/stent: on BB #AFib: on eliquis/BB #HTN: on BB/ACEI/Norvasc #GERD: #Obesity: #Sacral wound: follows with wound clinic P: -Dr. Bowie for surgery, abdominal drain output per surgery / abx per surg -GI following, planning for ERCP w/ possible biliary stent placement. -no changes to medical management. -wound care for sacral pressure wound -electrolyte replacement prn -pt/ot -disposition: SNF code status: steamer gum candy Spent With Patient Time: Total time spent is greater than 50% in coordination of care (as d ocumented) at patient's floor/unit and/or counseling patient: QUALITY VTE Deep Vein Thrombosis/Pulmonary Embolism Present on Admission: No
[2021-02-02] MEDS: LEVOFLOXACIN 750 MG TABLET PO SCH (15:04)
--- NOTE | 2021-02-02 15:09 | XRay Report ---
CLINICAL INFORMATION: rule out bowel obstruction COMPARISON: None. FINDINGS: Stomach small large bowel are minimally dilated bowel mild ileus. Moderate stool is noted in the distal colon. No free air, soft tissue mass. Biliary stent overlies the common bile duct location. The surgical drain in the right upper quadrant. IMPRESSION: Mild ileus. No evidence of bowel obstruction Interpreted and Authenticated by: Arnold Pedraza 02/02/21
--- NOTE | 2021-02-02 19:44 | General Surgery Progress Note ---
SUBJECTIVE Subjective Patient information: Note initiated : 02/02/21 at 7:43 pm Service Date, if different from initiated Date: [] Patient: Austin Canseco 80 y/o M admitted on 01/25/21 for cold/flu. Chief Complaint: [] Principal diagnosis: Acute cholecystitis; postoperative open cholecystectomy Constitutional Vitals: Vital Signs Temp Pulse Resp BP Pulse Ox 99.1 F H 66 14 131/59 94 02/02/21 15:49 02/02/21 15:49 02/02/21 15:49 02/02/21 15:49 02/02/21 15:49 Period Temp Pulse Resp BP Sys/Ignacio Pulse Ox Last 24 Hr 98.4 F-99.1 F 66-70 14-20 119-144/59-88 92-95 Intake and Output 02/02/21 02/02/21 02/02/21 05:59 13:59 21:59 Intake Total 1200 1440 100 Output Total 525 600 350 Balance 675 840 -250 Intake & Output: Intake & Output 02/02/21 02/02/21 02/02/21 05:59 13:59 21:59 Intake Total 1200 1440 100 Output Total 525 600 350 Balance 675 840 -250 Intake: IV 1200 1100 100 Lactated Ringers 1,000 ml @ 125 1000 1000 mls/hr IV .Q8H [facility] Rx#: [id number] Oral 340 Output: Drainage 50 ARELY Drain 50 Void Amount 475 600 350 Other: Meal Breakfast Percent of Meal Consumed 75% Urine Appearance Clear Urine Color Dark Veronica Dark Yellow Bright Yellow Urine Odor Normal A/P Narrative A/P Narrative: soap suds enema tonight and in am Time Spent With Patient Time: Total time spent is greater than 50% in coordination of care (as documented) at patient's floor/unit and/or counseling patient:
[2021-02-02] MEDS: ONDANSETRON 4 MG/2 ML VIAL IV PRN (20:03)
[2021-02-02] MEDS: CALCIUM CARBONATE 500 MG TAB.CHEW CHEWED PRN (21:08)
[2021-02-02] MEDS: HYDROmorphone 1 MG/ML SYRINGE IV PRN (21:16)
[2021-02-02] MEDS: METOCLOPRAMIDE 10 MG/2 ML VIAL IV PRN (23:14)
[2021-02-02] MEDS: MELATONIN 3 MG TABLET PO PRN (23:14)
[2021-02-02] MEDS: traZODone HCL 150 MG TABLET PO PRN (23:14)
[2021-02-03] MEDS: HYDROmorphone 1 MG/ML SYRINGE IV PRN ×3 (02:45→20:40)
[2021-02-03] MEDS: ACETAMINOPHEN 1,000 MG/100 ML BAG IV SCH ×4 (03:01→20:37)
[2021-02-03] MEDS: ONDANSETRON 4 MG/2 ML VIAL IV PRN (03:54)
--- NOTE | 2021-02-03 05:30 | XRay Report ---
CLINICAL INFORMATION: Choledocholithiasis and cystic duct leak COMPARISON: None. FINDINGS: There are 4-5 filling defects ranging up to 8 mm within the common hepatic and common bile duct compatible with choledocholithiasis. Stones were successfully extracted with balloon catheter. Common bile duct is mildly dilated. Extravasation of contrast into cystic duct is compatible with a bile leak. A 7 cm biliary stent was successfully placed by Dr. Watters. IMPRESSION: 1. Small cystic duct bile leak. Successful placement of biliary stent 2. Choledocholithiasis. Stones successfully removed with balloon catheter Interpreted and Authenticated by: Arnold Pedraza 02/03/21
[2021-02-03 06:24] LABS: Blood Urea Nitrogen 4 mg/dL (8-23); Calcium 8.5 mg/dL (8.6-10.4); Carbon Dioxide 29 mmol/L (22-30); Chloride 96 mmol/L (96-108); Glomerular Filtration Rate 112; Glucose 104 mg/dL (70-105)
[2021-02-03] MEDS: METOCLOPRAMIDE 10 MG/2 ML VIAL IV PRN (06:46)
--- NOTE | 2021-02-03 07:16 | Internal Med Progress Note ---
SUBJECTIVE Subjective Patient information: Note initiated : 02/03/21 at 7:15 am Service Date, if different from initiated Date: [] Patient: Austin Canseco 80 y/o M admitted on 01/25/21 for cold/flu. Chief Complaint: [] Principal diagnosis: Acute cholecystitis; postoperative open cholecystectomy Interval history: Principal diagnosis: Acute cholecystitis; postoperative open cholecystectomy Interval history: Presents to ED with epigastric pain described as pressure. He states he woke up yesterday morning with since been more or less constant since then no alleviating factors. Has had nausea vomiting headache fever ch ills. In the ED he was evaluated and chest pain work-up. He had a temperature of 100.6. Lactic acid was 2.9 and white blood cell count was 16 Does have history of coronary artery disease with stents and atrial fibrillation on anticoagulation and diabetes. In the ED he had an episode where he is altered and came confused and acutely hypoxic. Sepsis protocol was initiated with IV fluid bolus. Mentation came around quickly. Further work-up revealed acute cholecystitis. Dr. Bowie was contacted for surgery and then I was contacted. 01/26 No overnight or new complaints. Will undergo laparoscopic cholecystectomy this morning. 01/27 Chronic back pain, no overnight event or new complaints. White blood cell count now starting to slowly improve. Mild hyponatremia 01/28 Stable respiratory status and hemodynamics. Surgery feels the patient has a biliary leak and considering MRCP. 01/29 Abdominal drain continues to pull bilious fluid. Cultures have not grown anything, antibiotics deescalated from Zosyn to Ceftriaxone and Flagyl. Gram stain and culture of bilious drainage. Abdominal xray shows a moderately distended stomach. 01/30 Monitoring abdominal drain output. Patient stable and has a good appetite. 01/31 Persistent drain output of bilious fluid, surgery consulted GI. Discontinued C eftriaxone and Flagyl. 02/01 GI planning for ERCP to hopefully divert bile from leak. Medical problems are stable. 02/02 Medical issues are stable, ongoing surgery and GI plans to address the persiste nt biliary leak. 02/03 Patient was doing well until this morning after 8am when he developed tachypnea and had labored breathing with tachycardia and was hypertensive. He felt distended. Chest x-ray and abdominal x-ray were done which showed pulmonary edema and atypical ileus. Patient appears comfortable the time of my visit. IV Lasix ordered. Shortness of breath better than earlier. Normal cough. Patient states he is passing some gas. Review of Systems: denies headache/fever/chills/nausea/vomiting/chest or abdominal pain/diarrhea. Otherwise see above. Constitutional Vitals: Vital Signs Temp Pulse Resp BP Pulse Ox 98.2 F 57 L 18 156/85 97 02/03/21 02:48 02/03/21 02:48 02/03/21 02:48 02/03/21 02:48 02/03/21 02:48 Period Temp Pulse Resp BP Sys/Ignacio Pulse Ox Last 24 Hr 98.2 F-99.1 F 57-70 14-24 119-156/59-85 92-97 Intake and Output 02/02/21 02/03/21 02/03/21 21:59 05:59 13:59 Intake Total 560 1600 Output Total 800 630 770 Balance -240 970 -770 Weight 139.298 kg Intake & Output: Intake & Output 02/02/21 02/03/21 02/03/21 21:59 05:59 13:59 Intake Total 560 1600 Output Total 800 630 770 Balance -240 970 -770 Weight 139.298 kg Intake: IV 200 1100 Lactated Ringers 1,000 ml @ 125 1000 mls/hr IV .Q8H [facility] Rx#: [id number] Oral 360 500 Output: Drainage 30 120 ARELY Drain 30 120 Void Amount 800 600 650 Other: Meal Dinner Percent of Meal Consumed 10 Feeding Ability Independent Urine Appearance Clear Clear Urine Color Dark Yellow Bright Yellow Stool Size Large Stool Consistency Liquid # of times incontinent of 1 Bowels Exam: General: Alert, Awake, No acute Distress, obese Eyes/N/T: EOMI, Head/Neck: neck supple, CV: Irregular irr No murmurs, Pulm: b/l rales, no wheezing Abd: soft, nontender, +BS x4 Ext: no clubbing/cyanosis. b/l LE 1+ edema Neuro: Alert, no focal deficits, moves all extremities, Skin: warm/dry OBJ DATA Labs CBC & Chem 7: 02/03/21 05:21 02/03/21 05:21 Labs: Abnormal Lab Results 02/03/21 02/02/21 02/01/21 05:21 07:54 05:22 RBC 3.72 L Hgb 11.1 L Hct 33.8 L RDW 15.1 H MPV Band Neutrophils % RBC Morphology Anisocytosis Ovalocytes RBC Fragments Sodium 132 L 132 L Anion Gap 7.0 L 6.0 L BUN 4 L 6 L Creatinine 0.4 L 0.6 L Glucose 175 H Calcium 8.5 L Alkaline Phosphatase 170 H Total Protein 5.7 L Albumin 2.8 L 02/01/21 01/31/21 05:22 05:18 RBC 3.84 L Hgb 11.2 L Hct 34.9 L RDW 14.9 H MPV 10.7 H Band Neutrophils % 12 H RBC Morphology Abnormal A Abnormal A Anisocytosis 1+ A 1+ A Ovalocytes 1+ A RBC Fragments Occ A Sodium Anion Gap BUN Creatinine Glucose Calcium Alkaline Phosphatase Total Protein Albumin Meds: Medications Acetaminophen (Acetaminophen 325 Mg Tablet) 650 mg PO Q6HP PRN PRN Reason: PAIN/FEVER > 101 Albuterol/Ipratropium (Ipratropium/Albuterol 3 Ml Ampul.Neb) 3 ml NEB Q4HP PRN PRN Reason: Shortness Of Breath Amlodipine Besylate (Amlodipine 10 Mg Tablet) 10 mg PO DAILY [facility] Last Admin: 02/02/21 09:24 Dose: 10 mg Documented by: Apixaban (Apixaban 5 Mg Tablet) 5 mg PO BID [facility] Last Admin: 02/02/21 20:47 Dose: 5 mg Documented by: Atenolol (Atenolol 25 Mg Tablet) 25 mg PO DAILY [facility] Last Admin: 02/02/21 09:22 Dose: 25 mg Documented by: Baclofen (Baclofen 10 Mg Tablet) 5 mg PO BID [facility] Last Admin: 02/02/21 20:47 Dose: 5 mg Documented by: Calcium Carbonate/Glycine (Calcium Carbonate 500 Mg Tab.Chew) 500 mg CHEWED Q6HP PRN PRN Reason: Dyspepsia Last Admin: 02/02/21 21:08 Dose: 500 mg Documented by: Dextrose (Dextrose 50% 50 Ml Vial) 0 ml IV UD PRN PRN Reason: Hypoglycemia Diagnostic Test (Pha) (Accu-Chek 1 Each Strip) 1 each FS ACHS [facility] Last Admin: 02/02/21 21:08 Dose: 1 each Documented by: Docusate Sodium (Docusate Sodium 100 Mg Capsule) 100 mg PO BID [facility] Last Admin: 02/02/21 20:47 Dose: 100 mg Documented by: Furosemide (Furosemide 40 Mg Tablet) 40 mg PO DAILY [facility] Last Admin: 02/02/21 09:23 Dose: 40 mg Documented by: Glucose (Dextrose 31 Gm Oral.Susp) 15 gm PO PRN PRN PRN Reason: Hypoglycemia Hydromorphone HCl (Hydromorphone 1 Mg/Ml Syringe) 0 mg IV Q2HP PRN; Protocol PRN Reason: severe pain Last Admin: 02/03/21 04:40 Dose: 1 mg Documented by: Hydroxyzine HCl (Hydroxyzine 25 Mg Tablet) 25 mg PO DAILYP PRN PRN Reason: ANXIETY AND/OR INSOMNIA Last Admin: 01/30/21 20:26 Dose: 25 mg Documented by: Acetaminophen (Ofirmev) 1,000 mg in 100 mls @ 200 mls/hr IV Q6H [facility] Last Infusion: 02/03/21 03:35 Dose: Infused Documented by: Potassium Chloride 40 meq/ (Dextrose) 520 mls @ 130 mls/hr IV UD PRN PRN Reason: Potassium < 3 Lactated Ringer's (Lactated Ringers) 1,000 mls @ 125 mls/hr IV .Q8H [facility] Last Admin: 02/02/21 23:14 Dose: 125 mls/hr Documented by: Insulin Glargine (Insulin Glargine, Human 1 Unit/0.01 Ml) 57 unit SQ DAILY [facility] Last Admin: 02/02/21 09:22 Dose: 57 units Documented by: Insulin Human Lispro (Insulin Lispro 1 Unit/0.01 Ml Unit) 0 unit SQ ACHS [facility]; Protocol Last Admin: 02/02/21 21:08 Dose: 4 unit Documented by: Levofloxacin (Levofloxacin 750 Mg Tablet) 750 mg PO DAILY [facility]; Protocol Last Admin: 02/02/21 15:04 Dose: 750 mg Documented by: Lidocaine (Lidocaine Patch) 1 patch TOPICAL DAILY@1000 [facility] Last Admin: 02/02/21 09:24 Dose: 1 patch Documented by: Lisinopril (Lisinopril 20 Mg Tablet) 40 mg PO DAILY [facility] Last Admin: 02/02/21 09:22 Dose: 40 mg Documented by: Melatonin (Melatonin 3 Mg Tablet) 6 mg PO HSP PRN PRN Reason: Insomnia Last Admin: 02/02/21 23:14 Dose: 6 mg Documented by: Metoclopramide HCl (Metoclopramide 10 Mg/2 Ml Vial) 10 mg IV Q6HP PRN PRN Reason: Nausea And Vomiting Last Admin: 02/03/21 06:46 Dose: 10 mg Documented by: Ondansetron HCl (Ondansetron 4 Mg/2 Ml Vial) 4 mg IV Q4HP PRN PRN Reason: Nausea And Vomiting Last Admin: 02/03/21 03:54 Dose: 4 mg Documented by: Oxybutynin Chloride (Oxybutynin Chloride 5 Mg Tab.Xl.24h) 10 mg PO DAILY [facility] Last Admin: 02/02/21 09:23 Dose: 10 mg Documented by: Oxycodone HCl (Oxycodone Hcl 5 Mg Tablet) 10 mg PO Q4HP PRN; Protocol PRN Reason: Per Pain Protocol Last Admin: 02/02/21 23:14 Dose: 10 mg Documented by: Pantoprazole Sodium (Pantoprazole 40 Mg Vial) 40 mg IV QAMAC [facility] Last Admin: 02/02/21 07:39 Dose: 40 mg Documented by: Polyethylene Glycol (Polyethylene Glycol 3350 17 Gm Packet) 17 gm PO QID [facility] Last Admin: 02/02/21 21:09 Dose: Not Given Documented by: Potassium Chloride (Potassium Chloride 20 Meq Tablet) 40 meq PO UD PRN PRN Reason: Potssium is 3-3.5 Senna (Sennosides 1 Tablet) 2 tab PO DAILYP PRN PRN Reason: Constipation Last Admin: 01/31/21 16:31 Dose: 2 tab Documented by: Trazodone HCl (Trazodone Hcl 150 Mg Tablet) 300 mg PO HSP PRN PRN Reason: Sleep Last Admin: 02/02/21 23:14 Dose: 300 mg Documented by: A/P Narrative A/P Narrative: A: #Acute cholecystitis: s/p lap tello (01/26) -pathology: gangrenous acute and chronic cholecystitis with cholelithiasis #Biliary leak: s/p ERCP with stone removal and stent (02/01) #Ileus: #Volume overload with pulmonary edema: #Sepsis: resolved #Encephalopathy: resolved #DM w/hyperglycemia: #Anemia, chronic: #CAD w/stent: on BB #AFib: on eliquis/BB #HTN: on BB/ACEI/Norvasc #GERD: #Obesity: #Sacral wound: follows with wound clinic P: -IV lasix, monitor UOP/i&O's. stopped IVF -Dr. 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
[2021-02-03] MEDS: PANTOPRAZOLE 40 MG VIAL IV SCH (07:40)
[2021-02-03] MEDS: INSULIN LISPRO 1 UNIT/0.01 ML UNIT SQ SCH ×4 (07:55→20:35)
--- NOTE | 2021-02-03 08:13 | Discharge Summary ---
Discharge Provider Provider Patient information: Note initiated : 02/03/21 at 8:03 am Service Date, if different from initiated Date: [] Patient: Austin Canseco 80 y/o M admitted on 01/25/21 for cold/flu. Chief Complaint: [] Date of admission: 01/25/21 21:16 Discharge date: 02/03/21 Primary care physician: PCP No Admitting clinician: Claudia Bowie Consults: 01/25/21 Consult to Physician [CONS] Stat Comment: Consulting Provider: Anthony Price Reason For Exam: Physician to Consult Consult to Physician [CONS] Stat Comment: Consulting Provider: Claudia Bowie Reason For Exam: Physician to Consult Attending physician on discharge: Claudia Bowie Discharging clinician: Claudia Bowie COURSE Hospital Course Hospital course: 80-year-old male admitted through the emergency room with acute severe abdominal pain and evidence of early sepsis. Evaluation revealed acute severe cholecystitis with cholelithiasis. He underwent diagnostic laparoscopy with open cholecystectomy on 26 January 2021. He was found to have severe extensive intra-abdominal adhesions and severe necrotizing cholecystitis. Though his cystic duct was well identified and was tied off with 2 silk sutures and clipped twice he developed a postprocedural biliary leak. This was decompressed via the drain. He underwent ERCP with stone extraction by Dr. Sandhu successfully. He was noted to have multiple stones in the duct though his transaminases and alkaline phos were not significantly elevated. Post ERCP he still has a modest amount of bilious drainage so his drain will be left in place. The stent will be left in place for least 6weeks. Patient cleared of his sepsis. He had a pressure ulcer of his buttocks which was treated and has improved significantly. He also developed constipation and received enemas last night and this morning with modest results. He will need to be continued on laxatives and MiraLAX until this clears. At this time patient is clinically stable and is ready for transfer to nursing care facility Discharge diagnosis: Acute necrotizing cholecystitis with cholelithiasis and choledocholithiasis Secondary discharge diagnosis: Acute sepsis Diabetes mellitus Coronary artery disease Pressure ulcer buttock History of chronic atrial fibrillation History of chronic anticoagulant therapy Constipation treated and improved Reason for admission: Acute necrotizing cholecystitis Procedures: Diagnostic laparoscopy with open cholecystectomy Endoscopic retrograde cholangiopancreatography Pertinent studies/significant findings: CT of abdomen and pelvis Upper abdominal ultrasound ERCP Complications: Postprocedural biliary leak Time Spent with Patient Time attestation: Total time spent providing and/or coordinating discharge services: Physical Examination Vital Signs Vital signs: Temp Pulse Resp BP Pulse Ox 98.2 F 57 L 18 156/85 97 02/03/21 02:48 02/03/21 02:48 02/03/21 02:48 02/03/21 02:48 02/03/21 02:48 General physical appearance General physical exam: well developed, well nourished, no distress, moderate pain and chronically ill Eyes Eye exam: PERRL and normal ocular movement ENT ENT exam: decreased hearing and poor [facility] Head Head exam IM: Present atraumatic, normal inspection and normocephalic Neck Neck exam: no masses, no bruits, trachea midline, no lymphadenopathy and no venous distension Cardiovascular Cardiovascular exam IM: Present normal rate and rhythm, irregular rhythm, +S1 and +S2; Absent JVD Respiratory Respiratory exam: normal expansion, normal respiratory effort and clear to auscultation Abdomen Abdomen: Present tender (Epigastrium and right upper quadrant tenderness), bowel sounds (Normal active bowel sounds) and distended (Moderate distention) Rectum Rectum: Present normal sphincter tone, no hemorrhoids and no tenderness Integumentary Integumentary: Present no rash, no growths, no abnormal pigmentation and other (Healed linear ulceration of right medial buttock) Neurologic Neurologic: Present normal coordination and normal sensation Musculoskeletal Musculoskeletal: Present other (3+ chronic stasis edema on the right and 2+ edema on the left; decreased range of motion right knee; intact peripheral pulses) Psychiatric Psychiatric: Present oriented to time, oriented to person, oriented to place, speech is normal and memory intact Discharge Plan Patient/Caregiver Discharge Instructions Activity: as per physical therapy and increase activity as tolerated Diet: Regular Diet Prescriptions: New oxycodone-acetaminophen [Endocet] 10-325 mg Tablet 1 tab PO Q4H PRN (Reason: Pain) Qty: 30 RF: 0 polyethylene glycol 3350 [Miralax] 17 gram/dose powder 17 g PO BID Qty: 510 RF: 2 magnesium hydroxide [Milk of Magnesia] 400 mg/5 mL suspension 15 ml PO BID PRN (Reason: constipation) Qty: 3000 RF: 0 Continued Eliquis 5 mg tablet 5 mg PO BID RF: 0 oxycodone 5 mg capsule 10 mg PO BID PRN (Reason: Pain) RF: 0 potassium chloride 10 mEq capsule, extended release 10 meq PO BID RF: 0 furosemide [Lasix] 40 mg tablet 40 mg PO QAM RF: 0 oxybutynin chloride 10 mg tablet extended release 24hr 10 mg PO QDAY RF: 0 omeprazole 20 mg capsule,delayed release(DR/EC) 20 mg PO QDAY RF: 0 atorvastatin 10 mg tablet 10 mg PO DAILY RF: 0 hydroxyzine HCl 25 mg tablet 25 mg PO DAILY RF: 0 baclofen 5 mg tablet 5 mg PO DAILY RF: 0 atenolol 25 mg tablet 50 mg PO DAILY RF: 0 lisinopril 40 mg Tablet 40 mg PO QDAY RF: 0 Lantus U-100 Insulin 59 unit subcut QDAY RF: 0 trazodone 150 mg Tablet 300 mg PO QHS PRN (Reason: Sleep) RF: 0 Other Ambulatory Orders: OT Discharge Order (Routine) Facility: [facility] - Location: Conversion-Long-Term Ordered By: Claudia Bowie Physical Therapy at Discharge - General (Routine) Facility: [facility] - Location: Conversion-Long-Term Ordered By: Claudia Bowie Follow Up Plan Follow up with: Zaire Kam MD [Physician] - Camryn Babb ARNP [Nurse Practitioner] - 02/10/21 9:00 am José Miguel Kay ARNP [Adv Reg Nurse Practitioner] - Patient Disposition: Xfer SNF Prognosis: Good Rehab Potential: Good I certify that the patient requires SNF services: Yes Overall status at discharge: patient is progressing back to baseline Discharge Orders: Discharge Order (Routine); Ordered 02/03/21 Ordered By: Claudia Bowie Pending Pending Pending: Resuscitation Status Full Code Diet GI Soft/Transitional Start Sat Jan 29 1240 Amlodipine Besylate (Amlodipine 10 Mg Tablet) 10 mg PO DAILY [facility] Last Admin: 02/02/21 09:24 Dose: 10 mg Documented by: Admin: 02/01/21 08:29 Dose: 10 mg Documented by: Admin: 01/31/21 08:25 Dose: 10 mg Documented by: Admin: 01/30/21 08:24 Dose: 10 mg Documented by: Admin: 01/29/21 08:19 Dose: 10 mg Documented by: Admin: 01/28/21 08:25 Dose: 10 mg Documented by: JULIETA Apixaban (Apixaban 5 Mg Tablet) 5 mg PO BID [facility] Admin: 02/02/21 20:47 Dose: 5 mg Documented by: Admin: 02/02/21 09:23 Dose: 5 mg Documented by: Admin: 02/01/21 21:14 Dose: 5 mg Documented by: Admin: 02/01/21 08:29 Dose: 5 mg Documented by: Admin: 01/31/21 21:32 Dose: 5 mg Documented by: Admin: 01/31/21 08:25 Dose: 5 mg Documented by: Admin: 01/30/21 20:27 Dose: 5 mg Documented by: Admin: 01/30/21 09:44 Dose: 5 mg Documented by: Admin: 01/29/21 20:54 Dose: 5 mg Documented by: Admin: 01/29/21 08:19 Dose: 5 mg Documented by: Admin: 01/28/21 21:24 Dose: 5 mg Documented by: MICAH Atenolol (Atenolol 25 Mg Tablet) 25 mg PO DAILY [facility] Admin: 02/02/21 09:22 Dose: 25 mg Documented by: Admin: 02/01/21 08:29 Dose: 25 mg Documented by: Admin: 01/31/21 08:26 Dose: 25 mg Documented by: Admin: 01/30/21 08:24 Dose: 25 mg Documented by: Admin: 01/29/21 08:19 Dose: 25 mg Documented by: Admin: 01/28/21 08:25 Dose: 25 mg Documented by: JULIETA Baclofen (Baclofen 10 Mg Tablet) 5 mg PO BID [facility] Admin: 02/02/21 20:47 Dose: 5 mg Documented by: Admin: 02/02/21 09:24 Dose: 5 mg Documented by: Admin: 02/01/21 21:15 Dose: 5 mg Documented by: Admin: 02/01/21 08:28 Dose: 5 mg Documented by: Admin: 01/31/21 21:32 Dose: 5 mg Documented by: Admin: 01/31/21 08:25 Dose: 5 mg Documented by: Admin: 01/30/21 20:25 Dose: 5 mg Documented by: Admin: 01/30/21 08:24 Dose: 5 mg Documented by: Admin: 01/29/21 20:54 Dose: 5 mg Documented by: Admin: 01/29/21 08:19 Dose: 5 mg Documented by: Admin: 01/28/21 21:24 Dose: 5 mg Documented by: Admin: 01/28/21 08:24 Dose: 5 mg Documented by: Admin: 01/27/21 21:10 Dose: 5 mg Documented by: MOE Calcium Carbonate/Glycine (Calcium Carbonate 500 Mg Tab.Chew) 500 mg CHEWED Q6HP PRN PRN Reason: Dyspepsia Last Admin: 02/02/21 21:08 Dose: 500 mg Documented by: Admin: 01/31/21 09:14 Dose: 500 mg Documented by: Admin: 01/30/21 19:17 Dose: 500 mg Documented by: Admin: 01/29/21 08:40 Dose: 500 mg Documented by: Admin: 01/28/21 10:03 Dose: 500 mg Documented by: JULIETA Diagnostic Test (Pha) (Accu-Chek 1 Each Strip) 1 each FS ACHS [facility] Last Admin: 02/03/21 07:40 Dose: 1 each Documented by: Admin: 02/02/21 21:08 Dose: 1 each Documented by: Admin: 02/02/21 18:23 Dose: 1 each Documented by: Admin: 02/02/21 11:56 Dose: 1 each Documented by: Admin: 02/02/21 07:39 Dose: 1 each Documented by: Admin: 02/01/21 21:15 Dose: 1 each Documented by: Admin: 02/01/21 17:21 Dose: 1 each Documented by: Admin: 02/01/21 11:21 Dose: 1 each Documented by: Admin: 02/01/21 07:38 Dose: 1 each Documented by: Admin: 01/31/21 21:32 Dose: 1 each Documented by: Admin: 01/31/21 16:21 Dose: 1 each Documented by: Admin: 01/31/21 11:36 Dose: 1 each Documented by: Admin: 01/31/21 06:59 Dose: 1 each Documented by: Admin: 01/30/21 20:32 Dose: 1 each Documented by: Admin: 01/30/21 16:22 Dose: 1 each Documented by: Admin: 01/30/21 12:06 Dose: 1 each Documented by: Admin: 01/30/21 07:49 Dose: 1 each Documented by: Admin: 01/29/21 20:54 Dose: 1 each Documented by: Admin: 01/29/21 16:01 Dose: 1 each Documented by: Admin: 01/29/21 11:26 Dose: 1 each Documented by: Admin: 01/29/21 07:31 Dose: 1 each Documented by: Admin: 01/28/21 21:21 Dose: 1 each Documented by: Admin: 01/28/21 16:28 Dose: 1 each Documented by: Admin: 01/28/21 11:39 Dose: 1 each Documented by: Admin: 01/28/21 06:46 Dose: 1 each Documented by: Admin: 01/27/21 21:08 Dose: 1 each Documented by: Admin: 01/27/21 17:02 Dose: 1 each Documented by: Admin: 01/27/21 12:00 Dose: 1 each Documented by: DOMI Docusate Sodium (Docusate Sodium 100 Mg Capsule) 100 mg PO BID [facility] Last Admin: 02/02/21 20:47 Dose: 100 mg Documented by: Admin: 02/02/21 09:23 Dose: 100 mg Documented by: Admin: 02/01/21 21:14 Dose: 100 mg Documented by: Admin: 02/01/21 08:29 Dose: 100 mg Documented by: Admin: 01/31/21 21:32 Dose: 100 mg Documented by: Admin: 01/31/21 08:26 Dose: 100 mg Documented by: Admin: 01/30/21 20:27 Dose: 100 mg Documented by: Admin: 01/30/21 08:24 Dose: 100 mg Documented by: Admin: 01/29/21 20:56 Dose: 100 mg Documented by: Admin: 01/29/21 08:19 Dose: 100 mg Documented by: Admin: 01/28/21 21:24 Dose: 100 mg Documented by: Admin: 01/28/21 08:25 Dose: 100 mg Documented by: Admin: 01/27/21 21:11 Dose: 100 mg Documented by: MOE Furosemide (Furosemide 40 Mg Tablet) 40 mg PO DAILY [facility] Last Admin: 02/02/21 09:23 Dose: 40 mg Documented by: Admin: 02/01/21 08:29 Dose: 40 mg Documented by: Admin: 01/31/21 08:26 Dose: 40 mg Documented by: Admin: 01/30/21 08:24 Dose: 40 mg Documented by: Admin: 01/29/21 08:19 Dose: 40 mg Documented by: Admin: 01/28/21 08:25 Dose: 40 mg Documented by: JULIETA Hydromorphone HCl (Hydromorphone 1 Mg/Ml Syringe) 0 mg IV Q2HP PRN; Protocol PRN Reason: severe pain Last Admin: 02/03/21 04:40 Dose: 1 mg Documented by: Admin: 02/03/21 02:45 Dose: 1 mg Documented by: Admin: 02/02/21 21:16 Dose: 1 mg Documented by: Admin: 02/01/21 21:19 Dose: 1 mg Documented by: Admin: 02/01/21 19:18 Dose: 1 mg Documented by: Admin: 02/01/21 17:23 Dose: 1 mg Documented by: Admin: 01/31/21 04:52 Dose: 1 mg Documented by: Admin: 01/31/21 02:37 Dose: 1 mg Documented by: Admin: 01/30/21 23:45 Dose: 1 mg Documented by: Admin: 01/30/21 21:05 Dose: 1 mg Documented by: Admin: 01/29/21 08:39 Dose: 1 mg Documented by: Admin: 01/28/21 23:55 Dose: 1 mg Documented by: Admin: 01/28/21 19:59 Dose: 1 mg Documented by: Admin: 01/28/21 10:04 Dose: 1 mg Documented by: Admin: 01/27/21 15:14 Dose: 1 mg Documented by: Admin: 01/27/21 13:05 Dose: 1 mg Documented by: DOMI Hydroxyzine HCl (Hydroxyzine 25 Mg Tablet) 25 mg PO DAILYP PRN PRN Reason: ANXIETY AND/OR INSOMNIA Last Admin: 01/30/21 20:26 Dose: 25 mg Documented by: Admin: 01/27/21 19:37 Dose: 25 mg Documented by: MOE Acetaminophen (Ofirmev) 1,000 mg in 100 mls @ 200 mls/hr IV Q6H FABIEN Last Infusion: 02/03/21 03:35 Dose: 0 mls/hr Documented by: Admin: 02/03/21 03:01 Dose: 200 mls/hr Documented by: Infusion: 02/02/21 21:37 Dose: 0 mls/hr Documented by: Admin: 02/02/21 20:47 Dose: 200 mls/hr Documented by: Infusion: 02/02/21 16:12 Dose: 0 mls/hr Documented by: Admin: 02/02/21 15:04 Dose: 100 mls/hr Documented by: Infusion: 02/02/21 10:41 Dose: 0 mls/hr Documented by: Admin: 02/02/21 09:24 Dose: 100 mls/hr Documented by: Infusion: 02/02/21 04:39 Dose: 0 mls/hr Documented by: Admin: 02/02/21 03:50 Dose: 200 mls/hr Documented by: Infusion: 02/02/21 00:58 Dose: 0 mls/hr Documented by: Admin: 02/01/21 21:18 Dose: 200 mls/hr Documented by: Admin: 02/01/21 17:19 Dose: Not Given Documented by: Infusion: 02/01/21 11:12 Dose: 200 mls/hr Documented by: Admin: 02/01/21 09:26 Dose: 200 mls/hr Documented by: Infusion: 02/01/21 03:59 Dose: 0 mls/hr Documented by: Admin: 02/01/21 03:13 Dose: 200 mls/hr Documented by: Infusion: 02/01/21 01:50 Dose: 0 mls/hr Documented by: Admin: 01/31/21 21:34 Dose: 200 mls/hr Documented by: Infusion: 01/31/21 15:16 Dose: 0 mls/hr Documented by: Admin: 01/31/21 14:34 Dose: 200 mls/hr Documented by: Infusion: 01/31/21 09:47 Dose: 0 mls/hr Documented by: Admin: 01/31/21 09:06 Dose: 200 mls/hr Documented by: Infusion: 01/31/21 03:13 Dose: 0 mls/hr Documented by: [email or web address] Admin: 01/31/21 02:38 Dose: 200 mls/hr Documented by: [email or web address] Infusion: 01/30/21 20:54 Dose: 200 mls/hr Documented by: [email or web address] Admin: 01/30/21 20:24 Dose: 200 mls/hr Documented by: [email or web address] Infusion: 01/30/21 17:07 Dose: 0 mls/hr Documented by: Admin: 01/30/21 16:17 Dose: 200 mls/hr Documented by: Infusion: 01/30/21 09:49 Dose: 0 mls/hr Documented by: Admin: 01/30/21 08:30 Dose: 200 mls/hr Documented by: Infusion: 01/30/21 03:55 Dose: 0 mls/hr Documented by: Admin: 01/30/21 03:19 Dose: 200 mls/hr Documented by: Infusion: 01/29/21 21:35 Dose: 0 mls/hr Documented by: Admin: 01/29/21 20:55 Dose: 200 mls/hr Documented by: Infusion: 01/29/21 15:29 Dose: 0 mls/hr Documented by: Admin: 01/29/21 14:45 Dose: 200 mls/hr Documented by: Infusion: 01/29/21 11:04 Dose: 0 mls/hr Documented by: Admin: 01/29/21 09:59 Dose: 200 mls/hr Documented by: Infusion: 01/29/21 04:10 Dose: 0 mls/hr Documented by: Admin: 01/29/21 03:00 Dose: 200 mls/hr Documented by: Infusion: 01/28/21 22:16 Dose: 0 mls/hr Documented by: Admin: 01/28/21 21:22 Dose: 500 mls/hr Documented by: Infusion: 01/28/21 15:07 Dose: 0 mls/hr Documented by: Admin: 01/28/21 14:23 Dose: 200 mls/hr Documented by: Infusion: 01/28/21 10:07 Dose: 0 mls/hr Documented by: Admin: 01/28/21 08:23 Dose: 200 mls/hr Documented by: Infusion: 01/28/21 04:03 Dose: 0 mls/hr Documented by: Admin: 01/28/21 03:05 Dose: 200 mls/hr Documented by: Infusion: 01/27/21 22:05 Dose: 0 mls/hr Documented by: Admin: 01/27/21 21:08 Dose: 200 mls/hr Documented by: Infusion: 01/27/21 15:45 Dose: 0 mls/hr Documented by: Admin: 01/27/21 15:15 Dose: 200 mls/hr Documented by: CISCO Lactated Ringer's (Lactated Ringers) 1,000 mls @ 125 mls/hr IV .Q8H FABIEN Last Admin: 02/02/21 23:14 Dose: 125 mls/hr Documented by: [email or web address] Infusion: 02/02/21 23:06 Dose: 125 mls/hr Documented by: BRITTLLKelsy Admin: 02/02/21 15:06 Dose: 125 mls/hr Documented by: Infusion: 02/02/21 11:58 Dose: 125 mls/hr Documented by: Admin: 02/02/21 07:33 Dose: Not Given Documented by: Admin: 02/02/21 03:58 Dose: 125 mls/hr Documented by: Infusion: 02/02/21 03:26 Dose: 125 mls/hr Documented by: Admin: 02/02/21 00:58 Dose: Not Given Documented by: Admin: 02/01/21 19:26 Dose: 125 mls/hr Documented by: Infusion: 02/01/21 19:26 Dose: 125 mls/hr Documented by: Admin: 02/01/21 17:19 Dose: 125 mls/hr Documented by: STEPHEN Insulin Glargine (Insulin Glargine, Human 1 Unit/0.01 Ml) 57 unit SQ DAILY [facility] Last Admin: 02/02/21 09:22 Dose: 57 units Documented by: Admin: 02/01/21 08:29 Dose: 57 units Documented by: Admin: 01/31/21 08:25 Dose: 57 units Documented by: Admin: 01/30/21 08:23 Dose: 57 units Documented by: Admin: 01/29/21 08:20 Dose: 57 units Documented by: Admin: 01/28/21 08:26 Dose: 57 units Documented by: JULIETA Insulin Human Lispro (Insulin Lispro 1 Unit/0.01 Ml Unit) 0 unit SQ ACHS FABIEN; Protocol Last Admin: 02/03/21 07:55 Dose: 2 unit Documented by: Admin: 02/02/21 21:08 Dose: 4 unit Documented by: Admin: 02/02/21 18:40 Dose: 4 unit Documented by: Admin: 02/02/21 11:57 Dose: 8 unit Documented by: Admin: 02/02/21 07:43 Dose: Not Given Documented by: Admin: 02/01/21 21:15 Dose: Not Given Documented by: Admin: 02/01/21 17:22 Dose: Not Given Documented by: Admin: 02/01/21 11:44 Dose: 6 unit Documented by: Admin: 02/01/21 08:30 Dose: 2 unit Documented by: Admin: 01/31/21 21:33 Dose: Not Given Documented by: Admin: 01/31/21 16:21 Dose: 4 unit Documented by: Admin: 01/31/21 11:37 Dose: 2 unit Documented by: Admin: 01/31/21 06:59 Dose: Not Given Documented by: Admin: 01/30/21 20:32 Dose: Not Given Documented by: Admin: 01/30/21 16:22 Dose: Not Given Documented by: Admin: 01/30/21 12:06 Dose: 2 unit Documented by: Admin: 01/30/21 07:50 Dose: Not Given Documented by: Admin: 01/29/21 20:56 Dose: Not Given Documented by: Admin: 01/29/21 16:01 Dose: 4 unit Documented by: Admin: 01/29/21 11:53 Dose: Not Given Documented by: Admin: 01/29/21 07:31 Dose: Not Given Documented by: Admin: 01/28/21 21:24 Dose: Not Given Documented by: Admin: 01/28/21 16:28 Dose: 4 unit Documented by: Admin: 01/28/21 11:39 Dose: 6 unit Documented by: Admin: 01/28/21 06:46 Dose: 4 unit Documented by: Admin: 01/27/21 21:19 Dose: 4 unit Documented by: Admin: 01/27/21 17:08 Dose: 6 unit Documented by: Admin: 01/27/21 12:00 Dose: 10 unit Documented by: DOMI Levofloxacin (Levofloxacin 750 Mg Tablet) 750 mg PO DAILY FABIEN; Protocol Last Admin: 02/02/21 15:04 Dose: 750 mg Documented by: SANTOS Lidocaine (Lidocaine Patch) 1 patch TOPICAL DAILY@1000 F[facility]IEN Last Admin: 02/02/21 09:24 Dose: 1 patch Documented by: Admin: 02/01/21 09:27 Dose: 1 patch Documented by: Admin: 01/31/21 09:31 Dose: 1 patch Documented by: Admin: 01/30/21 10:22 Dose: 1 patch Documented by: Admin: 01/29/21 11:22 Dose: 1 patch Documented by: Admin: 01/28/21 09:04 Dose: 1 patch Documented by: Admin: 01/27/21 12:23 Dose: 1 patch Documented by: DOMI Lisinopril (Lisinopril 20 Mg Tablet) 40 mg PO DAILY [facility] Last Admin: 02/02/21 09:22 Dose: 40 mg Documented by: Admin: 02/01/21 08:28 Dose: 40 mg Documented by: Admin: 01/31/21 08:26 Dose: 40 mg Documented by: Admin: 01/30/21 08:24 Dose: 40 mg Documented by: Admin: 01/29/21 08:19 Dose: 40 mg Documented by: Admin: 01/28/21 08:26 Dose: 40 mg Documented by: JULIETA Melatonin (Melatonin 3 Mg Tablet) 6 mg PO HSP PRN PRN Reason: Insomnia Last Admin: 02/02/21 23:14 Dose: 6 mg Documented by: Admin: 02/01/21 21:15 Dose: 6 mg Documented by: Admin: 01/31/21 21:34 Dose: 6 mg Documented by: RORY Metoclopramide HCl (Metoclopramide 10 Mg/2 Ml Vial) 10 mg IV Q6HP PRN PRN Reason: Nausea And Vomiting Last Admin: 02/03/21 06:46 Dose: 10 mg Documented by: Admin: 02/02/21 23:14 Dose: 10 mg Documented by: Admin: 01/28/21 09:04 Dose: 10 mg Documented by: Admin: 01/27/21 17:26 Dose: 10 mg Documented by: CISCO Ondansetron HCl (Ondansetron 4 Mg/2 Ml Vial) 4 mg IV Q4HP PRN PRN Reason: Nausea And Vomiting Last Admin: 02/03/21 03:54 Dose: 4 mg Documented by: Admin: 02/02/21 20:03 Dose: 4 mg Documented by: Admin: 01/28/21 18:05 Dose: 4 mg Documented by: Admin: 01/28/21 03:05 Dose: 4 mg Documented by: Admin: 01/27/21 21:12 Dose: 4 mg Documented by: Admin: 01/27/21 15:59 Dose: 4 mg Documented by: Admin: 01/27/21 11:52 Dose: 4 mg Documented by: DOMI Oxybutynin Chloride (Oxybutynin Chloride 5 Mg Tab.Xl.24h) 10 mg PO DAILY [facility] Last Admin: 02/02/21 09:23 Dose: 10 mg Documented by: Admin: 02/01/21 08:28 Dose: 10 mg Documented by: Admin: 01/31/21 08:29 Dose: 10 mg Documented by: Admin: 01/30/21 08:24 Dose: 10 mg Documented by: Admin: 01/29/21 08:19 Dose: 10 mg Documented by: Admin: 01/28/21 08:25 Dose: 10 mg Documented by: JULIETA Oxycodone HCl (Oxycodone Hcl 5 Mg Tablet) 10 mg PO Q4HP PRN; Protocol PRN Reason: Per Pain Protocol Last Admin: 02/02/21 23:14 Dose: 10 mg Documented by: Admin: 02/02/21 18:41 Dose: 10 mg Documented by: Admin: 02/02/21 00:13 Dose: 10 mg Documented by: Admin: 02/01/21 18:49 Dose: 10 mg Documented by: Admin: 02/01/21 11:43 Dose: 10 mg Documented by: Admin: 02/01/21 03:17 Dose: 10 mg Documented by: Admin: 01/31/21 21:33 Dose: 10 mg Documented by: Admin: 01/31/21 12:38 Dose: 10 mg Documented by: Admin: 01/31/21 06:54 Dose: 10 mg Documented by: Admin: 01/31/21 02:37 Dose: 10 mg Documented by: Admin: 01/30/21 21:38 Dose: 10 mg Documented by: Admin: 01/30/21 17:32 Dose: 10 mg Documented by: Admin: 01/30/21 12:55 Dose: 10 mg Documented by: Admin: 01/29/21 15:04 Dose: 10 mg Documented by: Admin: 01/29/21 08:18 Dose: 10 mg Documented by: Admin: 01/28/21 17:54 Dose: 10 mg Documented by: Admin: 01/27/21 21:19 Dose: 10 mg Documented by: Admin: 01/27/21 15:14 Dose: 10 mg Documented by: CISCO Pantoprazole Sodium (Pantoprazole 40 Mg Vial) 40 mg IV QAMAC [facility] Admin: 02/03/21 07:40 Dose: 40 mg Documented by: Admin: 02/02/21 07:39 Dose: 40 mg Documented by: Admin: 02/01/21 07:38 Dose: 40 mg Documented by: Admin: 01/31/21 06:54 Dose: 40 mg Documented by: Admin: 01/30/21 08:23 Dose: 40 mg Documented by: Admin: 01/29/21 08:20 Dose: 40 mg Documented by: Admin: 01/28/21 06:42 Dose: 40 mg Documented by: JULIETA Polyethylene Glycol (Polyethylene Glycol 3350 17 Gm Packet) 17 gm PO QID [facility] Admin: 02/02/21 21:09 Dose: Not Given Documented by: Admin: 02/02/21 18:40 Dose: 17 gm Documented by: Admin: 02/02/21 13:36 Dose: 17 gm Documented by: Admin: 02/02/21 09:27 Dose: 17 gm Documented by: Admin: 02/01/21 21:15 Dose: 17 gm Documented by: Admin: 02/01/21 17:29 Dose: 17 gm Documented by: Admin: 02/01/21 14:28 Dose: Not Given Documented by: Admin: 02/01/21 08:29 Dose: 17 gm Documented by: Admin: 01/31/21 21:31 Dose: 17 gm Documented by: Admin: 01/31/21 16:22 Dose: 17 gm Documented by: Admin: 01/31/21 13:27 Dose: 17 gm Documented by: IM Admin: 01/31/21 08:24 Dose: 17 gm Documented by: Admin: 01/30/21 20:28 Dose: Not Given Documented by: Admin: 01/30/21 16:22 Dose: 17 gm Documented by: Admin: 01/30/21 12:55 Dose: 17 gm Documented by: JULIETA Senna (Sennosides 1 Tablet) 2 tab PO DAILYP PRN PRN Reason: Constipation Last Admin: 01/31/21 16:31 Dose: 2 tab Documented by: JULIETA Trazodone HCl (Trazodone Hcl 150 Mg Tablet) 300 mg PO HSP PRN PRN Reason: Sleep Last Admin: 02/02/21 23:14 Dose: 300 mg Documented by: Admin: 02/01/21 21:14 Dose: 300 mg Documented by: Admin: 01/31/21 21:33 Dose: 300 mg Documented by: Admin: 01/30/21 20:25 Dose: 300 mg Documented by: Admin: 01/29/21 20:55 Dose: 300 mg Documented by: Admin: 01/28/21 23:57 Dose: 300 mg Documented by: Admin: 01/27/21 21:10 Dose: 300 mg Documented by: MOE Shift Summary 02/03/21 03:42 Shift Summary by Lin Mcmillan 80 yr old M. Full Code. A+Ox4. Admitted 01/25 for cholecystitis, cholecystectomy completed 01/26. ERCP completed, biliary leak found, stent placed d/t stones. ARELY drain to right lower abdomen draining green liquid. 20g L wrist. LR infusing at 125mL/hr. Receiving scheduled Ofirmev, Received oxycodone X 2, and dilaudid x 2, zofran and reglan. Abdominal X-ray completed yesterday showing a mild ileus and moderate amount of stool in distal colon. Soap suds enema X 2 ordered, one for night and one in early am. The one given last night produced a large amount of liquid bowel movement. Will give the other closer to end of shift and then replace the dressings after he has a BM. Patient has a pressure ulcer to left buttock and dressing change is 2-3 X week and PRN. CM shows A-fib. Will update at bedside. Initialized on 02/03/21 03:42 - END OF NOTE
[2021-02-03] MEDS: LACTATED RINGERS 1,000 ML IV SCH (09:26)
[2021-02-03 09:28] LABS: Basophils # (Auto) 0.03 K/mcL (0.00-0.20); Basophils % (Auto) 0.3 % (0.0-2.0); Eosinophils # (Auto) 0.29 K/mcL (0.00-0.70); Eosinophils % (Auto) 3.3 % (0.0-7.0); Hematocrit 35.5 % (41.0-55.0); Hemoglobin 11.3 g/dL (13.5-16.5); Lymphocytes # (Auto) 2.37 K/mcL (1.50-4.80); Lymphocytes % (Auto) 26.8 % (15.0-49.0); Mean Cell Volume 92.2 fL (80.0-100.0); Mean Corpuscular HGB Conc 31.8 g/dL (31.0-36.0); Mean Platelet Volume 10.4 fL (7.4-10.4); Monocytes # (Auto) 0.77 K/mcL (0.10-0.90); Monocytes % (Auto) 8.7 % (1.0-12.0); Neutrophils % (Auto) 60.9 % (38.0-78.0); Platelet Count 373 K/mcL (140-440); RBC 3.85 M/mcL (4.50-5.90); WBC 8.9 K/mcL (4.5-11.0)
[2021-02-03] MEDS: DOCUSATE SODIUM 100 MG CAPSULE PO SCH ×2 (09:52→20:34)
[2021-02-03] MEDS: BACLOFEN 10 MG TABLET PO SCH ×2 (09:52→20:34)
[2021-02-03] MEDS: APIXABAN 5 MG TABLET PO SCH ×2 (09:52→20:34)
[2021-02-03] MEDS: amLODIPine 10 MG TABLET PO SCH (09:52)
[2021-02-03] MEDS: ATENOLOL 25 MG TABLET PO SCH (09:52)
[2021-02-03] MEDS: LEVOFLOXACIN 750 MG TABLET PO SCH (09:52)
[2021-02-03] MEDS: FUROSEMIDE 40 MG TABLET PO SCH (09:52)
[2021-02-03] MEDS: LIDOCAINE PATCH TOPICAL SCH (09:53)
--- NOTE | 2021-02-03 09:53 | XRay Report ---
CLINICAL INFORMATION: respiratory distress COMPARISON: 01/25/2021 FINDINGS: The heart is moderately enlarged - increased. Mediastinum is unremarkable. Pulmonary vessels are moderately distended and there is mild interstitial edema throughout both lungs. Mild patchy bibasilar airspace disease noted. Small bilateral pleural effusions noted. IMPRESSION: Moderate CHF Mild bibasilar infiltrates or atelectasis Interpreted and Authenticated by: Arnold Pedraza 02/03/21
[2021-02-03] MEDS: LISINOPRIL 20 MG TABLET PO SCH (09:56)
[2021-02-03] MEDS: POLYETHYLENE GLYCOL 3350 17 GM PACKET PO SCH ×4 (09:57→20:37)
--- NOTE | 2021-02-03 09:57 | XRay Report ---
CLINICAL INFORMATION: Abdominal pain COMPARISON: 02/02/2021 FINDINGS: Post sternotomy changes noted. No free air. Biliary stent is in expected location overlying the common bile duct. Stomach and small bowel are mildly dilated. The colon is relatively decompressed. IMPRESSION: Probable atypical ileus. Distal small bowel obstruction not excluded. Consider repeat abdomen and pelvic CT Interpreted and Authenticated by: Arnold Pedraza 02/03/21
[2021-02-03] MEDS: INSULIN GLARGINE, HUMAN 1 UNIT/0.01 ML SQ SCH (10:02)
[2021-02-03] MEDS: OXYBUTYNIN CHLORIDE 5 MG TAB.XL.24H PO SCH (10:02)
[2021-02-03] MEDS ORDERED: FUROSEMIDE 40 MG/4 ML VIAL IV ONE ×2 (10:16→17:00)
[2021-02-03] MEDS ORDERED: ALBUMIN HUMAN 12.5 GM/50 ML BAG IV ONE ×2 (10:16→17:00)
[2021-02-03] MEDS ORDERED: METOPROLOL TARTRATE 5 MG/5 ML VIAL IV PRN (10:20)
[2021-02-03 10:36] LABS: Basophils # (Auto) 0.03 K/mcL (0.00-0.20); Basophils % (Auto) 0.2 % (0.0-2.0); Eosinophils # (Auto) 0.12 K/mcL (0.00-0.70); Eosinophils % (Auto) 0.8 % (0.0-7.0); Hematocrit 38.4 % (41.0-55.0); Hemoglobin 12.3 g/dL (13.5-16.5); Lymphocytes # (Auto) 1.44 K/mcL (1.50-4.80); Lymphocytes % (Auto) 10.1 % (15.0-49.0); Mean Cell Volume 91.4 fL (80.0-100.0); Mean Platelet Volume 10.2 fL (7.4-10.4); Monocytes # (Auto) 0.92 K/mcL (0.10-0.90); Monocytes % (Auto) 6.5 % (1.0-12.0); Neutrophils % (Auto) 82.4 % (38.0-78.0); Platelet Count 420 K/mcL (140-440); Red Cell Distribution Width 14.7 % (11.5-14.5); WBC 14.2 K/mcL (4.5-11.0)
[2021-02-03 11:04] LABS: ALT/SGPT 11 U/L (<40); AST/SGOT 15 U/L (<40); Albumin 3.2 gm/dL (3.2-5.2); Albumin/Globulin Ratio 0.9 (1.0-2.3); Alkaline Phosphatase 237 U/L (39-117); Bilirubin,Total 0.8 mg/dL (0.1-1.0); Blood Urea Nitrogen 3 mg/dL (8-23); Calcium 8.6 mg/dL (8.6-10.4); Carbon Dioxide 26 mmol/L (22-30); Chloride 93 mmol/L (96-108); Globulin 3.5 gm/dL (2.2-3.7); Glomerular Filtration Rate 102; Glucose 177 mg/dL (70-105)
--- NOTE | 2021-02-03 13:35 | General Surgery Progress Note ---
SUBJECTIVE Subjective Patient information: Note initiated : 02/03/21 at 1:26 pm Service Date, if different from initiated Date: [] Patient: Austin Canseco 80 y/o M admitted on 01/25/21 for cold/flu. Chief Complaint: [] Principal diagnosis: Acute cholecystitis; postoperative open cholecystectomy; acute shortness of Interval history: Patient was doing well earlier this morning prior to 0900. He was discharged at that time. He however developed acute onset of chest discomfort with shortness of breath and dyspnea. He also had tachycardia with heart rates in the 120s. He did not complain of abdominal pain though he did state that he felt tight. Chest x-ray showed increased interstitial edema; abdominal x-ray showed adynamic ileus with dilated stomach small bowel with some persistent colon gas. Troponin was less than 0.01; white blood count 14.2, hemoglobin 12.3, hematocrit 38.4. It was felt that the patient had an acute respiratory event possibly related to volume overload but I will asked the hospitalist to evaluate him also. Constitutional Vitals: Vital Signs Temp Pulse Resp BP Pulse Ox 99.4 F H 87 25 H 125/95 94 02/03/21 12:00 02/03/21 12:00 02/03/21 12:00 02/03/21 12:00 02/03/21 12:00 Period Temp Pulse Resp BP Sys/Ignacio Pulse Ox Last 24 Hr 98.2 F-99.7 F 57-90 14-25 125-170/59-110 92-97 Intake and Output 02/02/21 02/03/21 02/03/21 21:59 05:59 13:59 Intake Total 560 1600 1150 Output Total 769 417 0434 Balance -240 970 -220 Weight 307 lb 1.6 oz Intake & Output: Intake & Output 02/02/21 02/03/21 02/03/21 21:59 05:59 13:59 Intake Total 560 1600 1150 Output Total 398 616 8730 Balance -240 970 -220 Weight 307 lb 1.6 oz Intake: IV 200 1100 1150 Lactated Ringers 1,000 ml @ 125 1000 1000 mls/hr IV .Q8H FABIEN Rx#: [id number] Oral 360 500 Output: Drainage 30 120 ARELY Drain 30 120 Void Amount [phone] Other: Meal Dinner Nourishment/Supplement Percent of Meal Consumed 10 100% Feeding Ability Independent Independent Urine Appearance Clear Clear Clear Urine Color Dark Yellow Bright Yellow Bright Yellow Stool Size Large Stool Consistency Liquid # of times incontinent of 1 Bowels Head Head exam: Present atraumatic, normal inspection and normocephalic Eye Eye exam: Present EOMI and PERRL; Absent scleral icterus Pupils: Present normal accommodation ENT ENT exam: Present mucous membranes moist, normal exam and normal oropharynx Neck Neck exam: Present full ROM; Absent tenderness Additional comments: Positive JVD Respiratory Respiratory exam: Present decreased breath sounds, rales and rhonchi; Absent wheezes Cardiovascular Cardiovascular exam: Present irregular rhythm, JVD, +S1, +S2 and tachycardia GI/Abdominal GI/Abdominal exam: Present normal bowel sounds, distended and firm; Absent gua rding and pulsatile mass Extremities Exam Extremities exam: Present full ROM, normal inspection, pedal edema and neurovascular intact Back Exam Back exam: Present full ROM and normal inspection Neurological Exam Neurological exam: Present alert, CN II-XII intact and oriented X3; Absent motor sensory deficit and normal gait Psychiatric Psychiatric exam: Present agitated, anxious, depressed and flat affect Skin Skin exam: Present erythema and rash A/P Assessment and plan (1) Acute lung edema: Status: Acute (2) Postprocedural leakage from bile duct: Status: Acute Comment: I discussed his case with Dr. Watters. We will arrange for ERCP, which I discussed with the patient and his , using an illustration. We discussed the risks of bleeding, perforation, pancreatitis, infection or failure to cannulate duct. (3) Adynamic ileus: Status: Acute Narrative A/P Narrative: Patient has been diuresed and IV fluids have been discontinued. I will follow-up chest x-ray and abdominal series in the morning. Diet discharged to the nursing care facility has been discontinued. Time Spent With Patient Time: Total time spent is greater than 50% in coordination of care (as documented) at patient's floor/unit and/or counseling patient:
--- NOTE | 2021-02-03 14:56 | EKG ---
Former[facility] Test Date: 2021-02-03 Pat Name: Austin Canseco Department: ICU Room: 116 Gender: Male Private Chef: : 1940 Requested By: Claudia Bowie Order Number: [id number] Rubio MD: Austin Artis M.D. Measurements Intervals [place] Rate: 89 P: [place]: QRS: 50 QRSD: 134 T: 12 QT: 396 QTc: 482 Interpretive Statements ATRIAL FIBRILLATION VENTRICULAR PREMATURE COMPLEX RIGHT BUNDLE BRANCH BLOCK Since previous ECG of 01-25-2021, PVC, NO CRITERIA FOR ASMI--? LEAD PLACEMENT Electronically Signed On 02-03-2021 14:56:20 PDT by Austin Artis M.D. /store/[email or web address]/[id number]
[2021-02-03] MEDS: oxyCODONE HCL 5 MG TABLET PO PRN ×2 (15:28→20:34)
[2021-02-03] MEDS: CALCIUM CARBONATE 500 MG TAB.CHEW CHEWED PRN (16:26)
[2021-02-03] MEDS: traZODone HCL 150 MG TABLET PO PRN (20:50)
[2021-02-03] MEDS: MELATONIN 3 MG TABLET PO PRN (20:50)
[2021-02-04] MEDS: ACETAMINOPHEN 1,000 MG/100 ML BAG IV SCH ×2 (02:23→09:17)
[2021-02-04 07:00] LABS: Blood Urea Nitrogen 4 mg/dL (8-23); Calcium 8.8 mg/dL (8.6-10.4); Carbon Dioxide 30 mmol/L (22-30); Chloride 97 mmol/L (96-108); Glomerular Filtration Rate 102; Glucose 105 mg/dL (70-105)
--- NOTE | 2021-02-04 07:11 | Internal Med Progress Note ---
SUBJECTIVE Subjective Patient information: Note initiated : 02/04/21 at 7:06 am Service Date, if different from initiated Date: [] Patient: Austin Canseco 80 y/o M admitted on 01/25/21 for cold/flu. Chief Complaint: [] Principal diagnosis: Acute cholecystitis; postoperative open cholecystectomy; acute shortness of Interval history: Principal diagnosis: Acute cholecystitis; postoperative open cholecystectomy Interval history: Presents to ED with epigastric pain described as pressure. He states he woke up yesterday morning with since been more or less constant since then no alleviating factors. Has had nausea vomiting headache fever chills. In the ED he was evaluated and chest pain work-up. He had a temperature of 100.6. Lactic acid was 2.9 and white blood cell count was 16 Does have history of coronary artery disease with stents and atrial fibrillation on anticoagulation and diabetes. In the ED he had an episode where he is altered and came confused and acutely hypoxic. Sepsis protocol was initiated with IV fluid bolus. Mentation came around quickly. Further work-up revealed acute cholecystitis. Dr. Bowie was contacted for surgery and then I was contacted. 01/26 No overnight or new complaints. Will undergo laparoscopic cholecystectomy this morning. 01/27 Chronic back pain, no overnight event or new complaints. White blood cell count now starting to slowly improve. Mild hyponatremia 01/28 Stable respiratory status and hemodynamics. Surgery feels the patient has a biliary leak and considering MRCP. 01/29 Abdominal drain continues to pull bilious fluid. Cultures have not grown anything, antibiotics deescalated from Zosyn to Ceftriaxone and Flagyl. Gram stain and culture of bilious drainage. Abdominal xray shows a moderately distended stomach. 01/30 Monitoring abdominal drain output. Patient stable and has a good appetite. 01/31 Persistent drain output of bilious fluid, surgery consulted GI. Discontinued Ceftriaxone and Flagyl. 02/01 GI planning for ERCP to hopefully divert bile from leak. Medical problems are stable. 02/02 Medical issues are stable, ongoing surgery and GI plans to address the persistent biliary leak. 02/03 Patient was doing well until this morning after 8am when he developed tachypnea and had labored breathing with tachycardia and was hypertensive. He felt dis tended. Chest x-ray and abdominal x-ray were done which showed pulmonary edema and atypical ileus. Patient appears comfortable the time of my visit. IV Lasix ordered. Shortness of breath better than earlier. Normal cough. Patient states he is passing some gas. 02/04 No overnight event or new complaints. Patient on room air. Patient with significant urine output yesterday. Review of Systems: denies headache/fever/chills/nausea/vomiting/chest or abdominal pain/diarrhea. Otherwise see above. Constitutional Vitals: Vital Signs Temp Pulse Resp BP Pulse Ox 98.9 F 42 L 12 148/85 98 02/04/21 04:10 02/04/21 03:47 02/04/21 04:10 02/04/21 04:10 02/04/21 04:10 Period Temp Pulse Resp BP Sys/Ignacio Pulse Ox Last 24 Hr 98.4 F-99.7 F 42-122 7-28 114-219/53-154 86-98 Intake and Output 02/03/21 02/04/21 02/04/21 21:59 05:59 13:59 Intake Total 200 500 Output Total 4325 80 Balance -4125 420 Weight 141.838 kg Intake & Output: Intake & Output 02/03/21 02/04/21 02/04/21 21:59 05:59 13:59 Intake Total 200 500 Output Total 4325 80 Balance -4125 420 Weight 141.838 kg Intake: IV 200 100 Oral 400 Output: Drainage 80 ARELY Drain 80 Urine Catheter Amount 1200 Void Amount 3125 0 Other: Meal Dinner snack Percent of Meal Consumed 75% 100% Feeding Ability Independent Nourishment/Supplement name lexus dyson Urine Appearance Clear Urine Color Pale Urine Odor Normal # Bowel Movements 0 Exam: General: Alert, Awake, No acute Distress, obese Eyes/N/T: EOMI, Head/Neck: neck supple, CV: Irregular irr No murmurs, Pulm: improved b/l rales, no wheezing Abd: soft, nontender, +BS x4 Ext: no clubbing/cyanosis. b/l LE mild edema - much improved Neuro: Alert, no focal deficits, moves all extremities, Skin: warm/dry OBJ DATA Labs CBC & Chem 7: 02/03/21 09:45 02/04/21 04:55 Labs: Abnormal Lab Results 02/04/21 02/03/21 02/03/21 04:55 09:45 09:45 WBC 14.2 H RBC 4.20 L Hgb 12.3 L Hct 38.4 L RDW 14.7 H Neut % (Auto) 82.4 H Lymph % (Auto) 10.1 L Lymph # (Auto) 1.44 L Parmer # (Auto) 0.92 H Absolute Neutrophils 11.69 H RBC Morphology Anisocytosis Sodium 131 L Chloride 93 L Anion Gap BUN 4 L 3 L Creatinine 0.5 L 0.5 L Glucose 177 H Calcium Alkaline Phosphatase 237 H Albumin/Globulin Ratio 0.9 L 02/03/21 02/03/21 02/02/21 05:21 05:21 07:54 WBC RBC 3.85 L 3.72 L Hgb 11.3 L 11.1 L Hct 35.5 L 33.8 L RDW 15.0 H 15.1 H Neut % (Auto) Lymph % (Auto) Lymph # (Auto) Parmer # (Auto) Absolute Neutrophils RBC Morphology Anisocytosis Sodium 132 L Chloride Anion Gap 7.0 L BUN 4 L Creatinine 0.4 L Glucose Calcium 8.5 L Alkaline Phosphatase Albumin/Globulin Ratio 02/01/21 05:22 WBC RBC Hgb Hct RDW Neut % (Auto) Lymph % (Auto) Lymph # (Auto) Parmer # (Auto) Absolute Neutrophils RBC Morphology Abnormal A Anisocytosis 1+ A Sodium Chloride Anion Gap BUN Creatinine Glucose Calcium Alkaline Phosphatase Albumin/Globulin Ratio Meds: Medications Acetaminophen (Acetaminophen 325 Mg Tablet) 650 mg PO Q6HP PRN PRN Reason: PAIN/FEVER > 101 Albuterol/Ipratropium (Ipratropium/Albuterol 3 Ml Ampul.Neb) 3 ml NEB Q4HP PRN PRN Reason: Shortness Of Breath Amlodipine Besylate (Amlodipine 10 Mg Tablet) 10 mg PO DAILY [facility] Last Admin: 02/03/21 09:52 Dose: 10 mg Documented by: Apixaban (Apixaban 5 Mg Tablet) 5 mg PO BID [facility] Last Admin: 02/03/21 20:34 Dose: 5 mg Documented by: Atenolol (Atenolol 25 Mg Tablet) 25 mg PO DAILY [facility] Last Admin: 02/03/21 09:52 Dose: 25 mg Documented by: Baclofen (Baclofen 10 Mg Tablet) 5 mg PO BID [facility] Last Admin: 02/03/21 20:34 Dose: 5 mg Documented by: Calcium Carbonate/Glycine (Calcium Carbonate 500 Mg Tab.Chew) 500 mg CHEWED Q6HP PRN PRN Reason: Dyspepsia Last Admin: 02/03/21 16:26 Dose: 500 mg Documented by: Dextrose (Dextrose 50% 50 Ml Vial) 0 ml IV UD PRN PRN Reason: Hypoglycemia Diagnostic Test (Pha) (Accu-Chek 1 Each Strip) 1 each FS ACHS [facility] Last Admin: 02/03/21 20:33 Dose: 1 each Documented by: Docusate Sodium (Docusate Sodium 100 Mg Capsule) 100 mg PO BID [facility] Last Admin: 02/03/21 20:34 Dose: Not Given Documented by: Furosemide (Furosemide 40 Mg Tablet) 40 mg PO DAILY [facility] Last Admin: 02/03/21 09:52 Dose: 40 mg Documented by: Glucose (Dextrose 31 Gm Oral.Susp) 15 gm PO PRN PRN PRN Reason: Hypoglycemia Hydromorphone HCl (Hydromorphone 1 Mg/Ml Syringe) 0 mg IV Q2HP PRN; Protocol PRN Reason: severe pain Last Admin: 02/03/21 20:40 Dose: 1 mg Documented by: Hydroxyzine HCl (Hydroxyzine 25 Mg Tablet) 25 mg PO DAILYP PRN PRN Reason: ANXIETY AND/OR INSOMNIA Last Admin: 01/30/21 20:26 Dose: 25 mg Documented by: Acetaminophen (Ofirmev) 1,000 mg in 100 mls @ 200 mls/hr IV Q6H [facility] Last Infusion: 02/04/21 03:04 Dose: Infused Documented by: Potassium Chloride 40 meq/ (Dextrose) 520 mls @ 130 mls/hr IV UD PRN PRN Reason: Potassium < 3 Insulin Glargine (Insulin Glargine, Human 1 Unit/0.01 Ml) 57 unit SQ DAILY [facility] Last Admin: 02/03/21 10:02 Dose: 57 units Documented by: Insulin Human Lispro (Insulin Lispro 1 Unit/0.01 Ml Unit) 0 unit SQ [facility]; Protocol Last Admin: 02/03/21 20:35 Dose: 2 unit Documented by: Levofloxacin (Levofloxacin 750 Mg Tablet) 750 mg PO DAILY [facility]; Protocol Last Admin: 02/03/21 09:52 Dose: 750 mg Documented by: Lidocaine (Lidocaine Patch) 1 patch TOPICAL DAILY@1000 FABIEN Last Admin: 02/03/21 09:53 Dose: 1 patch Documented by: Lisinopril (Lisinopril 20 Mg Tablet) 40 mg PO DAILY [facility] Last Admin: 02/03/21 09:56 Dose: 40 mg Documented by: Melatonin (Melatonin 3 Mg Tablet) 6 mg PO HSP PRN PRN Reason: Insomnia Last Admin: 02/02/21 23:14 Dose: 6 mg Documented by: Metoclopramide HCl (Metoclopramide 10 Mg/2 Ml Vial) 10 mg IV Q6HP PRN PRN Reason: Nausea And Vomiting Last Admin: 02/03/21 06:46 Dose: 10 mg Documented by: Metoprolol Tartrate (Metoprolol Tartrate 5 Mg/5 Ml Vial) 5 mg IV Q2HP PRN PRN Reason: Tachyarrhythmias HR>110 Ondansetron HCl (Ondansetron 4 Mg/2 Ml Vial) 4 mg IV Q4HP PRN PRN Reason: Nausea And Vomiting Last Admin: 02/03/21 03:54 Dose: 4 mg Documented by: Oxybutynin Chloride (Oxybutynin Chloride 5 Mg Tab.Xl.24h) 10 mg PO DAILY [facility] Last Admin: 02/03/21 10:02 Dose: 10 mg Documented by: Oxycodone HCl (Oxycodone Hcl 5 Mg Tablet) 10 mg PO Q4HP PRN; Protocol PRN Reason: Per Pain Protocol Last Admin: 02/03/21 20:34 Dose: 10 mg Documented by: Pantoprazole Sodium (Pantoprazole 40 Mg Vial) 40 mg IV QAMAC [facility] Last Admin: 02/03/21 07:40 Dose: 40 mg Documented by: Polyethylene Glycol (Polyethylene Glycol 3350 17 Gm Packet) 17 gm PO QID [facility] Last Admin: 02/03/21 20:37 Dose: Not Given Documented by: Potassium Chloride (Potassium Chloride 20 Meq Tablet) 40 meq PO UD PRN PRN Reason: Potssium is 3-3.5 Senna (Sennosides 1 Tablet) 2 tab PO DAILYP PRN PRN Reason: Constipation Last Admin: 01/31/21 16:31 Dose: 2 tab Documented by: Trazodone HCl (Trazodone Hcl 150 Mg Tablet) 300 mg PO HSP PRN PRN Reason: Sleep Last Admin: 02/03/21 20:50 Dose: 300 mg Documented by: A/P Narrative A/P Narrative: A: #Acute cholecystitis: s/p lap tello (01/26) -pathology: gangrenous acute and chronic cholecystitis with cholelithiasis #Biliary leak: s/p ERCP with stone removal and stent (02/01) #Ileus: #Volume overload with pulmonary edema: improved -good UOP #acute hypoxic resp failure: 2/2 above -now on room air #Sepsis: resolved #Encephalopathy: resolved #Hyponatremia, mild: Resolved with diuresis #DM w/hyperglycemia: #Anemia, chronic: #CAD w/stent: on BB #AFib: on eliquis/BB #Bradycardia: holding BB, f/u with cardiology #HTN: on BB/ACEI/Norvasc #GERD: #Obesity: #Sacral wound: follows with wound clinic P: -s/p IV lasix, monitor UOP/i&O's -Dr. 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
[2021-02-04] MEDS: PANTOPRAZOLE 40 MG VIAL IV SCH (07:27)
[2021-02-04] MEDS: INSULIN LISPRO 1 UNIT/0.01 ML UNIT SQ SCH ×2 (07:31→11:57)
[2021-02-04] MEDS: LISINOPRIL 20 MG TABLET PO SCH (08:31)
[2021-02-04] MEDS: BACLOFEN 10 MG TABLET PO SCH (08:32)
[2021-02-04] MEDS: FUROSEMIDE 40 MG TABLET PO SCH (08:32)
[2021-02-04] MEDS: amLODIPine 10 MG TABLET PO SCH (08:33)
[2021-02-04] MEDS: APIXABAN 5 MG TABLET PO SCH (08:33)
[2021-02-04] MEDS: LEVOFLOXACIN 750 MG TABLET PO SCH (08:34)
[2021-02-04] MEDS: INSULIN GLARGINE, HUMAN 1 UNIT/0.01 ML SQ SCH (08:35)
[2021-02-04] MEDS: DOCUSATE SODIUM 100 MG CAPSULE PO SCH (08:35)
[2021-02-04] MEDS: OXYBUTYNIN CHLORIDE 5 MG TAB.XL.24H PO SCH (09:16)
[2021-02-04] MEDS: POLYETHYLENE GLYCOL 3350 17 GM PACKET PO SCH (09:16)
[2021-02-04] MEDS: LIDOCAINE PATCH TOPICAL SCH ×2 (10:34→12:49)
--- NOTE | 2021-02-04 12:22 | Discharge Summary ---
Discharge Provider Provider Patient information: Note initiated : 02/04/21 at 11:53 am Service Date, if different from initiated Date: [] Patient: Austin Canseco 80 y/o M admitted on 01/25/21 for cold/flu. Chief Complaint: [] Date of admission: 01/25/21 21:16 Primary care physician: PCP No Consults: 01/25/21 Consult to Physician [CONS] Stat Comment: Consulting Provider: Anthony Price Reason For Exam: Physician to Consult Consult to Physician [CONS] Stat Comment: Consulting Provider: Claudia Bowie Reason For Exam: Physician to Consult COURSE Time Spent with Patient Time attestation: Total time spent providing and/or coordinating discharge services: Physical Examination Vital Signs Vital signs: Temp Pulse Resp BP Pulse Ox 98.7 F 62 18 140/78 93 02/04/21 08:00 02/04/21 08:00 02/04/21 08:00 02/04/21 08:00 02/04/21 08:00 Discharge Plan Patient/Caregiver Discharge Instructions Activity: as per physical therapy and increase activity as tolerated Diet: Regular Diet Instructions: Oxycodone/Acetaminophen (By mouth), Polyethylene Glycol 3350 (By mouth), Magnesium Hydroxide (By mouth), Matthew-Zambrano Drain Care (DC), Open Cholecystectomy (DC), ERCP (Endoscopic Retrograde Cholangiopancreatography) (DC) Activity Restrictions/Additional Instructions: Referral to see your house principal 3-10 days for A. fib w/bradycardia, stopped home Atenolol. Regular diet as tolerated. Activity as per physical therapy. Increase activity as tolerated. This discharge packet is provided to you to help keep you informed about your care. We want to ensure you get everything you need when you go home. You will also be receiving a call from us in a few days to follow up with you and see how you are doing since your discharge. This gives us a chance to listen to any concerns you maybe experiencing since you were discharged or any additional needs you may have, as well as providing us feedback on your care experience. We strive to always provide excellent care and thank you for your feedback and for choosing [facility]. Prescriptions: New oxycodone-acetaminophen [Endocet] 10-325 mg Tablet 1 tab PO Q4H PRN (Reason: Pain) Qty: 30 RF: 0 polyethylene glycol 3350 [Miralax] 17 gram/dose powder 17 g PO BID Qty: 510 RF: 2 magnesium hydroxide [Milk of Magnesia] 400 mg/5 mL suspension 15 ml PO BID PRN (Reason: constipation) Qty: 3000 RF: 0 Continued Eliquis 5 mg tablet 5 mg PO BID RF: 0 oxycodone 5 mg capsule 10 mg PO BID PRN (Reason: Pain) RF: 0 potassium chloride 10 mEq capsule, extended release 10 meq PO BID RF: 0 furosemide [Lasix] 40 mg tablet 40 mg PO QAM RF: 0 oxybutynin chloride 10 mg tablet extended release 24hr 10 mg PO QDAY RF: 0 omeprazole 20 mg capsule,delayed release(DR/EC) 20 mg PO QDAY RF: 0 atorvastatin 10 mg tablet 10 mg PO DAILY RF: 0 hydroxyzine HCl 25 mg tablet 25 mg PO DAILY RF: 0 baclofen 5 mg tablet 5 mg PO DAILY RF: 0 lisinopril 40 mg Tablet 40 mg PO QDAY RF: 0 Lantus U-100 Insulin 59 unit subcut QDAY RF: 0 trazodone 150 mg Tablet 300 mg PO QHS PRN (Reason: Sleep) RF: 0 Discontinued atenolol 25 mg tablet 50 mg PO DAILY RF: 0 Other Ambulatory Orders: Wound Care Instructions (CONT) Location: None Selected Ordered By: Claudia Bowie OT Discharge Order (Routine) Facility: [facility] - Location: Conversion-Correction Ordered By: Claudia Bowie Physical Therapy at Discharge - General (Routine) Facility: [facility] - Location: Conversion-Correction Ordered By: Claudia Bowie Follow Up Plan Follow up with: Zaire Kam MD [Physician] - 02/10/21 2:20 pm Camryn Babb ARNP [Nurse Practitioner] - 02/10/21 9:00 am Claudia Bowie MD [Physician] - (Please call and schedule surgical follow up.) José Miguel Kay ARNP [Adv Reg Nurse Practitioner] - Patient Disposition: Xfer SNF Prognosis: Good Rehab Potential: Good I certify that the patient requires SNF services: Yes Overall status at discharge: patient is progressing back to baseline Discharge Orders: Discharge Order (Routine); Ordered 02/03/21 Ordered By: Claudia Bowie Pending Pending Pending: Resuscitation Status Full Code Diet GI Soft/Transitional Start Sat Gustavo 1240 Amlodipine Besylate (Amlodipine 10 Mg Tablet) 10 mg PO DAILY [facility] Admin: 02/04/21 08:33 Dose: 10 mg Documented by: Admin: 02/03/21 09:52 Dose: 10 mg Documented by: Admin: 02/02/21 09:24 Dose: 10 mg Documented by: Admin: 02/01/21 08:29 Dose: 10 mg Documented by: Admin: 01/31/21 08:25 Dose: 10 mg Documented by: Admin: 01/30/21 08:24 Dose: 10 mg Documented by: Admin: 01/29/21 08:19 Dose: 10 mg Documented by: Admin: 01/28/21 08:25 Dose: 10 mg Documented by: JULIETA Apixaban (Apixaban 5 Mg Tablet) 5 mg PO BID [facility] Admin: 02/04/21 08:33 Dose: 5 mg Documented by: Admin: 02/03/21 20:34 Dose: 5 mg Documented by: Admin: 02/03/21 09:52 Dose: 5 mg Documented by: Admin: 02/02/21 20:47 Dose: 5 mg Documented by: Admin: 02/02/21 09:23 Dose: 5 mg Documented by: Admin: 02/01/21 21:14 Dose: 5 mg Documented by: Admin: 02/01/21 08:29 Dose: 5 mg Documented by: Admin: 01/31/21 21:32 Dose: 5 mg Documented by: Admin: 01/31/21 08:25 Dose: 5 mg Documented by: Admin: 01/30/21 20:27 Dose: 5 mg Documented by: Admin: 01/30/21 09:44 Dose: 5 mg Documented by: Admin: 01/29/21 20:54 Dose: 5 mg Documented by: Admin: 01/29/21 08:19 Dose: 5 mg Documented by: Admin: 01/28/21 21:24 Dose: 5 mg Documented by: MICAH Baclofen (Baclofen 10 Mg Tablet) 5 mg PO BID FABIEN Last Admin: 02/04/21 08:32 Dose: 5 mg Documented by: Admin: 02/03/21 20:34 Dose: 5 mg Documented by: Admin: 02/03/21 09:52 Dose: 5 mg Documented by: Admin: 02/02/21 20:47 Dose: 5 mg Documented by: Admin: 02/02/21 09:24 Dose: 5 mg Documented by: Admin: 02/01/21 21:15 Dose: 5 mg Documented by: Admin: 02/01/21 08:28 Dose: 5 mg Documented by: Admin: 01/31/21 21:32 Dose: 5 mg Documented by: Admin: 01/31/21 08:25 Dose: 5 mg Documented by: Admin: 01/30/21 20:25 Dose: 5 mg Documented by: Admin: 01/30/21 08:24 Dose: 5 mg Documented by: Admin: 01/29/21 20:54 Dose: 5 mg Documented by: Admin: 01/29/21 08:19 Dose: 5 mg Documented by: Admin: 01/28/21 21:24 Dose: 5 mg Documented by: Admin: 01/28/21 08:24 Dose: 5 mg Documented by: Admin: 01/27/21 21:10 Dose: 5 mg Documented by: MOE Calcium Carbonate/Glycine (Calcium Carbonate 500 Mg Tab.Chew) 500 mg CHEWED Q6HP PRN PRN Reason: Dyspepsia Last Admin: 02/03/21 16:26 Dose: 500 mg Documented by: [email or web address] Admin: 02/02/21 21:08 Dose: 500 mg Documented by: Admin: 01/31/21 09:14 Dose: 500 mg Documented by: Admin: 01/30/21 19:17 Dose: 500 mg Documented by: Admin: 01/29/21 08:40 Dose: 500 mg Documented by: Admin: 01/28/21 10:03 Dose: 500 mg Documented by: JULIETA Diagnostic Test (Pha) (Accu-Chek 1 Each Strip) 1 each FS ACHS [facility] Admin: 02/04/21 07:31 Dose: 1 each Documented by: Admin: 02/03/21 20:33 Dose: 1 each Documented by: Admin: 02/03/21 17:22 Dose: 1 each Documented by: Admin: 02/03/21 12:36 Dose: 1 each Documented by: Admin: 02/03/21 07:40 Dose: 1 each Documented by: Admin: 02/02/21 21:08 Dose: 1 each Documented by: Admin: 02/02/21 18:23 Dose: 1 each Documented by: Admin: 02/02/21 11:56 Dose: 1 each Documented by: Admin: 02/02/21 07:39 Dose: 1 each Documented by: Admin: 02/01/21 21:15 Dose: 1 each Documented by: Admin: 02/01/21 17:21 Dose: 1 each Documented by: Admin: 02/01/21 11:21 Dose: 1 each Documented by: Admin: 02/01/21 07:38 Dose: 1 each Documented by: Admin: 01/31/21 21:32 Dose: 1 each Documented by: Admin: 01/31/21 16:21 Dose: 1 each Documented by: Admin: 01/31/21 11:36 Dose: 1 each Documented by: Admin: 01/31/21 06:59 Dose: 1 each Documented by: Admin: 01/30/21 20:32 Dose: 1 each Documented by: Admin: 01/30/21 16:22 Dose: 1 each Documented by: Admin: 01/30/21 12:06 Dose: 1 each Documented by: Admin: 01/30/21 07:49 Dose: 1 each Documented by: Admin: 01/29/21 20:54 Dose: 1 each Documented by: Admin: 01/29/21 16:01 Dose: 1 each Documented by: Admin: 01/29/21 11:26 Dose: 1 each Documented by: Admin: 01/29/21 07:31 Dose: 1 each Documented by: Admin: 01/28/21 21:21 Dose: 1 each Documented by: Admin: 01/28/21 16:28 Dose: 1 each Documented by: Admin: 01/28/21 11:39 Dose: 1 each Documented by: Admin: 01/28/21 06:46 Dose: 1 each Documented by: Admin: 01/27/21 21:08 Dose: 1 each Documented by: Admin: 01/27/21 17:02 Dose: 1 each Documented by: Admin: 01/27/21 12:00 Dose: 1 each Documented by: DOMI Docusate Sodium (Docusate Sodium 100 Mg Capsule) 100 mg PO BID [facility] Admin: 02/04/21 08:35 Dose: Not Given Documented by: Admin: 02/03/21 20:34 Dose: Not Given Documented by: Admin: 02/03/21 09:52 Dose: 100 mg Documented by: Admin: 02/02/21 20:47 Dose: 100 mg Documented by: Admin: 02/02/21 09:23 Dose: 100 mg Documented by: Admin: 02/01/21 21:14 Dose: 100 mg Documented by: Admin: 02/01/21 08:29 Dose: 100 mg Documented by: Admin: 01/31/21 21:32 Dose: 100 mg Documented by: Admin: 01/31/21 08:26 Dose: 100 mg Documented by: Admin: 01/30/21 20:27 Dose: 100 mg Documented by: Admin: 01/30/21 08:24 Dose: 100 mg Documented by: Admin: 01/29/21 20:56 Dose: 100 mg Documented by: Admin: 01/29/21 08:19 Dose: 100 mg Documented by: Admin: 01/28/21 21:24 Dose: 100 mg Documented by: Admin: 01/28/21 08:25 Dose: 100 mg Documented by: Admin: 01/27/21 21:11 Dose: 100 mg Documented by: MOE Furosemide (Furosemide 40 Mg Tablet) 40 mg PO DAILY [facility] Admin: 02/04/21 08:32 Dose: 40 mg Documented by: Admin: 02/03/21 09:52 Dose: 40 mg Documented by: Admin: 02/02/21 09:23 Dose: 40 mg Documented by: Admin: 02/01/21 08:29 Dose: 40 mg Documented by: Admin: 01/31/21 08:26 Dose: 40 mg Documented by: Admin: 01/30/21 08:24 Dose: 40 mg Documented by: Admin: 01/29/21 08:19 Dose: 40 mg Documented by: Admin: 01/28/21 08:25 Dose: 40 mg Documented by: JULIETA Hydromorphone HCl (Hydromorphone 1 Mg/Ml Syringe) 0 mg IV Q2HP PRN; Protocol PRN Reason: severe pain Last Admin: 02/03/21 20:40 Dose: 1 mg Documented by: Admin: 02/03/21 04:40 Dose: 1 mg Documented by: Admin: 02/03/21 02:45 Dose: 1 mg Documented by: Admin: 02/02/21 21:16 Dose: 1 mg Documented by: Admin: 02/01/21 21:19 Dose: 1 mg Documented by: Admin: 02/01/21 19:18 Dose: 1 mg Documented by: Admin: 02/01/21 17:23 Dose: 1 mg Documented by: Admin: 01/31/21 04:52 Dose: 1 mg Documented by: Admin: 01/31/21 02:37 Dose: 1 mg Documented by: Admin: 01/30/21 23:45 Dose: 1 mg Documented by: Admin: 01/30/21 21:05 Dose: 1 mg Documented by: Admin: 01/29/21 08:39 Dose: 1 mg Documented by: Admin: 01/28/21 23:55 Dose: 1 mg Documented by: Admin: 01/28/21 19:59 Dose: 1 mg Documented by: Admin: 01/28/21 10:04 Dose: 1 mg Documented by: Admin: 01/27/21 15:14 Dose: 1 mg Documented by: Admin: 01/27/21 13:05 Dose: 1 mg Documented by: DOMI Hydroxyzine HCl (Hydroxyzine 25 Mg Tablet) 25 mg PO DAILYP PRN PRN Reason: ANXIETY AND/OR INSOMNIA Last Admin: 01/30/21 20:26 Dose: 25 mg Documented by: [email or web address] Admin: 01/27/21 19:37 Dose: 25 mg Documented by: [email or web address] Acetaminophen (Ofirmev) 1,000 mg in 100 mls @ 200 mls/hr IV Q6H FABIEN Last Infusion: 02/04/21 09:39 Dose: 0 mls/hr Documented by: Admin: 02/04/21 09:17 Dose: 200 mls/hr Documented by: Infusion: 02/04/21 03:04 Dose: 0 mls/hr Documented by: Admin: 02/04/21 02:23 Dose: 200 mls/hr Documented by: Infusion: 02/03/21 21:28 Dose: 0 mls/hr Documented by: Admin: 02/03/21 20:37 Dose: 200 mls/hr Documented by: Infusion: 02/03/21 17:23 Dose: 0 mls/hr Documented by: Admin: 02/03/21 15:21 Dose: 200 mls/hr Documented by: [email or web address] Infusion: 02/03/21 10:27 Dose: 0 mls/hr Documented by: Admin: 02/03/21 09:57 Dose: 200 mls/hr Documented by: Infusion: 02/03/21 03:35 Dose: 0 mls/hr Documented by: Admin: 02/03/21 03:01 Dose: 200 mls/hr Documented by: Infusion: 02/02/21 21:37 Dose: 0 mls/hr Documented by: Admin: 02/02/21 20:47 Dose: 200 mls/hr Documented by: Infusion: 02/02/21 16:12 Dose: 0 mls/hr Documented by: Admin: 02/02/21 15:04 Dose: 100 mls/hr Documented by: Infusion: 02/02/21 10:41 Dose: 0 mls/hr Documented by: [email or web address] Admin: 02/02/21 09:24 Dose: 100 mls/hr Documented by: Infusion: 02/02/21 04:39 Dose: 0 mls/hr Documented by: Admin: 02/02/21 03:50 Dose: 200 mls/hr Documented by: Infusion: 02/02/21 00:58 Dose: 0 mls/hr Documented by: Admin: 02/01/21 21:18 Dose: 200 mls/hr Documented by: Admin: 02/01/21 17:19 Dose: Not Given Documented by: Infusion: 02/01/21 11:12 Dose: 200 mls/hr Documented by: Admin: 02/01/21 09:26 Dose: 200 mls/hr Documented by: Infusion: 02/01/21 03:59 Dose: 0 mls/hr Documented by: Admin: 02/01/21 03:13 Dose: 200 mls/hr Documented by: Infusion: 02/01/21 01:50 Dose: 0 mls/hr Documented by: Admin: 01/31/21 21:34 Dose: 200 mls/hr Documented by: Infusion: 01/31/21 15:16 Dose: 0 mls/hr Documented by: Admin: 01/31/21 14:34 Dose: 200 mls/hr Documented by: Infusion: 01/31/21 09:47 Dose: 0 mls/hr Documented by: Admin: 01/31/21 09:06 Dose: 200 mls/hr Documented by: Infusion: 01/31/21 03:13 Dose: 0 mls/hr Documented by: [email or web address] Admin: 01/31/21 02:38 Dose: 200 mls/hr Documented by: [email or web address] Infusion: 01/30/21 20:54 Dose: 200 mls/hr Documented by: [email or web address] Admin: 01/30/21 20:24 Dose: 200 mls/hr Documented by: [email or web address] Infusion: 01/30/21 17:07 Dose: 0 mls/hr Documented by: Admin: 01/30/21 16:17 Dose: 200 mls/hr Documented by: Infusion: 01/30/21 09:49 Dose: 0 mls/hr Documented by: Admin: 01/30/21 08:30 Dose: 200 mls/hr Documented by: Infusion: 01/30/21 03:55 Dose: 0 mls/hr Documented by: Admin: 01/30/21 03:19 Dose: 200 mls/hr Documented by: Infusion: 01/29/21 21:35 Dose: 0 mls/hr Documented by: Admin: 01/29/21 20:55 Dose: 200 mls/hr Documented by: Infusion: 01/29/21 15:29 Dose: 0 mls/hr Documented by: Admin: 01/29/21 14:45 Dose: 200 mls/hr Documented by: Infusion: 01/29/21 11:04 Dose: 0 mls/hr Documented by: Admin: 01/29/21 09:59 Dose: 200 mls/hr Documented by: Infusion: 01/29/21 04:10 Dose: 0 mls/hr Documented by: Admin: 01/29/21 03:00 Dose: 200 mls/hr Documented by: Infusion: 01/28/21 22:16 Dose: 0 mls/hr Documented by: Admin: 01/28/21 21:22 Dose: 500 mls/hr Documented by: Infusion: 01/28/21 15:07 Dose: 0 mls/hr Documented by: Admin: 01/28/21 14:23 Dose: 200 mls/hr Documented by: Infusion: 01/28/21 10:07 Dose: 0 mls/hr Documented by: Admin: 01/28/21 08:23 Dose: 200 mls/hr Documented by: Infusion: 01/28/21 04:03 Dose: 0 mls/hr Documented by: Admin: 01/28/21 03:05 Dose: 200 mls/hr Documented by: Infusion: 01/27/21 22:05 Dose: 0 mls/hr Documented by: Admin: 01/27/21 21:08 Dose: 200 mls/hr Documented by: Infusion: 01/27/21 15:45 Dose: 0 mls/hr Documented by: Admin: 01/27/21 15:15 Dose: 200 mls/hr Documented by: FMF Insulin Glargine (Insulin Glargine, Human 1 Unit/0.01 Ml) 57 unit SQ DAILY FABIEN Last Admin: 02/04/21 08:35 Dose: 57 units Documented by: Admin: 02/03/21 10:02 Dose: 57 units Documented by: Admin: 02/02/21 09:22 Dose: 57 units Documented by: Admin: 02/01/21 08:29 Dose: 57 units Documented by: Admin: 01/31/21 08:25 Dose: 57 units Documented by: Admin: 01/30/21 08:23 Dose: 57 units Documented by: Admin: 01/29/21 08:20 Dose: 57 units Documented by: Admin: 01/28/21 08:26 Dose: 57 units Documented by: JULIETA Insulin Human Lispro (Insulin Lispro 1 Unit/0.01 Ml Unit) 0 unit SQ ACHS FABIEN; Protocol Last Admin: 02/04/21 07:31 Dose: Not Given Documented by: Admin: 02/03/21 20:35 Dose: 2 unit Documented by: [email or web address] Admin: 02/03/21 17:21 Dose: 4 unit Documented by: [email or web address] Admin: 02/03/21 12:33 Dose: 6 unit Documented by: Admin: 02/03/21 07:55 Dose: 2 unit Documented by: Admin: 02/02/21 21:08 Dose: 4 unit Documented by: Admin: 02/02/21 18:40 Dose: 4 unit Documented by: Admin: 02/02/21 11:57 Dose: 8 unit Documented by: Admin: 02/02/21 07:43 Dose: Not Given Documented by: Admin: 02/01/21 21:15 Dose: Not Given Documented by: Admin: 02/01/21 17:22 Dose: Not Given Documented by: Admin: 02/01/21 11:44 Dose: 6 unit Documented by: Admin: 02/01/21 08:30 Dose: 2 unit Documented by: Admin: 01/31/21 21:33 Dose: Not Given Documented by: Admin: 01/31/21 16:21 Dose: 4 unit Documented by: Admin: 01/31/21 11:37 Dose: 2 unit Documented by: Admin: 01/31/21 06:59 Dose: Not Given Documented by: Admin: 01/30/21 20:32 Dose: Not Given Documented by: Admin: 01/30/21 16:22 Dose: Not Given Documented by: Admin: 01/30/21 12:06 Dose: 2 unit Documented by: Admin: 01/30/21 07:50 Dose: Not Given Documented by: Admin: 01/29/21 20:56 Dose: Not Given Documented by: Admin: 01/29/21 16:01 Dose: 4 unit Documented by: Admin: 01/29/21 11:53 Dose: Not Given Documented by: Admin: 01/29/21 07:31 Dose: Not Given Documented by: Admin: 01/28/21 21:24 Dose: Not Given Documented by: Admin: 01/28/21 16:28 Dose: 4 unit Documented by: Admin: 01/28/21 11:39 Dose: 6 unit Documented by: Admin: 01/28/21 06:46 Dose: 4 unit Documented by: Admin: 01/27/21 21:19 Dose: 4 unit Documented by: Admin: 01/27/21 17:08 Dose: 6 unit Documented by: Admin: 01/27/21 12:00 Dose: 10 unit Documented by: DOMI Levofloxacin (Levofloxacin 750 Mg Tablet) 750 mg PO DAILY FABIEN; Protocol Last Admin: 02/04/21 08:34 Dose: 750 mg Documented by: Admin: 02/03/21 09:52 Dose: 750 mg Documented by: Admin: 02/02/21 15:04 Dose: 750 mg Documented by: SANTOS Lidocaine (Lidocaine Patch) 1 patch TOPICAL DAILY@1000 FABIEN Last Admin: 02/04/21 10:34 Dose: Not Given Documented by: Admin: 02/03/21 09:53 Dose: 1 patch Documented by: Admin: 02/02/21 09:24 Dose: 1 patch Documented by: Admin: 02/01/21 09:27 Dose: 1 patch Documented by: Admin: 01/31/21 09:31 Dose: 1 patch Documented by: Admin: 01/30/21 10:22 Dose: 1 patch Documented by: Admin: 01/29/21 11:22 Dose: 1 patch Documented by: Admin: 01/28/21 09:04 Dose: 1 patch Documented by: Admin: 01/27/21 12:23 Dose: 1 patch Documented by: DOMI Lisinopril (Lisinopril 20 Mg Tablet) 40 mg PO DAILY FABIEN Last Admin: 02/04/21 08:31 Dose: 40 mg Documented by: Admin: 02/03/21 09:56 Dose: 40 mg Documented by: Admin: 02/02/21 09:22 Dose: 40 mg Documented by: Admin: 02/01/21 08:28 Dose: 40 mg Documented by: Admin: 01/31/21 08:26 Dose: 40 mg Documented by: Admin: 01/30/21 08:24 Dose: 40 mg Documented by: Admin: 01/29/21 08:19 Dose: 40 mg Documented by: Admin: 01/28/21 08:26 Dose: 40 mg Documented by: JULIETA Melatonin (Melatonin 3 Mg Tablet) 6 mg PO HSP PRN PRN Reason: Insomnia Last Admin: 02/02/21 23:14 Dose: 6 mg Documented by: Admin: 02/01/21 21:15 Dose: 6 mg Documented by: Admin: 01/31/21 21:34 Dose: 6 mg Documented by: RORY Metoclopramide HCl (Metoclopramide 10 Mg/2 Ml Vial) 10 mg IV Q6HP PRN PRN Reason: Nausea And Vomiting Last Admin: 02/03/21 06:46 Dose: 10 mg Documented by: Admin: 02/02/21 23:14 Dose: 10 mg Documented by: Admin: 01/28/21 09:04 Dose: 10 mg Documented by: Admin: 01/27/21 17:26 Dose: 10 mg Documented by: CISCO Ondansetron HCl (Ondansetron 4 Mg/2 Ml Vial) 4 mg IV Q4HP PRN PRN Reason: Nausea And Vomiting Last Admin: 02/03/21 03:54 Dose: 4 mg Documented by: Admin: 02/02/21 20:03 Dose: 4 mg Documented by: Admin: 01/28/21 18:05 Dose: 4 mg Documented by: Admin: 01/28/21 03:05 Dose: 4 mg Documented by: Admin: 01/27/21 21:12 Dose: 4 mg Documented by: Admin: 01/27/21 15:59 Dose: 4 mg Documented by: Admin: 01/27/21 11:52 Dose: 4 mg Documented by: DOMI Oxybutynin Chloride (Oxybutynin Chloride 5 Mg Tab.Xl.24h) 10 mg PO DAILY [facility] Last Admin: 02/04/21 09:16 Dose: 10 mg Documented by: Admin: 02/03/21 10:02 Dose: 10 mg Documented by: Admin: 02/02/21 09:23 Dose: 10 mg Documented by: Admin: 02/01/21 08:28 Dose: 10 mg Documented by: Admin: 01/31/21 08:29 Dose: 10 mg Documented by: Admin: 01/30/21 08:24 Dose: 10 mg Documented by: Admin: 01/29/21 08:19 Dose: 10 mg Documented by: Admin: 01/28/21 08:25 Dose: 10 mg Documented by: JULIETA Oxycodone HCl (Oxycodone Hcl 5 Mg Tablet) 10 mg PO Q4HP PRN; Protocol PRN Reason: Per Pain Protocol Last Admin: 02/03/21 20:34 Dose: 10 mg Documented by: [email or web address] Admin: 02/03/21 15:28 Dose: 10 mg Documented by: [email or web address] Admin: 02/02/21 23:14 Dose: 10 mg Documented by: Admin: 02/02/21 18:41 Dose: 10 mg Documented by: Admin: 02/02/21 00:13 Dose: 10 mg Documented by: Admin: 02/01/21 18:49 Dose: 10 mg Documented by: Admin: 02/01/21 11:43 Dose: 10 mg Documented by: Admin: 02/01/21 03:17 Dose: 10 mg Documented by: Admin: 01/31/21 21:33 Dose: 10 mg Documented by: Admin: 01/31/21 12:38 Dose: 10 mg Documented by: Admin: 01/31/21 06:54 Dose: 10 mg Documented by: Admin: 01/31/21 02:37 Dose: 10 mg Documented by: Admin: 01/30/21 21:38 Dose: 10 mg Documented by: Admin: 01/30/21 17:32 Dose: 10 mg Documented by: Admin: 01/30/21 12:55 Dose: 10 mg Documented by: Admin: 01/29/21 15:04 Dose: 10 mg Documented by: Admin: 01/29/21 08:18 Dose: 10 mg Documented by: Admin: 01/28/21 17:54 Dose: 10 mg Documented by: Admin: 01/27/21 21:19 Dose: 10 mg Documented by: Admin: 01/27/21 15:14 Dose: 10 mg Documented by: CISCO Pantoprazole Sodium (Pantoprazole 40 Mg Vial) 40 mg IV QAMAC [facility] Admin: 02/04/21 07:27 Dose: 40 mg Documented by: Admin: 02/03/21 07:40 Dose: 40 mg Documented by: Admin: 02/02/21 07:39 Dose: 40 mg Documented by: Admin: 02/01/21 07:38 Dose: 40 mg Documented by: Admin: 01/31/21 06:54 Dose: 40 mg Documented by: Admin: 01/30/21 08:23 Dose: 40 mg Documented by: Admin: 01/29/21 08:20 Dose: 40 mg Documented by: Admin: 01/28/21 06:42 Dose: 40 mg Documented by: JULIETA Polyethylene Glycol (Polyethylene Glycol 3350 17 Gm Packet) 17 gm PO QID [facility] Admin: 02/04/21 09:16 Dose: Not Given Documented by: Admin: 02/03/21 20:37 Dose: Not Given Documented by: Admin: 02/03/21 17:22 Dose: 17 gm Documented by: [email or web address] Admin: 02/03/21 14:08 Dose: Not Given Documented by: Admin: 02/03/21 09:57 Dose: 17 gm Documented by: Admin: 02/02/21 21:09 Dose: Not Given Documented by: Admin: 02/02/21 18:40 Dose: 17 gm Documented by: Admin: 02/02/21 13:36 Dose: 17 gm Documented by: Admin: 02/02/21 09:27 Dose: 17 gm Documented by: Admin: 02/01/21 21:15 Dose: 17 gm Documented by: Admin: 02/01/21 17:29 Dose: 17 gm Documented by: Admin: 02/01/21 14:28 Dose: Not Given Documented by: Admin: 02/01/21 08:29 Dose: 17 gm Documented by: Admin: 01/31/21 21:31 Dose: 17 gm Documented by: Admin: 01/31/21 16:22 Dose: 17 gm Documented by: Admin: 01/31/21 13:27 Dose: 17 gm Documented by: Admin: 01/31/21 08:24 Dose: 17 gm Documented by: Admin: 01/30/21 20:28 Dose: Not Given Documented by: Admin: 01/30/21 16:22 Dose: 17 gm Documented by: Admin: 01/30/21 12:55 Dose: 17 gm Documented by: JULIETA Potassium Chloride (Potassium Chloride 20 Meq Tablet) 40 meq PO UD PRN PRN Reason: Potssium is 3-3.5 Last Admin: 02/04/21 08:34 Dose: 40 meq Documented by: MIRIAM Senna (Sennosides 1 Tablet) 2 tab PO DAILYP PRN PRN Reason: Constipation Last Admin: 01/31/21 16:31 Dose: 2 tab Documented by: JULIETA Trazodone HCl (Trazodone Hcl 150 Mg Tablet) 300 mg PO HSP PRN PRN Reason: Sleep Last Admin: 02/03/21 20:50 Dose: 300 mg Documented by: [email or web address] Admin: 02/02/21 23:14 Dose: 300 mg Documented by: Admin: 02/01/21 21:14 Dose: 300 mg Documented by: Admin: 01/31/21 21:33 Dose: 300 mg Documented by: Admin: 01/30/21 20:25 Dose: 300 mg Documented by: Admin: 01/29/21 20:55 Dose: 300 mg Documented by: Admin: 01/28/21 23:57 Dose: 300 mg Documented by: Admin: 01/27/21 21:10 Dose: 300 mg Documented by: MOE Shift Summary 02/04/21 01:51 Shift Summary by Isamar Heredia A&O X4, Very dry, scaly skin all over, has sacral (left buttock) healing wound that is seen by [facility]-has wound care orders. Groin/Thigh-bilat MASD areas. Cleansed then applied antifungal powder, lower legs-bilat reddened. Up with one assist, turn/pivot to BSC on left side of bed, patient does not want to use bedpan Patient's HR down to low 40s with frequent pauses. Left note under Dr. Price's door, may need to adjust his cardiac medications (takes 3 on day shift) Medicated with Roxicodone 10mg PO (Q4HP) at 20:34 for 9/10 chronic back ache Medicated with Dilaudid (0.5-1mg) IV (Q2HP) at 20:40 for 9/10 right leg spasm IV 20G left hand-SL Rhythm Afib with normal ventricular rate, afib with bradycardia HR low 40s ARLEY drain-green small amounts Incentive spirometer 1500 X3 good Turn Q2H via ATR sheet/wedges, pillows, Heelzup MARA wraps-legs Voids per urinal Last BM 02/03 Diarrhea Likes Ice water 02/01 15:11 Dr. Watters performed ERCP, papillotomy with stone extraction and biliary stent placement 01/26 11:24 Dr. Bowie performed Diagnostic laparoscopy with open cholecystectomy 01/25 17:11 Abdominal/Pelvis CT with contrast Impression: Cholelithiasis with acute cholecystitis 01/26 02:08 MRSA negative 01/25 19:30 JULISA SARS- Negative 01/25 21:16 Admitted to PCU INP status with diagnosis: cholecystitis Recent Hx: ED visit summary-triage report A 80 YO male presented to ED, on 01/25 at 13:08, with chief complaint: Cold/Flu Symptoms. Description of symptoms: Here for "chest congestion" since yesterday. States "a little" SOB. Denies cough or fevers, temp 100.6 in triage. Also c/o LOPEZ. ED admit vitals: Temp 100.6, HR 97, room air, rates pain 9/10 Dr. Bowie H&P ...History of present illness: Mr. Canseco is a 80 year old M admitted from the emergency room with acute cholecystitis with cholelithiasis. The patient states that he had onset of epigastric and right lower chest pain on midday yesterday. He used multiple [id number] medications without any improvement. He had nausea but could not vomit. The pain became increasingly severe and he was finally seen in the emergency room earlier today. He was noted to be tachycardic with elevated blood pressure initially but during evaluation his blood pressure dropped and he became diaphoretic. He was resuscitated with fluid. CT of the abdomen was done and it showed an acutely inflamed gallbladder with stones... FYI: Lives with Anitra, spouse, in a RV, sleeps in a recliner. Soon moving to [place], . Does not like gowns, usually wears shorts. Unable to take a shower or bath. Takes bed baths Austin Canseco : 1940 [facility]# [id number] 02/03/21 14:10 - Shift Summary by Alyssa Molina RN Acct Num: [id number] : 1940 Patient Age: 80 Addendum entered by Nupur Snyder R.N. 02/03/21 18:31: took over patient from ICU. he is voiding large amounts per urinal, no incontinence. he has been weaned to room air @ 1700 with spo2 between 91-96%. He did receive albumin and lasix and continues to void large amounts per urinal. He has been pleasant and cooperative with cares, no issues. Blood sugar @ 1700 was 186 withy 4 units insulin given. He was medicated with 2 oxycodone with good effects. Original Note: 80 yr old M. Full Code. A+Ox4. Admitted 01/25 for cholecystitis, cholecystectomy completed 01/26. ERCP completed 02/01, biliary leak found, stent placed d/t stones. 90mL of dark bile output from ARELY drain today as of 1400. Pt was supposed to be discharged this shift, but experienced respiratory distress at 0900. Pt experienced increased work of breathing, tachycardia, hypertension and increased O2 demands. Pt had been receiving LR at 125mL/hr for multiple days. Fluids stopped and albumin and lasix started. At 1400 VSS on 3L NC. 20g to L hand. Receiving scheduled Ofirmev, effective. Pt had multiple loose BMs overnight and this shift. Voiding per urinal and incontinent this shift. A-fib with controlled rates on monitor. Abdominal surgical site and pressure ulcer. Dressings CDI. Turn q2H, pt often refuses. Possible d/c tomorrow to [facility]. Initialized on 02/04/21 01:51 - END OF NOTE
== END 2021-02-04 13:00 | DRG 853 ==
LOC: ED 13:07 → ICU 21:16
PROVIDERS: ADMIT Family Medicine Adult Medicine; ATTEND Family Medicine Adult Medicine

== ENCOUNTER 2021-02-04 16:08 | Inpatient (IN) ==
--- NOTE | 2021-02-04 17:19 | Emergency Department Note ---
HPI General Chief complaint: Abdominal Pain Stated complaint: Returned from Facility for placement Time Seen by Provider: 02/04/21 17:12 Source: EMS Mode of arrival: ambulatory Limitations: no limitations History of Present Illness HPI Narrative: Narrative: Patient is an 80-year-old male who presented with chief complaint of return from [facility]. Patient was just admitted to the hospital here for acute cholec ystitis. He was seen by Dr. Bowie for surgery, has a drain in place, and had been discharged earlier today to a nursing facility. Upon arrival there, the nursing facility denied him access apparently due to an insurance issue. They apparently had an issue with the insurance that did not allow him to be covered so they just called an ambulance to have him brought back here. Patient, while upset about the situation, has no new complaints and otherwise states he is doing well. He denies any new fever, headache, cough, shortness of breath, chest pain, nausea, vomiting, abdominal pain, changes in bowel movements or urinary symptoms. Related Data Home Medications Medication Instructions Recorded Confirmed atorvastatin 10 mg PO DAILY 02/03/20 02/04/21 hydroxyzine HCl 25 mg PO DAILY 02/03/20 02/04/21 apixaban 5 mg tablet 5 mg PO BID 01/07/21 02/04/21 baclofen 5 mg tablet 5 mg PO DAILY 01/07/21 02/04/21 furosemide 40 mg tablet 40 mg PO QAM 01/07/21 02/04/21 omeprazole 20 mg capsule,delayed 20 mg PO QDAY 01/07/21 02/04/21 release oxybutynin chloride 10 mg 10 mg PO QDAY 01/07/21 02/04/21 tablet,extended release 24 hr oxycodone 5 mg capsule 10 mg PO BID PRN cap 01/07/21 02/04/21 potassium chloride 10 mEq 10 meq PO BID 01/07/21 02/04/21 capsule,extended release Lantus U-100 Insulin 59 unit SUBCUT QDAY 01/25/21 02/04/21 lisinopril 40 mg PO QDAY 01/25/21 02/04/21 trazodone 300 mg PO QHS PRN 01/26/21 02/04/21 Previous Rx's Medication Instructions Recorded magnesium hydroxide [Milk of 15 ml PO BID PRN #3000 ml 02/03/21 Magnesia] oxycodone-acetaminophen [Endocet] 1 tab PO Q4H PRN #30 tab 02/03/21 polyethylene glycol 3350 [Miralax] 17 g PO BID #510 g 02/03/21 trazodone 300 mg PO QHS PRN #20 tab 02/04/21 Allergies Allergy/AdvReac Type Severity Reaction Status Date / Time No Known Drug Allergies Allergy Verified 01/07/21 15:40 Review of Systems ROS ROS Narrative: Narrative: All systems ED: reviewed and negative except as stated. 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) Cholecystitis, acute with cholelithiasis (Acute) Sepsis (Acute) Acute cholecystitis (Acute) Chest pain, rule out acute myocardial infarction (Acute) Chest pressure (Acute) SOB (shortness of breath) (Acute) History of diabetes mellitus (Acute) History of atrial fibrillation (Acute) History of essential hypertension (Acute) History of anxiety (Acute) History of coronary artery disease (Acute) History of hyperlipidemia (Acute) History of gastroesophageal reflux (GERD) (Acute) History of hip surgery (Acute) History of right knee surgery (Acute) Pressure ulcer of buttock (Acute) Poor mobility (Acute) Medical History Poor mobility Pressure ulcer of buttock Social History Smoking Status: Former smoker Exam Narrative Narrative: Narrative: General Limitations: no limitations Head Head: Present atraumatic and normocephalic Eye Eye: Present normal appearance, PERRL and EOMI; Absent scleral icterus and conjunctival injection ENT ENT: Present normal oropharynx and mucous membranes moist Neck Neck: Present full ROM and trachea midline; Absent tenderness and lymphadenopathy Chest Chest: Present symmetric chest wall rise Respiratory Respiratory: Present normal lung sounds bilaterally; Absent respiratory distress, rales/crackles, wheezes, stridor and accessory muscle use Cardiovascular Cardiovascular: Present regular rate and normal rhythm; Absent systolic murmur and diastolic murmur Adbominal Abdominal: Present soft and other (Drain in place with no evidence of infection. Appropriately draining. Unremarkable abdominal exam with normal postop changes); Absent tenderness, guarding, rebound, rigidity, Sinha's sign, tenderness at McBurney's Point and mass Extremities Extremities: Absent pedal edema, pretibial edema and calf tenderness Back Back: Absent CVA tenderness (R), CVA tenderness (L) and spinous process tenderness Neurological Neurological: Present alert and oriented X3 Psychiatric Psychiatric: Present normal affect and normal mood Skin Skin: Present warm (WNL) and dry Course Vital Signs Vital signs: Vital Signs Temperature 97.9 F 02/04/21 16:11 Pulse Rate 89 02/04/21 16:11 Respiratory Rate 18 02/04/21 16:11 Blood Pressure 162/75 02/04/21 16:11 Pulse Oximetry (%) 92 02/04/21 16:11 Temperature 98.4 F 02/04/21 23:13 Pulse Rate 82 02/04/21 23:13 Respiratory Rate 18 02/04/21 23:13 Blood Pressure 174/46 02/04/21 23:13 Pulse Oximetry (%) 93 02/04/21 23:13 MDM MDM Narrative Medical decision making narrative: Narrative: Patient is an 80-year-old male who presented with chief complaint of needing placement for [facility]. Reason the patient is back here at this time is because there was an issue with his insurance being accepted at the nursing facility he was supposed to go to. It is unclear how this happened, but since he is back in the emergency department here her plan will be to admit him back to the hospital until case management can rectify the situation. They have already seen the patient and are working on placement issues at this moment. Patient has no significant acute complaints, he does not appear to have an acute surgical abdomen, and vital signs are stable and normal. Patient is agreeable to the plan at this time. 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
--- NOTE | 2021-02-04 18:12 | Internal Med History&Physical ---
HPI History of Present Illness Patient information: Note initiated : 02/04/21 at 6:08 pm Service Date, if different from initiated Date: [] Patient: Austin Canseco 80 y/o M admitted on for Returned from Facility for placement. Chief Complaint: [] History of present illness: Mr. Canseco is a 80 year old M Patient presents back from the nursing facility. He was discharged there today after prolonged stay but was sent back due to insurance issues. Has some nausea but no other complaints FROM recent admit: In the ED he was evaluated and chest pain work-up. He had a temperature of 100.6. Lactic acid was 2.9 and white blood cell count was 16 Does have history of coronary artery disease with stents and atrial fibrillation on anticoagulation and diabetes. In the ED he had an episode where he is altered and came confused and acutely hypoxic. Sepsis protocol was initiated with IV fluid bolus. Mentation came around quickly. Further work-up revealed acute cholecystitis. Dr. Bowie was contacted for surgery and then I was contacted. 01/26 No overnight or new complaints. Will undergo laparoscopic cholecystectomy this morning. 01/27 Chronic back pain, no overnight event or new complaints. White blood cell count now starting to slowly improve. Mild hyponatremia 01/28 Stable respiratory status and hemodynamics. Surgery feels the patient has a biliary leak and considering MRCP. 01/29 Abdominal drain continues to pull bilious fluid. Cultures have not grown anything, antibiotics deescalated from Zosyn to Ceftriaxone and Flagyl. Gram stain and culture of bilious drainage. Abdominal xray shows a moderately distended stomach. 01/30 Monitoring abdominal drain output. Patient stable and has a good appetite. 01/31 Persistent drain output of bilious fluid, surgery consulted GI. Discontinued Ceftriaxone and Flagyl. 02/01 GI planning for ERCP to hopefully divert bile from leak. Medical problems are stable. 02/02 Medical issues are stable, ongoing surgery and GI plans to address the persistent biliary leak. 02/03 Patient was doing well until this morning after 8am when he developed tachypnea and had labored breathing with tachycardia and was hypertensive. He felt distended. Chest x-ray and abdominal x-ray were done which showed pulmonary edema and atypical ileus. Patient appears comfortable the time of my visit. IV Lasix ordered. Shortness of breath better than earlier. Normal cough. Patient states he is passing some gas. 02/04 No overnight event or new complaints. Patient on room air. Patient with significant urine output yesterday. sent back from [facility] same day d/t insurance issues Review of Systems: Pertinent positives as above. Denies headache/fever/chills/vomiting/chest or abdominal pain/cough/dyspnea/diarrhea. Remaining 10 point review of system reviewed negative PFSH PFSH All Active Problems Adynamic ileus (Acute) Acute lung edema (Acute) Postprocedural leakage from bile duct (Acute) group home current use of anticoagulant therapy (Acute) Cholecystitis, acute with cholelithiasis (Acute) Sepsis (Acute) Acute cholecystitis (Acute) Chest pain, rule out acute myocardial infarction (Acute) Chest pressure (Acute) SOB (shortness of breath) (Acute) History of diabetes mellitus (Acute) History of atrial fibrillation (Acute) History of essential hypertension (Acute) History of anxiety (Acute) History of coronary artery disease (Acute) History of hyperlipidemia (Acute) History of gastroesophageal reflux (GERD) (Acute) History of hip surgery (Acute) History of right knee surgery (Acute) Pressure ulcer of buttock (Acute) Poor mobility (Acute) Medical History Poor mobility Pressure ulcer of buttock Social History additional history: Past medical history: Diabetes Atrial fibrillation CAD with stent Hyperlipidemia/hypertension Chronic low back pain GERD Anxiety insomnia Hyponatremia on a past admission Past surgical history: 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 Bowel resection for diverticulosis Hernia repair Family history: Father with liver disease and liver cancer and alcoholism Mother with a blood disease/bleeding disorder/peptic ulcer disease Social history: Patient quit smoking 50 years ago Denies alcohol use Ambulates with a cane Lives in RV with his , states they move around quite a bit MEDS/ALLERGIES Home Medications and Allergies Home Medications Medication Instructions Recorded Confirmed Type atorvastatin 10 mg PO DAILY 02/03/20 01/26/21 History hydroxyzine HCl 25 mg PO DAILY 02/03/20 01/26/21 History apixaban 5 mg tablet 5 mg PO BID 01/07/21 01/26/21 History baclofen 5 mg tablet 5 mg PO DAILY 01/07/21 01/26/21 History furosemide 40 mg tablet 40 mg PO QAM 01/07/21 01/26/21 History omeprazole 20 mg capsule,delayed 20 mg PO QDAY 01/07/21 01/26/21 History release oxybutynin chloride 10 mg 10 mg PO QDAY 01/07/21 01/26/21 History tablet,extended release 24 hr oxycodone 5 mg capsule 10 mg PO BID PRN cap 01/07/21 01/26/21 History potassium chloride 10 mEq 10 meq PO BID 01/07/21 01/26/21 History capsule,extended release Lantus U-100 Insulin 59 unit SUBCUT QDAY 01/25/21 01/26/21 History lisinopril 40 mg PO QDAY 01/25/21 01/26/21 History trazodone 300 mg PO QHS PRN 01/26/21 01/26/21 History magnesium hydroxide [Milk of 15 ml PO BID PRN #3000 ml 02/03/21 Rx Magnesia] oxycodone-acetaminophen [Endocet] 1 tab PO Q4H PRN #30 tab 02/03/21 Rx polyethylene glycol 3350 [Miralax] 17 g PO BID #510 g 02/03/21 Rx trazodone 300 mg PO QHS PRN #20 tab 02/04/21 Rx Allergies Allergy/AdvReac Type Severity Reaction Status Date / Time No Known Drug Allergies Allergy Verified 01/07/21 15:40 EXAM Constitutional Vitals: Temp Pulse Resp BP Pulse Ox 97.9 F 80 18 151/72 91 02/04/21 16:11 02/04/21 18:06 02/04/21 16:11 02/04/21 18:06 02/04/21 18:06 Exam: General: Alert, Awake, No acute Distress, obese Eyes/N/T: EOMI, Head/Neck: neck supple, CV: Irregular irr No murmurs, Pulm: improved b/l rales, no wheezing Abd: soft, nontender, +BS x4 Ext: no clubbing/cyanosis. b/l LE mild edema - much improved Neuro: Alert, no focal deficits, moves all extremities, Skin: warm/dry A/P Narrative A/P Narrative: A: #Acute cholecystitis: s/p lap tello (01/26) -pathology: gangrenous acute and chronic cholecystitis with cholelithiasis #Biliary leak: s/p ERCP with stone removal and stent (02/01) #Ileus: resolved #Volume overload with pulmonary edema: improved -good UOP #acute hypoxic resp failure: 2/2 above -now on room air #Sepsis: resolved #Encephalopathy: resolved #Hyponatremia, mild: Resolved with diuresis #DM w/hyperglycemia: #Anemia, chronic: #CAD w/stent: on BB #AFib: on eliquis/BB #Bradycardia: holding BB, f/u with cardiology #HTN: on BB/ACEI/Norvasc #GERD: #Obesity: #Sacral wound: follows with wound clinic P: -s/p IV lasix, monitor UOP/i&O's -Dr. 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
[2021-02-04] MEDS ORDERED: METOCLOPRAMIDE 10 MG/2 ML VIAL IV PRN (19:13)
[2021-02-04] MEDS ORDERED: HYDROcodone/APAP 5/325MG TABLET PO PRN (19:13)
[2021-02-04] MEDS ORDERED: LACTULOSE 20 GM/30 ML ORAL.SOL PO PRN (19:13)
[2021-02-04] MEDS ORDERED: IPRATROPIUM/ALBUTEROL 3 ML AMPUL.NEB NEB PRN (19:13)
[2021-02-04] MEDS ORDERED: POTASSIUM CHLORIDE 40 MEQ in DEXTROSE 5% IN WATER 500 ML IV PRN (19:13)
[2021-02-04] MEDS ORDERED: POTASSIUM CHLORIDE 20 MEQ TABLET PO PRN ×2 (19:13)
[2021-02-04] MEDS ORDERED: MAGNESIUM SULFATE 2 GM/50 ML BAG IV PRN (19:13)
[2021-02-04] MEDS ORDERED: ACETAMINOPHEN 325 MG TABLET PO PRN (19:13)
[2021-02-04] MEDS ORDERED: POLYETHYLENE GLYCOL 3350 17 GM PACKET PO PRN (19:13)
[2021-02-04] MEDS ORDERED: SENNOSIDES 1 TABLET PO PRN (19:13)
[2021-02-04] MEDS: DOCUSATE SODIUM 100 MG CAPSULE PO SCH (20:46)
[2021-02-04] MEDS ORDERED: traZODone HCL 150 MG TABLET PO PRN (22:04)
[2021-02-04] MEDS ORDERED: oxyCODONE/APAP 10/325MG TABLET PO PRN (22:04)
[2021-02-04] MEDS ORDERED: oxyCODONE 10 MG TAB.ER.12H PO PRN (22:05)
[2021-02-04] MEDS ORDERED: oxyCODONE HCL 5 MG TABLET PO PRN (22:07)
[2021-02-04] MEDS: oxyCODONE HCL 5 MG TABLET PO ONE ×2 (22:18→22:22)
[2021-02-04] MEDS: 0.9 % SODIUM CHLORIDE 10 ML SYRINGE IV SCH (23:23)
[2021-02-04] MEDS ORDERED: traZODone HCL 50 MG TABLET ONE (23:24)
[2021-02-05] MEDS ORDERED: oxyCODONE/APAP 10/325MG TABLET PO ONE (02:09)
[2021-02-05] MEDS: 0.9 % SODIUM CHLORIDE 10 ML SYRINGE IV SCH ×3 (06:46→20:48)
--- NOTE | 2021-02-05 07:25 | Internal Med Progress Note ---
SUBJECTIVE Subjective Patient information: Note initiated : 02/05/21 at 7:23 am Service Date, if different from initiated Date: [] Patient: Austin Canseco 80 y/o M admitted on 02/04/21 for Returned from Facility for placement. Chief Complaint: [] Interval history: History of present illness: Mr. Canseco is a 80 year old M Patient presents back from the nursing facility. He was discharged there today after prolonged stay but was sent back due to insurance issues. Has some nausea but no other complaints. FROM recent admit: In the ED he was evaluated and chest pain work-up. He had a temperature of 100.6. Lactic acid was 2.9 and white blood cell count was 16 Does have history of coronary artery disease with stents and atrial fibrillation on anticoagulation and diabetes. In the ED he had an episode where he is altered and came confused and acutely hypoxic. Sepsis protocol was initiated with IV fluid bolus. Mentation came around qu ickly. Further work-up revealed acute cholecystitis. Dr. Bowie was contacted for surgery and then I was contacted. 01/26 No overnight or new complaints. Will undergo laparoscopic cholecystectomy this morning. 01/27 Chronic back pain, no overnight event or new complaints. White blood cell count now starting to slowly improve. Mild hyponatremia 01/28 Stable respiratory status and hemodynamics. Surgery feels the patient has a biliary leak and considering MRCP. 01/29 Abdominal drain continues to pull bilious fluid. Cultures have not grown anything, antibiotics deescalated from Zosyn to Ceftriaxone and Flagyl. Gram stain and culture of bilious drainage. Abdominal xray shows a moderately disten ded stomach. 01/30 Monitoring abdominal drain output. Patient stable and has a good appetite. 01/31 Persistent drain output of bilious fluid, surgery consulted GI. Discontinued Ceftriaxone and Flagyl. 02/01 GI planning for ERCP to hopefully divert bile from leak. Medical problems are stable. 02/02 Medical issues are stable, ongoing surgery and GI plans to address the persistent biliary leak. 02/03 Patient was doing well until this morning after 8am when he developed tachypnea and had labored breathing with tachycardia and was hypertensive. He felt distended. Chest x-ray and abdominal x-ray were done which showed pulmonary edema and atypical ileus. Patient appears comfortable the time of my visit. IV Lasix ordered. Shortness of breath better than earlier. Normal cough. Patient states he is passing some gas. 02/04 No overnight event or new complaints. Patient on room air. Patient with significant urine output yesterday. sent back from [facility] same day d/t insurance issues 02/05 Patient complains of back pain after being moved to nursing facility and then moved back. Otherwise no new complaints. Nursing correcting home medication list as the current one the system does not quite match what he was on during last admit. Review of Systems: denies headache/fever/chills/nausea/vomiting/chest or abdominal pain/cough/dyspnea/diarrhea. Otherwise see above. Constitutional Vitals: Vital Signs Temp Pulse Resp BP Pulse Ox 97.4 F 73 18 150/76 94 02/05/21 07:00 02/05/21 07:00 02/05/21 07:00 02/05/21 07:00 02/05/21 07:00 Period Temp Pulse Resp BP Sys/Ignacio Pulse Ox Last 24 Hr 97.4 F-98.4 F 72-99 18-20 146-183/46-101 89-94 Intake and Output 02/04/21 02/05/21 02/05/21 21:59 05:59 13:59 Intake Total 960 Output Total 1275 450 Balance -315 -450 Weight 134.859 kg Intake & Output: Intake & Output 02/04/21 02/05/21 02/05/21 21:59 05:59 13:59 Intake Total 960 Output Total 1275 450 Balance -315 -450 Weight 134.859 kg Intake: Oral 960 Output: Void Amount 1275 450 Other: Urine Appearance Clear Clear Clear Urine Color Straw Bright Yellow Bright Yellow Urine Odor Normal Normal Normal Exam: General: Alert, Awake, No acute Distress, obese Eyes/N/T: EOMI, Head/Neck: neck supple, CV: Irregular irr No murmurs, Pulm: improved b/l rales, no wheezing Abd: soft, nontender, +BS x4 Ext: no clubbing/cyanosis. b/l LE mild edema - much improved Neuro: Alert, no focal deficits, moves all extremities, Skin: warm/dry OBJ DATA Labs CBC & Chem 7: 02/05/21 05:00 02/05/21 05:00 Meds: Medications Acetaminophen (Acetaminophen 325 Mg Tablet) 650 mg PO Q6HP PRN PRN Reason: PAIN/FEVER > 101 Albuterol/Ipratropium (Ipratropium/Albuterol 3 Ml Ampul.Neb) 3 ml NEB Q4HP PRN PRN Reason: Shortness Of Breath Apixaban (Apixaban 5 Mg Tablet) 5 mg PO BID [facility] Atorvastatin Calcium (Atorvastatin 10 Mg Tablet) 10 mg PO DAILY [facility] Docusate Sodium (Docusate Sodium 100 Mg Capsule) 100 mg PO BID [facility] Last Admin: 02/04/21 20:46 Dose: Not Given Documented by: Hydroxyzine HCl (Hydroxyzine 25 Mg Tablet) 25 mg PO DAILY [facility] Potassium Chloride 40 meq/ (Dextrose) 520 mls @ 130 mls/hr IV UD PRN PRN Reason: Potassium < 3 Magnesium Sulfate (Magnesium Sulfate) 2 gm in 50 mls @ 50 mls/hr IV UD PRN PRN Reason: Magnesium </= 1.6 Lactulose (Lactulose 20 Gm/30 Ml Oral.Alexa) 20 gm PO DAILYP PRN PRN Reason: Constipation Metoclopramide HCl (Metoclopramide 10 Mg/2 Ml Vial) 10 mg IV Q6HP PRN PRN Reason: Nausea And Vomiting Non-Formulary Medication (Baclofen) 5 mg PO DAILY [facility] Non-Formulary Medication (Lantus U-100 Insulin) 59 unit SUB-Q QDAY [facility] Non-Formulary Medication (Lisinopril) 40 mg PO QDAY [facility] Non-Formulary Medication (Oxybutynin Chloride) 10 mg PO QDAY [facility] Non-Formulary Medication (Polyethylene Glycol 3350 [Miralax]) 17 g PO BID [facility] Non-Formulary Medication (Potassium Chloride) 10 meq PO BID [facility] Omeprazole (Omeprazole 20 Mg Capsule) 20 mg PO QDAY [facility] Ondansetron HCl (Ondansetron 4 Mg/2 Ml Vial) 4 mg IV Q4HP PRN PRN Reason: Nausea And Vomiting Oxycodone HCl (Oxycodone Hcl 5 Mg Tablet) 10 mg PO Q4-6HP PRN; Protocol PRN Reason: Per Pain Protocol Last Admin: 02/04/21 22:19 Dose: 10 mg Documented by: Oxycodone HCl (Oxycodone 10 Mg Tab.Er.12h) 10 mg PO BID PRN; Protocol PRN Reason: Pain Oxycodone/Acetaminophen (Oxycodone/Apap 10/325mg Tablet) 1 tab PO Q4H PRN; Protocol PRN Reason: Pain Last Admin: 02/05/21 02:08 Dose: 1 tab Documented by: Polyethylene Glycol (Polyethylene Glycol 3350 17 Gm Packet) 17 gm PO DAILYP PRN PRN Reason: Constipation Potassium Chloride (Potassium Chloride 20 Meq Tablet) 40 meq PO UD PRN PRN Reason: Potssium is 3-3.5 Potassium Chloride (Potassium Chloride 20 Meq Tablet) 40 meq PO UD PRN PRN Reason: Potassium < 3 Senna (Sennosides 1 Tablet) 2 tab PO DAILYP PRN PRN Reason: Constipation Sodium Chloride (0.9 % Sodium Chloride 10 Ml Syringe) 10 ml IV Q8 [facility] Last Admin: 02/05/21 06:46 Dose: 10 ml Documented by: Trazodone HCl (Trazodone Hcl 150 Mg Tablet) 300 mg PO QHS PRN PRN Reason: Sleep Trazodone HCl (Trazodone Hcl 150 Mg Tablet) 300 mg PO QHS PRN PRN Reason: Sleep A/P Narrative A/P Narrative: A: #Acute cholecystitis: s/p lap tello (01/26) -pathology: gangrenous acute and chronic cholecystitis with cholelithiasis #Biliary leak: s/p ERCP with stone removal and stent (02/01) #Ileus: resolved #Volume overload with pulmonary edema: improved -good UOP #acute hypoxic resp failure: 2/2 above -now on room air #Sepsis: resolved #Encephalopathy: resolved #Hyponatremia, mild: Resolved with diuresis #DM w/hyperglycemia: #Anemia, chronic: #CAD w/stent: on BB #AFib: on eliquis/BB #Bradycardia: holding BB, f/u with cardiology #HTN: on BB/ACEI/Norvasc #GERD: #Obesity: #Sacral wound: follows with wound clinic P: -s/p IV lasix, cont home lasix, monitor UOP/i&O's -Dr. Bowie for surgery, abdominal drain output per surgery -cont home norvasc/ACEI, hold BB for bradycardia & f/u with cardiology -cont home baclofen -basal and SSI -wound care for sacral pressure wound -electrolyte replacement prn -pt/ot -Staff to update meds in the system so I can reconcile -ppx: eliquis/home ppi -disposition: SNF code status: adult live in caregiver Spent With Patient Time: Total time spent is greater than 50% in coordination of care (as documented) at patient's floor/unit and/or counseling patient:
[2021-02-05] MEDS ORDERED: CALCIUM CARBONATE 500 MG TAB.CHEW CHEWED PRN (07:26)
[2021-02-05] MEDS ORDERED: DEXTROSE 50% 50 ML VIAL IV PRN (07:26)
[2021-02-05] MEDS ORDERED: DEXTROSE 31 GM ORAL.SUSP PO PRN (07:26)
[2021-02-05] MEDS ORDERED: hydrALAZINE 20 MG/ML VIAL IV PRN (07:29)
[2021-02-05] MEDS ORDERED: LABETALOL 5 MG/ML ML IV PRN (07:29)
[2021-02-05] MEDS: INSULIN LISPRO 1 UNIT/0.01 ML UNIT SQ SCH ×4 (07:40→21:07)
[2021-02-05] MEDS: PANTOPRAZOLE 40 MG PACKET PO SCH (08:00)
[2021-02-05] MEDS: oxyCODONE/APAP 10/325MG TABLET PO PRN ×3 (08:00→22:23)
[2021-02-05 08:29] LABS: Hematocrit 36.4 % (41.0-55.0); Hemoglobin 11.8 g/dL (13.5-16.5); Mean Cell Volume 91.2 fL (80.0-100.0); Mean Corpuscular HGB Conc 32.4 g/dL (31.0-36.0); Mean Platelet Volume 9.8 fL (7.4-10.4); Platelet Count 455 K/mcL (140-440); RBC 3.99 M/mcL (4.50-5.90); Red Cell Distribution Width 14.9 % (11.5-14.5); WBC 9.9 K/mcL (4.5-11.0)
[2021-02-05 08:58] LABS: ALT/SGPT 9 U/L (<40); AST/SGOT 13 U/L (<40); Albumin 3.3 gm/dL (3.2-5.2); Albumin/Globulin Ratio 1.1 (1.0-2.3); Alkaline Phosphatase 193 U/L (39-117); Bilirubin,Direct 0.2 mg/dL (<0.3); Bilirubin,Total 0.7 mg/dL (0.1-1.0); Blood Urea Nitrogen 3 mg/dL (8-23); Carbon Dioxide 29 mmol/L (22-30); Chloride 97 mmol/L (96-108); Glomerular Filtration Rate 102; Glucose 132 mg/dL (70-105); Lactate Dehydrogenase 233 U/L (135-225); Phosphorous 2.3 mg/dL (2.5-4.5); Triglycerides 85 mg/dL (<150); Uric Acid 3.1 mg/dL (2.5-8.0)
[2021-02-05] MEDS ORDERED: [UNRECOGNIZED DRUG - OTHER] SUB-Q SCH (09:00)
[2021-02-05] MEDS ORDERED: OMEPRAZOLE 20 MG CAPSULE PO SCH (09:00)
[2021-02-05] MEDS ORDERED: INSULIN GLARGINE SUB-Q SCH (09:00)
[2021-02-05 09:21] LABS: Anisocytosis FEW (None Seen); Band Neutrophils % 2 % (0-10); Lymphocytes % 18 % (15-49); Monocytes % (Manual) 7 % (1-12); Platelet Estimate NORMAL (Normal); RBC Morphology ABNORMAL (Normal); Reactive Lymphocytes 1 % (0-2); Segmented Neutrophils % 72 % (38-78)
[2021-02-05] MEDS: OXYBUTYNIN CHLORIDE 5 MG TAB.XL.24H PO SCH (09:23)
[2021-02-05] MEDS: APIXABAN 5 MG TABLET PO SCH ×2 (09:23→20:43)
[2021-02-05] MEDS: ATORVASTATIN 10 MG TABLET PO SCH (09:23)
[2021-02-05] MEDS: DOCUSATE SODIUM 100 MG CAPSULE PO SCH ×2 (09:23→20:44)
[2021-02-05] MEDS: hydrOXYzine 25 MG TABLET PO SCH (09:23)
[2021-02-05] MEDS: LISINOPRIL 20 MG TABLET PO SCH (09:24)
[2021-02-05] MEDS: BACLOFEN 10 MG TABLET PO SCH (09:24)
[2021-02-05] MEDS: FUROSEMIDE 40 MG TABLET PO SCH (09:24)
[2021-02-05] MEDS: INSULIN GLARGINE, HUMAN 1 UNIT/0.01 ML SQ SCH (09:25)
[2021-02-05] MEDS: amLODIPine 10 MG TABLET PO SCH (09:26)
[2021-02-05] MEDS: POLYETHYLENE GLYCOL 3350 17 GM PACKET PO SCH ×2 (09:26→20:44)
[2021-02-05] MEDS: POTASSIUM CHLORIDE 10 MEQ TABLET PO SCH ×2 (09:28→18:25)
[2021-02-05] MEDS: ONDANSETRON 4 MG/2 ML VIAL IV PRN (10:12)
[2021-02-05] MEDS: MELATONIN 3 MG TABLET PO SCH (20:43)
[2021-02-05] MEDS: traZODone HCL 150 MG TABLET PO PRN (22:23)
--- NOTE | 2021-02-06 07:05 | Internal Med Progress Note ---
SUBJECTIVE Subjective Patient information: Note initiated : 02/06/21 at 7:04 am Service Date, if different from initiated Date: [] Patient: Austin Canseco 80 y/o M admitted on 02/04/21 for Returned from Facility for placement. Chief Complaint: [] Interval history: History of present illness: Mr. Canseco is a 80 year old M Patient presents back from the nursing facility. He was discharged there today after prolonged stay but was sent back due to insurance issues. Has some nausea but no other complaints. FROM recent admit: In the ED he was evaluated and chest pain work-up. He had a temperature of 100.6. Lactic acid was 2.9 and white blood cell count was 16 Does have history of coronary artery disease with stents and atrial fibrillation on anticoagulation and diabetes. In the ED he had an episode where he is altered and came confused and acutely hypoxic. Sepsis protocol was initiated with IV fluid bolus. Mentation came around qu ickly. Further work-up revealed acute cholecystitis. Dr. Bowie was contacted for surgery and then I was contacted. 01/26 No overnight or new complaints. Will undergo laparoscopic cholecystectomy this morning. 01/27 Chronic back pain, no overnight event or new complaints. White blood cell count now starting to slowly improve. Mild hyponatremia 01/28 Stable respiratory status and hemodynamics. Surgery feels the patient has a biliary leak and considering MRCP. 01/29 Abdominal drain continues to pull bilious fluid. Cultures have not grown anything, antibiotics deescalated from Zosyn to Ceftriaxone and Flagyl. Gram stain and culture of bilious drainage. Abdominal xray shows a moderately disten ded stomach. 01/30 Monitoring abdominal drain output. Patient stable and has a good appetite. 01/31 Persistent drain output of bilious fluid, surgery consulted GI. Discontinued Ceftriaxone and Flagyl. 02/01 GI planning for ERCP to hopefully divert bile from leak. Medical problems are stable. 02/02 Medical issues are stable, ongoing surgery and GI plans to address the persistent biliary leak. 02/03 Patient was doing well until this morning after 8am when he developed tachypnea and had labored breathing with tachycardia and was hypertensive. He felt distended. Chest x-ray and abdominal x-ray were done which showed pulmonary edema and atypical ileus. Patient appears comfortable the time of my visit. IV Lasix ordered. Shortness of breath better than earlier. Normal cough. Patient states he is passing some gas. 02/04 No overnight event or new complaints. Patient on room air. Patient with significant urine output yesterday. sent back from [facility] same day d/t insurance issues 02/05 Patient complains of back pain after being moved to nursing facility and then moved back. Otherwise no new complaints. Nursing correcting home medication list as the current one the system does not quite match what he was on during last admit. 02/06 No changes overnight or new complaints other than occasional nausea as usual, no vomiting. Patient slept well. Review of Systems: denies headache/fever/chills/vomiting/chest or abdominal pain/cough/dyspnea/diarrhea. Otherwise see above. Constitutional Vitals: Vital Signs Temp Pulse Resp BP Pulse Ox 98.1 F 83 18 149/61 95 02/06/21 03:00 02/06/21 03:00 02/06/21 03:00 02/06/21 03:00 02/06/21 03:00 Period Temp Pulse Resp BP Sys/Ignacio Pulse Ox Last 24 Hr 97.6 F-98.7 F 70-83 16-20 148-165/56-89 94-95 Intake and Output 02/05/21 02/06/21 02/06/21 21:59 05:59 13:59 Intake Total 1120 480 Output Total 1295 675 Balance -175 -195 Weight 135.312 kg Intake & Output: Intake & Output 02/05/21 02/06/21 02/06/21 21:59 05:59 13:59 Intake Total 1120 480 Output Total 1295 675 Balance -175 -195 Weight 135.312 kg Intake: Oral 1120 480 Output: Drainage 95 Right ARELY Drain 95 Void Amount 1200 675 Other: Meal Dinner Percent of Meal Consumed 75% Feeding Ability Independent Urine Appearance Clear Clear Urine Color Dark Yellow Bright Yellow Urine Odor Normal Normal Exam: General: Alert, Awake, No acute Distress, obese Eyes/N/T: EOMI, Head/Neck: neck supple, CV: Irregular irr No murmurs, Pulm: improved b/l rales, no wheezing Abd: soft, nontender, +BS x4 Ext: no clubbing/cyanosis. b/l LE mild edema - much improved Neuro: Alert, no focal deficits, moves all extremities, Skin: warm/dry OBJ DATA Labs CBC & Chem 7: 02/05/21 05:00 02/05/21 05:00 Labs: Abnormal Lab Results 02/05/21 02/05/21 05:00 05:00 RBC 3.99 L Hgb 11.8 L Hct 36.4 L RDW 14.9 H Plt Count 455 H RBC Morphology Abnormal A Anisocytosis Few A BUN 3 L Creatinine 0.5 L Glucose 132 H Phosphorus 2.3 L GGT 161 H Alkaline Phosphatase 193 H Lactate Dehydrogenase 233 H Meds: Medications Acetaminophen (Acetaminophen 325 Mg Tablet) 650 mg PO Q6HP PRN PRN Reason: PAIN/FEVER > 101 Last Admin: 02/05/21 07:59 Dose: 650 mg Documented by: Albuterol/Ipratropium (Ipratropium/Albuterol 3 Ml Ampul.Neb) 3 ml NEB Q4HP PRN PRN Reason: Shortness Of Breath Amlodipine Besylate (Amlodipine 10 Mg Tablet) 10 mg PO DAILY [facility] Last Admin: 02/05/21 09:26 Dose: 10 mg Documented by: Apixaban (Apixaban 5 Mg Tablet) 5 mg PO BID [facility] Last Admin: 02/05/21 20:43 Dose: 5 mg Documented by: Atorvastatin Calcium (Atorvastatin 10 Mg Tablet) 10 mg PO DAILY [facility] Last Admin: 02/05/21 09:23 Dose: 10 mg Documented by: Baclofen (Baclofen 10 Mg Tablet) 5 mg PO DAILY [facility] Last Admin: 02/05/21 09:24 Dose: 5 mg Documented by: Calcium Carbonate/Glycine (Calcium Carbonate 500 Mg Tab.Chew) 500 mg CHEWED Q4HP PRN PRN Reason: Dyspepsia Dextrose (Dextrose 50% 50 Ml Vial) 0 ml IV UD PRN PRN Reason: Hypoglycemia Diagnostic Test (Pha) (Accu-Chek 1 Each Strip) 1 each FS ACHS [facility] Last Admin: 02/05/21 20:47 Dose: 1 each Documented by: Docusate Sodium (Docusate Sodium 100 Mg Capsule) 100 mg PO BID [facility] Last Admin: 02/05/21 20:44 Dose: 100 mg Documented by: Furosemide (Furosemide 40 Mg Tablet) 40 mg PO DAILY [facility] Last Admin: 02/05/21 09:24 Dose: 40 mg Documented by: Glucose (Dextrose 31 Gm Oral.Susp) 15 gm PO PRN PRN PRN Reason: Hypoglycemia Hydralazine HCl (Hydralazine 20 Mg/Ml Vial) 0 mg IV Q2HP PRN PRN Reason: Hypertension Hydroxyzine HCl (Hydroxyzine 25 Mg Tablet) 25 mg PO DAILY [facility] Last Admin: 02/05/21 09:23 Dose: 25 mg Documented by: Potassium Chloride 40 meq/ (Dextrose) 520 mls @ 130 mls/hr IV UD PRN PRN Reason: Potassium < 3 Magnesium Sulfate (Magnesium Sulfate) 2 gm in 50 mls @ 50 mls/hr IV UD PRN PRN Reason: Magnesium </= 1.6 Insulin Glargine (Insulin Glargine, Human 1 Unit/0.01 Ml) 57 unit SQ DAILY [facility] Last Admin: 02/05/21 09:25 Dose: 57 units Documented by: Insulin Human Lispro (Insulin Lispro 1 Unit/0.01 Ml Unit) 0 unit SQ ACHS [facility]; Protocol Last Admin: 02/05/21 21:07 Dose: 4 units Documented by: Labetalol HCl (Labetalol 5 Mg/Ml Ml) 0 mg IV Q2HP PRN PRN Reason: Hypertension Lactulose (Lactulose 20 Gm/30 Ml Oral.Alexa) 20 gm PO DAILYP PRN PRN Reason: Constipation Lisinopril (Lisinopril 20 Mg Tablet) 40 mg PO DAILY [facility] Last Admin: 02/05/21 09:24 Dose: 40 mg Documented by: Melatonin (Melatonin 3 Mg Tablet) 3 mg PO QHS [facility] Last Admin: 02/05/21 20:43 Dose: 3 mg Documented by: Metoclopramide HCl (Metoclopramide 10 Mg/2 Ml Vial) 10 mg IV Q6HP PRN PRN Reason: Nausea And Vomiting Ondansetron HCl (Ondansetron 4 Mg/2 Ml Vial) 4 mg IV Q4HP PRN PRN Reason: Nausea And Vomiting Last Admin: 02/05/21 10:12 Dose: 4 mg Documented by: Oxybutynin Chloride (Oxybutynin Chloride 5 Mg Tab.Xl.24h) 10 mg PO DAILY [facility] Last Admin: 02/05/21 09:23 Dose: 10 mg Documented by: Oxycodone/Acetaminophen (Oxycodone/Apap 10/325mg Tablet) 1 tab PO Q4HP PRN; Protocol PRN Reason: Pain Last Admin: 02/05/21 22:23 Dose: 1 tab Documented by: Pantoprazole Sodium (Pantoprazole 40 Mg Packet) 40 mg PO QAMAC [facility] Last Admin: 02/05/21 08:00 Dose: 40 mg Documented by: Polyethylene Glycol (Polyethylene Glycol 3350 17 Gm Packet) 17 gm PO BID [facility] Last Admin: 02/05/21 20:44 Dose: 17 gm Documented by: Potassium Chloride (Potassium Chloride 20 Meq Tablet) 40 meq PO UD PRN PRN Reason: Potssium is 3-3.5 Potassium Chloride (Potassium Chloride 10 Meq Tablet) 10 meq PO BIDCC [facility] Last Admin: 02/05/21 18:25 Dose: 10 meq Documented by: Senna (Sennosides 1 Tablet) 2 tab PO DAILYP PRN PRN Reason: Constipation Sodium Chloride (0.9 % Sodium Chloride 10 Ml Syringe) 10 ml IV Q8 [facility] Last Admin: 02/05/21 20:48 Dose: 10 ml Documented by: Trazodone HCl (Trazodone Hcl 150 Mg Tablet) 300 mg PO HSP PRN PRN Reason: Sleep Last Admin: 02/05/21 22:23 Dose: 300 mg Documented by: A/P Narrative A/P Narrative: A: #Acute cholecystitis: s/p lap tello (01/26) -pathology: gangrenous acute and chronic cholecystitis with cholelithiasis #Biliary leak: s/p ERCP with stone removal and stent (02/01) #Ileus: resolved #Volume overload with pulmonary edema: improved -good UOP #acute hypoxic resp failure: 2/2 above -now on room air #Sepsis: resolved #Encephalopathy: resolved #Hyponatremia, mild: Resolved with diuresis #DM w/hyperglycemia: #Anemia, chronic: #CAD w/stent: on BB #AFib: on eliquis/BB #Bradycardia: holding BB, f/u with cardiology #HTN: on BB/ACEI/Norvasc #GERD: #Obesity: #Sacral wound: follows with wound clinic P: -cont home lasix, monitor UOP/i&O's -Dr. 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
[2021-02-06] MEDS: POTASSIUM CHLORIDE 10 MEQ TABLET PO SCH ×2 (09:00→17:51)
[2021-02-06] MEDS: LISINOPRIL 20 MG TABLET PO SCH (09:16)
[2021-02-06] MEDS: amLODIPine 10 MG TABLET PO SCH (09:16)
[2021-02-06] MEDS: ATORVASTATIN 10 MG TABLET PO SCH (09:16)
[2021-02-06] MEDS: DOCUSATE SODIUM 100 MG CAPSULE PO SCH ×2 (09:16→21:04)
[2021-02-06] MEDS: OXYBUTYNIN CHLORIDE 5 MG TAB.XL.24H PO SCH (09:17)
[2021-02-06] MEDS: INSULIN LISPRO 1 UNIT/0.01 ML UNIT SQ SCH ×4 (09:18→20:55)
[2021-02-06] MEDS: BACLOFEN 10 MG TABLET PO SCH (09:19)
[2021-02-06] MEDS: hydrOXYzine 25 MG TABLET PO SCH (09:19)
[2021-02-06] MEDS: FUROSEMIDE 40 MG TABLET PO SCH (09:19)
[2021-02-06] MEDS: APIXABAN 5 MG TABLET PO SCH ×2 (09:19→21:04)
[2021-02-06] MEDS: POLYETHYLENE GLYCOL 3350 17 GM PACKET PO SCH ×2 (09:20→21:04)
[2021-02-06] MEDS: INSULIN GLARGINE, HUMAN 1 UNIT/0.01 ML SQ SCH (09:20)
[2021-02-06] MEDS: PANTOPRAZOLE 40 MG PACKET PO SCH (09:22)
[2021-02-06] MEDS: oxyCODONE/APAP 10/325MG TABLET PO PRN ×3 (09:23→21:19)
[2021-02-06] MEDS: 0.9 % SODIUM CHLORIDE 10 ML SYRINGE IV SCH ×3 (09:57→21:07)
[2021-02-06] MEDS: MELATONIN 3 MG TABLET PO SCH (21:04)
[2021-02-06] MEDS: traZODone HCL 150 MG TABLET PO PRN (21:19)
[2021-02-07] MEDS: 0.9 % SODIUM CHLORIDE 10 ML SYRINGE IV SCH ×3 (05:50→21:30)
--- NOTE | 2021-02-07 06:48 | Internal Med Progress Note ---
SUBJECTIVE Subjective Patient information: Note initiated : 02/07/21 at 6:47 am Service Date, if different from initiated Date: [] Patient: Austin Canseco 80 y/o M admitted on 02/04/21 for Returned from Facility for placement. Chief Complaint: [] Interval history: History of present illness: Mr. Canseco is a 80 year old M Patient presents back from the nursing facility. He was discharged there today after prolonged stay but was sent back due to insurance issues. Has some nausea but no other complaints. FROM recent admit: In the ED he was evaluated and chest pain work-up. He had a temperature of 100.6. Lactic acid was 2.9 and white blood cell count was 16 Does have history of coronary artery disease with stents and atrial fibrillation on anticoagulation and diabetes. In the ED he had an episode where he is altered and came confused and acutely hypoxic. Sepsis protocol was initiated with IV fluid bolus. Mentation came around qu ickly. Further work-up revealed acute cholecystitis. Dr. Bowie was contacted for surgery and then I was contacted. 01/26 No overnight or new complaints. Will undergo laparoscopic cholecystectomy this morning. 01/27 Chronic back pain, no overnight event or new complaints. White blood cell count now starting to slowly improve. Mild hyponatremia 01/28 Stable respiratory status and hemodynamics. Surgery feels the patient has a biliary leak and considering MRCP. 01/29 Abdominal drain continues to pull bilious fluid. Cultures have not grown anything, antibiotics deescalated from Zosyn to Ceftriaxone and Flagyl. Gram stain and culture of bilious drainage. Abdominal xray shows a moderately disten ded stomach. 01/30 Monitoring abdominal drain output. Patient stable and has a good appetite. 01/31 Persistent drain output of bilious fluid, surgery consulted GI. Discontinued Ceftriaxone and Flagyl. 02/01 GI planning for ERCP to hopefully divert bile from leak. Medical problems are stable. 02/02 Medical issues are stable, ongoing surgery and GI plans to address the persistent biliary leak. 02/03 Patient was doing well until this morning after 8am when he developed tachypnea and had labored breathing with tachycardia and was hypertensive. He felt distended. Chest x-ray and abdominal x-ray were done which showed pulmonary edema and atypical ileus. Patient appears comfortable the time of my visit. IV Lasix ordered. Shortness of breath better than earlier. Normal cough. Patient states he is passing some gas. 02/04 No overnight event or new complaints. Patient on room air. Patient with significant urine output yesterday. sent back from [facility] same day d/t insurance issues 02/05 Patient complains of back pain after being moved to nursing facility and then moved back. Otherwise no new complaints. Nursing correcting home medication list as the current one the system does not quite match what he was on during last admit. 02/06 No changes overnight or new complaints other than occasional nausea as usual, no vomiting. Patient slept well. 02/07 No new complaints. Patient seems to be doing well. Awaiting placement. Review of Systems: denies headache/fever/chills/vomiting/chest or abdominal pain/cough/dyspnea/diarrhea. Otherwise see above. Constitutional Vitals: Vital Signs Temp Pulse Resp BP Pulse Ox 97.1 F 62 16 131/67 92 02/07/21 03:03 02/07/21 03:03 02/07/21 03:03 02/07/21 03:03 02/07/21 03:03 Period Temp Pulse Resp BP Sys/Ignacio Pulse Ox Last 24 Hr 97 F-98.4 F 62-76 16-20 131-149/63-76 92-95 Intake and Output 02/06/21 02/07/21 02/07/21 21:59 05:59 13:59 Output Total 15 600 50 Balance -15 -600 -50 Weight 130.691 kg Intake & Output: Intake & Output 02/06/21 02/07/21 02/07/21 21:59 05:59 13:59 Output Total 15 600 50 Balance -15 -600 -50 Weight 130.691 kg Output: Drainage 15 50 Right ARELY Drain 15 50 Void Amount 600 Other: Urine Color Light Veronica Urine Odor Normal Exam: General: Alert, Awake, No acute Distress, obese Eyes/N/T: EOMI, Head/Neck: neck supple, CV: Irregular irr No murmurs, Pulm: improved b/l rales, no wheezing Abd: soft, nontender, +BS x4 Ext: no clubbing/cyanosis. minimal b/l LE mild edema - much improved Neuro: Alert, no focal deficits, moves all extremities, Skin: warm/dry OBJ DATA Labs CBC & Chem 7: 02/05/21 05:00 02/05/21 05:00 Labs: Abnormal Lab Results 02/05/21 02/05/21 05:00 05:00 RBC 3.99 L Hgb 11.8 L Hct 36.4 L RDW 14.9 H Plt Count 455 H RBC Morphology Abnormal A Anisocytosis Few A BUN 3 L Creatinine 0.5 L Glucose 132 H Phosphorus 2.3 L GGT 161 H Alkaline Phosphatase 193 H Lactate Dehydrogenase 233 H Meds: Medications Acetaminophen (Acetaminophen 325 Mg Tablet) 650 mg PO Q6HP PRN PRN Reason: PAIN/FEVER > 101 Last Admin: 02/05/21 07:59 Dose: 650 mg Documented by: Albuterol/Ipratropium (Ipratropium/Albuterol 3 Ml Ampul.Neb) 3 ml NEB Q4HP PRN PRN Reason: Shortness Of Breath Amlodipine Besylate (Amlodipine 10 Mg Tablet) 10 mg PO DAILY [facility] Last Admin: 02/06/21 09:16 Dose: 10 mg Documented by: Apixaban (Apixaban 5 Mg Tablet) 5 mg PO BID [facility] Last Admin: 02/06/21 21:04 Dose: 5 mg Documented by: Atorvastatin Calcium (Atorvastatin 10 Mg Tablet) 10 mg PO DAILY [facility] Last Admin: 02/06/21 09:16 Dose: 10 mg Documented by: Baclofen (Baclofen 10 Mg Tablet) 5 mg PO DAILY [facility] Last Admin: 02/06/21 09:19 Dose: 5 mg Documented by: Calcium Carbonate/Glycine (Calcium Carbonate 500 Mg Tab.Chew) 500 mg CHEWED Q4HP PRN PRN Reason: Dyspepsia Dextrose (Dextrose 50% 50 Ml Vial) 0 ml IV UD PRN PRN Reason: Hypoglycemia Diagnostic Test (Pha) (Accu-Chek 1 Each Strip) 1 each FS ACHS [facility] Last Admin: 02/06/21 20:54 Dose: 1 each Documented by: Docusate Sodium (Docusate Sodium 100 Mg Capsule) 100 mg PO BID [facility] Last Admin: 02/06/21 21:04 Dose: 100 mg Documented by: Furosemide (Furosemide 40 Mg Tablet) 40 mg PO DAILY [facility] Last Admin: 02/06/21 09:19 Dose: 40 mg Documented by: Glucose (Dextrose 31 Gm Oral.Susp) 15 gm PO PRN PRN PRN Reason: Hypoglycemia Hydralazine HCl (Hydralazine 20 Mg/Ml Vial) 0 mg IV Q2HP PRN PRN Reason: Hypertension Hydroxyzine HCl (Hydroxyzine 25 Mg Tablet) 25 mg PO DAILY [facility] Last Admin: 02/06/21 09:19 Dose: 25 mg Documented by: Potassium Chloride 40 meq/ (Dextrose) 520 mls @ 130 mls/hr IV UD PRN PRN Reason: Potassium < 3 Magnesium Sulfate (Magnesium Sulfate) 2 gm in 50 mls @ 50 mls/hr IV UD PRN PRN Reason: Magnesium </= 1.6 Insulin Glargine (Insulin Glargine, Human 1 Unit/0.01 Ml) 57 unit SQ DAILY [facility] Last Admin: 02/06/21 09:20 Dose: 57 units Documented by: Insulin Human Lispro (Insulin Lispro 1 Unit/0.01 Ml Unit) 0 unit SQ ACHS [facility]; Protocol Last Admin: 02/06/21 20:55 Dose: Not Given Documented by: Labetalol HCl (Labetalol 5 Mg/Ml Ml) 0 mg IV Q2HP PRN PRN Reason: Hypertension Lactulose (Lactulose 20 Gm/30 Ml Oral.Alexa) 20 gm PO DAILYP PRN PRN Reason: Constipation Lisinopril (Lisinopril 20 Mg Tablet) 40 mg PO DAILY [facility] Last Admin: 02/06/21 09:16 Dose: 40 mg Documented by: Melatonin (Melatonin 3 Mg Tablet) 3 mg PO QHS [facility] Last Admin: 02/06/21 21:04 Dose: 3 mg Documented by: Metoclopramide HCl (Metoclopramide 10 Mg/2 Ml Vial) 10 mg IV Q6HP PRN PRN Reason: Nausea And Vomiting Ondansetron HCl (Ondansetron 4 Mg/2 Ml Vial) 4 mg IV Q4HP PRN PRN Reason: Nausea And Vomiting Last Admin: 02/05/21 10:12 Dose: 4 mg Documented by: Oxybutynin Chloride (Oxybutynin Chloride 5 Mg Tab.Xl.24h) 10 mg PO DAILY [facility] Last Admin: 02/06/21 09:17 Dose: 10 mg Documented by: Oxycodone/Acetaminophen (Oxycodone/Apap 10/325mg Tablet) 1 tab PO Q4HP PRN; Pro tocol PRN Reason: Pain Last Admin: 02/06/21 21:19 Dose: 1 tab Documented by: Pantoprazole Sodium (Pantoprazole 40 Mg Packet) 40 mg PO QAMAC [facility] Last Admin: 02/06/21 09:22 Dose: 40 mg Documented by: Polyethylene Glycol (Polyethylene Glycol 3350 17 Gm Packet) 17 gm PO BID [facility] Last Admin: 02/06/21 21:04 Dose: 17 gm Documented by: Potassium Chloride (Potassium Chloride 20 Meq Tablet) 40 meq PO UD PRN PRN Reason: Potssium is 3-3.5 Potassium Chloride (Potassium Chloride 10 Meq Tablet) 10 meq PO BIDCC [facility] Last Admin: 02/06/21 17:51 Dose: 10 meq Documented by: Senna (Sennosides 1 Tablet) 2 tab PO DAILYP PRN PRN Reason: Constipation Sodium Chloride (0.9 % Sodium Chloride 10 Ml Syringe) 10 ml IV Q8 [facility] Last Admin: 02/07/21 05:50 Dose: 10 ml Documented by: Trazodone HCl (Trazodone Hcl 150 Mg Tablet) 300 mg PO HSP PRN PRN Reason: Sleep Last Admin: 02/06/21 21:19 Dose: 300 mg Documented by: A/P Narrative A/P Narrative: A: #Acute cholecystitis: s/p lap tello (01/26) -pathology: gangrenous acute and chronic cholecystitis with cholelithiasis #Biliary leak: s/p ERCP with stone removal and stent (02/01) #Ileus: resolved #Volume overload with pulmonary edema: improved -good UOP #acute hypoxic resp failure: 2/2 above -now on room air #Sepsis: resolved #Encephalopathy: resolved #Hyponatremia, mild: Resolved with diuresis #DM w/hyperglycemia: #Anemia, chronic: #CAD w/stent: on BB #AFib: on eliquis/BB #Bradycardia: holding BB, f/u with cardiology. resolved off BB #HTN: on BB/ACEI/Norvasc #GERD: #Obesity: #Sacral wound: follows with wound clinic P: -cont home lasix, monitor UOP/i&O's -Dr. 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
[2021-02-07] MEDS: INSULIN LISPRO 1 UNIT/0.01 ML UNIT SQ SCH ×4 (07:12→21:30)
[2021-02-07] MEDS: PANTOPRAZOLE 40 MG PACKET PO SCH (07:13)
[2021-02-07] MEDS: POTASSIUM CHLORIDE 10 MEQ TABLET PO SCH ×2 (07:13→16:36)
[2021-02-07] MEDS: DOCUSATE SODIUM 100 MG CAPSULE PO SCH ×2 (09:16→21:30)
[2021-02-07] MEDS: amLODIPine 10 MG TABLET PO SCH (09:17)
[2021-02-07] MEDS: APIXABAN 5 MG TABLET PO SCH ×2 (09:17→21:30)
[2021-02-07] MEDS: ATORVASTATIN 10 MG TABLET PO SCH (09:17)
[2021-02-07] MEDS: FUROSEMIDE 40 MG TABLET PO SCH (09:17)
[2021-02-07] MEDS: OXYBUTYNIN CHLORIDE 5 MG TAB.XL.24H PO SCH (09:17)
[2021-02-07] MEDS: LISINOPRIL 20 MG TABLET PO SCH (09:18)
[2021-02-07] MEDS: hydrOXYzine 25 MG TABLET PO SCH (09:18)
[2021-02-07] MEDS: BACLOFEN 10 MG TABLET PO SCH (09:18)
[2021-02-07] MEDS: INSULIN GLARGINE, HUMAN 1 UNIT/0.01 ML SQ SCH (09:19)
[2021-02-07] MEDS: oxyCODONE/APAP 10/325MG TABLET PO PRN ×4 (09:19→23:09)
[2021-02-07] MEDS: POLYETHYLENE GLYCOL 3350 17 GM PACKET PO SCH ×2 (09:20→21:30)
[2021-02-07] MEDS: LIDOCAINE PATCH TOPICAL SCH (10:57)
[2021-02-07] MEDS: ONDANSETRON 4 MG/2 ML VIAL IV PRN ×3 (14:57→20:06)
[2021-02-07] MEDS: MELATONIN 3 MG TABLET PO SCH (21:30)
[2021-02-08] MEDS: oxyCODONE/APAP 10/325MG TABLET PO PRN ×3 (03:17→19:29)
[2021-02-08] MEDS: ONDANSETRON 4 MG/2 ML VIAL IV PRN ×2 (03:22→07:10)
[2021-02-08] MEDS: 0.9 % SODIUM CHLORIDE 10 ML SYRINGE IV SCH ×3 (07:10→20:58)
[2021-02-08] MEDS: INSULIN LISPRO 1 UNIT/0.01 ML UNIT SQ SCH ×4 (07:16→21:12)
[2021-02-08] MEDS: PANTOPRAZOLE 40 MG PACKET PO SCH (07:27)
[2021-02-08] MEDS: DOCUSATE SODIUM 100 MG CAPSULE PO SCH ×2 (08:10→20:58)
[2021-02-08] MEDS: amLODIPine 10 MG TABLET PO SCH (08:10)
[2021-02-08] MEDS: BACLOFEN 10 MG TABLET PO SCH (08:10)
[2021-02-08] MEDS: LISINOPRIL 20 MG TABLET PO SCH (08:10)
[2021-02-08] MEDS: ATORVASTATIN 10 MG TABLET PO SCH (08:10)
[2021-02-08] MEDS: hydrOXYzine 25 MG TABLET PO SCH (08:11)
[2021-02-08] MEDS: INSULIN GLARGINE, HUMAN 1 UNIT/0.01 ML SQ SCH (08:11)
[2021-02-08] MEDS: POTASSIUM CHLORIDE 10 MEQ TABLET PO SCH (08:11)
[2021-02-08] MEDS: FUROSEMIDE 40 MG TABLET PO SCH (08:11)
[2021-02-08] MEDS: APIXABAN 5 MG TABLET PO SCH ×2 (08:11→20:57)
[2021-02-08] MEDS: OXYBUTYNIN CHLORIDE 5 MG TAB.XL.24H PO SCH (08:11)
[2021-02-08] MEDS: POLYETHYLENE GLYCOL 3350 17 GM PACKET PO SCH ×2 (08:11→20:57)
[2021-02-08] MEDS: LIDOCAINE PATCH TOPICAL SCH (10:03)
[2021-02-08] MEDS ORDERED: SCOPOLAMINE 1 PATCH PATCH TOPICAL SCH (11:00)
[2021-02-08 11:25] LABS: proBNP 905.1 pg/mL (<450.0)
[2021-02-08 12:56] LABS: Blood Urea Nitrogen 5 mg/dL (8-23); Calcium 9.2 mg/dL (8.6-10.4); Carbon Dioxide 27 mmol/L (22-30); Chloride 98 mmol/L (96-108); Glomerular Filtration Rate 94; Glucose 153 mg/dL (70-105)
--- NOTE | 2021-02-08 14:14 | Internal Med Progress Note ---
SUBJECTIVE Subjective Patient information: Note initiated : 02/08/21 at 2:07 pm Service Date, if different from initiated Date: [] Patient: Austin Canseco 80 y/o M admitted on 02/04/21 for Returned from Facility for placement. Chief Complaint: Pending placement Interval history: No new issues. Feeling well. No CP,SOB,N/V Constitutional Vitals: Vital Signs Temp Pulse Resp BP Pulse Ox 98.2 F 81 20 139/70 94 02/08/21 12:00 02/08/21 12:00 02/08/21 12:00 02/08/21 12:00 02/08/21 12:00 Period Temp Pulse Resp BP Sys/Ignacio Pulse Ox Last 24 Hr 97.5 F-98.6 F 67-81 16-20 128-151/61-79 91-97 Intake and Output 02/08/21 02/08/21 02/08/21 05:59 13:59 21:59 Intake Total 120 740 Output Total 540 1850 Balance -420 -1110 Intake & Output: Intake & Output 02/08/21 02/08/21 02/08/21 05:59 13:59 21:59 Intake Total 120 740 Output Total 540 1850 Balance -420 -1110 Intake: Oral 120 740 Output: Drainage 15 50 Right ARELY Drain 15 50 Void Amount 525 1800 Other: Meal Breakfast Percent of Meal Consumed 75% Feeding Ability Assist with Tray Set Up Urine Appearance Clear Urine Color Bright Yellow Straw Urine Odor Normal Additional findings Additional findings: General: Obese male with BMI 40, Alert, Awake, No acute Distress Eyes/N/T: EOMI, Head/Neck: neck supple, CV: Irregular irr No murmurs, Pulm: improved b/l rales, no wheezing Abd: Distended. Drain in place RUQ. Soft, nontender, +BS x4 Ext: 1+ b/l LE mild edema Neuro: Alert, no focal deficits, moves all extremities, Skin: warm/dry OBJ DATA Labs CBC & Chem 7: 02/05/21 05:00 02/08/21 09:57 Labs: Abnormal Lab Results 02/08/21 02/08/21 09:57 09:57 BUN 5 L Creatinine 0.6 L Glucose 153 H NT-Pro-B Natriuret Pep 905.1 H Meds: Medications Acetaminophen (Acetaminophen 325 Mg Tablet) 650 mg PO Q6HP PRN PRN Reason: PAIN/FEVER > 101 Last Admin: 02/05/21 07:59 Dose: 650 mg Documented by: Albuterol/Ipratropium (Ipratropium/Albuterol 3 Ml Ampul.Neb) 3 ml NEB Q4HP PRN PRN Reason: Shortness Of Breath Amlodipine Besylate (Amlodipine 10 Mg Tablet) 10 mg PO DAILY [facility] Last Admin: 02/08/21 08:10 Dose: 10 mg Documented by: Apixaban (Apixaban 5 Mg Tablet) 5 mg PO BID [facility] Last Admin: 02/08/21 08:11 Dose: 5 mg Documented by: Atorvastatin Calcium (Atorvastatin 10 Mg Tablet) 10 mg PO DAILY [facility] Last Admin: 02/08/21 08:10 Dose: 10 mg Documented by: Baclofen (Baclofen 10 Mg Tablet) 5 mg PO DAILY [facility] Last Admin: 02/08/21 08:10 Dose: 5 mg Documented by: Calcium Carbonate/Glycine (Calcium Carbonate 500 Mg Tab.Chew) 500 mg CHEWED Q4HP PRN PRN Reason: Dyspepsia Last Admin: 02/07/21 23:49 Dose: 500 mg Documented by: Dextrose (Dextrose 50% 50 Ml Vial) 0 ml IV UD PRN PRN Reason: Hypoglycemia Diagnostic Test (Pha) (Accu-Chek 1 Each Strip) 1 each FS ACHS [facility] Last Admin: 02/08/21 11:55 Dose: 1 each Documented by: Docusate Sodium (Docusate Sodium 100 Mg Capsule) 100 mg PO BID [facility] Last Admin: 02/08/21 08:10 Dose: 100 mg Documented by: Furosemide (Furosemide 40 Mg Tablet) 40 mg PO DAILY [facility] Last Admin: 02/08/21 08:11 Dose: 40 mg Documented by: Glucose (Dextrose 31 Gm Oral.Susp) 15 gm PO PRN PRN PRN Reason: Hypoglycemia Hydralazine HCl (Hydralazine 20 Mg/Ml Vial) 0 mg IV Q2HP PRN PRN Reason: Hypertension Hydroxyzine HCl (Hydroxyzine 25 Mg Tablet) 25 mg PO DAILY [facility] Last Admin: 02/08/21 08:11 Dose: 25 mg Documented by: Potassium Chloride 40 meq/ (Dextrose) 520 mls @ 130 mls/hr IV UD PRN PRN Reason: Potassium < 3 Magnesium Sulfate (Magnesium Sulfate) 2 gm in 50 mls @ 50 mls/hr IV UD PRN PRN Reason: Magnesium </= 1.6 Insulin Glargine (Insulin Glargine, Human 1 Unit/0.01 Ml) 57 unit SQ DAILY [facility] Last Admin: 02/08/21 08:11 Dose: 57 units Documented by: Insulin Human Lispro (Insulin Lispro 1 Unit/0.01 Ml Unit) 0 unit SQ ACHS [facility]; Protocol Last Admin: 02/08/21 11:56 Dose: 4 units Documented by: Labetalol HCl (Labetalol 5 Mg/Ml Ml) 0 mg IV Q2HP PRN PRN Reason: Hypertension Lactulose (Lactulose 20 Gm/30 Ml Oral.Alexa) 20 gm PO DAILYP PRN PRN Reason: Constipation Lidocaine (Lidocaine Patch) 1 patch TOPICAL DAILY@1000 [facility] Last Admin: 02/08/21 10:03 Dose: 1 patch Documented by: Lisinopril (Lisinopril 20 Mg Tablet) 40 mg PO DAILY [facility] Last Admin: 02/08/21 08:10 Dose: 40 mg Documented by: Melatonin (Melatonin 3 Mg Tablet) 3 mg PO QHS [facility] Last Admin: 02/07/21 21:30 Dose: 3 mg Documented by: Metoclopramide HCl (Metoclopramide 10 Mg/2 Ml Vial) 10 mg IV Q6HP PRN PRN Reason: Nausea And Vomiting Oxybutynin Chloride (Oxybutynin Chloride 5 Mg Tab.Xl.24h) 10 mg PO DAILY [facility] Last Admin: 02/08/21 08:11 Dose: 10 mg Documented by: Oxycodone/Acetaminophen (Oxycodone/Apap 10/325mg Tablet) 1 - 2 tab PO Q4HP PRN; Protocol PRN Reason: Per Pain Protocol Last Admin: 02/08/21 13:27 Dose: 2 tab Documented by: Pantoprazole Sodium (Pantoprazole 40 Mg Packet) 40 mg PO QAMAC [facility] Last Admin: 02/08/21 07:27 Dose: 40 mg Documented by: Polyethylene Glycol (Polyethylene Glycol 3350 17 Gm Packet) 17 gm PO BID [facility] Last Admin: 02/08/21 08:11 Dose: 17 gm Documented by: Potassium Chloride (Potassium Chloride 20 Meq Tablet) 40 meq PO UD PRN PRN Reason: Potssium is 3-3.5 Potassium Chloride (Potassium Chloride 20 Meq Packet) 20 meq PO BIDCC [facility] Scopolamine (Scopolamine 1 Patch Patch) 1 patch TOPICAL Q72H [facility] Last Admin: 02/08/21 12:03 Dose: 1 patch Documented by: Senna (Sennosides 1 Tablet) 2 tab PO DAILYP PRN PRN Reason: Constipation Sodium Chloride (0.9 % Sodium Chloride 10 Ml Syringe) 10 ml IV Q8 [facility] Last Admin: 02/08/21 13:29 Dose: 10 ml Documented by: Trazodone HCl (Trazodone Hcl 150 Mg Tablet) 300 mg PO HSP PRN PRN Reason: Sleep Last Admin: 02/06/21 21:19 Dose: 300 mg Documented by: A/P Narrative A/P Narrative: 80 year old M who returned back from the nursing facility. He was discharged 02/04 after prolonged stay but was sent back due to insurance issues. # Acute cholecystitis: s/p lap Guera (01/26) -pathology: gangrenous acute and chronic cholecystitis with cholelithiasis #Biliary leak: s/p ERCP with stone removal and stent (02/01) - Surgery Dr. Bowie for surgery, abdominal drain per surgery # Ileus: resolved #Volume overload with pulmonary edema: improved - Cont Lasix. Good UOP # Acute hypoxic resp failure: 2/2 above - Resolved. Now on Room air #Sepsis: Due to cholecystitis. Resolved #Encephalopathy:Resolved #Hyponatremia, mild: Resolved with diuresis #DM w/hyperglycemia: #Anemia, chronic: #CAD w/stent: on BB #AFib: on Eliquis/BB #Bradycardia: holding BB, f/u with cardiology. Resolved off BB #HTN: on BB/ACEI/Norvasc #GERD:Cont PPI #Obesity: #Sacral wound: follows with wound clinic DVT ppx: Eliquis/home ppi code status: full Dispo. Pending Placement. Time Spent With Patient Time: Total time spent is greater than 50% in coordination of care (as documented) at patient's floor/unit and/or counseling patient:
[2021-02-08] MEDS: POTASSIUM CHLORIDE 20 MEQ PACKET PO SCH (16:55)
[2021-02-08] MEDS ORDERED: NICOTINE 14 MG PATCH TOPICAL ONE (17:19)
[2021-02-08] MEDS: MELATONIN 3 MG TABLET PO SCH (20:58)
[2021-02-08] MEDS: traZODone HCL 150 MG TABLET PO PRN (20:58)
[2021-02-09] MEDS: oxyCODONE/APAP 10/325MG TABLET PO PRN ×2 (04:33→19:37)
[2021-02-09] MEDS: 0.9 % SODIUM CHLORIDE 10 ML SYRINGE IV SCH ×3 (04:34→21:55)
[2021-02-09 07:17] LABS: Blood Urea Nitrogen 5 mg/dL (8-23); Calcium 8.8 mg/dL (8.6-10.4); Carbon Dioxide 28 mmol/L (22-30); Chloride 98 mmol/L (96-108); Glomerular Filtration Rate 94; Glucose 98 mg/dL (70-105)
[2021-02-09] MEDS: PANTOPRAZOLE 40 MG PACKET PO SCH (07:57)
[2021-02-09] MEDS: POTASSIUM CHLORIDE 20 MEQ PACKET PO SCH ×2 (07:57→17:16)
[2021-02-09] MEDS: INSULIN LISPRO 1 UNIT/0.01 ML UNIT SQ SCH ×4 (07:58→22:28)
[2021-02-09] MEDS: BACLOFEN 10 MG TABLET PO SCH (08:22)
[2021-02-09] MEDS: LISINOPRIL 20 MG TABLET PO SCH (08:22)
[2021-02-09] MEDS: POLYETHYLENE GLYCOL 3350 17 GM PACKET PO SCH ×2 (08:22→21:57)
[2021-02-09] MEDS: OXYBUTYNIN CHLORIDE 5 MG TAB.XL.24H PO SCH (08:22)
[2021-02-09] MEDS: hydrOXYzine 25 MG TABLET PO SCH (08:22)
[2021-02-09] MEDS: APIXABAN 5 MG TABLET PO SCH ×2 (08:23→21:58)
[2021-02-09] MEDS: FUROSEMIDE 40 MG TABLET PO SCH (08:23)
[2021-02-09] MEDS: ATORVASTATIN 10 MG TABLET PO SCH (08:23)
[2021-02-09] MEDS: DOCUSATE SODIUM 100 MG CAPSULE PO SCH ×2 (08:23→21:58)
[2021-02-09] MEDS: amLODIPine 10 MG TABLET PO SCH (08:23)
[2021-02-09] MEDS: INSULIN GLARGINE, HUMAN 1 UNIT/0.01 ML SQ SCH (08:28)
[2021-02-09] MEDS: LIDOCAINE PATCH TOPICAL SCH (09:51)
--- NOTE | 2021-02-09 10:53 | Internal Med Progress Note ---
SUBJECTIVE Subjective Patient information: Note initiated : 02/09/21 at 10:52 am Service Date, if different from initiated Date: Patient: Austin Canseco 80 y/o M admitted on 02/04/21 for Returned from Facility for placement. Chief Complaint: Interval history: No new issues. Feeling well. No CP,SOB,N/V Constitutional Vitals: Vital Signs Temp Pulse Resp BP Pulse Ox 98.1 F 61 20 128/73 91 02/09/21 07:30 02/09/21 07:30 02/09/21 07:30 02/09/21 07:30 02/09/21 07:30 Period Temp Pulse Resp BP Sys/Ignacio Pulse Ox Last 24 Hr 97.8 F-98.3 F 61-81 18-22 128-162/70-75 91-97 Intake and Output 02/08/21 02/09/21 02/09/21 21:59 05:59 13:59 Intake Total 1900 200 840 Output Total 970 560 300 Balance 930 -360 540 Weight 128.593 kg Intake & Output: Intake & Output 02/08/21 02/09/21 02/09/21 21:59 05:59 13:59 Intake Total 1900 200 840 Output Total 970 560 300 Balance 930 -360 540 Weight 128.593 kg Intake: Oral 1900 200 840 Output: Drainage 70 110 50 Right ARELY Drain 70 110 50 Void Amount 900 450 250 Other: Meal Dinner Breakfast Percent of Meal Consumed 50% 100% Feeding Ability Independent Assist with Tray Set Up Urine Appearance Clear Clear Urine Color Bright Yellow Bright Yellow Dark Yellow Urine Odor Normal Normal Stool Size Smear Stool Color Brown Stool Consistency Soft Exam: General: Alert, Awake, No acute Distress, obese Eyes/N/T: EOMI, Head/Neck: neck supple, CV: Irregular irr No murmurs, Pulm: improved b/l rales, no wheezing Abd: soft, nontender, +BS x4 Ext: no clubbing/cyanosis. minimal b/l LE mild edema - much improved Neuro: Alert, no focal deficits, moves all extremities, Skin: warm/dry OBJ DATA Labs CBC & Chem 7: 02/05/21 05:00 02/09/21 05:30 Labs: Abnormal Lab Results 02/09/21 02/08/21 02/08/21 05:30 09:57 09:57 BUN 5 L 5 L Creatinine 0.6 L 0.6 L Glucose 153 H NT-Pro-B Natriuret Pep 905.1 H Meds: Medications Acetaminophen (Acetaminophen 325 Mg Tablet) 650 mg PO Q6HP PRN PRN Reason: PAIN/FEVER > 101 Last Admin: 02/05/21 07:59 Dose: 650 mg Documented by: Albuterol/Ipratropium (Ipratropium/Albuterol 3 Ml Ampul.Neb) 3 ml NEB Q4HP PRN PRN Reason: Shortness Of Breath Amlodipine Besylate (Amlodipine 10 Mg Tablet) 10 mg PO DAILY [facility] Last Admin: 02/09/21 08:23 Dose: 10 mg Documented by: Apixaban (Apixaban 5 Mg Tablet) 5 mg PO BID [facility] Last Admin: 02/09/21 08:23 Dose: 5 mg Documented by: Atorvastatin Calcium (Atorvastatin 10 Mg Tablet) 10 mg PO DAILY [facility] Last Admin: 02/09/21 08:23 Dose: 10 mg Documented by: Baclofen (Baclofen 10 Mg Tablet) 5 mg PO DAILY [facility] Last Admin: 02/09/21 08:22 Dose: 5 mg Documented by: Calcium Carbonate/Glycine (Calcium Carbonate 500 Mg Tab.Chew) 500 mg CHEWED Q4HP PRN PRN Reason: Dyspepsia Last Admin: 02/07/21 23:49 Dose: 500 mg Documented by: Dextrose (Dextrose 50% 50 Ml Vial) 0 ml IV UD PRN PRN Reason: Hypoglycemia Diagnostic Test (Pha) (Accu-Chek 1 Each Strip) 1 each FS ACHS [facility] Last Admin: 02/09/21 07:58 Dose: 1 each Documented by: Docusate Sodium (Docusate Sodium 100 Mg Capsule) 100 mg PO BID [facility] Last Admin: 02/09/21 08:23 Dose: 100 mg Documented by: Furosemide (Furosemide 40 Mg Tablet) 40 mg PO DAILY [facility] Last Admin: 02/09/21 08:23 Dose: 40 mg Documented by: Glucose (Dextrose 31 Gm Oral.Susp) 15 gm PO PRN PRN PRN Reason: Hypoglycemia Hydralazine HCl (Hydralazine 20 Mg/Ml Vial) 0 mg IV Q2HP PRN PRN Reason: Hypertension Hydroxyzine HCl (Hydroxyzine 25 Mg Tablet) 25 mg PO DAILY [facility] Last Admin: 02/09/21 08:22 Dose: 25 mg Documented by: Potassium Chloride 40 meq/ (Dextrose) 520 mls @ 130 mls/hr IV UD PRN PRN Reason: Potassium < 3 Magnesium Sulfate (Magnesium Sulfate) 2 gm in 50 mls @ 50 mls/hr IV UD PRN PRN Reason: Magnesium </= 1.6 Insulin Glargine (Insulin Glargine, Human 1 Unit/0.01 Ml) 57 unit SQ DAILY [facility] Last Admin: 02/09/21 08:28 Dose: 57 units Documented by: Insulin Human Lispro (Insulin Lispro 1 Unit/0.01 Ml Unit) 0 unit SQ ACHS [facility]; Protocol Last Admin: 02/09/21 07:58 Dose: Not Given Documented by: Labetalol HCl (Labetalol 5 Mg/Ml Ml) 0 mg IV Q2HP PRN PRN Reason: Hypertension Lactulose (Lactulose 20 Gm/30 Ml Oral.Alexa) 20 gm PO DAILYP PRN PRN Reason: Constipation Lidocaine (Lidocaine Patch) 1 patch TOPICAL DAILY@1000 [facility] Last Admin: 02/09/21 09:51 Dose: 1 patch Documented by: Lisinopril (Lisinopril 20 Mg Tablet) 40 mg PO DAILY [facility] Last Admin: 02/09/21 08:22 Dose: 40 mg Documented by: Melatonin (Melatonin 3 Mg Tablet) 3 mg PO QHS [facility] Last Admin: 02/08/21 20:58 Dose: 3 mg Documented by: Metoclopramide HCl (Metoclopramide 10 Mg/2 Ml Vial) 10 mg IV Q6HP PRN PRN Reason: Nausea And Vomiting Oxybutynin Chloride (Oxybutynin Chloride 5 Mg Tab.Xl.24h) 10 mg PO DAILY [facility] Last Admin: 02/09/21 08:22 Dose: 10 mg Documented by: Oxycodone/Acetaminophen (Oxycodone/Apap 10/325mg Tablet) 1 - 2 tab PO Q4HP PRN; Protocol PRN Reason: Per Pain Protocol Last Admin: 02/09/21 04:33 Dose: 2 tab Documented by: Pantoprazole Sodium (Pantoprazole 40 Mg Packet) 40 mg PO QAMAC [facility] Last Admin: 02/09/21 07:57 Dose: 40 mg Documented by: Polyethylene Glycol (Polyethylene Glycol 3350 17 Gm Packet) 17 gm PO BID [facility] Last Admin: 02/09/21 08:22 Dose: 17 gm Documented by: Potassium Chloride (Potassium Chloride 20 Meq Tablet) 40 meq PO UD PRN PRN Reason: Potssium is 3-3.5 Potassium Chloride (Potassium Chloride 20 Meq Packet) 20 meq PO BIDCC [facility] Last Admin: 02/09/21 07:57 Dose: 20 meq Documented by: Scopolamine (Scopolamine 1 Patch Patch) 1 patch TOPICAL Q72H [facility] Last Admin: 02/08/21 12:03 Dose: 1 patch Documented by: Senna (Sennosides 1 Tablet) 2 tab PO DAILYP PRN PRN Reason: Constipation Sodium Chloride (0.9 % Sodium Chloride 10 Ml Syringe) 10 ml IV Q8 [facility] Last Admin: 02/09/21 04:34 Dose: 10 ml Documented by: Trazodone HCl (Trazodone Hcl 150 Mg Tablet) 300 mg PO HSP PRN PRN Reason: Sleep Last Admin: 02/08/21 20:58 Dose: 300 mg Documented by: A/P Narrative A/P Narrative: 80 year old M who returned back from the nursing facility. He was discharged 02/04 after prolonged stay but was sent back due to insurance issues. # Acute cholecystitis: s/p lap Guera (01/26) - Final pathology: gangrenous acute and chronic cholecystitis with cholelithiasis #Biliary leak: S/p ERCP with stone removal and stent (02/01) - Surgery Dr. Bowie for surgery, abdominal drain per surgery # Ileus: resolved. On diet now. #Volume overload with pulmonary edema: improved - Cont Lasix. Good UOP. Stable Renal panel. Follow BMP # Acute failure: 2/2 above - Resolved. Now on Room air #Sepsis: Due to cholecystitis. Resolved #Encephalopathy:Resolved. A&Ox 3. #Hyponatremia, mild: Resolved with diuresis #DM w/hyperglycemia: Cont Lantus 59u and SSI #Anemia, chronic: Stable Hb. #CAD w/stent: on BB &LIpitor and Eliquis. Not on ASA #AFib: on Eliquis/BB #Bradycardia: holding BB, f/u with cardiology. Resolved off BB #HTN: on BB/ACEI/Norvasc #GERD:Cont PPI #Obesity: #Sacral wound: follows with wound clinic DVT ppx: Eliquis/home ppi code status: full Dispo. Pending Placement. Time Spent With Patient Time: Total time spent is greater than 50% in coordination of care (as documented) at patient's floor/unit and/or counseling patient:
[2021-02-09] MEDS: traZODone HCL 150 MG TABLET PO PRN (21:57)
[2021-02-09] MEDS: MELATONIN 3 MG TABLET PO SCH (21:58)
[2021-02-10] MEDS: oxyCODONE/APAP 10/325MG TABLET PO PRN (00:49)
[2021-02-10] MEDS: PANTOPRAZOLE 40 MG PACKET PO SCH (07:27)
[2021-02-10] MEDS: INSULIN LISPRO 1 UNIT/0.01 ML UNIT SQ SCH ×2 (07:36→12:28)
[2021-02-10] MEDS: 0.9 % SODIUM CHLORIDE 10 ML SYRINGE IV SCH (07:38)
[2021-02-10] MEDS: POTASSIUM CHLORIDE 20 MEQ PACKET PO SCH (09:38)
[2021-02-10] MEDS: hydrOXYzine 25 MG TABLET PO SCH (09:39)
[2021-02-10] MEDS: APIXABAN 5 MG TABLET PO SCH (09:40)
[2021-02-10] MEDS: BACLOFEN 10 MG TABLET PO SCH (09:40)
[2021-02-10] MEDS: OXYBUTYNIN CHLORIDE 5 MG TAB.XL.24H PO SCH (09:40)
[2021-02-10] MEDS: FUROSEMIDE 40 MG TABLET PO SCH (09:40)
[2021-02-10] MEDS: amLODIPine 10 MG TABLET PO SCH (09:41)
[2021-02-10] MEDS: ATORVASTATIN 10 MG TABLET PO SCH (09:41)
[2021-02-10] MEDS: LISINOPRIL 20 MG TABLET PO SCH (09:41)
[2021-02-10] MEDS: DOCUSATE SODIUM 100 MG CAPSULE PO SCH (09:43)
[2021-02-10] MEDS: POLYETHYLENE GLYCOL 3350 17 GM PACKET PO SCH (09:46)
[2021-02-10] MEDS: INSULIN GLARGINE, HUMAN 1 UNIT/0.01 ML SQ SCH (09:52)
[2021-02-10] MEDS: LIDOCAINE PATCH TOPICAL SCH (09:54)
--- NOTE | 2021-02-10 10:17 | Discharge Summary ---
Discharge Provider Provider Patient information: Note initiated : 02/10/21 at 10:13 am Service Date, if different from initiated Date: Patient: Austin Canseco 80 y/o M admitted on 02/04/21 for Returned from Facility for placement. Chief Complaint: Abdominal pain Date of admission: 02/04/21 19:04 Discharge date: 02/10/21 Primary care physician: PCP No Consults: 02/04/21 Consult to Physician [CONS] Stat Comment: Consulting Provider: Anthony Price Reason For Exam: Physician to Consult Discharge Meds Discharge Medications Home Medications atorvastatin 10 mg PO DAILY 02/03/20 [History Confirmed 02/04/21 Last Taken 02/03/21 21:00] hydroxyzine HCl 25 mg PO DAILY 02/03/20 [History Confirmed 02/04/21 Last Taken 02/04/21 09:00] apixaban 5 mg tablet 5 mg PO BID 01/07/21 [History Confirmed 02/04/21 Last Taken 02/04/21 09:00] baclofen 5 mg tablet 5 mg PO DAILY 01/07/21 [History Confirmed 02/04/21 Last Taken 02/04/21 09:00] furosemide 40 mg tablet 40 mg PO QAM 01/07/21 [History Confirmed 02/04/21 Last Taken 02/04/21 09:00] omeprazole 20 mg capsule,delayed release 20 mg PO QDAY 01/07/21 [History Confirmed 02/04/21 Last Taken 02/04/21 09:00] oxybutynin chloride 10 mg tablet,extended release 24 hr 10 mg PO QDAY 01/07/21 [History Confirmed 02/04/21 Last Taken 02/04/21 09:00] potassium chloride 10 mEq capsule,extended release 10 meq PO BID 01/07/21 [History Confirmed 02/04/21 Last Taken 02/04/21 21:00] Lantus U-100 Insulin 59 unit SUBCUT QDAY 01/25/21 [History Confirmed 02/04/21 Last Taken 02/04/21] lisinopril 40 mg PO QDAY 01/25/21 [History Confirmed 02/04/21 Last Taken 02/04/21 09:00] trazodone 300 mg PO QHS PRN 01/26/21 [History Confirmed 02/04/21 Last Taken 02/03/21 21:00] oxycodone-acetaminophen [Endocet] 1 tab PO Q4H PRN #30 tab 02/03/21 [Rx Confirmed 02/04/21 Last Taken 02/03/21 21:00] polyethylene glycol 3350 [Miralax] 17 g PO BID #510 g 02/03/21 [Rx Confirmed 02/04/21 Last Taken 02/03/21 21:00] trazodone 300 mg PO QHS PRN #20 tab 02/04/21 [Rx Confirmed 02/04/21 Last Taken 02/03/21 21:00] amlodipine 10 mg PO DAILY 30 Days tab 02/10/21 [Rx Last Taken Unknown] melatonin 3 mg PO QHS 3 Days #3 tab 02/10/21 [Rx Last Taken Unknown] scopolamine base [Transderm-Scop] 1 patch TOPICAL Q72H #5 ea 02/10/21 [Rx Last Taken Unknown] sennosides [Senna Lax] 2 tab PO DAILYP PRN #40 tab 02/10/21 [Rx Last Taken Unknown] COURSE Hospital Course Hospital course: 80 year old M who returned back from the nursing facility. He was discharged 02/04 after prolonged stay but was sent back due to insurance issues. His hospital course is as following. # Acute cholecystitis: S/p lap cholecystectomy on 01/26/2021 - Final pathology: gangrenous acute and chronic cholecystitis with cholelithiasis -Patient is doing well. Tolerating regular diet. Cholecystostomy tube in place. #Biliary leak: S/p ERCP with stone removal and stent (02/01) - Surgery Dr. Bowie for surgery, abdominal drain per surgery -Continue drain care. Dr. Bowie following. # Ileus: resolved. On diet now. #Volume overload with pulmonary edema: improved - Cont Lasix. Good UOP. Stable Renal panel. Follow BMP # Acute failure: 2/2 above - Resolved. Now on Room air #Sepsis: Due to cholecystitis. Resolved #Encephalopathy:Resolved. A&Ox 3. #Hyponatremia, mild: Resolved with diuresis #DM w/hyperglycemia: Cont Lantus 59u and SSI #Anemia, chronic: Stable Hb. #CAD w/stent: on BB &LIpitor and Eliquis. Not on ASA #AFib: on Eliquis/BB #Bradycardia: holding BB, f/u with cardiology. Resolved off BB #HTN: on BB/ACEI/Norvasc #GERD:Cont PPI #Obesity: #Sacral wound: follows with wound clinic DVT ppx: Eliquis/home ppi code status: full Disposition: Patient discharged [facility] home Condition on discharge: Hemodynamically stable. Tolerated p.o. Discharge activity: As tolerated Discharge diet: Diabetic, cardiac, low-fat Discharge medication: See med reconciliation form Discharge follow-up: Primary care physician within 1 week for post hospital follow-up. Dr. Jamir Perez as instructed. Drain care: Please see surgery note Discharge diagnosis: Acute cholecystitis with biliary leak. Time Spent with Patient Time attestation: Total time spent providing and/or coordinating discharge services: EXAM Constitutional Vitals: Temp Pulse Resp BP Pulse Ox 97.8 F 76 16 177/70 97 02/10/21 08:00 02/10/21 08:00 02/10/21 08:00 02/10/21 08:00 02/10/21 08:00 Additional findings Additional findings: Alert, Awake, No acute Distress, obese Eyes/N/T: EOMI, Head/Neck: neck supple, CV: Irregular irregular, no murmurs, Pulm: Clear to auscultation bilaterally. No crackles rhonchi as well Abd: soft, nontender, +BS x4. Right upper quadrant biliary drain in place. Ext: no clubbing/cyanosis. minimal b/l LE mild edema - much improved Neuro: Alert, no focal deficits, moves all extremities, Skin: warm/dry Discharge Plan Patient/Caregiver Discharge Instructions Activity: increase activity as tolerated Prescriptions: New sennosides [Senna Lax] 8.6 mg Tablet 2 tab PO DAILYP PRN (Reason: Constipation) Qty: 40 RF: 0 melatonin 3 mg Tablet 3 mg PO QHS 3 Days Qty: 3 RF: 0 amlodipine 10 mg Tablet 10 mg PO DAILY 30 Days RF: 0 scopolamine base [Transderm-Scop] 1 mg over 3 days Patch 3 Day 1 patch topical Q72H Qty: 5 RF: 0 Continued Eliquis 5 mg tablet 5 mg PO BID RF: 0 potassium chloride 10 mEq capsule, extended release 10 meq PO BID RF: 0 furosemide [Lasix] 40 mg tablet 40 mg PO QAM RF: 0 oxybutynin chloride 10 mg tablet extended release 24hr 10 mg PO QDAY RF: 0 omeprazole 20 mg capsule,delayed release(DR/EC) 20 mg PO QDAY RF: 0 atorvastatin 10 mg tablet 10 mg PO DAILY RF: 0 hydroxyzine HCl 25 mg tablet 25 mg PO DAILY RF: 0 baclofen 5 mg tablet 5 mg PO DAILY RF: 0 lisinopril 40 mg Tablet 40 mg PO QDAY RF: 0 Lantus U-100 Insulin 59 unit subcut QDAY RF: 0 trazodone 150 mg Tablet 300 mg PO QHS PRN (Reason: Sleep) RF: 0 oxycodone-acetaminophen [Endocet] 10-325 mg Tablet 1 tab PO Q4H PRN (Reason: Pain) Qty: 30 RF: 0 polyethylene glycol 3350 [Miralax] 17 gram/dose powder 17 g PO BID Qty: 510 RF: 2 trazodone 150 mg Tablet 300 mg PO QHS PRN (Reason: Sleep) Qty: 20 RF: 0 Discontinued oxycodone 5 mg capsule 10 mg PO BID PRN (Reason: Pain) RF: 0 magnesium hydroxide [Milk of Magnesia] 400 mg/5 mL suspension 15 ml PO BID PRN (Reason: constipation) Qty: 3000 RF: 0 Follow Up Plan Patient Disposition: Xfer SNF Prognosis: Good Rehab Potential: Good Discharge Orders: Discharge Order (Routine); Ordered 02/10/21 Ordered By: Adrian Fierro
== END 2021-02-10 11:40 | DRG 951 ==
LOC: ED 16:08 → MEDSUR 19:04
PROVIDERS: ADMIT Internal Medicine; ATTEND Internal Medicine